=== PATIENT | female | born 1965 | race Caucasian/White ===

== ENCOUNTER 2016-04-17 13:54 | Inpatient (IN) | payer BC, OTHER ==
[2016-04-17 14:08] VITALS: BMI 34.9
--- NOTE | 2016-04-17 14:18 | PDOC ---
History of Present Illness - General Chief Complaint: Wound Infection Stated Complaint: Wound Infection Time Seen by Provider: 04/17/16 14:18 History Source: Patient Exam Limitations: No Limitations - History of Present Illness Initial Comments: 04/17/16 18:14 50 year old female presented to the ED with the chief complaints of right leg pain x 10 days. A/c to the patient, it all started 3 months ago with a small cut , developed right foot ulcer needing debridement. Patient also gets hyperbaric oxygen therapy 4times a week. However, the ulcer wasn't getting better. Started having right leg pain 10days ago, went to Dr. Moore's clinic and was given antibiotics. Patient mentions the pain, redness and swelling worsened, pain located on the right foot, stabbing in quality, 20/10 in intensity, radiating towards the left knee, noticed the redness has been progressing upto the knees, pain has limited her daily routine. Developed fever x 2 days (Tmax 100F) with chills, rigors and sweating. Pain was unbearable and had to come to the ED. Denies chest pain, sob, cough, palpitation, abdominal pain, nausea or vomiting. Past Medical Hx:Hypertension, Hyperlipidemia, Diabetes, COPD, CAD (s/p PCI), Gastritis Allergies: NKDA Past Surgical Hx: as mentioned above Social Hx: Lives with her Denies taking alcohol, no smoking, no illicit drug use Home Medication: Home Medications Medication Instructions Recorded Nebivolol [Bystolic -] 5 mg PO DAILY 06/19/14 Olmesartan Medoxomil [Benicar -] 20 mg PO DAILY 06/19/14 Furosemide [Lasix -] 40 mg PO DAILY #0 tablet 06/20/14 Aspirin [ASA -] 81 mg PO DAILY 10/26/14 Atorvastatin Ca [Lipitor] 80 mg PO HS 10/26/14 Ranitidine [Zantac -] 150 mg PO DAILY tablet 10/30/14 Acetaminophen [Tylenol .Regular 650 mg PO Q6H PRN #0 tablet 02/11/16 Strength -] Cephalexin [Keflex] 500 mg PO QID #28 capsule MDD 4 03/03/16 Insulin Degludec [Tresiba 60 unit SQ HS 04/17/16 Flextouch U-100] Metformin HCl [Glucophage -] 850 mg PO BID@0700,1630 04/17/16 Past History - Past Medical History Allergies/Adverse Reactions: Allergies Allergy/AdvReac Type Severity Reaction Status Date / Time No Known Allergies Allergy Verified 04/17/16 14:08 Home Medications: Ambulatory Orders Nebivolol [Bystolic -] 5 mg PO DAILY 06/19/14 Olmesartan Medoxomil [Benicar -] 20 mg PO DAILY 06/19/14 Furosemide [Lasix -] 40 mg PO DAILY #0 tablet 06/20/14 Aspirin [ASA -] 81 mg PO DAILY 10/26/14 Atorvastatin Ca [Lipitor] 80 mg PO HS 10/26/14 Ranitidine [Zantac -] 150 mg PO DAILY tablet 10/30/14 Acetaminophen [Tylenol .Regular Strength -] 650 mg PO Q6H PRN #0 tablet Cephalexin [Keflex] 500 mg PO QID #28 capsule MDD 4 03/03/16 Insulin Degludec [Tresiba Flextouch U-100] 60 unit SQ HS 04/17/16 Metformin HCl [Glucophage -] 850 mg PO BID@0700,1630 04/17/16 Anemia: No Asthma: No Cancer: No Cardiac Disorders: Yes (stent 08/10/14) CVA: No COPD: No CHF: Yes Dementia: No Diabetes: Yes GI Disorders: Yes (GASTRITIS) Disorders: No HTN: Yes Hypercholesterolemia: Yes Liver Disease: No Suicide Attempt (Hx): No Seizures: No Thyroid Disease: No - Surgical History Abdominal Surgery: Yes (lt ovary removed) Appendectomy: No Cardiac Surgery: Yes (stent july 2014) Cholecystectomy: No Lung Surgery: No Neurologic Surgery: No Orthopedic Surgery: No - Immunization History Immunization Up to Date: Yes - Psycho/Social/Smoking Cessation Hx Anxiety: Yes Suicidal Ideation: No Smoking History: Never smoked Have you smoked in the past 12 months: No Hx Alcohol Use: Yes ("socially") Drug/Substance Use Hx: No Substance Use Type: None Hx Substance Use Treatment: No Review of Systems - Review of Systems Able to Perform ROS?: Yes Comments:: 04/17/16 18:40 CONSTITUTIONAL:~ Present: fever, chills Absent:, diaphoresis, generalized weakness, malaise, loss of appetite HEENT: Absent: rhinorrhea, nasal congestion, throat pain, throat swelling, difficulty swallowing, mouth swelling, ear pain, eye pain, visual Changes CARDIOVASCULAR: Absent: chest pain, syncope, palpitations, irregular heart rate, lightheadedness , peripheral edema RESPIRATORY: Absent: cough, shortness of breath, dyspnea with exertion, orthopnea, wheezing, stridor, hemoptysis GASTROINTESTINAL: Absent: abdominal pain, abdominal distension, nausea, vomiting, diarrhea, constipation, melena, hematochezia GENITOURINARY: Absent: dysuria, frequency, urgency, hesitancy, hematuria, flank pain, genital pain MUSCULOSKELETAL: Present: Right leg pain, swelling of the foot, redness extending from right foot to the knee. Absent: myalgia, arthralgia, joint swelling SKIN: Absent: rash, itching, pallor HEMATOLOGIC/IMMUNOLOGIC: Absent: easy bleeding, easy bruising, lymphadenopathy, frequent infections ENDOCRINE: Absent: unexplained weight gain, unexplained weight loss, heat intolerance, cold intolerance NEUROLOGIC: Absent: headache, focal weakness or paresthesias, dizziness, unsteady gait, seizure, mental status changes, bladder or bowel incontinence PSYCHIATRIC: Absent: anxiety, depression, suicidal or homicidal ideation, hallucinations. Is the patient limited Czech proficient: No *Physical Exam - Vital Signs Last Vital Signs Temp Pulse Resp BP Pulse Ox 99.7 F H 84 20 130/72 100 04/17/16 14:05 04/17/16 14:05 04/17/16 14:05 04/17/16 14:05 04/17/16 14:05 - Physical Exam Comments: 04/17/16 18:46 PE: GENERAL: Awake, alert, and fully oriented, in no acute distress HEAD: No signs of trauma EYES: PERRLA, EOMI, sclera anicteric, conjunctiva clear ENT: redness around nose, Auricles normal inspection, hearing grossly normal, nares patent, oropharynx clear without exudates. Moist mucosa NECK: Normal ROM, supple, no lymphadenopathy, JVD, or masses LUNGS: Breath sounds equal, clear to auscultation bilaterally. No wheezes, and no crackles.. HEART: Regular rate and rhythm, normal S1 and S2, no murmurs, rubs or gallops ABDOMEN: Soft, nontender, normoactive bowel sounds. No guarding, no rebound. No masses EXTREMITIES: Left: Normal range of motion, no edema. No clubbing or cyanosis. No cords, erythema, or tenderness Right foot: round ulcer measuring 1.8 x 1 cm blackish in color, irregular ulcer measuring 6 cm x 4.5cm, redness extending from right foot to the knees in a streak line pattern, severe tenderness on palpation, raised temperature of the skin, calf tenderness NEUROLOGICAL: Cranial nerves II through XII grossly intact. Normal speech, normal gait SKIN: Warm, Dry, normal turgor, no rashes or lesions noted. ED Treatment Course - LABORATORY CBC & Chemistry Diagram: 04/17/16 14:40 04/17/16 14:40 Medical Decision Making - Medical Decision Making 04/17/16 14:20 Patient seen and examined at bed side. She is in a lot of pain in the right leg. Physical exam: Positive finding shows: Left: Normal range of motion, no edema. No clubbing or cyanosis. No cords, erythema, or tenderness Right foot: round ulcer measuring 1.8 x 1 cm blackish in color, irregular ulcer measuring 6 cm x 4.5cm, redness extending from right foot to the knees in a streak line pattern, severe tenderness on palpation, raised temperature of the skin, calf tenderness. Will order Cbc, Cmp, ESR, CRP, Lactic acid, UA, Xray of right foot, CXR IV NS 1L bolus then IV NS @ 100mls/hr IV Ketorolac for pain IV Zosyn and Vancomycin one dose given 15:30 Patient reassessed. Still complaining of pain. Will give percocet. 16:15 Patient reassessed. Pain over the right leg reduced. Spoke with Dr. Polk. Will admit the patient under Dr. Underwood. Ordered consult for Dr. Moore. Ordered Doppler US of right leg as per Dr. Polk's recommendation. 17:00 On the basis of history and physical examination, symptoms are most consistent with sepsis secondary to cellulitis. However, would like to rule out DVT. Plan: Admit the patient in Med-surg Dr. Mathew accepted the patient. Spoke with the patient and she agreed to stay for IV Antibiotics. Illness, Investigation and Plan of care explained to the patient. She verbalized understanding. Case seen and discussed with Dr. Mathews. 04/17/16 19:07 *DC/Admit/Observation/Transfer Diagnosis at time of Disposition: Cellulitis, Leg edema, right - Discharge Dispostion Admit: Yes - Referrals Referrals: Esau Underwood MD [Primary Care Provider] -
[2016-04-17] MEDS ORDERED: SODIUM CHLORIDE 0.9% 1000 ML INFUS.BAG IV PRN (14:43)
[2016-04-17] MEDS ORDERED: ACETAMINOPHEN 325 MG TABLET (FP) PO ONE (14:46)
[2016-04-17] MEDS ORDERED: KETOROLAC TROMETHAMINE 30 MG/1 ML VIAL IVPUSH ONE (14:46)
[2016-04-17] MEDS ORDERED: VANCOMYCIN 1,000 MG in DEXTROSE 5%-WATER - 250 ML IVPB ONE (14:47)
[2016-04-17] MEDS ORDERED: PIPERACILLIN/TAZOB 3.375 GM/50 ML PRE-DOCKED IVPB ONE (14:47)
[2016-04-17] MEDS ORDERED: KETOROLAC TROMETHAMINE 30 MG/1 ML VIAL ONE (15:00)
[2016-04-17] MEDS ORDERED: VANCOMYCIN 1 GRAM (PRE-DOCKED) 250 ML IVPB ONE (15:00)
[2016-04-17] MEDS ORDERED: PIPERACILLIN/TAZOB 3.375 GM 50 ML IVPB ONE (15:00)
[2016-04-17] MEDS ORDERED: ACETAMINOPHEN 325 MG TABLET (FP) ONE (15:00)
[2016-04-17 15:06] LABS: URINE APPEARANCE CLEAR; URINE BILIRUBIN NEGATIVE (NEGATIVE); URINE BLOOD 1+ (NEGATIVE); URINE COLOR LTYELLOW; URINE GLUCOSE (UA) NEGATIVE (NEGATIVE); URINE KETONE NEGATIVE (NEGATIVE); URINE LEUK ESTERASE 2+ (NEGATIVE); URINE NITRITE NEGATIVE (NEGATIVE); URINE PROTEIN NEGATIVE (NEGATIVE); URINE UROBILINOGEN NEGATIVE E.U./dl (0.2-1.0)
[2016-04-17 15:10] LABS: URINE BACTERIA RARE /hpf (NONE SEEN); URINE HYALINE CAST 4 /lpf; URINE MUCUS RARE; URINE RBC 3 /hpf (0-3); URINE WBC 6 /hpf (3-5)
[2016-04-17] MEDS ORDERED: SODIUM CHLORIDE 1,000 ML IV STA (15:27)
[2016-04-17 15:36] LABS: BILIRUBIN,TOTAL 0.4 mg/dL (0.2-1.0); CALCIUM 8.5 mg/dL (8.5-10.1); CREATININE 1.2 mg/dL (0.55-1.02); TOT PROT 7.5 g/dl (6.4-8.2)
--- NOTE | 2016-04-17 15:36 | PDOC ---
Attending Attestation - Resident Resident Name: Graciela Orta - ED Attending Attestation I have performed the following: I have examined & evaluated the patient, The case was reviewed & discussed with the resident, I agree w/resident's findings & plan, Exceptions are as noted - HPI HPI: 04/17/16 15:32 Agree with the resident's HPI as documented in the electronic medical record. - Physicial Exam PE: 04/17/16 15:32 Agree with the resident's physical examination as documented in the electronic medical record. - Medical Decision Making 04/17/16 15:32 50-year-old female with history of hypertension, diabetes, coronary artery disease, hyperlipidemia and chronic cellulitis of the right lower extremity secondary to wound on the plantar surface of her foot who presents to the emergency department with progressive pain and worsening erythema to the right lower extremity in spite of Keflex treatment for the past week. Differential diagnosis includes but is not limited to: Cellulitis, MRSA, osteomyelitis, uncontrolled diabetes, electrolyte abnormality, toxic/metabolic derangement. Plan: 1. Plain films of the foot to rule out osteal 2. Labs 3. Blood cultures 4. IV antibiotics for MRSA coverage 5. Admit for IV antibiotics as the patient has failed outpatient treatment 6. Pain management 7. Observe and reevaluate
[2016-04-17 16:55] LABS: BASOPHIL 0.6 % (0-2.0); EOSINOPHIL 0.7 % (0-4.5); MCH 27.1 pg (25.7-33.7); MCHC 32.7 g/dl (32.0-36.0); MEAN CELL VOLUME 82.8 fl (80-96); MEAN PLT VOLUME 10.4 fl (7.5-11.1); NEUTROPHILS 81.8 % (42.8-82.8); PLATELET COUNT 349 K/MM3 (134-434); RDW 14.7 % (11.6-15.6); WHITE BLOOD COUNT 14.1 K/mm3 (4.0-10.0)
[2016-04-17] MEDS ORDERED: OXYCODONE/APAP 5/325MG COMBO TABLET PO ONE (17:36)
[2016-04-17] MEDS ORDERED: OXYCODONE/APAP 5/325MG COMBO TABLET ONE (17:43)
[2016-04-17] MEDS ORDERED: KETOROLAC TROMETHAMINE 30 MG/1 ML VIAL IM PRN (19:57)
[2016-04-17] MEDS ORDERED: ONDANSETRON *ODT* 4 MG TABLET SL PRN (19:57)
[2016-04-17] MEDS ORDERED: DOCUSATE SODIUM 100 MG CAPSULE (FP) PO PRN (19:57)
[2016-04-17] MEDS ORDERED: ZOLPIDEM TARTRATE 5 MG TABLET ONE (22:20)
[2016-04-17] MEDS ORDERED: HEPARIN NA (PORCINE) 5,000 UNITS/ML 1ML VIAL ONE (22:21)
[2016-04-17] MEDS ORDERED: ATORVASTATIN CA 80 MG TABLET (FP) ONE (22:21)
[2016-04-17] MEDS ORDERED: INSULIN DETEMIR 100 UNITS/ML MDV SQ ONE (22:23)
[2016-04-17] MEDS ORDERED: oxyCODONE HCL 5 MG TABLET ONE (22:34)
[2016-04-17] MEDS: oxyCODONE HCL 5 MG TABLET PO PRN (22:43)
[2016-04-17] MEDS: HEPARIN NA (PORCINE) 5,000 UNITS/ML 1ML VIAL SQ SCH (22:44)
[2016-04-17] MEDS: INSULIN DETEMIR 100 UNITS/ML MDV SQ SCH (22:44)
[2016-04-17] MEDS: ZOLPIDEM TARTRATE 5 MG TABLET PO PRN (22:44)
[2016-04-17] MEDS: ATORVASTATIN CA 80 MG TABLET (FP) PO SCH (22:44)
[2016-04-17] MEDS: INSULIN SLIDING SCALE (NOVOLOG) 1 VIAL SQ SCH (22:45)
[2016-04-18 06:57] LABS: MCH 28.3 pg (25.7-33.7); MCHC 33.9 g/dl (32.0-36.0); MEAN CELL VOLUME 83.3 fl (80-96); MEAN PLT VOLUME 9.5 fl (7.5-11.1); PLATELET COUNT 296 K/MM3 (134-434); RDW 14.2 % (11.6-15.6); WHITE BLOOD COUNT 10.5 K/mm3 (4.0-10.0)
[2016-04-18] MEDS: INSULIN SLIDING SCALE (NOVOLOG) 1 VIAL SQ SCH ×4 (07:17→21:47)
[2016-04-18 07:24] LABS: ALBUMIN 2.4 g/dl (3.4-5.0); CALCIUM 7.7 mg/dL (8.5-10.1)
[2016-04-18 07:27] LABS: BILIRUBIN,TOTAL 0.2 mg/dL (0.2-1.0); CREATININE 1.5 mg/dL (0.55-1.02); TOT PROT 6.2 g/dl (6.4-8.2)
[2016-04-18] MEDS ORDERED: RANITIDINE HCL 150 MG TABLET (FP) ONE (09:19)
[2016-04-18] MEDS ORDERED: ASPIRIN 81 MG CHEWABLE TABLETS ONE (09:19)
[2016-04-18] MEDS ORDERED: FUROSEMIDE 40 MG TABLET (FP) ONE (09:19)
[2016-04-18] MEDS ORDERED: VALSARTAN 80 MG TABLET (UD) ONE (09:20)
[2016-04-18] MEDS ORDERED: HEPARIN NA (PORCINE) 5,000 UNITS/ML 1ML VIAL ONE (09:20)
[2016-04-18] MEDS: ASPIRIN 81 MG CHEWABLE TABLETS PO SCH (09:32)
[2016-04-18] MEDS: NEBIVOLOL 5 MG TABLET (FP) PO SCH (09:32)
[2016-04-18] MEDS: RANITIDINE HCL 150 MG TABLET (FP) PO SCH (09:33)
[2016-04-18] MEDS: HEPARIN NA (PORCINE) 5,000 UNITS/ML 1ML VIAL SQ SCH ×2 (09:33→21:46)
[2016-04-18] MEDS: VALSARTAN 160 MG TABLET (UD) PO SCH (09:33)
[2016-04-18] MEDS: FUROSEMIDE 40 MG TABLET (FP) PO SCH (09:33)
[2016-04-18] MEDS ORDERED: ACETAMINOPHEN 325 MG TABLET (FP) ONE (09:34)
[2016-04-18] MEDS ORDERED: oxyCODONE HCL 5 MG TABLET ONE (09:34)
[2016-04-18] MEDS: oxyCODONE HCL 5 MG TABLET PO PRN ×3 (09:35→21:47)
[2016-04-18] MEDS: ACETAMINOPHEN 325 MG TABLET (FP) PO PRN ×2 (09:35→21:46)
--- NOTE | 2016-04-18 13:03 | HP ---
Admitting History and Physical - Primary Care Physician PCP: Esau Underwood - Admission Chief Complaint: came in for iv abx for worsening foot ulcer History of Present Illness: sent for iv abx50 year old female presented to the ER with the chief complaints of right leg and foot pain x 10 days.she goes for hyperbaric therapy and see dr pina as outpatient who recently debrided it then later it got infected and started on kelfex but it was not getting better . she says 3 months ago had a small cut which develped into an ulcer needing debridement in ER found to have leukocytosis with elevate ESR - Past Medical History Cardiovascular: Yes: CAD (s/p pci), HTN Pulmonary: Yes: COPD ...LMP: 11/20/15 Endocrine: Yes: Diabetes Mellitus - Smoking History Smoking history: Never smoked Have you smoked in the past 12 months: No - Alcohol/Substance Use Hx Alcohol Use: Yes ("socially") Home Medications - Allergies Allergies/Adverse Reactions: Allergies Allergy/AdvReac Type Severity Reaction Status Date / Time No Known Allergies Allergy Verified 04/17/16 14:08 - Home Medications Home Medications: Ambulatory Orders Nebivolol [Bystolic -] 5 mg PO DAILY 06/19/14 Olmesartan Medoxomil [Benicar -] 20 mg PO DAILY 06/19/14 Furosemide [Lasix -] 40 mg PO DAILY #0 tablet 06/20/14 Aspirin [ASA -] 81 mg PO DAILY 10/26/14 Atorvastatin Ca [Lipitor] 80 mg PO HS 10/26/14 Ranitidine [Zantac -] 150 mg PO DAILY tablet 10/30/14 Acetaminophen [Tylenol .Regular Strength -] 650 mg PO Q6H PRN #0 tablet Cephalexin [Keflex] 500 mg PO QID #28 capsule MDD 4 03/03/16 Insulin Degludec [Tresiba Flextouch U-100] 60 unit SQ HS 04/17/16 Metformin HCl [Glucophage -] 850 mg PO BID@0700,1630 04/17/16 Family Disease History - Family Disease History Family Disease History: Heart Disease: Father ( 49 Heart attack), CA: Mother ( 71 Esophageal cancer) Physical Examination Vital Signs: Vital Signs Temperature 98.5 F 04/17/16 17:44 Pulse Rate 87 02/21/17 10:05 Respiratory Rate 18 04/18/16 10:05 Blood Pressure 119/56 04/18/16 10:05 O2 Sat by Pulse Oximetry (%) 96 04/18/16 10:05 Labs: CBC, BMP 04/18/16 06:25 04/18/16 06:25 Problem List - Problems (1) Cellulitis Assessment/Plan: with foot ulcer iv abx Code(s): L03.90 - CELLULITIS, UNSPECIFIED (2) Leg edema, right Assessment/Plan: lasix no dvt Code(s): R60.0 - LOCALIZED EDEMA (3) Diabetes Assessment/Plan: bgm ac/hs insulin hold metformin fish oil or low hdl Code(s): E11.9 - TYPE 2 DIABETES MELLITUS WITHOUT COMPLICATIONS Qualifiers: Diabetes mellitus type: type 2 Diabetes mellitus complication status: with neurologic complications Diabetes mellitus complication detail: with other neurological complication (4) Foot ulcer, right Assessment/Plan: dr pina iv abx collagenase Code(s): L97.519 - NON-PRS CHRONIC ULCER OTH PRT RIGHT FOOT W UNSP SEVERITY (5) Renal insufficiency Assessment/Plan: renal sonult renal sono Code(s): N28.9 - DISORDER OF KIDNEY AND URETER, UNSPECIFIED (6) CAD (coronary artery disease) Assessment/Plan: s/p pci asa statin bystolic Code(s): I25.10 - ATHSCL HEART DISEASE OF [place] CORONARY ARTERY W/O ANG PCTRS
--- NOTE | 2016-04-18 14:00 | PN ---
Progress Note (short form) - Note Progress Note: ID Consult dictated Cellulitis R LE Non-healing R foot ulcer , possible osteomyelitis IDDM Await c/s Surgical evaluation MRI R foot R/O abscess/ osteomyelitis Empiric vancomycin/zosyn
--- NOTE | 2016-04-18 14:53 | CONS ---
DATE OF CONSULTATION: DATE OF DICTATION: 04/18/2016 A 50-year-old insulin-dependent diabetic who is evaluated for cellulitis of the right lower extremity. The patient was hospitalized in January of 2016 with cellulitis of the right foot. She had sustained a laceration to her plantar aspect of her right foot after using a pumice stone to trim calluses. She was hospitalized for several days, received IV antibiotic therapy, and was discharged home on Keflex. She had developed a nonhealing ulceration on the plantar aspect of the right foot, for which [facility] She was undergoing hyperbaric oxygen treatments. Over the past week or so, she developed recurrent swelling, erythema, and tenderness of the right foot extending from the right 1st metatarsal head to the instep. There was also a small area of erythema present on the pretibial area. She was prescribed Keflex. Despite oral Keflex, she has had worsening of the swelling and erythema of the right foot and lower extremity, as well as fever for the past 2 days. She has had more pain on ambulation. She was seen in the emergency room, where a Doppler exam was performed of the right leg and was negative for DVT. X-ray showed no evidence of bone destruction. Past medical history positive for insulin-dependent diabetes mellitus, hypertension, hyperlipidemia, coronary artery disease, COPD. PAST SURGICAL HISTORY: Status post coronary artery stent, left oophorectomy. No known allergies. MEDICATIONS: Bystolic, Benicar, Lasix, aspirin, Lipitor, Zantac, Keflex, Glucophage. 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 She is a nonsmoker, nondrinker. SYSTEMS REVIEW: Neurologic: No loss of consciousness, seizure activity, focal weakness. Cardiac: Negative chest pain or palpitations. Respiratory: Negative cough or sputum production. Gastrointestinal: Negative vomiting or diarrhea. Genitourinary: Negative for urinary tract infection. LABORATORY DATA: White count 10.5, hematocrit 27.4, platelet count 296, BUN 25, creatinine 1.5, ESR 115, C-reactive protein 19.6. Urinalysis: 6 white cells. Blood cultures are pending. PHYSICAL EXAMINATION: General: She is awake and alert, she is not acutely toxic appearing. Vital Signs: Temperature 99.7. Blood pressure 119/56. Pulse 87, regular. Respirations 20 per minute. Eyes: Sclerae anicteric. Heart Sounds: S1, S2. Lungs: Clear bilaterally. No rhonchi, rales, or wheezes. Abdomen: Soft. No tenderness elicited. No mass, rebound, rigidity. Extremities: Examination of the right lower extremity, there is swelling of the right lower extremity from below the knee to the foot. There is hyperkeratosis involving the plantar aspect of the right 1st metatarsal with central ulceration. No purulent drainage is noted. There is erythema extending from the 1st metatarsal head to the dorsum of the foot and instep. There is also an area of erythema present in the pretibial aspect of the right lower extremity. No crepitus or fluctuance. No lymphangitic streaking. IMPRESSION: 1. Cellulitis of the right leg and right foot. 2. Nonhealing right foot ulcer, possible underlying abscess versus osteomyelitis. 3. Insulin-dependent diabetes mellitus. Await cultures, surgical evaluation for possible debridement, MRI of the right foot to rule out underlying abscess and/or osteomyelitis, empiric antibiotic coverage with vancomycin and Zosyn, local wound care. Thank you for the kind referral. IDANIA SHAH M.D. [id number]
[2016-04-18] MEDS: PIPERACILLIN/TAZOB 3.375 GM 50 ML IVPB SCH ×2 (15:17→17:00)
[2016-04-18] MEDS: VANCOMYCIN 1 GRAM (PRE-DOCKED) 250 ML IVPB SCH (15:51)
--- NOTE | 2016-04-18 16:11 | CONSULT ---
Consult Consult Specialty:: Nephrology Reason for Consultation:: KASIA - History of Present Illness Chief Complaint: right leg pain History of Present Illness: Pt is a 50 year old female who presented to the ER with right leg pain. She says they pain began about 10 days ago. She has had cellulitis in that leg in the past. She is currently getting treatment with hyperbarics. She took antibiotics as outpt however they did not help. She does complain of fever and decreased appetite. She has history of HTN, Chol, DM, and CAD. She was found to have elevated creatinine and I was called to evaluate her. She had dehydration the last time she had an episode of cellulitis. She denies dysuria or hematuria. - History Source History Provided By: Patient, Medical Record - Past Medical History Cardio/Vascular: Yes: CAD (s/p pci), HTN Pulmonary: Yes: COPD ...LMP: 11/20/15 Endocrine: Yes: Diabetes Mellitus Additional Medical History: Hyperlipidemia, Gastritis, Fatty liver - Alcohol/Substance Use Hx Alcohol Use: Yes ("socially") - Smoking History Smoking history: Never smoked Have you smoked in the past 12 months: No Home Medications - Allergies Allergies/Adverse Reactions: Allergies Allergy/AdvReac Type Severity Reaction Status Date / Time No Known Allergies Allergy Verified 04/17/16 14:08 - Home Medications Home Medications: Ambulatory Orders Nebivolol [Bystolic -] 5 mg PO DAILY 06/19/14 Olmesartan Medoxomil [Benicar -] 20 mg PO DAILY 06/19/14 Furosemide [Lasix -] 40 mg PO DAILY #0 tablet 06/20/14 Aspirin [ASA -] 81 mg PO DAILY 10/26/14 Atorvastatin Ca [Lipitor] 80 mg PO HS 10/26/14 Ranitidine [Zantac -] 150 mg PO DAILY tablet 10/30/14 Acetaminophen [Tylenol .Regular Strength -] 650 mg PO Q6H PRN #0 tablet Cephalexin [Keflex] 500 mg PO QID #28 capsule MDD 4 03/03/16 Insulin Degludec [Tresiba Flextouch U-100] 60 unit SQ HS 04/17/16 Metformin HCl [Glucophage -] 850 mg PO BID@0700,1630 04/17/16 Family Disease History - Family Disease History Family Disease History: Heart Disease: Father ( 49 Heart attack), CA: Mother ( 71 Esophageal cancer) Review of Systems - Review of Systems Constitutional: reports: Chills, Fever Eyes: reports: No Symptoms HENT: reports: No Symptoms Neck: reports: No Symptoms Cardiovascular: reports: No Symptoms Respiratory: reports: No Symptoms Gastrointestinal: reports: No Symptoms Genitourinary: reports: No Symptoms Musculoskeletal: reports: Extremity Pain Neurological: reports: No Symptoms Endocrine: reports: No Symptoms Hematology/Lymphatic: reports: No Symptoms Psychiatric: reports: No Symptoms Physical Exam Vital Signs: Vital Signs Temperature 98.5 F 04/17/16 17:44 Pulse Rate 87 04/18/16 10:05 Respiratory Rate 18 04/18/16 10:05 Blood Pressure 119/56 04/18/16 10:05 O2 Sat by Pulse Oximetry (%) 96 04/18/16 10:05 Constitutional: Yes: Calm Eyes: Yes: Conjunctiva Clear HENT: Yes: Atraumatic Neck: Yes: Supple Cardiovascular: Yes: S1, S2 Respiratory: Yes: CTA Bilaterally Gastrointestinal: Yes: Soft Renal/: Yes: WNL Extremities: Yes: Other (right leg erythema and tenderness) Integumentary: Yes: Erythema Neurological: Yes: Oriented Psychiatric: Yes: Oriented Labs: CBC, BMP 04/18/16 06:25 04/18/16 06:25 Laboratory Tests 04/17/16 14:40 Urine Color Ltyellow Urine Appearance Clear Urine pH 5.0 Urine Protein Negative Urine Glucose (UA) Negative Urine Ketones Negative Urine Blood 1+ H Ur Leukocyte Esterase 2+ H Urine RBC 3 Urine WBC 6 Laboratory Tests 10/27/14 10/28/14 10/29/14 07:20 08:30 08:58 Creatinine 1.0 0.9 0.8 02/09/16 02/10/16 02/11/16 06:10 06:30 05:15 Creatinine 1.2 H 1.2 H 1.1 H 04/18/16 06:25 Creatinine 1.5 H D Imaging - Results Chest X-ray: Report Reviewed Problem List - Problems (1) Cellulitis Code(s): L03.90 - CELLULITIS, UNSPECIFIED (2) Leg edema, right Code(s): R60.0 - LOCALIZED EDEMA (3) Renal insufficiency Code(s): N28.9 - DISORDER OF KIDNEY AND URETER, UNSPECIFIED (4) CAD (coronary artery disease) Code(s): I25.10 - ATHSCL HEART DISEASE OF [place] CORONARY ARTERY W/O ANG PCTRS (5) CHF (congestive heart failure) Code(s): I50.9 - HEART FAILURE, UNSPECIFIED (6) Chest pain Code(s): R07.9 - CHEST PAIN, UNSPECIFIED (7) Diabetes Code(s): E11.9 - TYPE 2 DIABETES MELLITUS WITHOUT COMPLICATIONS Qualifiers: Diabetes mellitus type: type 2 Diabetes mellitus complication status: with neurologic complications Diabetes mellitus complication detail: with other neurological complication Assessment/Plan Current Medications Generic Name Dose Route Start Last Admin Trade Name Freq PRN Reason Stop Dose Admin Acetaminophen 650 mg 04/17/16 19:57 04/18/16 09:35 Tylenol - PO 650 mg Q6H PRN Administration FEVER OR PAIN Aspirin 81 mg 04/18/16 10:00 04/18/16 09:32 Asa - PO 81 mg DAILY DONNA Administration Atorvastatin Calcium 80 mg 04/17/16 22:00 04/17/16 22:44 Lipitor - PO 80 mg HS DONNA Administration Collagenase 1 applic 04/18/16 16:30 Santyl - TP DAILY DONNA Docusate Sodium 100 mg 04/17/16 19:57 Colace - PO Q8H PRN CONSTIPATION Furosemide 40 mg 04/18/16 10:00 04/18/16 09:33 Lasix - PO 40 mg DAILY DONNA Administration Heparin Sodium (Porcine) 5,000 unit 04/17/16 22:00 04/18/16 09:33 Heparin - SQ 5,000 unit BID DONNA Administration Vancomycin HCl 250 mls @ 200 mls/hr 04/18/16 15:00 04/18/16 15:51 Vancomycin (Pre-Docked) IVPB 200 mls/hr BID@0300,1500 DONNA Administration Piperacillin Sod/Tazobactam Sod 50 mls @ 100 mls/hr 04/18/16 15:00 04/18/16 15: 17 Zosyn 3.375gm Ivpb (Pre-Docked) IVPB 100 mls/hr Q8H-IV DONNA Administration Protocol Insulin Aspart 1 vial 04/17/16 22:00 04/18/16 11:29 Novolog Vial Sliding Scale - SQ Not Given ACHS [facility] Protocol Insulin Detemir 40 units 04/17/16 22:00 04/17/16 22:44 Levemir Vial SQ 40 units HS DONNA Administration Nebivolol 5 mg 04/18/16 10:00 04/18/16 09:32 Bystolic - PO 5 mg DAILY DONNA Administration Ondansetron HCl 4 mg 04/17/16 19:57 Zofran Odt - SL Q8H PRN NAUSEA AND/OR VOMITING Oxycodone HCl 5 mg 04/17/16 19:57 04/18/16 15:50 Roxicodone - PO 5 mg Q6H PRN Administration PAIN Ranitidine HCl 150 mg 04/18/16 10:00 04/18/16 09:33 Zantac - PO 150 mg DAILY DONNA Administration Valsartan 160 mg 04/18/16 10:00 04/18/16 09:33 Diovan - PO 160 mg DAILY DONNA Administration Zolpidem Tartrate 10 mg 04/17/16 20:26 04/17/16 22:44 Ambien - PO 10 mg HS PRN Administration INSOMNIA Impression 1. KASIA 2. microscopic hematuria 3. DM 4. cellulitis 5. chronic leg ulcer 6. HTN 7. insomnia 8. COPD 9. CAD Plan - will order renal ultrasound - repeat labs in am - check urine lytes and creatinine - cont valsartan for now - check echo - cont with abx - will need to check vanco levels Dr Bear
--- NOTE | 2016-04-18 16:33 | CONSULT ---
Consult - Past Medical History Cardio/Vascular: Yes: CAD (s/p pci), HTN Pulmonary: Yes: COPD ...LMP: 11/20/15 Endocrine: Yes: Diabetes Mellitus Additional Medical History: Hyperlipidemia, Gastritis, Fatty liver - Alcohol/Substance Use Hx Alcohol Use: Yes ("socially") - Smoking History Smoking history: Never smoked Have you smoked in the past 12 months: No Home Medications - Allergies Allergies/Adverse Reactions: Allergies Allergy/AdvReac Type Severity Reaction Status Date / Time No Known Allergies Allergy Verified 04/17/16 14:08 - Home Medications Home Medications: Ambulatory Orders Nebivolol [Bystolic -] 5 mg PO DAILY 06/19/14 Olmesartan Medoxomil [Benicar -] 20 mg PO DAILY 06/19/14 Furosemide [Lasix -] 40 mg PO DAILY #0 tablet 06/20/14 Aspirin [ASA -] 81 mg PO DAILY 10/26/14 Atorvastatin Ca [Lipitor] 80 mg PO HS 10/26/14 Ranitidine [Zantac -] 150 mg PO DAILY tablet 10/30/14 Acetaminophen [Tylenol .Regular Strength -] 650 mg PO Q6H PRN #0 tablet Cephalexin [Keflex] 500 mg PO QID #28 capsule MDD 4 03/03/16 Insulin Degludec [Tresiba Flextouch U-100] 60 unit SQ HS 04/17/16 Metformin HCl [Glucophage -] 850 mg PO BID@0700,1630 04/17/16 Family Disease History - Family Disease History Family Disease History: Heart Disease: Father ( 49 Heart attack), CA: Mother ( 71 Esophageal cancer) Physical Exam Vital Signs: Vital Signs Temperature 98.5 F 04/17/16 17:44 Pulse Rate 87 04/18/16 10:05 Respiratory Rate 18 04/18/16 10:05 Blood Pressure 119/56 04/18/16 10:05 O2 Sat by Pulse Oximetry (%) 96 04/18/16 10:05 Labs: CBC, BMP 04/18/16 06:25 04/18/16 06:25 Assessment/Plan Vascular Surgery 50 year old female presented to the ED with the chief complaints of right leg pain x 10 days. A/c to the patient, it all started 3 months ago with a small cut , developed right foot ulcer needing debridement. Patient also gets hyperbaric oxygen therapy 4times a week. However, the ulcer wasn't getting better. Started having right leg pain 10days ago, went to Dr. Moore's clinic and was given antibiotics. Patient mentions the pain, redness and swelling worsened, pain located on the right foot, stabbing in quality, 20/10 in intensity, radiating towards the left knee, noticed the redness has been progressing upto the knees, pain has limited her daily routine. Developed fever x 2 days (Tmax 100F) with chills, rigors and sweating. Pain was unbearable and had to come to the ED. Denies chest pain, sob, cough, palpitation, abdominal pain, nausea or vomiting. Past Medical Hx:Hypertension, Hyperlipidemia, Diabetes, COPD, CAD (s/p PCI), Gastritis Allergies: NKDA Past Surgical Hx: as mentioned above Social Hx: Lives with her Denies taking alcohol, no smoking, no illicit drug use Home Medication: Home Medications Medication Instructions Recorded Nebivolol [Bystolic -] 5 mg PO DAILY 06/19/14 Olmesartan Medoxomil [Benicar -] 20 mg PO DAILY 06/19/14 Furosemide [Lasix -] 40 mg PO DAILY #0 tablet 06/20/14 Aspirin [ASA -] 81 mg PO DAILY 10/26/14 Atorvastatin Ca [Lipitor] 80 mg PO HS 10/26/14 Ranitidine [Zantac -] 150 mg PO DAILY tablet 10/30/14 Acetaminophen [Tylenol .Regular 650 mg PO Q6H PRN #0 tablet 02/11/16 Strength -] Cephalexin [Keflex] 500 mg PO QID #28 capsule MDD 4 03/03/16 Insulin Degludec [Tresiba 60 unit SQ HS 04/17/16 Flextouch U-100] Metformin HCl [Glucophage -] 850 mg PO BID@0700,1630 04/17/16 Well known to wound care clinic. PE head - NC/AT Lung - CTA Heart - RRR abd - soft,nt,nd ext - right foot with erythema up to knee. Wound on plantar foot -- probing to bone. Palpable pulses -- DP, PT A/P Right Foot plantar wound with cellulitis up to knee. 1. MRI ordered to rule out osteo. 2. Will probably need PICC prior to DC 3. IV antibiotics for now. Swapnil Jean-Baptiste DO
[2016-04-18] MEDS: COLLAGENASE CLOSTRIDIUM HIST. 30 GRAMS TUBE TP SCH (17:55)
--- NOTE | 2016-04-18 21:31 | EKG ---
Test Reason : Blood Pressure : / mmHG Vent. Rate : 078 BPM Atrial Rate : 078 BPM P-R Int : 128 ms QRS Dur : 094 ms QT Int : 416 ms P-R-T Axes : 022 -29 037 degrees QTc Int : 474 ms NORMAL SINUS RHYTHM POSSIBLE LEFT ATRIAL ENLARGEMENT LEFT VENTRICULAR HYPERTROPHY ABNORMAL ECG WHEN COMPARED WITH ECG OF 26-OCT-2014 17:27, VENT. RATE HAS DECREASED BY 51 BPM Confirmed by MAXINE GRANT, JENNIFER ([id number]) on 04/18/2016 9:31:38 PM Referred By: Confirmed By:JENNIFER GOODMAN MD
[2016-04-18 21:33] LABS: URINE CREATININE 90.2 mg/dL
[2016-04-18] MEDS: ZOLPIDEM TARTRATE 5 MG TABLET PO PRN (21:45)
[2016-04-18] MEDS: ATORVASTATIN CA 80 MG TABLET (FP) PO SCH (21:46)
[2016-04-18] MEDS: INSULIN DETEMIR 100 UNITS/ML MDV SQ SCH (21:47)
[2016-04-19] MEDS: PIPERACILLIN/TAZOB 3.375 GM 50 ML IVPB SCH ×3 (01:40→17:23)
[2016-04-19] MEDS: VANCOMYCIN 1 GRAM (PRE-DOCKED) 250 ML IVPB SCH ×2 (02:22→14:43)
[2016-04-19] MEDS: INSULIN SLIDING SCALE (NOVOLOG) 1 VIAL SQ SCH ×4 (06:03→21:21)
--- NOTE | 2016-04-19 07:32 | PN ---
Progress Note, Physician History of Present Illness: no cp or sob - Current Medication List Current Medications: Active Medications Acetaminophen (Tylenol -) 650 mg PO Q6H PRN PRN Reason: FEVER OR PAIN Last Admin: 04/18/16 21:46 Dose: 650 mg Aspirin (Asa -) 81 mg PO DAILY [facility] Last Admin: 04/18/16 09:32 Dose: 81 mg Atorvastatin Calcium (Lipitor -) 80 mg PO HS [facility] Last Admin: 04/18/16 21:46 Dose: 80 mg Collagenase (Santyl -) 1 applic TP DAILY [facility] Last Admin: 04/18/16 17:55 Dose: 1 applic Docusate Sodium (Colace -) 100 mg PO Q8H PRN PRN Reason: CONSTIPATION Furosemide (Lasix -) 40 mg PO DAILY [facility] Last Admin: 04/18/16 09:33 Dose: 40 mg Heparin Sodium (Porcine) (Heparin -) 5,000 unit SQ BID [facility] Last Admin: 04/18/16 21:46 Dose: 5,000 unit Vancomycin HCl (Vancomycin (Pre-Docked)) 250 mls @ 200 mls/hr IVPB BID@0300, 1500 [facility] Last Admin: 04/19/16 02:22 Dose: 200 mls/hr Piperacillin Sod/Tazobactam Sod (Zosyn 3.375gm Ivpb (Pre-Docked)) 50 mls @ 100 mls/hr IVPB Q8H-IV [facility] PRN Reason: Protocol Last Admin: 04/19/16 01:40 Dose: 100 mls/hr Insulin Aspart (Novolog Vial Sliding Scale -) 1 vial SQ ACHS [facility] PRN Reason: Protocol Last Admin: 04/19/16 06:03 Dose: Not Given Insulin Detemir (Levemir Vial) 40 units SQ HS [facility] Last Admin: 04/18/16 21:47 Dose: 40 units Nebivolol (Bystolic -) 5 mg PO DAILY [facility] Last Admin: 04/18/16 09:32 Dose: 5 mg Ondansetron HCl (Zofran Odt -) 4 mg SL Q8H PRN PRN Reason: NAUSEA AND/OR VOMITING Oxycodone HCl (Roxicodone -) 5 mg PO Q6H PRN PRN Reason: PAIN Last Admin: 04/18/16 21:47 Dose: 5 mg Ranitidine HCl (Zantac -) 150 mg PO DAILY [facility] Last Admin: 04/18/16 09:33 Dose: 150 mg Valsartan (Diovan -) 160 mg PO DAILY [facility] Last Admin: 04/18/16 09:33 Dose: 160 mg Zolpidem Tartrate (Ambien -) 10 mg PO HS PRN PRN Reason: INSOMNIA Last Admin: 04/18/16 21:45 Dose: 10 mg - Objective Vital Signs: Vital Signs Temperature 97.8 F 04/19/16 06:00 Pulse Rate 70 04/19/16 06:00 Respiratory Rate 18 04/19/16 06:00 Blood Pressure 125/72 04/19/16 06:00 O2 Sat by Pulse Oximetry (%) 100 04/18/16 11:15 Cardiovascular: Yes: Regular Rate and Rhythm Respiratory: Yes: Regular, CTA Bilaterally Gastrointestinal: Yes: Normal Bowel Sounds, Soft Edema: Yes Wound/Incision: Yes: Dressing Removed, Reddened, Unapproximated, Other (ulcer-- erythema) Assessment/Plan - Problems (1) Cellulitis Assessment/Plan: with foot ulcer iv abx Code(s): L03.90 - CELLULITIS, UNSPECIFIED (2) Leg edema, right Assessment/Plan: lasix no dvt Code(s): R60.0 - LOCALIZED EDEMA (3) Diabetes Assessment/Plan: bgm ac/hs insulin hold metformin fish oil or low hdl Code(s): E11.9 - TYPE 2 DIABETES MELLITUS WITHOUT COMPLICATIONS Qualifiers: Diabetes mellitus type: type 2 Diabetes mellitus complication status: with neurologic complications Diabetes mellitus complication detail: with other neurological complication (4) Foot ulcer, right--r/o osteo Assessment/Plan: dr pina iv abx collagenase mri Code(s): L97.519 - NON-PRS CHRONIC ULCER OTH PRT RIGHT FOOT W UNSP SEVERITY (5) Renal insufficiency Assessment/Plan: renal sonult renal sono Code(s): N28.9 - DISORDER OF KIDNEY AND URETER, UNSPECIFIED (6) CAD (coronary artery disease) Assessment/Plan: s/p pci asa statin bystolic Code(s): I25.10 - ATHSCL HEART DISEASE OF [place] CORONARY ARTERY W/O ANG PCTRS
[2016-04-19] MEDS ORDERED: PT OWN MED DRAWER 7, Y5N ONE (07:54)
[2016-04-19 07:55] LABS: BASOPHIL 0.7 % (0-2.0); EOSINOPHIL 2.3 % (0-4.5); MCH 27.2 pg (25.7-33.7); MCHC 32.4 g/dl (32.0-36.0); MEAN PLT VOLUME 9.4 fl (7.5-11.1); NEUTROPHILS 68.7 % (42.8-82.8); PLATELET COUNT 312 K/MM3 (134-434); RDW 14.4 % (11.6-15.6); WHITE BLOOD COUNT 10.6 K/mm3 (4.0-10.0)
[2016-04-19 08:08] LABS: CHOLESTEROL 97 mg/dL (50-200); LDL CHOLESTEROL (ONLY SJRH) 61 mg/dL (5-100)
[2016-04-19 08:10] LABS: ALBUMIN 2.5 g/dl (3.4-5.0); CALCIUM 8.2 mg/dL (8.5-10.1)
[2016-04-19 08:26] LABS: BILIRUBIN,TOTAL 0.2 mg/dL (0.2-1.0); CREATININE 1.3 mg/dL (0.55-1.02); THYROID STIMULATING HORMONE 0.98 uIU/ml (0.358-3.74); TOT PROT 6.4 g/dl (6.4-8.2)
[2016-04-19] MEDS: VALSARTAN 160 MG TABLET (UD) PO SCH (10:11)
[2016-04-19] MEDS: ASPIRIN 81 MG CHEWABLE TABLETS PO SCH (10:11)
[2016-04-19] MEDS: FUROSEMIDE 40 MG TABLET (FP) PO SCH (10:11)
[2016-04-19] MEDS: NEBIVOLOL 5 MG TABLET (FP) PO SCH (10:11)
[2016-04-19] MEDS: RANITIDINE HCL 150 MG TABLET (FP) PO SCH (10:11)
[2016-04-19] MEDS: HEPARIN NA (PORCINE) 5,000 UNITS/ML 1ML VIAL SQ SCH ×2 (10:11→21:13)
[2016-04-19] MEDS: oxyCODONE HCL 5 MG TABLET PO PRN ×3 (10:12→22:16)
[2016-04-19] MEDS: COLLAGENASE CLOSTRIDIUM HIST. 30 GRAMS TUBE TP SCH (10:12)
[2016-04-19 10:27] LABS: ERYTHROCYTE SEDIMENTATION RATE > 130 mm/hr (0-20)
--- NOTE | 2016-04-19 12:32 | PN ---
Progress Note, Physician History of Present Illness: No c/o pain No fever/ chills Tolerating antibiotics - Current Medication List Current Medications: Active Medications Acetaminophen (Tylenol -) 650 mg PO Q6H PRN PRN Reason: FEVER OR PAIN Last Admin: 04/18/16 21:46 Dose: 650 mg Aspirin (Asa -) 81 mg PO DAILY [facility] Last Admin: 04/19/16 10:11 Dose: 81 mg Atorvastatin Calcium (Lipitor -) 80 mg PO HS [facility] Last Admin: 04/18/16 21:46 Dose: 80 mg Collagenase (Santyl -) 1 applic TP DAILY [facility] Last Admin: 04/19/16 10:12 Dose: 1 applic Docusate Sodium (Colace -) 100 mg PO Q8H PRN PRN Reason: CONSTIPATION Furosemide (Lasix -) 40 mg PO DAILY [facility] Last Admin: 04/19/16 10:11 Dose: 40 mg Heparin Sodium (Porcine) (Heparin -) 5,000 unit SQ BID [facility] Last Admin: 04/19/16 10:11 Dose: 5,000 unit Vancomycin HCl (Vancomycin (Pre-Docked)) 250 mls @ 200 mls/hr IVPB BID@0300, 1500 [facility] Last Admin: 04/19/16 02:22 Dose: 200 mls/hr Piperacillin Sod/Tazobactam Sod (Zosyn 3.375gm Ivpb (Pre-Docked)) 50 mls @ 100 mls/hr IVPB Q8H-IV [facility] PRN Reason: Protocol Last Admin: 04/19/16 10:11 Dose: 100 mls/hr Insulin Aspart (Novolog Vial Sliding Scale -) 1 vial SQ ACHS [facility] PRN Reason: Protocol Last Admin: 04/19/16 11:41 Dose: Not Given Insulin Detemir (Levemir Vial) 40 units SQ HS [facility] Last Admin: 04/18/16 21:47 Dose: 40 units Nebivolol (Bystolic -) 5 mg PO DAILY [facility] Last Admin: 04/19/16 10:11 Dose: 5 mg Ondansetron HCl (Zofran Odt -) 4 mg SL Q8H PRN PRN Reason: NAUSEA AND/OR VOMITING Oxycodone HCl (Roxicodone -) 5 mg PO Q6H PRN PRN Reason: PAIN Last Admin: 04/19/16 10:12 Dose: 5 mg Ranitidine HCl (Zantac -) 150 mg PO DAILY [facility] Last Admin: 04/19/16 10:11 Dose: 150 mg Valsartan (Diovan -) 160 mg PO DAILY [facility] Last Admin: 04/19/16 10:11 Dose: 160 mg Zolpidem Tartrate (Ambien -) 10 mg PO HS PRN PRN Reason: INSOMNIA Last Admin: 04/18/16 21:45 Dose: 10 mg - Objective Vital Signs: Vital Signs Temperature 98.0 F 04/19/16 10:06 Pulse Rate 98 H 04/19/16 10:06 Respiratory Rate 18 04/19/16 10:06 Blood Pressure 160/80 04/19/16 10:06 O2 Sat by Pulse Oximetry (%) 100 04/18/16 11:15 Constitutional: Yes: No Distress Eyes: Yes: Conjunctiva Clear Cardiovascular: Yes: Regular Rate and Rhythm, S1, S2 Respiratory: Yes: CTA Bilaterally Gastrointestinal: Yes: Normal Bowel Sounds, Soft. No: Tenderness Extremities: Yes: Other (+ erythema,distal R LE and foot) Labs: CBC, BMP 04/19/16 06:00 04/19/16 06:00 Assessment/Plan Infected foot ulcer/ cellulitis/ osteomyelitis IDDM Await c/s Continue zosyn/ vancomycin
[2016-04-19] MEDS: ACETAMINOPHEN 325 MG TABLET (FP) PO PRN ×2 (14:43→21:12)
--- NOTE | 2016-04-19 18:07 | PN ---
Progress Note, Physician History of Present Illness: Pt seen and examined at bedside. She is awake and alert. She denies shortness of breath. - Current Medication List Current Medications: Active Medications Acetaminophen (Tylenol -) 650 mg PO Q6H PRN PRN Reason: FEVER OR PAIN Last Admin: 04/19/16 14:43 Dose: 650 mg Aspirin (Asa -) 81 mg PO DAILY [facility] Last Admin: 04/19/16 10:11 Dose: 81 mg Atorvastatin Calcium (Lipitor -) 80 mg PO HS [facility] Last Admin: 04/18/16 21:46 Dose: 80 mg Collagenase (Santyl -) 1 applic TP DAILY [facility] Last Admin: 04/19/16 10:12 Dose: 1 applic Docusate Sodium (Colace -) 100 mg PO Q8H PRN PRN Reason: CONSTIPATION Furosemide (Lasix -) 40 mg PO DAILY [facility] Last Admin: 04/19/16 10:11 Dose: 40 mg Heparin Sodium (Porcine) (Heparin -) 5,000 unit SQ BID [facility] Last Admin: 04/19/16 10:11 Dose: 5,000 unit Vancomycin HCl (Vancomycin (Pre-Docked)) 250 mls @ 200 mls/hr IVPB BID@0300, 1500 [facility] Last Admin: 04/19/16 14:43 Dose: 200 mls/hr Piperacillin Sod/Tazobactam Sod (Zosyn 3.375gm Ivpb (Pre-Docked)) 50 mls @ 100 mls/hr IVPB Q8H-IV [facility] PRN Reason: Protocol Last Admin: 04/19/16 17:23 Dose: 100 mls/hr Insulin Aspart (Novolog Vial Sliding Scale -) 1 vial SQ ACHS [facility] PRN Reason: Protocol Last Admin: 04/19/16 16:50 Dose: Not Given Insulin Detemir (Levemir Vial) 40 units SQ HS [facility] Last Admin: 04/18/16 21:47 Dose: 40 units Nebivolol (Bystolic -) 5 mg PO DAILY [facility] Last Admin: 04/19/16 10:11 Dose: 5 mg Ondansetron HCl (Zofran Odt -) 4 mg SL Q8H PRN PRN Reason: NAUSEA AND/OR VOMITING Oxycodone HCl (Roxicodone -) 5 mg PO Q6H PRN PRN Reason: PAIN Last Admin: 04/19/16 16:12 Dose: 5 mg Ranitidine HCl (Zantac -) 150 mg PO DAILY [facility] Last Admin: 04/19/16 10:11 Dose: 150 mg Valsartan (Diovan -) 160 mg PO DAILY [facility] Last Admin: 04/19/16 10:11 Dose: 160 mg Zolpidem Tartrate (Ambien -) 10 mg PO HS PRN PRN Reason: INSOMNIA Last Admin: 04/18/16 21:45 Dose: 10 mg - Objective Vital Signs: Vital Signs Temperature 99.3 F 04/19/16 18:00 Pulse Rate 85 04/19/16 18:00 Respiratory Rate 18 04/19/16 18:00 Blood Pressure 116/65 04/19/16 18:00 O2 Sat by Pulse Oximetry (%) 100 04/19/16 10:13 Constitutional: Yes: Calm Eyes: Yes: Conjunctiva Clear HENT: Yes: Atraumatic Cardiovascular: Yes: S1, S2 Respiratory: Yes: CTA Bilaterally Gastrointestinal: Yes: Normal Bowel Sounds, Soft, Abdomen, Obese Genitourinary: Yes: WNL Musculoskeletal: Yes: Other (right foot pain) Edema: Yes Edema: RLE: 1+ Integumentary: Yes: Erythema Neurological: Yes: Oriented Psychiatric: Yes: Oriented Labs: CBC, BMP 04/19/16 06:00 04/19/16 06:00 Problem List - Problems (1) Cellulitis Code(s): L03.90 - CELLULITIS, UNSPECIFIED (2) Leg edema, right Code(s): R60.0 - LOCALIZED EDEMA (3) Renal insufficiency Code(s): N28.9 - DISORDER OF KIDNEY AND URETER, UNSPECIFIED (4) CAD (coronary artery disease) Code(s): I25.10 - ATHSCL HEART DISEASE OF [place] CORONARY ARTERY W/O ANG PCTRS (5) CHF (congestive heart failure) Code(s): I50.9 - HEART FAILURE, UNSPECIFIED (6) Chest pain Code(s): R07.9 - CHEST PAIN, UNSPECIFIED (7) Diabetes Code(s): E11.9 - TYPE 2 DIABETES MELLITUS WITHOUT COMPLICATIONS Qualifiers: Diabetes mellitus type: type 2 Diabetes mellitus complication status: with neurologic complications Diabetes mellitus complication detail: with other neurological complication Assessment/Plan Current Medications Generic Name Dose Route Start Last Admin Trade Name Freq PRN Reason Stop Dose Admin Acetaminophen 650 mg 04/17/16 19:57 04/19/16 14:43 Tylenol - PO 650 mg Q6H PRN Administration FEVER OR PAIN Aspirin 81 mg 04/18/16 10:00 04/19/16 10:11 Asa - PO 81 mg DAILY [facility] Administration Atorvastatin Calcium 80 mg 04/17/16 22:00 04/18/16 21:46 Lipitor - PO 80 mg HS [facility] Administration Collagenase 1 applic 04/18/16 16:30 04/19/16 10:12 Santyl - TP 1 applic DAILY [facility] Administration Docusate Sodium 100 mg 04/17/16 19:57 Colace - PO Q8H PRN CONSTIPATION Furosemide 40 mg 04/18/16 10:00 04/19/16 10:11 Lasix - PO 40 mg DAILY [facility] Administration Heparin Sodium (Porcine) 5,000 unit 04/17/16 22:00 04/19/16 10:11 Heparin - SQ 5,000 unit BID [facility] Administration Vancomycin HCl 250 mls @ 200 mls/hr 04/18/16 15:00 04/19/16 14:43 Vancomycin (Pre-Docked) IVPB 200 mls/hr BID@0300,1500 [facility] Administration Piperacillin Sod/Tazobactam Sod 50 mls @ 100 mls/hr 04/18/16 15:00 04/19/16 17: 23 Zosyn 3.375gm Ivpb (Pre-Docked) IVPB 100 mls/hr Q8H-IV [facility] Administration Protocol Insulin Aspart 1 vial 04/17/16 22:00 04/19/16 16:50 Novolog Vial Sliding Scale - SQ Not Given [facility] Protocol Insulin Detemir 40 units 04/17/16 22:00 04/18/16 21:47 Levemir Vial SQ 40 units HS [facility] Administration Nebivolol 5 mg 04/18/16 10:00 04/19/16 10:11 Bystolic - PO 5 mg DAILY [facility] Administration Ondansetron HCl 4 mg 04/17/16 19:57 Zofran Odt - SL Q8H PRN NAUSEA AND/OR VOMITING Oxycodone HCl 5 mg 04/17/16 19:57 04/19/16 16:12 Roxicodone - PO 5 mg Q6H PRN Administration PAIN Ranitidine HCl 150 mg 04/18/16 10:00 04/19/16 10:11 Zantac - PO 150 mg DAILY [facility] Administration Valsartan 160 mg 04/18/16 10:00 04/19/16 10:11 Diovan - PO 160 mg DAILY [facility] Administration Zolpidem Tartrate 10 mg 04/17/16 20:26 04/18/16 21:45 Ambien - PO 10 mg HS PRN Administration INSOMNIA Impression 1. KASIA 2. microscopic hematuria 3. DM 4. cellulitis 5. chronic leg ulcer 6. HTN 7. insomnia 8. COPD 9. CAD Plan - renal function is stabilizing - pt does not want any more renal workup as inpt - cont current meds. - check urine lytes and creatinine - cont valsartan for now - check echo - cont with abx - will need to check vanco levels Dr Bear
[2016-04-19] MEDS ORDERED: INSULIN (NOVOLOG) ASPART 100 UNITS/ML 10ML VIAL ONE (20:54)
[2016-04-19] MEDS: ATORVASTATIN CA 80 MG TABLET (FP) PO SCH (21:12)
[2016-04-19] MEDS: INSULIN DETEMIR 100 UNITS/ML MDV SQ SCH (21:12)
[2016-04-19] MEDS: ZOLPIDEM TARTRATE 5 MG TABLET PO PRN (22:16)
--- NOTE | 2016-04-19 23:16 | CONSULT ---
Consult Consult Specialty:: endocrine Referred by:: dr.saba garcia Reason for Consultation:: iddm - History of Present Illness Chief Complaint: high sugars wound infection History of Present Illness: 50 year old female who presented to the ER with right leg pain. She says they pain began about 10 days ago. She has had cellulitis in that leg in the past. She is currently getting treatment with hyperbarics. She took antibiotics as outpt however they did not help. She does complain of fever and decreased appetite. She has history of HTN, Chol, DM, and CAD. She has had elevated blood sugars and increased urinary frequency,denies hypoglycemia at home regimen of insulin - History Source History Provided By: Patient - Past Medical History Cardio/Vascular: Yes: CAD (s/p pci), HTN Pulmonary: Yes: COPD ...LMP: 11/20/15 Endocrine: Yes: Diabetes Mellitus Additional Medical History: Hyperlipidemia, Gastritis, Fatty liver - Alcohol/Substance Use Hx Alcohol Use: Yes ("socially") - Smoking History Smoking history: Never smoked Have you smoked in the past 12 months: No Home Medications - Allergies Allergies/Adverse Reactions: Allergies Allergy/AdvReac Type Severity Reaction Status Date / Time No Known Allergies Allergy Verified 04/17/16 14:08 - Home Medications Home Medications: Ambulatory Orders Nebivolol [Bystolic -] 5 mg PO DAILY 06/19/14 Olmesartan Medoxomil [Benicar -] 20 mg PO DAILY 06/19/14 Furosemide [Lasix -] 40 mg PO DAILY #0 tablet 06/20/14 Aspirin [ASA -] 81 mg PO DAILY 10/26/14 Atorvastatin Ca [Lipitor] 80 mg PO HS 10/26/14 Ranitidine [Zantac -] 150 mg PO DAILY tablet 10/30/14 Acetaminophen [Tylenol .Regular Strength -] 650 mg PO Q6H PRN #0 tablet Cephalexin [Keflex] 500 mg PO QID #28 capsule MDD 4 03/03/16 Insulin Degludec [Tresiba Flextouch U-100] 60 unit SQ HS 04/17/16 Metformin HCl [Glucophage -] 850 mg PO BID@0700,1630 04/17/16 Family Disease History - Family Disease History Family Disease History: Heart Disease: Father ( 49 Heart attack), CA: Mother ( 71 Esophageal cancer) Review of Systems - Review of Systems Constitutional: reports: Loss of Appetite Eyes: reports: Blurred Vision HENT: reports: No Symptoms Neck: reports: No Symptoms Cardiovascular: reports: No Symptoms Respiratory: reports: No Symptoms Gastrointestinal: reports: Constipation Genitourinary: reports: No Symptoms Breasts: reports: No Symptoms Reported Musculoskeletal: reports: Decreased ROM, Muscle Pain, Muscle Cramps Integumentary: reports: No Symptoms Neurological: reports: Unsteady Gait, Weakness Endocrine: reports: Unexplained Weight Gain Hematology/Lymphatic: reports: No Symptoms Psychiatric: reports: No Symptoms Physical Exam Vital Signs: Vital Signs Temperature 99.3 F 04/19/16 18:00 Pulse Rate 85 04/19/16 18:00 Respiratory Rate 18 04/19/16 18:00 Blood Pressure 116/65 04/19/16 18:00 O2 Sat by Pulse Oximetry (%) 100 04/19/16 10:13 Constitutional: Yes: Calm Eyes: Yes: EOM Intact HENT: Yes: Normocephalic Neck: Yes: Trachea Midline Cardiovascular: Yes: Regular Rate and Rhythm Respiratory: Yes: CTA Bilaterally Gastrointestinal: Yes: Normal Bowel Sounds ...Rectal Exam: Yes: Deferred Renal/: Yes: WNL Breast(s): Yes: WNL Musculoskeletal: Yes: Muscle Weakness Extremities: Yes: Delayed Capillary Refill Edema: Yes Edema: RLE: 2+ Peripheral Pulses WNL: Yes Wound/Incision: Yes: Well Approximated, Dressing Dry and Intact Neurological: Yes: Alert, Oriented Labs: CBC, BMP 04/19/16 06:00 04/19/16 06:00 Problem List - Problems (1) Azotemia Code(s): R79.89 - OTHER SPECIFIED ABNORMAL FINDINGS OF BLOOD CHEMISTRY (2) CAD (coronary artery disease) Code(s): I25.10 - ATHSCL HEART DISEASE OF [place] CORONARY ARTERY W/O ANG PCTRS (3) Foot ulcer, right Code(s): L97.519 - NON-PRS CHRONIC ULCER OTH PRT RIGHT FOOT W UNSP SEVERITY (4) Controlled diabetes mellitus with peripheral circulatory disorder Code(s): E11.51 - TYPE 2 DIABETES W DIABETIC PERIPHERAL ANGIOPATH W/O GANGRENE Assessment/Plan Current Active Problems Cellulitis (Acute) Controlled diabetes mellitus with peripheral circulatory disorder (Acute) Leg edema, right (Acute) Renal insufficiency (Acute) iddm uncontrolled insulin resistant hyperglycemia Abnormal Lab Results 04/19/16 04/19/16 04/19/16 06:00 06:00 06:00 WBC 10.6 H Hgb 9.8 L Hct 30.4 L Monocytes % 10.8 H ESR > 130 H BUN 24 H Creatinine 1.3 H Random Glucose 60 L D Hemoglobin A1c % Calcium 8.2 L AST 5 L D Alkaline Phosphatase 141 H Albumin 2.5 L HDL Cholesterol 26 L 04/19/16 06:00 WBC Hgb Hct Monocytes % ESR BUN Creatinine Random Glucose Hemoglobin A1c % 7.9 H D Calcium AST Alkaline Phosphatase Albumin HDL Cholesterol Current Medications Generic Name Dose Route Start Last Admin Trade Name Freq PRN Reason Stop Dose Admin Acetaminophen 650 mg 04/17/16 19:57 04/19/16 21:12 Tylenol - PO 650 mg Q6H PRN Administration FEVER OR PAIN Aspirin 81 mg 04/18/16 10:00 04/19/16 10:11 Asa - PO 81 mg DAILY [facility] Administration Atorvastatin Calcium 80 mg 04/17/16 22:00 04/19/16 21:12 Lipitor - PO 80 mg HS [facility] Administration Collagenase 1 applic 04/18/16 16:30 04/19/16 10:12 Santyl - TP 1 applic DAILY [facility] Administration Docusate Sodium 100 mg 04/17/16 19:57 Colace - PO Q8H PRN CONSTIPATION Furosemide 40 mg 04/18/16 10:00 04/19/16 10:11 Lasix - PO 40 mg DAILY [facility] Administration Heparin Sodium (Porcine) 5,000 unit 04/17/16 22:00 04/19/16 21:13 Heparin - SQ 5,000 unit BID [facility] Administration Vancomycin HCl 250 mls @ 200 mls/hr 04/18/16 15:00 04/19/16 14:43 Vancomycin (Pre-Docked) IVPB 200 mls/hr BID@0300,1500 [facility] Administration Piperacillin Sod/Tazobactam Sod 50 mls @ 100 mls/hr 04/18/16 15:00 04/19/16 17: 23 Zosyn 3.375gm Ivpb (Pre-Docked) IVPB 100 mls/hr Q8H-IV [facility] Administration Protocol Insulin Aspart 1 vial 04/17/16 22:00 04/19/16 21:21 Novolog Vial Sliding Scale - SQ Not Given ACHS [facility] Protocol Insulin Detemir 40 units 04/17/16 22:00 04/19/16 21:12 Levemir Vial SQ 40 units HS [facility] Administration Nebivolol 5 mg 04/18/16 10:00 04/19/16 10:11 Bystolic - PO 5 mg DAILY [facility] Administration Ondansetron HCl 4 mg 04/17/16 19:57 Zofran Odt - SL Q8H PRN NAUSEA AND/OR VOMITING Oxycodone HCl 5 mg 04/17/16 19:57 04/19/16 22:16 Roxicodone - PO 5 mg Q6H PRN Administration PAIN Ranitidine HCl 150 mg 04/18/16 10:00 04/19/16 10:11 Zantac - PO 150 mg DAILY [facility] Administration Valsartan 160 mg 04/18/16 10:00 04/19/16 10:11 Diovan - PO 160 mg DAILY [facility] Administration Zolpidem Tartrate 10 mg 04/17/16 20:26 04/19/16 22:16 Ambien - PO 10 mg HS PRN Administration INSOMNIA plan add levemir 15 units am continue levemir 35 units hs bgm ac hs novolog c overage
[2016-04-19] MEDS ORDERED: INSULIN DETEMIR 100 UNITS/ML MDV SQ SCH (23:18)
[2016-04-20] MEDS: PIPERACILLIN/TAZOB 3.375 GM 50 ML IVPB SCH ×3 (02:15→17:17)
[2016-04-20] MEDS: VANCOMYCIN 1 GRAM (PRE-DOCKED) 250 ML IVPB SCH ×2 (02:50→15:16)
[2016-04-20] MEDS: ACETAMINOPHEN 325 MG TABLET (FP) PO PRN ×3 (05:14→18:42)
[2016-04-20] MEDS: INSULIN SLIDING SCALE (NOVOLOG) 1 VIAL SQ SCH ×4 (06:47→22:19)
[2016-04-20] MEDS: INSULIN DETEMIR 100 UNITS/ML MDV SQ SCH (06:47)
[2016-04-20] MEDS ORDERED: INSULIN DETEMIR 100 UNITS/ML MDV SQ SCH (07:33)
--- NOTE | 2016-04-20 07:34 | PN ---
Progress Note, Physician History of Present Illness: no cp or sob - Current Medication List Current Medications: Active Medications Acetaminophen (Tylenol -) 650 mg PO Q6H PRN PRN Reason: FEVER OR PAIN Last Admin: 04/20/16 05:14 Dose: 650 mg Aspirin (Asa -) 81 mg PO DAILY [facility] Last Admin: 04/19/16 10:11 Dose: 81 mg Atorvastatin Calcium (Lipitor -) 80 mg PO HS [facility] Last Admin: 04/19/16 21:12 Dose: 80 mg Collagenase (Santyl -) 1 applic TP DAILY [facility] Last Admin: 04/19/16 10:12 Dose: 1 applic Docusate Sodium (Colace -) 100 mg PO Q8H PRN PRN Reason: CONSTIPATION Furosemide (Lasix -) 40 mg PO DAILY [facility] Last Admin: 04/19/16 10:11 Dose: 40 mg Heparin Sodium (Porcine) (Heparin -) 5,000 unit SQ BID [facility] Last Admin: 04/19/16 21:13 Dose: 5,000 unit Vancomycin HCl (Vancomycin (Pre-Docked)) 250 mls @ 200 mls/hr IVPB BID@0300, 1500 [facility] Last Admin: 04/20/16 02:50 Dose: 200 mls/hr Piperacillin Sod/Tazobactam Sod (Zosyn 3.375gm Ivpb (Pre-Docked)) 50 mls @ 100 mls/hr IVPB Q8H-IV [facility] PRN Reason: Protocol Last Admin: 04/20/16 02:15 Dose: 100 mls/hr Insulin Aspart (Novolog Vial Sliding Scale -) 1 vial SQ ACHS [facility] PRN Reason: Protocol Last Admin: 04/20/16 06:47 Dose: Not Given Insulin Detemir (Levemir Vial) 15 units SQ AM [facility] Last Admin: 04/20/16 06:47 Dose: Not Given Insulin Detemir (Levemir Vial) 30 units SQ HS [facility] Nebivolol (Bystolic -) 5 mg PO DAILY [facility] Last Admin: 04/19/16 10:11 Dose: 5 mg Ondansetron HCl (Zofran Odt -) 4 mg SL Q8H PRN PRN Reason: NAUSEA AND/OR VOMITING Oxycodone HCl (Roxicodone -) 5 mg PO Q6H PRN PRN Reason: PAIN Last Admin: 04/19/16 22:16 Dose: 5 mg Ranitidine HCl (Zantac -) 150 mg PO DAILY [facility] Last Admin: 04/19/16 10:11 Dose: 150 mg Valsartan (Diovan -) 160 mg PO DAILY [facility] Last Admin: 04/19/16 10:11 Dose: 160 mg Zolpidem Tartrate (Ambien -) 10 mg PO HS PRN PRN Reason: INSOMNIA Last Admin: 04/19/16 22:16 Dose: 10 mg - Objective Vital Signs: Vital Signs Temperature 100.7 F H 04/20/16 05:31 Pulse Rate 86 04/20/16 05:31 Respiratory Rate 18 04/20/16 05:31 Blood Pressure 122/72 04/20/16 05:31 O2 Sat by Pulse Oximetry (%) 98 04/19/16 22:20 Cardiovascular: Yes: Regular Rate and Rhythm Respiratory: Yes: Regular, CTA Bilaterally Gastrointestinal: Yes: Normal Bowel Sounds, Soft Labs: CBC, BMP 04/19/16 06:00 Assessment/Plan - Problems (1) Cellulitis Assessment/Plan: with foot ulcer iv abx Code(s): L03.90 - CELLULITIS, UNSPECIFIED (2) Leg edema, right Assessment/Plan: lasix no dvt Code(s): R60.0 - LOCALIZED EDEMA (3) Diabetes Assessment/Plan: bgm ac/hs insulin hold metformin fish oil or low hdl Code(s): E11.9 - TYPE 2 DIABETES MELLITUS WITHOUT COMPLICATIONS Qualifiers: Diabetes mellitus type: type 2 Diabetes mellitus complication status: with neurologic complications Diabetes mellitus complication detail: with other neurological complication (4) Foot ulcer, right--r/o osteo Assessment/Plan: dr pina iv abx collagenase mri Code(s): L97.519 - NON-PRS CHRONIC ULCER OTH PRT RIGHT FOOT W UNSP SEVERITY (5) Renal insufficiency Assessment/Plan: renal sonult renal sono Code(s): N28.9 - DISORDER OF KIDNEY AND URETER, UNSPECIFIED (6) CAD (coronary artery disease) Assessment/Plan: s/p pci asa statin bystolic Code(s): I25.10 - ATHSCL HEART DISEASE OF [place] CORONARY ARTERY W/O ANG PCTRS (7) Osteomyelitis Assessment/Plan: IV ABX PICC LINE
[2016-04-20 07:48] LABS: CALCIUM 7.7 mg/dL (8.5-10.1); CREATININE 1.2 mg/dL (0.55-1.02)
[2016-04-20] MEDS: oxyCODONE HCL 5 MG TABLET PO PRN ×3 (08:07→20:54)
[2016-04-20] MEDS ORDERED: PT OWN MED DRAWER 7, Y5N ONE (09:10)
[2016-04-20] MEDS ORDERED: PICC LINE 8 ML FLUSH PROTOCOL IVPUSH PRN (09:29)
--- NOTE | 2016-04-20 09:59 | PN ---
Progress Note, Physician History of Present Illness: Reports less R LE pain + low grade fever Tolerating antibiotics Cultures pending - Current Medication List Current Medications: Active Medications Acetaminophen (Tylenol -) 650 mg PO Q6H PRN PRN Reason: FEVER OR PAIN Last Admin: 04/20/16 05:14 Dose: 650 mg Aspirin (Asa -) 81 mg PO DAILY [facility] Last Admin: 04/19/16 10:11 Dose: 81 mg Atorvastatin Calcium (Lipitor -) 80 mg PO HS [facility] Last Admin: 04/19/16 21:12 Dose: 80 mg Collagenase (Santyl -) 1 applic TP DAILY [facility] Last Admin: 04/19/16 10:12 Dose: 1 applic Docusate Sodium (Colace -) 100 mg PO Q8H PRN PRN Reason: CONSTIPATION Furosemide (Lasix -) 40 mg PO DAILY [facility] Last Admin: 04/19/16 10:11 Dose: 40 mg Heparin Sodium (Porcine) (Heparin -) 5,000 unit SQ BID [facility] Last Admin: 04/19/16 21:13 Dose: 5,000 unit IV Flush (Picc Line Flush) 8 ml IVPUSH PRN PRN PRN Reason: Protocol Vancomycin HCl (Vancomycin (Pre-Docked)) 250 mls @ 200 mls/hr IVPB BID@0300, 1500 [facility] Last Admin: 04/20/16 02:50 Dose: 200 mls/hr Piperacillin Sod/Tazobactam Sod (Zosyn 3.375gm Ivpb (Pre-Docked)) 50 mls @ 100 mls/hr IVPB Q8H-IV [facility] PRN Reason: Protocol Last Admin: 04/20/16 02:15 Dose: 100 mls/hr Insulin Aspart (Novolog Vial Sliding Scale -) 1 vial SQ ACHS [facility] PRN Reason: Protocol Last Admin: 04/20/16 06:47 Dose: Not Given Insulin Detemir (Levemir Vial) 15 units SQ AM [facility] Last Admin: 04/20/16 06:47 Dose: Not Given Insulin Detemir (Levemir Vial) 30 units SQ HS [facility] Nebivolol (Bystolic -) 5 mg PO DAILY [facility] Last Admin: 04/19/16 10:11 Dose: 5 mg Ondansetron HCl (Zofran Odt -) 4 mg SL Q8H PRN PRN Reason: NAUSEA AND/OR VOMITING Oxycodone HCl (Roxicodone -) 5 mg PO Q6H PRN PRN Reason: PAIN Last Admin: 04/20/16 08:07 Dose: 5 mg Ranitidine HCl (Zantac -) 150 mg PO DAILY [facility] Last Admin: 04/19/16 10:11 Dose: 150 mg Valsartan (Diovan -) 160 mg PO DAILY [facility] Last Admin: 04/19/16 10:11 Dose: 160 mg Zolpidem Tartrate (Ambien -) 10 mg PO HS PRN PRN Reason: INSOMNIA Last Admin: 04/19/16 22:16 Dose: 10 mg - Objective Vital Signs: Vital Signs Temperature 97.7 F 04/20/16 09:55 Pulse Rate 90 04/20/16 09:55 Respiratory Rate 18 04/20/16 09:55 Blood Pressure 130/69 04/20/16 09:55 O2 Sat by Pulse Oximetry (%) 98 04/19/16 22:20 Constitutional: Yes: No Distress Eyes: Yes: Conjunctiva Clear Cardiovascular: Yes: Regular Rate and Rhythm, S1, S2 Respiratory: Yes: CTA Bilaterally Gastrointestinal: Yes: Normal Bowel Sounds, Soft. No: Tenderness Extremities: Yes: Other (L pretibial area erythematous, warm + R foot erythema/ warmth Less tender + Ulcer 1st MT No drainage) Labs: CBC, BMP 04/19/16 06:00 04/20/16 06:00 Assessment/Plan Infected foot ulcer/ cellulitis/ osteomyelitis IDDM Await wound, blood c/s Continue zosyn/ vancomycin Local wound care Will need PICC for fpc antibiotic therapy
[2016-04-20] MEDS: RANITIDINE HCL 150 MG TABLET (FP) PO SCH (10:04)
[2016-04-20] MEDS: FUROSEMIDE 40 MG TABLET (FP) PO SCH (10:04)
[2016-04-20] MEDS: ASPIRIN 81 MG CHEWABLE TABLETS PO SCH (10:04)
[2016-04-20] MEDS: VALSARTAN 160 MG TABLET (UD) PO SCH (10:05)
[2016-04-20] MEDS: NEBIVOLOL 5 MG TABLET (FP) PO SCH (10:05)
[2016-04-20] MEDS: HEPARIN NA (PORCINE) 5,000 UNITS/ML 1ML VIAL SQ SCH ×2 (10:09→22:14)
[2016-04-20] MEDS: COLLAGENASE CLOSTRIDIUM HIST. 30 GRAMS TUBE TP SCH (10:48)
--- NOTE | 2016-04-20 14:52 | PN ---
Progress Note, Physician History of Present Illness: Pt seen and examined at bedside. She is awake and alert. She denies shortness of breath. She complains of discomfort from her leg. - Current Medication List Current Medications: Active Medications Acetaminophen (Tylenol -) 650 mg PO Q6H PRN PRN Reason: FEVER OR PAIN Last Admin: 04/20/16 13:12 Dose: 650 mg Aspirin (Asa -) 81 mg PO DAILY [facility] Last Admin: 04/20/16 10:04 Dose: 81 mg Atorvastatin Calcium (Lipitor -) 80 mg PO HS [facility] Last Admin: 04/19/16 21:12 Dose: 80 mg Collagenase (Santyl -) 1 applic TP DAILY [facility] Last Admin: 04/20/16 10:48 Dose: Not Given Docusate Sodium (Colace -) 100 mg PO Q8H PRN PRN Reason: CONSTIPATION Furosemide (Lasix -) 40 mg PO DAILY [facility] Last Admin: 04/20/16 10:04 Dose: 40 mg Heparin Sodium (Porcine) (Heparin -) 5,000 unit SQ BID [facility] Last Admin: 04/20/16 10:09 Dose: 5,000 unit IV Flush (Picc Line Flush) 8 ml IVPUSH PRN PRN PRN Reason: Protocol Vancomycin HCl (Vancomycin (Pre-Docked)) 250 mls @ 200 mls/hr IVPB BID@0300, 1500 [facility] Last Admin: 04/20/16 02:50 Dose: 200 mls/hr Piperacillin Sod/Tazobactam Sod (Zosyn 3.375gm Ivpb (Pre-Docked)) 50 mls @ 100 mls/hr IVPB Q8H-IV [facility] PRN Reason: Protocol Last Admin: 04/20/16 10:05 Dose: 100 mls/hr Insulin Aspart (Novolog Vial Sliding Scale -) 1 vial SQ ACHS [facility] PRN Reason: Protocol Last Admin: 04/20/16 11:48 Dose: Not Given Insulin Detemir (Levemir Vial) 15 units SQ AM [facility] Last Admin: 04/20/16 06:47 Dose: Not Given Insulin Detemir (Levemir Vial) 30 units SQ HS [facility] Nebivolol (Bystolic -) 5 mg PO DAILY [facility] Last Admin: 04/20/16 10:05 Dose: 5 mg Ondansetron HCl (Zofran Odt -) 4 mg SL Q8H PRN PRN Reason: NAUSEA AND/OR VOMITING Oxycodone HCl (Roxicodone -) 5 mg PO Q6H PRN PRN Reason: PAIN Last Admin: 04/20/16 14:23 Dose: 5 mg Ranitidine HCl (Zantac -) 150 mg PO DAILY [facility] Last Admin: 04/20/16 10:04 Dose: 150 mg Valsartan (Diovan -) 160 mg PO DAILY [facility] Last Admin: 04/20/16 10:05 Dose: 160 mg Zolpidem Tartrate (Ambien -) 10 mg PO HS PRN PRN Reason: INSOMNIA Last Admin: 04/19/16 22:16 Dose: 10 mg - Objective Vital Signs: Vital Signs Temperature 98.2 F 04/20/16 14:10 Pulse Rate 93 H 04/20/16 14:10 Respiratory Rate 18 04/20/16 14:10 Blood Pressure 101/67 04/20/16 14:10 O2 Sat by Pulse Oximetry (%) 98 04/20/16 09:00 Constitutional: Yes: Calm Eyes: Yes: Conjunctiva Clear HENT: Yes: Atraumatic Cardiovascular: Yes: S1, S2 Respiratory: Yes: CTA Bilaterally, On Nasal O2 Gastrointestinal: Yes: Soft, Abdomen, Obese Genitourinary: Yes: WNL Edema: Yes Wound/Incision: Yes: Dressing Dry and Intact Neurological: Yes: Oriented Psychiatric: Yes: Oriented Labs: CBC, BMP 04/19/16 06:00 04/20/16 06:00 Problem List - Problems (1) Cellulitis Code(s): L03.90 - CELLULITIS, UNSPECIFIED (2) Leg edema, right Code(s): R60.0 - LOCALIZED EDEMA (3) Renal insufficiency Code(s): N28.9 - DISORDER OF KIDNEY AND URETER, UNSPECIFIED (4) CAD (coronary artery disease) Code(s): I25.10 - ATHSCL HEART DISEASE OF [place] CORONARY ARTERY W/O ANG PCTRS (5) CHF (congestive heart failure) Code(s): I50.9 - HEART FAILURE, UNSPECIFIED (6) Chest pain Code(s): R07.9 - CHEST PAIN, UNSPECIFIED (7) Diabetes Code(s): E11.9 - TYPE 2 DIABETES MELLITUS WITHOUT COMPLICATIONS Qualifiers: Diabetes mellitus type: type 2 Diabetes mellitus complication status: with neurologic complications Diabetes mellitus complication detail: with other neurological complication Assessment/Plan Current Medications Generic Name Dose Route Start Last Admin Trade Name Freq PRN Reason Stop Dose Admin Acetaminophen 650 mg 04/17/16 19:57 04/20/16 13:12 Tylenol - PO 650 mg Q6H PRN Administration FEVER OR PAIN Aspirin 81 mg 04/18/16 10:00 04/20/16 10:04 Asa - PO 81 mg DAILY [facility] Administration Atorvastatin Calcium 80 mg 04/17/16 22:00 04/19/16 21:12 Lipitor - PO 80 mg HS [facility] Administration Collagenase 1 applic 04/18/16 16:30 04/20/16 10:48 Santyl - TP Not Given DAILY [facility] Docusate Sodium 100 mg 04/17/16 19:57 Colace - PO Q8H PRN CONSTIPATION Furosemide 40 mg 04/18/16 10:00 04/20/16 10:04 Lasix - PO 40 mg DAILY [facility] Administration Heparin Sodium (Porcine) 5,000 unit 04/17/16 22:00 04/20/16 10:09 Heparin - SQ 5,000 unit BID [facility] Administration IV Flush 8 ml 04/20/16 09:29 Picc Line Flush IVPUSH PRN PRN Protocol Vancomycin HCl 250 mls @ 200 mls/hr 04/18/16 15:00 04/20/16 02:50 Vancomycin (Pre-Docked) IVPB 200 mls/hr BID@0300,1500 [facility] Administration Piperacillin Sod/Tazobactam Sod 50 mls @ 100 mls/hr 04/18/16 15:00 04/20/16 10: 05 Zosyn 3.375gm Ivpb (Pre-Docked) IVPB 100 mls/hr Q8H-IV [facility] Administration Protocol Insulin Aspart 1 vial 04/17/16 22:00 04/20/16 11:48 Novolog Vial Sliding Scale - SQ Not Given ACHS [facility] Protocol Insulin Detemir 15 units 04/20/16 07:00 04/20/16 06:47 Levemir Vial SQ Not Given AM [facility] Insulin Detemir 30 units 04/20/16 07:33 Levemir Vial SQ HS [facility] Nebivolol 5 mg 04/18/16 10:00 04/20/16 10:05 Bystolic - PO 5 mg DAILY [facility] Administration Ondansetron HCl 4 mg 04/17/16 19:57 Zofran Odt - SL Q8H PRN NAUSEA AND/OR VOMITING Oxycodone HCl 5 mg 04/17/16 19:57 04/20/16 14:23 Roxicodone - PO 5 mg Q6H PRN Administration PAIN Ranitidine HCl 150 mg 04/18/16 10:00 04/20/16 10:04 Zantac - PO 150 mg DAILY [facility] Administration Valsartan 160 mg 04/18/16 10:00 04/20/16 10:05 Diovan - PO 160 mg DAILY [facility] Administration Zolpidem Tartrate 10 mg 04/17/16 20:26 04/19/16 22:16 Ambien - PO 10 mg HS PRN Administration INSOMNIA Laboratory Tests 04/20/16 13:30 Vancomycin Trough Pending Impression 1. KASIA 2. microscopic hematuria 3. DM 4. cellulitis 5. chronic leg ulcer 6. HTN 7. insomnia 8. COPD 9. CAD Plan - cont with lasix - cancelled renal ultrasound as she refused - repeat labs in am - cont abx - follow up cultures - cont wound care - outpt renal workup - cont valsartan for now - check echo - will need to check vanco levels Dr Bear
[2016-04-20] MEDS ORDERED: ZOLPIDEM TARTRATE 5 MG TABLET PO PRN (20:42)
[2016-04-20] MEDS ORDERED: INSULIN (NOVOLOG) ASPART 100 UNITS/ML 10ML VIAL ONE (21:09)
[2016-04-20] MEDS: ATORVASTATIN CA 80 MG TABLET (FP) PO SCH (22:14)
[2016-04-21] MEDS: PIPERACILLIN/TAZOB 3.375 GM 50 ML IVPB SCH ×2 (01:18→09:46)
[2016-04-21] MEDS: VANCOMYCIN 1 GRAM (PRE-DOCKED) 250 ML IVPB SCH (01:59)
[2016-04-21] MEDS: oxyCODONE HCL 5 MG TABLET PO PRN ×2 (03:38→09:43)
[2016-04-21] MEDS: INSULIN SLIDING SCALE (NOVOLOG) 1 VIAL SQ SCH ×2 (06:35→11:14)
[2016-04-21] MEDS: INSULIN DETEMIR 100 UNITS/ML MDV SQ SCH (06:36)
--- NOTE | 2016-04-21 08:45 | PN ---
Progress Note, Physician History of Present Illness: no cp or sob - Current Medication List Current Medications: Active Medications Acetaminophen (Tylenol -) 650 mg PO Q6H PRN PRN Reason: FEVER OR PAIN Last Admin: 04/20/16 18:42 Dose: 650 mg Aspirin (Asa -) 81 mg PO DAILY [facility] Last Admin: 04/20/16 10:04 Dose: 81 mg Atorvastatin Calcium (Lipitor -) 80 mg PO HS [facility] Last Admin: 04/20/16 22:14 Dose: 80 mg Collagenase (Santyl -) 1 applic TP DAILY [facility] Last Admin: 04/20/16 10:48 Dose: Not Given Docusate Sodium (Colace -) 100 mg PO Q8H PRN PRN Reason: CONSTIPATION Furosemide (Lasix -) 40 mg PO DAILY [facility] Last Admin: 04/20/16 10:04 Dose: 40 mg Heparin Sodium (Porcine) (Heparin -) 5,000 unit SQ BID [facility] Last Admin: 04/20/16 22:14 Dose: 5,000 unit IV Flush (Picc Line Flush) 8 ml IVPUSH PRN PRN PRN Reason: Protocol Vancomycin HCl (Vancomycin (Pre-Docked)) 250 mls @ 200 mls/hr IVPB BID@0300, 1500 [facility] Last Admin: 04/21/16 01:59 Dose: 200 mls/hr Piperacillin Sod/Tazobactam Sod (Zosyn 3.375gm Ivpb (Pre-Docked)) 50 mls @ 100 mls/hr IVPB Q8H-IV [facility] PRN Reason: Protocol Last Admin: 04/21/16 01:18 Dose: 100 mls/hr Insulin Aspart (Novolog Vial Sliding Scale -) 1 vial SQ ACHS [facility] PRN Reason: Protocol Last Admin: 04/21/16 06:35 Dose: Not Given Insulin Detemir (Levemir Vial) 15 units SQ AM [facility] Last Admin: 04/21/16 06:36 Dose: 15 units Insulin Detemir (Levemir Vial) 30 units SQ HS [facility] Last Admin: 04/20/16 22:18 Dose: 30 units Nebivolol (Bystolic -) 5 mg PO DAILY [facility] Last Admin: 04/20/16 10:05 Dose: 5 mg Ondansetron HCl (Zofran Odt -) 4 mg SL Q8H PRN PRN Reason: NAUSEA AND/OR VOMITING Oxycodone HCl (Roxicodone -) 5 mg PO Q6H PRN PRN Reason: PAIN Last Admin: 04/21/16 03:38 Dose: 5 mg Ranitidine HCl (Zantac -) 150 mg PO DAILY [facility] Last Admin: 04/20/16 10:04 Dose: 150 mg Valsartan (Diovan -) 160 mg PO DAILY [facility] Last Admin: 04/20/16 10:05 Dose: 160 mg Zolpidem Tartrate (Ambien -) 10 mg PO HS PRN PRN Reason: INSOMNIA Last Admin: 04/20/16 22:22 Dose: 10 mg - Objective Vital Signs: Vital Signs Temperature 98.4 F 04/21/16 06:06 Pulse Rate 94 H 04/21/16 06:06 Respiratory Rate 20 04/21/16 06:06 Blood Pressure 134/69 04/21/16 06:06 O2 Sat by Pulse Oximetry (%) 99 04/20/16 21:00 Cardiovascular: Yes: Regular Rate and Rhythm Respiratory: Yes: Regular, CTA Bilaterally Gastrointestinal: Yes: Normal Bowel Sounds, Soft Labs: CBC, BMP 04/19/16 06:00 04/20/16 06:00 Assessment/Plan - Problems (1) Cellulitis Assessment/Plan: with foot ulcer iv abx Code(s): L03.90 - CELLULITIS, UNSPECIFIED (2) Leg edema, right Assessment/Plan: lasix no dvt Code(s): R60.0 - LOCALIZED EDEMA (3) Diabetes Assessment/Plan: bgm ac/hs insulin hold metformin fish oil or low hdl Code(s): E11.9 - TYPE 2 DIABETES MELLITUS WITHOUT COMPLICATIONS Qualifiers: Diabetes mellitus type: type 2 Diabetes mellitus complication status: with neurologic complications Diabetes mellitus complication detail: with other neurological complication (4) Foot ulcer, right--r/o osteo Assessment/Plan: dr pina iv abx collagenase mri Code(s): L97.519 - NON-PRS CHRONIC ULCER OTH PRT RIGHT FOOT W UNSP SEVERITY (5) Renal insufficiency Assessment/Plan: renal sonult renal sono Code(s): N28.9 - DISORDER OF KIDNEY AND URETER, UNSPECIFIED (6) CAD (coronary artery disease) Assessment/Plan: s/p pci asa statin bystolic Code(s): I25.10 - ATHSCL HEART DISEASE OF [place] CORONARY ARTERY W/O ANG PCTRS (7) Osteomyelitis Assessment/Plan: IV ABX PICC LINE
[2016-04-21] MEDS: FUROSEMIDE 40 MG TABLET (FP) PO SCH (09:46)
[2016-04-21] MEDS: RANITIDINE HCL 150 MG TABLET (FP) PO SCH (09:46)
[2016-04-21] MEDS: NEBIVOLOL 5 MG TABLET (FP) PO SCH (09:46)
[2016-04-21] MEDS: COLLAGENASE CLOSTRIDIUM HIST. 30 GRAMS TUBE TP SCH (09:46)
[2016-04-21] MEDS: ASPIRIN 81 MG CHEWABLE TABLETS PO SCH (09:46)
[2016-04-21] MEDS: VALSARTAN 160 MG TABLET (UD) PO SCH (09:47)
[2016-04-21] MEDS: HEPARIN NA (PORCINE) 5,000 UNITS/ML 1ML VIAL SQ SCH (09:47)
[2016-04-21] MEDS ORDERED: PORTA CATH FLUSH 10 ML IVPUSH PRN (10:32)
--- NOTE | 2016-04-21 11:13 | PN ---
Progress Note, Physician History of Present Illness: Reports significant improvement in foot pain No fever/ chills WBC 10.6 Blood c/s (-) Wound c/s mixed - Current Medication List Current Medications: Active Medications Acetaminophen (Tylenol -) 650 mg PO Q6H PRN PRN Reason: FEVER OR PAIN Last Admin: 04/20/16 18:42 Dose: 650 mg Aspirin (Asa -) 81 mg PO DAILY [facility] Last Admin: 04/21/16 09:46 Dose: 81 mg Atorvastatin Calcium (Lipitor -) 80 mg PO HS [facility] Last Admin: 04/20/16 22:14 Dose: 80 mg Collagenase (Santyl -) 1 applic TP DAILY [facility] Last Admin: 04/21/16 09:46 Dose: 1 applic Docusate Sodium (Colace -) 100 mg PO Q8H PRN PRN Reason: CONSTIPATION Furosemide (Lasix -) 40 mg PO DAILY [facility] Last Admin: 04/21/16 09:46 Dose: 40 mg Heparin Sodium (Porcine) (Heparin -) 5,000 unit SQ BID [facility] Last Admin: 04/21/16 09:47 Dose: 5,000 unit IV Flush (Picc Line Flush) 8 ml IVPUSH PRN PRN PRN Reason: Protocol IV Flush (Sidra-Cath Flush) 10 ml IVPUSH PRN PRN PRN Reason: Protocol Vancomycin HCl (Vancomycin (Pre-Docked)) 250 mls @ 200 mls/hr IVPB BID@0300, 1500 [facility] Last Admin: 04/21/16 01:59 Dose: 200 mls/hr Piperacillin Sod/Tazobactam Sod (Zosyn 3.375gm Ivpb (Pre-Docked)) 50 mls @ 100 mls/hr IVPB Q8H-IV [facility] PRN Reason: Protocol Last Admin: 04/21/16 09:46 Dose: 100 mls/hr Insulin Aspart (Novolog Vial Sliding Scale -) 1 vial SQ ACHS [facility] PRN Reason: Protocol Last Admin: 04/21/16 06:35 Dose: Not Given Insulin Detemir (Levemir Vial) 15 units SQ AM [facility] Last Admin: 04/21/16 06:36 Dose: 15 units Insulin Detemir (Levemir Vial) 30 units SQ HS [facility] Last Admin: 04/20/16 22:18 Dose: 30 units Nebivolol (Bystolic -) 5 mg PO DAILY [facility] Last Admin: 04/21/16 09:46 Dose: 5 mg Ondansetron HCl (Zofran Odt -) 4 mg SL Q8H PRN PRN Reason: NAUSEA AND/OR VOMITING Oxycodone HCl (Roxicodone -) 5 mg PO Q6H PRN PRN Reason: PAIN Last Admin: 04/21/16 09:43 Dose: 5 mg Ranitidine HCl (Zantac -) 150 mg PO DAILY [facility] Last Admin: 04/21/16 09:46 Dose: 150 mg Valsartan (Diovan -) 160 mg PO DAILY [facility] Last Admin: 04/21/16 09:47 Dose: 160 mg Zolpidem Tartrate (Ambien -) 10 mg PO HS PRN PRN Reason: INSOMNIA Last Admin: 04/20/16 22:22 Dose: 10 mg - Objective Vital Signs: Vital Signs Temperature 98.4 F 04/21/16 09:00 Pulse Rate 80 04/21/16 09:00 Respiratory Rate 20 04/21/16 09:00 Blood Pressure 117/64 04/21/16 09:00 O2 Sat by Pulse Oximetry (%) 99 04/20/16 21:00 Constitutional: Yes: No Distress Eyes: Yes: Conjunctiva Clear Neck: Yes: Supple Cardiovascular: Yes: Regular Rate and Rhythm, S1, S2 Respiratory: Yes: CTA Bilaterally Gastrointestinal: Yes: Normal Bowel Sounds, Soft. No: Tenderness Extremities: Yes: Other (decreased erythema/ warmth L pretibial area,foot No wound drainage from plantar ulcer) Labs: CBC, BMP 04/19/16 06:00 04/20/16 06:00 Assessment/Plan Infected foot ulcer/ cellulitis/ osteomyelitis IDDM Substitute ceftriaxone 2gm IVPB x 6w + Flagyl 500mg po q8h x 6w PICC for outpatient antibiotics Local wound care
[2016-04-21] MEDS ORDERED: CEFTRIAXONE 100 ML IVPB SCH (11:50)
--- NOTE | 2016-04-21 11:59 | DS ---
Physical Examination Vital Signs: Vital Signs Temperature 98.4 F 04/21/16 09:00 Pulse Rate 80 04/21/16 09:00 Respiratory Rate 20 04/21/16 09:00 Blood Pressure 117/64 04/21/16 09:00 O2 Sat by Pulse Oximetry (%) 99 04/20/16 21:00 Cardiovascular: Yes: Regular Rate and Rhythm Respiratory: Yes: Regular, CTA Bilaterally Gastrointestinal: Yes: Normal Bowel Sounds, Soft Labs: CBC, BMP 04/19/16 06:00 04/20/16 06:00 Discharge Summary Reason For Visit: CELLULITIS LEG EDEMA, RIGHT Current Active Problems Cellulitis (Acute) Controlled diabetes mellitus with peripheral circulatory disorder (Acute) Leg edema, right (Acute) Renal insufficiency (Acute) Hospital Course: 50 year old female presented to the ER with the chief complaints of right leg and foot pain x 10 days.she goes for hyperbaric therapy and see dr pina as outpatient who recently debrided it then later it got infected and started on kelfex but it was not getting better . she says 3 months ago had a small cut which develped into an ulcer needing debridement in ER found to have leukocytosis with elevate ESR - Past Medical History Cardiovascular: Yes: CAD (s/p pci), HTN Pulmonary: Yes: COPD ...LMP: 11/20/15 Endocrine: Yes: Diabetes Mellitus - Problems (1) Cellulitis Assessment/Plan: with foot ulcer iv abx Code(s): L03.90 - CELLULITIS, UNSPECIFIED (2) Leg edema, right Assessment/Plan: lasix no dvt Code(s): R60.0 - LOCALIZED EDEMA (3) Diabetes Assessment/Plan: bgm ac/hs insulin hold metformin fish oil or low hdl Code(s): E11.9 - TYPE 2 DIABETES MELLITUS WITHOUT COMPLICATIONS Qualifiers: Diabetes mellitus type: type 2 Diabetes mellitus complication status: with neurologic complications Diabetes mellitus complication detail: with other neurological complication (4) Foot ulcer, right--C/W osteo Assessment/Plan: dr pina iv abx collagenase mri--OSTEO Code(s): L97.519 - NON-PRS CHRONIC ULCER OTH PRT RIGHT FOOT W UNSP SEVERITY (5) Renal insufficiency Assessment/Plan: renal sonult renal sono Code(s): N28.9 - DISORDER OF KIDNEY AND URETER, UNSPECIFIED (6) CAD (coronary artery disease) Assessment/Plan: s/p pci asa statin bystolic Code(s): I25.10 - ATHSCL HEART DISEASE OF [place] CORONARY ARTERY W/O ANG PCTRS (7) Osteomyelitis Assessment/Plan: IV ABX PICC LINE Condition: Improved - Instructions Diet, Activity, Other Instructions: WOUND CARE CENTER ONE WEEK Referrals: Esau Underwood MD [Primary Care Provider] - 2 Weeks Disposition: HOME - Home Medications Comprehensive Discharge Medication List: Ambulatory Orders Nebivolol [Bystolic -] 5 mg PO DAILY 06/19/14 Olmesartan Medoxomil [Benicar -] 20 mg PO DAILY 06/19/14 Furosemide [Lasix -] 40 mg PO DAILY #0 tablet 06/20/14 Aspirin [ASA -] 81 mg PO DAILY 10/26/14 Atorvastatin Ca [Lipitor] 80 mg PO HS 10/26/14 Ranitidine [Zantac -] 150 mg PO DAILY tablet 10/30/14 Acetaminophen [Tylenol .Regular Strength -] 650 mg PO Q6H PRN #0 tablet Metformin HCl [Glucophage -] 850 mg PO BID@0700,1630 04/17/16 Ceftriaxone [Rocephin 2Gm Ivpb (Pre-Docked)] 100 ml IVPB DAILY #0 bag 04/21/16 Collagenase Clostridium Hist. [Santyl -] 1 applic TP DAILY #1 tube 04/21/16 Insulin Degludec [Tresiba Flextouch U-100] 50 unit SQ HS #0 04/21/16 Metronidazole [Flagyl -] 500 mg PO TID #135 tablet 04/21/16 Ranitidine [Zantac -] 150 mg PO DAILY tablet 04/21/16
[2016-04-21] MEDS ORDERED: metroNIDAZOLE 250 MG TABLET PO SCH (14:00)
--- NOTE | 2016-04-21 14:00 | PN ---
Progress Note, Physician History of Present Illness: Pt seen and examined. She denies shortness of breath. She denies dysuria. - Current Medication List Current Medications: Active Medications Acetaminophen (Tylenol -) 650 mg PO Q6H PRN PRN Reason: FEVER OR PAIN Last Admin: 04/20/16 18:42 Dose: 650 mg Aspirin (Asa -) 81 mg PO DAILY [facility] Last Admin: 04/21/16 09:46 Dose: 81 mg Atorvastatin Calcium (Lipitor -) 80 mg PO HS [facility] Last Admin: 04/20/16 22:14 Dose: 80 mg Collagenase (Santyl -) 1 applic TP DAILY [facility] Last Admin: 04/21/16 09:46 Dose: 1 applic Docusate Sodium (Colace -) 100 mg PO Q8H PRN PRN Reason: CONSTIPATION Furosemide (Lasix -) 40 mg PO DAILY [facility] Last Admin: 04/21/16 09:46 Dose: 40 mg Heparin Sodium (Porcine) (Heparin -) 5,000 unit SQ BID [facility] Last Admin: 04/21/16 09:47 Dose: 5,000 unit IV Flush (Picc Line Flush) 8 ml IVPUSH PRN PRN PRN Reason: Protocol IV Flush (Sidra-Cath Flush) 10 ml IVPUSH PRN PRN PRN Reason: Protocol Ceftriaxone Sodium (Rocephin 2gm Ivpb (Pre-Docked)) 100 mls @ 200 mls/hr IVPB DAILY [facility] Last Admin: 04/21/16 13:31 Dose: 200 mls/hr Insulin Aspart (Novolog Vial Sliding Scale -) 1 vial SQ ACHS [facility] PRN Reason: Protocol Last Admin: 04/21/16 11:14 Dose: Not Given Insulin Detemir (Levemir Vial) 15 units SQ AM [facility] Last Admin: 04/21/16 06:36 Dose: 15 units Insulin Detemir (Levemir Vial) 30 units SQ HS [facility] Last Admin: 04/20/16 22:18 Dose: 30 units Metronidazole (Flagyl -) 500 mg PO TID [facility] Last Admin: 04/21/16 13:31 Dose: 500 mg Nebivolol (Bystolic -) 5 mg PO DAILY [facility] Last Admin: 04/21/16 09:46 Dose: 5 mg Ondansetron HCl (Zofran Odt -) 4 mg SL Q8H PRN PRN Reason: NAUSEA AND/OR VOMITING Oxycodone HCl (Roxicodone -) 5 mg PO Q6H PRN PRN Reason: PAIN Last Admin: 04/21/16 09:43 Dose: 5 mg Ranitidine HCl (Zantac -) 150 mg PO DAILY [facility] Last Admin: 04/21/16 09:46 Dose: 150 mg Valsartan (Diovan -) 160 mg PO DAILY [facility] Last Admin: 04/21/16 09:47 Dose: 160 mg Zolpidem Tartrate (Ambien -) 10 mg PO HS PRN PRN Reason: INSOMNIA Last Admin: 04/20/16 22:22 Dose: 10 mg - Objective Vital Signs: Vital Signs Temperature 98.4 F 04/21/16 09:00 Pulse Rate 80 04/21/16 09:00 Respiratory Rate 20 04/21/16 09:00 Blood Pressure 117/64 04/21/16 09:00 O2 Sat by Pulse Oximetry (%) 99 04/21/16 09:43 Constitutional: Yes: Calm Eyes: Yes: Conjunctiva Clear HENT: Yes: Atraumatic Cardiovascular: Yes: S1, S2 Respiratory: Yes: CTA Bilaterally Gastrointestinal: Yes: Soft Genitourinary: Yes: WNL Extremities: Yes: Other (dressing in place) Neurological: Yes: Oriented Psychiatric: Yes: Oriented Labs: CBC, BMP 04/19/16 06:00 04/20/16 06:00 Problem List - Problems (1) Cellulitis Code(s): L03.90 - CELLULITIS, UNSPECIFIED (2) Leg edema, right Code(s): R60.0 - LOCALIZED EDEMA (3) Renal insufficiency Code(s): N28.9 - DISORDER OF KIDNEY AND URETER, UNSPECIFIED (4) CAD (coronary artery disease) Code(s): I25.10 - ATHSCL HEART DISEASE OF [place] CORONARY ARTERY W/O ANG PCTRS (5) CHF (congestive heart failure) Code(s): I50.9 - HEART FAILURE, UNSPECIFIED (6) Chest pain Code(s): R07.9 - CHEST PAIN, UNSPECIFIED (7) Diabetes Code(s): E11.9 - TYPE 2 DIABETES MELLITUS WITHOUT COMPLICATIONS Qualifiers: Diabetes mellitus type: type 2 Diabetes mellitus complication status: with neurologic complications Diabetes mellitus complication detail: with other neurological complication Assessment/Plan Current Medications Generic Name Dose Route Start Last Admin Trade Name Freq PRN Reason Stop Dose Admin Acetaminophen 650 mg 04/17/16 19:57 04/20/16 18:42 Tylenol - PO 650 mg Q6H PRN Administration FEVER OR PAIN Aspirin 81 mg 04/18/16 10:00 04/21/16 09:46 Asa - PO 81 mg DAILY [facility] Administration Atorvastatin Calcium 80 mg 04/17/16 22:00 04/20/16 22:14 Lipitor - PO 80 mg HS [facility] Administration Collagenase 1 applic 04/18/16 16:30 04/21/16 09:46 Santyl - TP 1 applic DAILY [facility] Administration Docusate Sodium 100 mg 04/17/16 19:57 Colace - PO Q8H PRN CONSTIPATION Furosemide 40 mg 04/18/16 10:00 04/21/16 09:46 Lasix - PO 40 mg DAILY [facility] Administration Heparin Sodium (Porcine) 5,000 unit 04/17/16 22:00 04/21/16 09:47 Heparin - SQ 5,000 unit BID [facility] Administration IV Flush 8 ml 04/20/16 09:29 Picc Line Flush IVPUSH PRN PRN Protocol IV Flush 10 ml 04/21/16 10:32 Sidra-Cath Flush IVPUSH PRN PRN Protocol Ceftriaxone Sodium 100 mls @ 200 mls/hr 04/21/16 11:50 04/21/16 13:31 Rocephin 2gm Ivpb (Pre-Docked) IVPB 200 mls/hr DAILY [facility] Administration Insulin Aspart 1 vial 04/17/16 22:00 04/21/16 11:14 Novolog Vial Sliding Scale - SQ Not Given ACHS [facility] Protocol Insulin Detemir 15 units 04/20/16 07:00 04/21/16 06:36 Levemir Vial SQ 15 units AM [facility] Administration Insulin Detemir 30 units 04/20/16 07:33 04/20/16 22:18 Levemir Vial SQ 30 units HS [facility] Administration Metronidazole 500 mg 04/21/16 14:00 04/21/16 13:31 Flagyl - PO 500 mg TID [facility] Administration Nebivolol 5 mg 04/18/16 10:00 04/21/16 09:46 Bystolic - PO 5 mg DAILY [facility] Administration Ondansetron HCl 4 mg 04/17/16 19:57 Zofran Odt - SL Q8H PRN NAUSEA AND/OR VOMITING Oxycodone HCl 5 mg 04/20/16 20:43 04/21/16 09:43 Roxicodone - PO 5 mg Q6H PRN Administration PAIN Ranitidine HCl 150 mg 04/18/16 10:00 04/21/16 09:46 Zantac - PO 150 mg DAILY [facility] Administration Valsartan 160 mg 04/18/16 10:00 04/21/16 09:47 Diovan - PO 160 mg DAILY [facility] Administration Zolpidem Tartrate 10 mg 04/20/16 20:42 04/20/16 22:22 Ambien - PO 10 mg HS PRN Administration INSOMNIA Impression 1. KASIA 2. microscopic hematuria 3. DM 4. cellulitis 5. chronic leg ulcer 6. HTN 7. insomnia 8. COPD 9. CAD Plan - no new labs - cont current meds - pt will be on fdc abx - monitor renal function as outpt - cont wound care - outpt renal workup - cont valsartan for now Dr Bear
[2016-04-21 14:05] VITALS: BP 130/81; PULSE 87; TEMP 98.3
[2016-04-21 14:13] LABS: BASOPHIL 0.9 % (0-2.0); EOSINOPHIL 1.9 % (0-4.5); MCH 26.6 pg (25.7-33.7); MCHC 31.8 g/dl (32.0-36.0); MEAN CELL VOLUME 83.7 fl (80-96); NEUTROPHILS 75.3 % (42.8-82.8); PLATELET COUNT 366 K/MM3 (134-434); WHITE BLOOD COUNT 13.6 K/mm3 (4.0-10.0)
[2016-04-21 14:37] LABS: ALBUMIN 2.5 g/dl (3.4-5.0); BILIRUBIN,TOTAL 0.2 mg/dL (0.2-1.0); CALCIUM 8.2 mg/dL (8.5-10.1); CREATININE 1.2 mg/dL (0.55-1.02); TOT PROT 7.2 g/dl (6.4-8.2)
[2016-04-21 15:43] LABS: ERYTHROCYTE SEDIMENTATION RATE 126 mm/hr (0-20)
== END 2016-04-21 14:50 | disposition home or self-care (01) | DRG 593 ==
LOC: JER 13:54 → JERBED 19:06 → J7W 04-18 10:34
PROVIDERS: ADMIT Family Medicine; ATTEND Family Medicine
PROC: 05HM33Z Insertion of Infusion Device into Right Internal Jugular Vein, Percutaneous Approach (ICD-10-PCS; principal; 2016-04-21)
PROC: B513YZA Fluoroscopy of Right Jugular Veins using Other Contrast, Guidance (ICD-10-PCS; 2016-04-21)
DX: L97.519 Non-pressure chronic ulcer of other part of right foot with unspecified severity (principal); L03.115 Cellulitis of right lower limb; N17.9 Acute kidney failure, unspecified; M86.171 Other acute osteomyelitis, right ankle and foot; N28.9 Disorder of kidney and ureter, unspecified; R60.0 Localized edema; I50.9 Heart failure, unspecified; R07.9 Chest pain, unspecified; R31.29 Other microscopic hematuria; J44.9 Chronic obstructive pulmonary disease, unspecified; I25.10 Atherosclerotic heart disease of native coronary artery without angina pectoris; G47.00 Insomnia, unspecified; Z98.61 Coronary angioplasty status; Z79.4 Long term (current) use of insulin; D72.829 Elevated white blood cell count, unspecified; E13.65 Other specified diabetes mellitus with hyperglycemia; E13.51 Other specified diabetes mellitus with diabetic peripheral angiopathy without gangrene; E78.5 Hyperlipidemia, unspecified
CPT/HCPCS: 36415; 36558; 71020-TC; 73630-TC-RT; 73722-TC; 77001-TC; 80048; 80053; 80061; 81003; 81015; 82436; 82570; 83036; 83605; 83721; 84133; 84300; 84443; 84540; 85025; 85027; 85651; 86140; 87040; 87070; 87086; 87186; 87205; 93005; 93010; 93971-TC; 99285-25; A9576; C1751; G0480; J1644

== ENCOUNTER 2016-05-24 16:43 | Inpatient (IN) | payer BC, OTHER ==
[2016-05-24] MEDS ORDERED: ACETAMINOPHEN 325 MG TABLET (FP) PO PRN (17:25)
[2016-05-24] MEDS ORDERED: PIPERACILLIN/TAZOB 3.375 GM/50 ML PRE-DOCKED IVPB ONE (18:00)
[2016-05-24 18:23] VITALS: BMI 34.4
[2016-05-24] MEDS: oxyCODONE HCL 5 MG TABLET PO PRN (18:37)
[2016-05-24] MEDS: FUROSEMIDE 40 MG/4 ML INJECTABLE VIAL IVPB SCH (18:38)
[2016-05-24] MEDS ORDERED: VANCOMYCIN 1,250 MG in DEXTROSE 5%-WATER - 250 ML IVPB ONE (19:00)
[2016-05-24 20:11] LABS: BASOPHIL 0.7 % (0-2.0); EOSINOPHIL 4.5 % (0-4.5); MCH 26.7 pg (25.7-33.7); MCHC 32.7 g/dl (32.0-36.0); MEAN CELL VOLUME 81.7 fl (80-96); MEAN PLT VOLUME 9.4 fl (7.5-11.1); NEUTROPHILS 66.3 % (42.8-82.8); PLATELET COUNT 403 K/MM3 (134-434); RDW 16.3 % (11.6-15.6); WHITE BLOOD COUNT 10.2 K/mm3 (4.0-10.0)
[2016-05-24 20:25] LABS: INR 1.15 (0.82-1.09); PROTHROMBIN TIME (PATIENT) 12.7 SEC (9.98-11.88)
[2016-05-24 20:49] LABS: BILIRUBIN,TOTAL 0.2 mg/dL (0.2-1.0); CALCIUM 8.6 mg/dL (8.5-10.1); CREATININE 1.3 mg/dL (0.55-1.02); TOT PROT 7.6 g/dl (6.4-8.2)
--- NOTE | 2016-05-24 21:11 | PN ---
Progress Note (short form) - Note Progress Note: Patient seen in Wound Clinic today see note Rx Santyl to Right foot wound Sub met 1, Order written
[2016-05-24] MEDS: ATORVASTATIN CA 40 MG TABLET (FP) PO SCH (21:17)
[2016-05-24] MEDS: INSULIN DETEMIR 100 UNITS/ML MDV SQ SCH (21:18)
[2016-05-24] MEDS: HEPARIN NA (PORCINE) 5,000 UNITS/ML 1ML VIAL SQ SCH (21:18)
[2016-05-24] MEDS: INSULIN SLIDING SCALE (NOVOLOG) 1 VIAL SQ SCH (21:21)
[2016-05-24] MEDS: ZOLPIDEM TARTRATE 5 MG TABLET PO PRN (23:10)
[2016-05-25] MEDS: ALBUTEROL SO4 0.083% IH SOL 2.5 MG/3 ML VIAL.NEB. NEB SCH ×5 (00:05→23:20)
[2016-05-25] MEDS: oxyCODONE HCL 5 MG TABLET PO PRN ×3 (03:47→17:51)
[2016-05-25] MEDS: INSULIN DETEMIR 100 UNITS/ML MDV SQ SCH ×2 (06:33→23:22)
[2016-05-25] MEDS: INSULIN SLIDING SCALE (NOVOLOG) 1 VIAL SQ SCH ×4 (06:33→23:22)
[2016-05-25 07:58] LABS: BASOPHIL 1.1 % (0-2.0); EOSINOPHIL 6.3 % (0-4.5); MCH 26.9 pg (25.7-33.7); MCHC 32.9 g/dl (32.0-36.0); MEAN CELL VOLUME 81.6 fl (80-96); MEAN PLT VOLUME 9.1 fl (7.5-11.1); NEUTROPHILS 61.2 % (42.8-82.8); PLATELET COUNT 331 K/MM3 (134-434); RDW 15.6 % (11.6-15.6); WHITE BLOOD COUNT 8.4 K/mm3 (4.0-10.0)
[2016-05-25 08:43] LABS: ALBUMIN 2.5 g/dl (3.4-5.0); BILIRUBIN,TOTAL 0.2 mg/dL (0.2-1.0); CALCIUM 8.5 mg/dL (8.5-10.1); CREATININE 1.1 mg/dL (0.55-1.02); TOT PROT 6.3 g/dl (6.4-8.2)
[2016-05-25] MEDS ORDERED: PT OWN MED DRAWER 7, Y5N ONE (09:51)
[2016-05-25] MEDS: COLLAGENASE CLOSTRIDIUM HIST. 30 GRAMS TUBE TP SCH (09:53)
[2016-05-25] MEDS: FUROSEMIDE 40 MG/4 ML INJECTABLE VIAL IVPB SCH (09:53)
[2016-05-25] MEDS: ASPIRIN 81 MG CHEWABLE TABLETS PO SCH (09:53)
[2016-05-25] MEDS: VALSARTAN 160 MG TABLET (UD) PO SCH (09:53)
[2016-05-25] MEDS: HEPARIN NA (PORCINE) 5,000 UNITS/ML 1ML VIAL SQ SCH ×2 (09:53→23:11)
[2016-05-25] MEDS: NEBIVOLOL 5 MG TABLET (FP) PO SCH (09:53)
[2016-05-25] MEDS: RANITIDINE HCL 150 MG TABLET (FP) PO SCH (09:53)
--- NOTE | 2016-05-25 10:47 | HP ---
Admitting History and Physical - Primary Care Physician PCP: Esau Underwood - Admission Chief Complaint: sent in by podiatry and PMD for foot cellulitis History of Present Illness: 50 yr old female says that about 3 days ago she noticed her right foot and ankle swelling with redness, no fever at home went to see her PMD and podatrist who told her to come in for iv abx she is direct admission, had doppler of her right leg no dvt, got zosyn and vanco noted to have WBC 10.2 History Source: Patient - Past Medical History Cardiovascular: Yes: CAD (s/p pci), HTN Pulmonary: Yes: COPD ...LMP: 11/20/15 Endocrine: Yes: Diabetes Mellitus - Smoking History Smoking history: Never smoked Have you smoked in the past 12 months: No - Alcohol/Substance Use Hx Alcohol Use: Yes ("socially") Home Medications - Allergies Allergies/Adverse Reactions: Allergies Allergy/AdvReac Type Severity Reaction Status Date / Time No Known Allergies Allergy Verified 04/17/16 14:08 - Home Medications Home Medications: Ambulatory Orders Nebivolol [Bystolic -] 5 mg PO DAILY 06/19/14 Olmesartan Medoxomil [Benicar -] 20 mg PO DAILY 06/19/14 Furosemide [Lasix -] 40 mg PO DAILY #0 tablet 06/20/14 Aspirin [ASA -] 81 mg PO DAILY 10/26/14 Atorvastatin Ca [Lipitor] 80 mg PO HS 10/26/14 Acetaminophen [Tylenol .Regular Strength -] 650 mg PO Q6H PRN #0 tablet Metformin HCl [Glucophage -] 850 mg PO BID@0700,1630 04/17/16 Ceftriaxone [Rocephin 2Gm Ivpb (Pre-Docked)] 100 ml IVPB DAILY #0 bag 04/21/16 Insulin Degludec [Tresiba Flextouch U-100] 50 unit SQ HS #0 04/21/16 Metronidazole [Flagyl -] 500 mg PO TID #135 tablet 04/21/16 Ranitidine [Zantac -] 150 mg PO DAILY tablet 04/21/16 Family Disease History - Family Disease History Family Disease History: Heart Disease: Father ( 49 Heart attack), CA: Mother ( 71 Esophageal cancer) Review of Systems - Review of Systems Respiratory: reports: No Symptoms Gastrointestinal: reports: No Symptoms Genitourinary: reports: No Symptoms Musculoskeletal: reports: Other (right ankle swelling) Physical Examination Vital Signs: Vital Signs Temperature 98.4 F 05/25/16 06:00 Pulse Rate 83 05/25/16 06:00 Respiratory Rate 20 05/25/16 06:00 Blood Pressure 114/52 05/25/16 06:00 O2 Sat by Pulse Oximetry (%) 98 05/24/16 21:00 Constitutional: Yes: Calm Neck: Yes: Trachea Midline Cardiovascular: Yes: Regular Rate and Rhythm, S1, S2 Respiratory: Yes: CTA Bilaterally Gastrointestinal: Yes: Soft, Abdomen, Obese Extremities: Yes: Other (right leg and foot swelling erythema with warmth and plantar sruface of first toe open wound) Edema: Yes Labs: CBC, BMP 05/25/16 06:00 05/25/16 06:00 Imaging - Results Ultrasound: Report Reviewed Problem List - Problems (1) Cellulitis Assessment/Plan: no dvt ct scan pending iv abx per ID dvt ppx Code(s): L03.90 - CELLULITIS, UNSPECIFIED Qualifiers: Site of cellulitis: extremity Site of cellulitis of extremity: lower extremity Laterality: right Qualified Code(s): L03.115 - Cellulitis of right lower limb (2) CAD (coronary artery disease) Assessment/Plan: asa,bb,statin Code(s): I25.10 - ATHSCL HEART DISEASE OF [place] CORONARY ARTERY W/O ANG PCTRS (3) CHF (congestive heart failure) Assessment/Plan: iv lasix monitor pineda dasilva Code(s): I50.9 - HEART FAILURE, UNSPECIFIED (4) Diabetes Assessment/Plan: metformin and insulin Code(s): E11.9 - TYPE 2 DIABETES MELLITUS WITHOUT COMPLICATIONS Qualifiers: Diabetes mellitus type: type 2 Diabetes mellitus complication status: with neurologic complications Diabetes mellitus complication detail: with other neurological complication (5) Foot ulcer, right Assessment/Plan: collaganase podatiry on board Code(s): L97.519 - NON-PRS CHRONIC ULCER OTH PRT RIGHT FOOT W UNSP SEVERITY
--- NOTE | 2016-05-25 11:36 | PN ---
Progress Note (short form) - Note Progress Note: ID Consult dictated Cellulitis R foot Chronic osteomyelitis R foot Diabetes mellitus Obtain follow up ESR CRP Empiric zosyn/ vancomycin Podiatry follow up
--- NOTE | 2016-05-25 12:18 | EKG ---
Test Reason : Blood Pressure : / mmHG Vent. Rate : 088 BPM Atrial Rate : 088 BPM P-R Int : 136 ms QRS Dur : 098 ms QT Int : 384 ms P-R-T Axes : 046 -12 069 degrees QTc Int : 464 ms NORMAL SINUS RHYTHM NORMAL ECG WHEN COMPARED WITH ECG OF 17-APR-2016 15:56, NO SIGNIFICANT CHANGE WAS FOUND Confirmed by DEVON CHACON MD ([id number]) on 05/25/2016 12:17:29 PM Referred By: TIERNEY STARK Confirmed By:DEVON CHACON MD
[2016-05-25] MEDS: PIPERACILLIN/TAZOB 3.375 GM 50 ML IVPB SCH ×3 (12:26→20:35)
--- NOTE | 2016-05-25 13:17 | CONS ---
DATE OF CONSULTATION: 05/25/2016 INFECTIOUS DISEASE CONSULTATION REASON FOR CONSULTATION: The patient is a 50-year-old diabetic female evaluation for cellulitis of the right foot. HISTORY OF PRESENT ILLNESS: The patient had been hospitalized in January 2016 with cellulitis of the right foot after sustaining a laceration. She had been trimming a callus with a pumice stone. She developed a nonhealing wound which became infected and resulted in cellulitis of the right foot. She was hospitalized in March 2016 with worsening ulceration of the right great toe area and was diagnosed with osteomyelitis. Wound cultured with polymicrobial. She was treated with a course of IV antibiotic therapy. She is presently completing 5 weeks of IV ceftriaxone with oral ciprofloxacin. She also received an approximate 3-week course of metronidazole orally. She had presented [facility] yesterday with worsening pain and swelling of the right foot. She reports worsening pain, swelling and erythema involving the right instep and right ankle area. She was seen in the [facility] and was referred to the emergency room for evaluation. She denies any fever or chills. The patient has been tolerating the IV antibiotic therapy without adverse reaction. Her central catheter has been functioning well. PAST MEDICAL HISTORY: Positive for diabetes mellitus, cellulitis and osteomyelitis of the right foot, hypertension, hyperlipidemia, coronary artery disease, COPD. PAST SURGICAL HISTORY: Status post debridement of the right foot, status post coronary artery stent. ALLERGIES: No known allergies. MEDICATIONS: Include ceftriaxone, ciprofloxacin, Tylenol, Diovan, Ambien, Ventolin, Bystolic, Glucophage, Zantac, Lipitor, Levemir, Lasix, aspirin, oxycodone. 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 REVIEW OF SYSTEMS: Neurologic: No loss of consciousness, seizure activity, focal weakness. Cardiac: Negative for chest pain or palpitations. Respiratory: Negative for cough or sputum production. Gastrointestinal: Negative vomiting or diarrhea. Genitourinary: Negative for urinary tract infection. LABORATORY DATA: White count is 8.4, hematocrit 31.7, platelet count 331. BUN 26, creatinine 1.1. Blood cultures are pending. PHYSICAL EXAMINATION: General: She is awake and alert. She is not acutely toxic appearing. Vital signs: Temperature 98.4, blood pressure 114/52, pulse 83 regular, respirations 20 per minute. HEENT: Sclerae anicteric. Heart: S1, S2. Lungs: Clear. Abdomen: Soft, no tenderness elicited, no mass, rebound or rigidity. Extremities: Negative for edema. Examination of the right foot, there is a callus with a superficial ulceration present over the plantar aspect of the right 1st metatarsal. There is slight swelling of the foot. There is erythema extending from the area of the 1st metatarsal head to the instep and right medial malleolus. The erythema and swelling appear improved since my last visit 2 weeks ago. IMPRESSION: 1. Cellulitis of the right foot. 2. Chronic osteomyelitis of the right foot. 3. Diabetes mellitus. 4. Diabetic neuropathy. RECOMMENDATIONS: Pending blood culture empiric antibiotic coverage with Zosyn and vancomycin. Podiatry followup. Obtain sedimentation rate and C-reactive protein. CAT scan of the right lower extremity has been requested. Continue local wound care. Will follow. Thank you for the kind referral. IDANIA SHAH M.D. [id number]
[2016-05-25] MEDS: VANCOMYCIN 1 GRAM (PRE-DOCKED) 250 ML IVPB SCH (13:26)
[2016-05-25] MEDS: ATORVASTATIN CA 40 MG TABLET (FP) PO SCH (23:10)
[2016-05-25] MEDS: ZOLPIDEM TARTRATE 5 MG TABLET PO PRN (23:16)
[2016-05-26] MEDS: VANCOMYCIN 1 GRAM (PRE-DOCKED) 250 ML IVPB SCH ×2 (02:01→13:18)
[2016-05-26] MEDS: PIPERACILLIN/TAZOB 3.375 GM 50 ML IVPB SCH ×3 (03:39→17:41)
[2016-05-26] MEDS: ALBUTEROL SO4 0.083% IH SOL 2.5 MG/3 ML VIAL.NEB. NEB SCH ×4 (06:15→23:09)
[2016-05-26] MEDS ORDERED: PT OWN MED DRAWER 7, Y5N ONE ×3 (06:21→13:11)
[2016-05-26] MEDS: INSULIN DETEMIR 100 UNITS/ML MDV SQ SCH ×2 (07:06→22:23)
[2016-05-26] MEDS: INSULIN SLIDING SCALE (NOVOLOG) 1 VIAL SQ SCH ×4 (07:07→22:34)
--- NOTE | 2016-05-26 07:42 | PN ---
Progress Note, Physician Chief Complaint: Red hot foot History of Present Illness: Aleksandrcandice rakesh in wound care on 05/24/13 naila incresed cellulitis and pain to Right foot, sent to ER for admission - Current Medication List Current Medications: Active Medications Acetaminophen (Tylenol -) 650 mg PO Q4H PRN PRN Reason: FEVER OR PAIN Last Admin: 05/24/16 18:38 Dose: 650 mg Albuterol Sulfate (Ventolin 0.083% Nebulizer Soln -) 1 amp NEB Q6HPO [facility] Last Admin: 05/26/16 06:15 Dose: Not Given Aspirin (Asa -) 81 mg PO DAILY [facility] Last Admin: 05/25/16 09:53 Dose: 81 mg Atorvastatin Calcium (Lipitor -) 80 mg PO HS [facility] Last Admin: 05/25/16 23:10 Dose: 80 mg Collagenase (Santyl -) 1 applic TP DAILY [facility] Last Admin: 05/25/16 09:53 Dose: 1 applic Furosemide (Lasix Injection -) 40 mg IVPB DAILY [facility] Last Admin: 05/25/16 09:53 Dose: 40 mg Heparin Sodium (Porcine) (Heparin -) 5,000 unit SQ BID [facility] Last Admin: 05/25/16 23:11 Dose: 5,000 unit Vancomycin HCl (Vancomycin (Pre-Docked)) 250 mls @ 166.667 mls/hr IVPB BID@0000 ,1200 [facility] Last Admin: 05/26/16 02:01 Dose: 166.667 mls/hr Piperacillin Sod/Tazobactam Sod (Zosyn 3.375gm Ivpb (Pre-Docked)) 50 mls @ 100 mls/hr IVPB Q8H-IV [facility] PRN Reason: Protocol Last Admin: 05/26/16 03:39 Dose: 100 mls/hr Insulin Aspart (Novolog Vial Sliding Scale -) 1 vial SQ ACHS [facility] PRN Reason: Protocol Last Admin: 05/26/16 07:07 Dose: Not Given Insulin Detemir (Levemir Vial) 25 units SQ BID@0700,2200 [facility] Last Admin: 05/26/16 07:06 Dose: 25 units Metformin HCl (Glucophage -) 850 mg PO BID@0700,1630 [facility] Last Admin: 05/26/16 07:06 Dose: 850 mg Nebivolol (Bystolic -) 5 mg PO DAILY [facility] Last Admin: 05/25/16 09:53 Dose: 5 mg Oxycodone HCl (Roxicodone -) 5 mg PO Q6H PRN PRN Reason: PAIN Last Admin: 05/25/16 17:51 Dose: 5 mg Ranitidine HCl (Zantac -) 150 mg PO DAILY [facility] Last Admin: 05/25/16 09:53 Dose: 150 mg Valsartan (Diovan -) 160 mg PO DAILY [facility] Last Admin: 05/25/16 09:53 Dose: 160 mg Zolpidem Tartrate (Ambien -) 5 mg PO HS PRN Last Admin: 05/25/16 23:16 Dose: 5 mg - Objective Vital Signs: Vital Signs Temperature 99.0 F 05/25/16 18:00 Pulse Rate 90 05/25/16 18:00 Respiratory Rate 20 05/25/16 21:00 Blood Pressure 127/64 05/25/16 18:00 O2 Sat by Pulse Oximetry (%) 96 05/25/16 21:00 Constitutional: Yes: Well Nourished, No Distress, Calm Eyes: Yes: WNL HENT: Yes: WNL Neck: Yes: WNL Respiratory: Yes: WNL Musculoskeletal: Yes: WNL Edema: LLE: Trace, RLE: Trace Peripheral Pulses WNL: Yes Peripheral Pulses: Left Doralis Pedis: 2+, Right Dorsalis Pedis: 2+, Left Femoral: 2+, Right Femoral: 2+ Integumentary: Yes: WNL Wound/Incision: Yes: Dressing Dry and Intact (Upon removal full thickness ulcer sub met 1 Right, clean no signs of infection. Medial arch area warm red non fluctuant no signs of abscess) Neurological: Yes: WNL, Alert, Oriented, Cran Nerves II-XII Intact ...Motor Strength: WNL Psychiatric: Yes: Alert, Oriented Labs: CBC, BMP 05/25/16 06:00 05/25/16 06:00 INR, PTT INR 1.15 (0.82-1.09) H 05/24/16 17:55 Problem List - Problems (1) Cellulitis Code(s): L03.90 - CELLULITIS, UNSPECIFIED Qualifiers: Site of cellulitis: extremity Site of cellulitis of extremity: lower extremity Laterality: right Qualified Code(s): L03.115 - Cellulitis of right lower limb (2) Chronic diabetic ulcer of right foot determined by examination Code(s): E11.621 - TYPE 2 DIABETES MELLITUS WITH FOOT ULCER L97.519 - NON-PRS CHRONIC ULCER OTH PRT RIGHT FOOT W UNSP SEVERITY Assessment/Plan 1) Resolving Cellulits 2) Continue IV Abx as per infxs Dz 3) Awaiting CT scan results, if negative for abscess patient surgically stable for D/C. If CT scan positive for abscess I will perform I&D 4) Local wound care as Rx'd 5) Follow up in Wound Center upon D/C 6) Will follow
--- NOTE | 2016-05-26 08:36 | PN ---
Progress Note, Physician History of Present Illness: FEELS BETTER - Current Medication List Current Medications: Active Medications Acetaminophen (Tylenol -) 650 mg PO Q4H PRN PRN Reason: FEVER OR PAIN Last Admin: 05/24/16 18:38 Dose: 650 mg Albuterol Sulfate (Ventolin 0.083% Nebulizer Soln -) 1 amp NEB Q6HPO [facility] Last Admin: 05/26/16 06:15 Dose: Not Given Aspirin (Asa -) 81 mg PO DAILY [facility] Last Admin: 05/25/16 09:53 Dose: 81 mg Atorvastatin Calcium (Lipitor -) 80 mg PO HS [facility] Last Admin: 05/25/16 23:10 Dose: 80 mg Collagenase (Santyl -) 1 applic TP DAILY [facility] Last Admin: 05/25/16 09:53 Dose: 1 applic Furosemide (Lasix Injection -) 40 mg IVPB DAILY [facility] Last Admin: 05/25/16 09:53 Dose: 40 mg Heparin Sodium (Porcine) (Heparin -) 5,000 unit SQ BID [facility] Last Admin: 05/25/16 23:11 Dose: 5,000 unit Vancomycin HCl (Vancomycin (Pre-Docked)) 250 mls @ 166.667 mls/hr IVPB BID@0000 ,1200 [facility] Last Admin: 05/26/16 02:01 Dose: 166.667 mls/hr Piperacillin Sod/Tazobactam Sod (Zosyn 3.375gm Ivpb (Pre-Docked)) 50 mls @ 100 mls/hr IVPB Q8H-IV [facility] PRN Reason: Protocol Last Admin: 05/26/16 03:39 Dose: 100 mls/hr Insulin Aspart (Novolog Vial Sliding Scale -) 1 vial SQ ACHS [facility] PRN Reason: Protocol Last Admin: 05/26/16 07:07 Dose: Not Given Insulin Detemir (Levemir Vial) 25 units SQ BID@0700,2200 [facility] Last Admin: 05/26/16 07:06 Dose: 25 units Metformin HCl (Glucophage -) 850 mg PO BID@0700,1630 [facility] Last Admin: 05/26/16 07:06 Dose: 850 mg Nebivolol (Bystolic -) 5 mg PO DAILY [facility] Last Admin: 05/25/16 09:53 Dose: 5 mg Oxycodone HCl (Roxicodone -) 5 mg PO Q6H PRN PRN Reason: PAIN Last Admin: 05/25/16 17:51 Dose: 5 mg Ranitidine HCl (Zantac -) 150 mg PO DAILY [facility] Last Admin: 05/25/16 09:53 Dose: 150 mg Valsartan (Diovan -) 160 mg PO DAILY [facility] Last Admin: 05/25/16 09:53 Dose: 160 mg Zolpidem Tartrate (Ambien -) 5 mg PO HS PRN Last Admin: 05/25/16 23:16 Dose: 5 mg - Objective Vital Signs: Vital Signs Temperature 99.0 F 05/25/16 18:00 Pulse Rate 90 05/25/16 18:00 Respiratory Rate 20 05/25/16 21:00 Blood Pressure 127/64 05/25/16 18:00 O2 Sat by Pulse Oximetry (%) 96 05/25/16 21:00 Cardiovascular: Yes: Regular Rate and Rhythm Respiratory: Yes: Regular, CTA Bilaterally Gastrointestinal: Yes: Normal Bowel Sounds, Soft Extremities: Yes: Other (LESS REDNESS LES SWELLING) Labs: CBC, BMP 05/25/16 06:00 INR, PTT INR 1.15 (0.82-1.09) H 05/24/16 17:55 Assessment/Plan - Problems (1) Cellulitis Assessment/Plan: no dvt ct scan pending iv abx per ID dvt ppx Code(s): L03.90 - CELLULITIS, UNSPECIFIED Qualifiers: Site of cellulitis: extremity Site of cellulitis of extremity: lower extremity Laterality: right Qualified Code(s): L03.115 - Cellulitis of right lower limb (2) CAD (coronary artery disease) Assessment/Plan: asa,bb,statin Code(s): I25.10 - ATHSCL HEART DISEASE OF [place] CORONARY ARTERY W/O ANG PCTRS (3) CHF (congestive heart failure) Assessment/Plan: iv lasix monitor lytes diovan Code(s): I50.9 - HEART FAILURE, UNSPECIFIED (4) Diabetes Assessment/Plan: metformin and insulin Code(s): E11.9 - TYPE 2 DIABETES MELLITUS WITHOUT COMPLICATIONS Qualifiers: Diabetes mellitus type: type 2 Diabetes mellitus complication status: with neurologic complications Diabetes mellitus complication detail: with other neurological complication (5) Foot ulcer, right Assessment/Plan: collaganase podatiry on board Code(s): L97.519 - NON-PRS CHRONIC ULCER OTH PRT RIGHT FOOT W UNSP SEVERITY
[2016-05-26 08:39] LABS: CALCIUM 8.5 mg/dL (8.5-10.1); CREATININE 1.1 mg/dL (0.55-1.02)
[2016-05-26] MEDS: NEBIVOLOL 5 MG TABLET (FP) PO SCH (10:03)
[2016-05-26] MEDS: HEPARIN NA (PORCINE) 5,000 UNITS/ML 1ML VIAL SQ SCH ×2 (10:03→22:23)
[2016-05-26] MEDS: ASPIRIN 81 MG CHEWABLE TABLETS PO SCH (10:03)
[2016-05-26] MEDS: RANITIDINE HCL 150 MG TABLET (FP) PO SCH (10:03)
[2016-05-26] MEDS: VALSARTAN 160 MG TABLET (UD) PO SCH (10:03)
[2016-05-26] MEDS: FUROSEMIDE 40 MG/4 ML INJECTABLE VIAL IVPB SCH (10:04)
[2016-05-26] MEDS: COLLAGENASE CLOSTRIDIUM HIST. 30 GRAMS TUBE TP SCH (10:04)
[2016-05-26] MEDS: oxyCODONE HCL 5 MG TABLET PO PRN ×2 (10:20→17:50)
--- NOTE | 2016-05-26 15:43 | PN ---
Progress Note, Physician History of Present Illness: CT shows R foot abscess Reports less foot pain Afebrile ESR 126---> 89 CRP 19---> 6.6 - Current Medication List Current Medications: Active Medications Acetaminophen (Tylenol -) 650 mg PO Q4H PRN PRN Reason: FEVER OR PAIN Last Admin: 05/24/16 18:38 Dose: 650 mg Albuterol Sulfate (Ventolin 0.083% Nebulizer Soln -) 1 amp NEB Q6HPO [facility] Last Admin: 05/26/16 11:28 Dose: Not Given Aspirin (Asa -) 81 mg PO DAILY [facility] Last Admin: 05/26/16 10:03 Dose: 81 mg Atorvastatin Calcium (Lipitor -) 80 mg PO HS [facility] Last Admin: 05/25/16 23:10 Dose: 80 mg Collagenase (Santyl -) 1 applic TP DAILY [facility] Last Admin: 05/26/16 10:04 Dose: 1 applic Furosemide (Lasix Injection -) 40 mg IVPB DAILY [facility] Last Admin: 05/26/16 10:04 Dose: 40 mg Heparin Sodium (Porcine) (Heparin -) 5,000 unit SQ BID [facility] Last Admin: 05/26/16 10:03 Dose: 5,000 unit Vancomycin HCl (Vancomycin (Pre-Docked)) 250 mls @ 166.667 mls/hr IVPB BID@0000 ,1200 [facility] Last Admin: 05/26/16 13:18 Dose: 166.667 mls/hr Piperacillin Sod/Tazobactam Sod (Zosyn 3.375gm Ivpb (Pre-Docked)) 50 mls @ 100 mls/hr IVPB Q8H-IV [facility] PRN Reason: Protocol Last Admin: 05/26/16 10:04 Dose: 100 mls/hr Insulin Aspart (Novolog Vial Sliding Scale -) 1 vial SQ ACHS [facility] PRN Reason: Protocol Last Admin: 05/26/16 11:57 Dose: Not Given Insulin Detemir (Levemir Vial) 25 units SQ BID@0700,2200 [facility] Last Admin: 05/26/16 07:06 Dose: 25 units Metformin HCl (Glucophage -) 850 mg PO BID@0700,1630 [facility] Last Admin: 05/26/16 07:06 Dose: 850 mg Nebivolol (Bystolic -) 5 mg PO DAILY [facility] Last Admin: 05/26/16 10:03 Dose: 5 mg Oxycodone HCl (Roxicodone -) 5 mg PO Q6H PRN PRN Reason: PAIN Last Admin: 05/26/16 10:20 Dose: 5 mg Ranitidine HCl (Zantac -) 150 mg PO DAILY [facility] Last Admin: 05/26/16 10:03 Dose: 150 mg Valsartan (Diovan -) 160 mg PO DAILY [facility] Last Admin: 05/26/16 10:03 Dose: 160 mg Zolpidem Tartrate (Ambien -) 5 mg PO HS PRN Last Admin: 05/25/16 23:16 Dose: 5 mg - Objective Vital Signs: Vital Signs Temperature 98.2 F 05/26/16 14:31 Pulse Rate 78 05/26/16 14:31 Respiratory Rate 18 05/26/16 14:31 Blood Pressure 123/54 05/26/16 14:31 O2 Sat by Pulse Oximetry (%) 96 05/26/16 11:24 Constitutional: Yes: No Distress Eyes: Yes: Conjunctiva Clear Cardiovascular: Yes: Regular Rate and Rhythm, S1, S2 Respiratory: Yes: CTA Bilaterally Gastrointestinal: Yes: Normal Bowel Sounds, Soft Extremities: Yes: Other (R foot swollen; erythema decreased ulcer no drainage) Labs: CBC, BMP 05/25/16 06:00 05/26/16 05:40 INR, PTT INR 1.15 (0.82-1.09) H 05/24/16 17:55 Assessment/Plan Osteomyelitis R foot R foot abscess Diabetes mellitus Podiatry follow up Continue vancomycin/ zosyn
--- NOTE | 2016-05-26 18:46 | PN ---
Progress Note (short form) - Note Progress Note: Patient seen at bedside to discuss results of CT scan from today which showed a deep abscess in her foot. Also present in the room was her and her Mother in law. I have recommended to the patient she have an Incision and Drainage in the Operating Room since the abscess is deep. Patient refused surgical management stating that she would like to continue the IV abx she is on now, she feels that her foot feels and looks better and as a result she wants to just continue with antibiotics. I have explained risks of refusing surgery including but not limited to loss of toe, foot, leg and possibly life. She and her demonstrated verbal understanding of all that was said to them and still refuse surgical management. Continue local wound care as directed Problem List - Problems (1) Cellulitis Code(s): L03.90 - CELLULITIS, UNSPECIFIED Qualifiers: Site of cellulitis: extremity Site of cellulitis of extremity: lower extremity Laterality: right Qualified Code(s): L03.115 - Cellulitis of right lower limb (2) Chronic diabetic ulcer of right foot determined by examination Code(s): E11.621 - TYPE 2 DIABETES MELLITUS WITH FOOT ULCER L97.519 - NON-PRS CHRONIC ULCER OTH PRT RIGHT FOOT W UNSP SEVERITY
[2016-05-26] MEDS: ZOLPIDEM TARTRATE 5 MG TABLET PO PRN (22:22)
[2016-05-26] MEDS: ATORVASTATIN CA 40 MG TABLET (FP) PO SCH (22:22)
[2016-05-27] MEDS: VANCOMYCIN 1 GRAM (PRE-DOCKED) 250 ML IVPB SCH ×3 (01:35→23:02)
[2016-05-27] MEDS: PIPERACILLIN/TAZOB 3.375 GM 50 ML IVPB SCH ×3 (04:14→17:51)
[2016-05-27] MEDS: INSULIN SLIDING SCALE (NOVOLOG) 1 VIAL SQ SCH ×4 (06:34→21:33)
[2016-05-27] MEDS: INSULIN DETEMIR 100 UNITS/ML MDV SQ SCH ×2 (06:34→21:34)
[2016-05-27] MEDS: ALBUTEROL SO4 0.083% IH SOL 2.5 MG/3 ML VIAL.NEB. NEB SCH ×5 (06:49→23:34)
[2016-05-27] MEDS: oxyCODONE HCL 5 MG TABLET PO PRN ×2 (09:04→19:11)
[2016-05-27] MEDS: FUROSEMIDE 40 MG/4 ML INJECTABLE VIAL IVPB SCH (09:52)
[2016-05-27] MEDS: ASPIRIN 81 MG CHEWABLE TABLETS PO SCH (09:52)
[2016-05-27] MEDS: RANITIDINE HCL 150 MG TABLET (FP) PO SCH (09:52)
[2016-05-27] MEDS: VALSARTAN 160 MG TABLET (UD) PO SCH (09:52)
[2016-05-27] MEDS: HEPARIN NA (PORCINE) 5,000 UNITS/ML 1ML VIAL SQ SCH ×2 (09:53→21:34)
[2016-05-27] MEDS: NEBIVOLOL 5 MG TABLET (FP) PO SCH (09:56)
[2016-05-27] MEDS ORDERED: PT OWN MED DRAWER 7, Y5N ONE (09:56)
[2016-05-27] MEDS: COLLAGENASE CLOSTRIDIUM HIST. 30 GRAMS TUBE TP SCH (11:43)
--- NOTE | 2016-05-27 13:21 | PN ---
Progress Note, Physician - Current Medication List Current Medications: Active Medications Acetaminophen (Tylenol -) 650 mg PO Q4H PRN PRN Reason: FEVER OR PAIN Last Admin: 05/24/16 18:38 Dose: 650 mg Albuterol Sulfate (Ventolin 0.083% Nebulizer Soln -) 1 amp NEB Q6HPO [facility] Last Admin: 05/27/16 11:36 Dose: Not Given Aspirin (Asa -) 81 mg PO DAILY [facility] Last Admin: 05/27/16 09:52 Dose: 81 mg Atorvastatin Calcium (Lipitor -) 80 mg PO HS [facility] Last Admin: 05/26/16 22:22 Dose: 80 mg Collagenase (Santyl -) 1 applic TP DAILY [facility] Last Admin: 05/27/16 11:43 Dose: 1 applic Furosemide (Lasix Injection -) 40 mg IVPB DAILY [facility] Last Admin: 05/27/16 09:52 Dose: 40 mg Heparin Sodium (Porcine) (Heparin -) 5,000 unit SQ BID [facility] Last Admin: 05/27/16 09:53 Dose: 5,000 unit Vancomycin HCl (Vancomycin (Pre-Docked)) 250 mls @ 166.667 mls/hr IVPB BID@0000 ,1200 [facility] Last Admin: 05/27/16 01:35 Dose: 166.667 mls/hr Piperacillin Sod/Tazobactam Sod (Zosyn 3.375gm Ivpb (Pre-Docked)) 50 mls @ 100 mls/hr IVPB Q8H-IV [facility] PRN Reason: Protocol Last Admin: 05/27/16 09:52 Dose: 100 mls/hr Insulin Aspart (Novolog Vial Sliding Scale -) 1 vial SQ ACHS [facility] PRN Reason: Protocol Last Admin: 05/27/16 11:43 Dose: Not Given Insulin Detemir (Levemir Vial) 25 units SQ BID@0700,2200 [facility] Last Admin: 05/27/16 06:34 Dose: 25 units Metformin HCl (Glucophage -) 850 mg PO BID@0700,1630 [facility] Last Admin: 05/27/16 06:30 Dose: Not Given Nebivolol (Bystolic -) 5 mg PO DAILY [facility] Last Admin: 05/27/16 09:56 Dose: 5 mg Oxycodone HCl (Roxicodone -) 5 mg PO Q6H PRN PRN Reason: PAIN Last Admin: 05/27/16 09:04 Dose: 5 mg Ranitidine HCl (Zantac -) 150 mg PO DAILY [facility] Last Admin: 05/27/16 09:52 Dose: 150 mg Valsartan (Diovan -) 160 mg PO DAILY [facility] Last Admin: 05/27/16 09:52 Dose: 160 mg Zolpidem Tartrate (Ambien -) 5 mg PO HS PRN Last Admin: 05/26/16 22:22 Dose: 5 mg - Objective Vital Signs: Vital Signs Temperature 98 F 05/27/16 09:39 Pulse Rate 84 05/27/16 09:39 Respiratory Rate 20 05/27/16 09:39 Blood Pressure 142/78 05/27/16 09:39 O2 Sat by Pulse Oximetry (%) 94 L 05/27/16 11:00 Labs: CBC, BMP 05/25/16 06:00 05/26/16 05:40 INR, PTT INR 1.15 (0.82-1.09) H 05/24/16 17:55
[2016-05-27] MEDS ORDERED: FLUCONAZOLE 50 MG TABLET PO ONE (15:57)
--- NOTE | 2016-05-27 15:59 | PN ---
Progress Note, Physician History of Present Illness: RESULTS D/W PT AND -WILL PROCEED WITH SURGERY - Current Medication List Current Medications: Active Medications Acetaminophen (Tylenol -) 650 mg PO Q4H PRN PRN Reason: FEVER OR PAIN Last Admin: 05/24/16 18:38 Dose: 650 mg Albuterol Sulfate (Ventolin 0.083% Nebulizer Soln -) 1 amp NEB Q6HPO [facility] Last Admin: 05/27/16 11:36 Dose: Not Given Aspirin (Asa -) 81 mg PO DAILY [facility] Last Admin: 05/27/16 09:52 Dose: 81 mg Atorvastatin Calcium (Lipitor -) 80 mg PO HS [facility] Last Admin: 05/26/16 22:22 Dose: 80 mg Collagenase (Santyl -) 1 applic TP DAILY [facility] Last Admin: 05/27/16 11:43 Dose: 1 applic Fluconazole (Diflucan -) 150 mg PO ONCE ONE Stop: 05/27/16 15:58 Furosemide (Lasix Injection -) 40 mg IVPB DAILY [facility] Last Admin: 05/27/16 09:52 Dose: 40 mg Heparin Sodium (Porcine) (Heparin -) 5,000 unit SQ BID [facility] Last Admin: 05/27/16 09:53 Dose: 5,000 unit Vancomycin HCl (Vancomycin (Pre-Docked)) 250 mls @ 166.667 mls/hr IVPB BID@0000 ,1200 [facility] Last Admin: 05/27/16 13:21 Dose: 166.667 mls/hr Piperacillin Sod/Tazobactam Sod (Zosyn 3.375gm Ivpb (Pre-Docked)) 50 mls @ 100 mls/hr IVPB Q8H-IV [facility] PRN Reason: Protocol Last Admin: 05/27/16 09:52 Dose: 100 mls/hr Insulin Aspart (Novolog Vial Sliding Scale -) 1 vial SQ ACHS [facility] PRN Reason: Protocol Last Admin: 05/27/16 11:43 Dose: Not Given Insulin Detemir (Levemir Vial) 25 units SQ BID@0700,2200 [facility] Last Admin: 05/27/16 06:34 Dose: 25 units Metformin HCl (Glucophage -) 850 mg PO BID@0700,1630 [facility] Last Admin: 05/27/16 06:30 Dose: Not Given Nebivolol (Bystolic -) 5 mg PO DAILY [facility] Last Admin: 05/27/16 09:56 Dose: 5 mg Oxycodone HCl (Roxicodone -) 5 mg PO Q6H PRN PRN Reason: PAIN Last Admin: 05/27/16 09:04 Dose: 5 mg Ranitidine HCl (Zantac -) 150 mg PO DAILY [facility] Last Admin: 05/27/16 09:52 Dose: 150 mg Valsartan (Diovan -) 160 mg PO DAILY [facility] Last Admin: 05/27/16 09:52 Dose: 160 mg Zolpidem Tartrate (Ambien -) 5 mg PO HS PRN Last Admin: 05/26/16 22:22 Dose: 5 mg - Objective Vital Signs: Vital Signs Temperature 98.9 F 05/27/16 14:51 Pulse Rate 83 05/27/16 14:51 Respiratory Rate 20 05/27/16 14:51 Blood Pressure 117/64 05/27/16 14:51 O2 Sat by Pulse Oximetry (%) 94 L 05/27/16 11:00 Cardiovascular: Yes: Regular Rate and Rhythm Respiratory: Yes: Regular, CTA Bilaterally Gastrointestinal: Yes: Normal Bowel Sounds, Soft Extremities: Yes: Other (TENDERNESS PLANTAR ASPECT) Edema: Yes Labs: CBC, BMP 05/25/16 06:00 05/26/16 05:40 INR, PTT INR 1.15 (0.82-1.09) H 05/24/16 17:55 Assessment/Plan - Problems (1) Cellulitis Assessment/Plan: no dvt ct scan C/W ABSCESS--WILL PLACE CALL TO PODIATRY iv abx per ID dvt ppx Code(s): L03.90 - CELLULITIS, UNSPECIFIED Qualifiers: Site of cellulitis: extremity Site of cellulitis of extremity: lower extremity Laterality: right Qualified Code(s): L03.115 - Cellulitis of right lower limb (2) CAD (coronary artery disease) Assessment/Plan: asa,bb,statin Code(s): I25.10 - ATHSCL HEART DISEASE OF [place] CORONARY ARTERY W/O ANG PCTRS (3) CHF (congestive heart failure) Assessment/Plan: ??DIASTOLIC--WILL REVIEW ECHO lasix monitor lytes diovan CARDIO Code(s): I50.9 - HEART FAILURE, UNSPECIFIED (4) Diabetes Assessment/Plan: metformin and insulin Code(s): E11.9 - TYPE 2 DIABETES MELLITUS WITHOUT COMPLICATIONS Qualifiers: Diabetes mellitus type: type 2 Diabetes mellitus complication status: with neurologic complications Diabetes mellitus complication detail: with other neurological complication (5) Foot ulcer, right Assessment/Plan: [facility] podiatry on board FOR SURGERY FOR EXPLORATION Code(s): L97.519 - NON-PRS CHRONIC ULCER OTH PRT RIGHT FOOT W UNSP SEVERITY
[2016-05-27] MEDS: ESCITALOPRAM OXALATE 10 MG TABLET (FP) PO SCH (16:51)
[2016-05-27] MEDS: ATORVASTATIN CA 40 MG TABLET (FP) PO SCH (21:35)
[2016-05-27] MEDS: ZOLPIDEM TARTRATE 5 MG TABLET PO PRN (23:02)
[2016-05-28] MEDS: PIPERACILLIN/TAZOB 3.375 GM 50 ML IVPB SCH ×3 (01:09→17:08)
[2016-05-28] MEDS: oxyCODONE HCL 5 MG TABLET PO PRN ×2 (06:31→17:16)
[2016-05-28] MEDS: INSULIN SLIDING SCALE (NOVOLOG) 1 VIAL SQ SCH ×4 (06:35→22:52)
[2016-05-28] MEDS: INSULIN DETEMIR 100 UNITS/ML MDV SQ SCH ×2 (06:35→22:51)
[2016-05-28 08:24] LABS: EOSINOPHIL 5.6 % (0-4.5); MCH 26.8 pg (25.7-33.7); MCHC 32.8 g/dl (32.0-36.0); MEAN CELL VOLUME 81.5 fl (80-96); MEAN PLT VOLUME 9.1 fl (7.5-11.1); NEUTROPHILS 65.6 % (42.8-82.8); PLATELET COUNT 412 K/MM3 (134-434); RDW 15.7 % (11.6-15.6); WHITE BLOOD COUNT 7.6 K/mm3 (4.0-10.0)
[2016-05-28 08:55] LABS: INR 1.03 (0.82-1.09); PROTHROMBIN TIME (PATIENT) 11.3 SEC (9.98-11.88)
[2016-05-28 08:58] LABS: ACTIVATED PTT 34.5 SECONDS (26.9-34.4)
[2016-05-28 08:59] LABS: ALBUMIN 3.1 g/dl (3.4-5.0); CALCIUM 9.2 mg/dL (8.5-10.1); CREATININE 1.2 mg/dL (0.55-1.02)
[2016-05-28 09:00] LABS: BILIRUBIN,TOTAL 0.4 mg/dL (0.2-1.0); TOT PROT 7.7 g/dl (6.4-8.2)
--- NOTE | 2016-05-28 09:21 | PN ---
Progress Note, Physician History of Present Illness: RESULTS D/W PT AND -WILL PROCEED WITH SURGERY - Current Medication List Current Medications: Active Medications Acetaminophen (Tylenol -) 650 mg PO Q4H PRN PRN Reason: FEVER OR PAIN Last Admin: 05/24/16 18:38 Dose: 650 mg Albuterol Sulfate (Ventolin 0.083% Nebulizer Soln -) 1 amp NEB Q6HPO [facility] Last Admin: 05/27/16 23:34 Dose: Not Given Aspirin (Asa -) 81 mg PO DAILY [facility] Last Admin: 05/27/16 09:52 Dose: 81 mg Atorvastatin Calcium (Lipitor -) 80 mg PO HS [facility] Last Admin: 05/27/16 21:35 Dose: 80 mg Collagenase (Santyl -) 1 applic TP DAILY [facility] Last Admin: 05/27/16 11:43 Dose: 1 applic Escitalopram Oxalate (Lexapro -) 10 mg PO DAILY [facility] Last Admin: 05/27/16 16:51 Dose: 10 mg Furosemide (Lasix -) 40 mg PO DAILY [facility] Heparin Sodium (Porcine) (Heparin -) 5,000 unit SQ BID [facility] Last Admin: 05/27/16 21:34 Dose: 5,000 unit Vancomycin HCl (Vancomycin (Pre-Docked)) 250 mls @ 166.667 mls/hr IVPB BID@0000 ,1200 [facility] Last Admin: 05/27/16 23:02 Dose: 166.667 mls/hr Piperacillin Sod/Tazobactam Sod (Zosyn 3.375gm Ivpb (Pre-Docked)) 50 mls @ 100 mls/hr IVPB Q8H-IV [facility] PRN Reason: Protocol Last Admin: 05/28/16 01:09 Dose: 100 mls/hr Insulin Aspart (Novolog Vial Sliding Scale -) 1 vial SQ ACHS [facility] PRN Reason: Protocol Last Admin: 05/28/16 06:35 Dose: Not Given Insulin Detemir (Levemir Vial) 25 units SQ BID@0700,2200 [facility] Last Admin: 05/28/16 06:35 Dose: 25 units Metformin HCl (Glucophage -) 850 mg PO BID@0700,1630 [facility] Last Admin: 05/28/16 06:32 Dose: 850 mg Nebivolol (Bystolic -) 5 mg PO DAILY [facility] Last Admin: 05/27/16 09:56 Dose: 5 mg Oxycodone HCl (Roxicodone -) 5 mg PO Q6H PRN PRN Reason: PAIN Last Admin: 05/28/16 06:31 Dose: 5 mg Ranitidine HCl (Zantac -) 150 mg PO DAILY [facility] Last Admin: 05/27/16 09:52 Dose: 150 mg Valsartan (Diovan -) 160 mg PO DAILY [facility] Last Admin: 05/27/16 09:52 Dose: 160 mg Zolpidem Tartrate (Ambien -) 5 mg PO HS PRN PRN Reason: INSOMNIA Last Admin: 05/27/16 23:02 Dose: 5 mg - Objective Vital Signs: Vital Signs Temperature 97.5 F L 05/28/16 06:00 Pulse Rate 84 05/28/16 06:00 Respiratory Rate 20 05/28/16 06:00 Blood Pressure 105/62 05/28/16 06:00 O2 Sat by Pulse Oximetry (%) 95 05/27/16 22:00 Cardiovascular: Yes: Regular Rate and Rhythm Respiratory: Yes: Regular, CTA Bilaterally Gastrointestinal: Yes: Normal Bowel Sounds, Soft Labs: CBC, BMP 05/28/16 07:00 05/28/16 07:00 INR, PTT INR 1.03 (0.82-1.09) 05/28/16 07:00 Assessment/Plan - Problems (1) Cellulitis Assessment/Plan: no dvt ct scan C/W ABSCESS--D/W PODIATRY--OR IN AM iv abx per ID dvt ppx Code(s): L03.90 - CELLULITIS, UNSPECIFIED Qualifiers: Site of cellulitis: extremity Site of cellulitis of extremity: lower extremity Laterality: right Qualified Code(s): L03.115 - Cellulitis of right lower limb (2) CAD (coronary artery disease) Assessment/Plan: asa,bb,statin Code(s): I25.10 - ATHSCL HEART DISEASE OF [place] CORONARY ARTERY W/O ANG PCTRS (3) CHF (congestive heart failure) Assessment/Plan: ??DIASTOLIC--WILL REVIEW ECHO lasix monitor pineda dasilva CARDIO Code(s): I50.9 - HEART FAILURE, UNSPECIFIED (4) Diabetes Assessment/Plan: metformin and insulin Code(s): E11.9 - TYPE 2 DIABETES MELLITUS WITHOUT COMPLICATIONS Qualifiers: Diabetes mellitus type: type 2 Diabetes mellitus complication status: with neurologic complications Diabetes mellitus complication detail: with other neurological complication (5) Foot ulcer, right Assessment/Plan: [facility] podiatry on board FOR SURGERY FOR EXPLORATION Code(s): L97.519 - NON-PRS CHRONIC ULCER OTH PRT RIGHT FOOT W UNSP SEVERITY
--- NOTE | 2016-05-28 09:36 | CON.CARD ---
Consult Consult Specialty:: Cardiology Referred by:: Dr. Underwood Reason for Consultation:: Pre-operative cardiac evaluation, CAD - History of Present Illness Chief Complaint: Right foot abscess History of Present Illness: 50 yo female with CAD, PCI of pLAD & balloon angioplasty of D1, HTN, hyperlipidemia, and DM type 2, who was admitted on 05/24/16 with right foot swelling and pain which began 3 days prior to admission. Patient found to have right foot abscess and currently pending surgical drainage in OR. Patient denies chest pain or dyspnea. Able to go up stairs without exertional complaints. Only complains of right foot pain. - History Source History Provided By: Patient Limitations to Obtaining History: No Limitations - Past Medical History Cardio/Vascular: Yes: CAD (PCI of proximal LAD & balloon angioplasty of D1 2014), HTN Pulmonary: Yes: COPD ...LMP: 11/20/15 Endocrine: Yes: Diabetes Mellitus Additional Medical History: Hyperlipidemia, Gastritis, Fatty liver - Alcohol/Substance Use Hx Alcohol Use: Yes ("socially") - Smoking History Smoking history: Never smoked Have you smoked in the past 12 months: No Home Medications - Allergies Allergies/Adverse Reactions: Allergies Allergy/AdvReac Type Severity Reaction Status Date / Time No Known Allergies Allergy Verified 04/17/16 14:08 - Home Medications Home Medications: Ambulatory Orders Nebivolol [Bystolic -] 5 mg PO DAILY 06/19/14 Olmesartan Medoxomil [Benicar -] 20 mg PO DAILY 06/19/14 Furosemide [Lasix -] 40 mg PO DAILY #0 tablet 06/20/14 Aspirin [ASA -] 81 mg PO DAILY 10/26/14 Atorvastatin Ca [Lipitor] 80 mg PO HS 10/26/14 Acetaminophen [Tylenol .Regular Strength -] 650 mg PO Q6H PRN #0 tablet Metformin HCl [Glucophage -] 850 mg PO BID@0700,1630 04/17/16 Ceftriaxone [Rocephin 2Gm Ivpb (Pre-Docked)] 100 ml IVPB DAILY #0 bag 04/21/16 Insulin Degludec [Tresiba Flextouch U-100] 50 unit SQ HS #0 04/21/16 Metronidazole [Flagyl -] 500 mg PO TID #135 tablet 04/21/16 Ranitidine [Zantac -] 150 mg PO DAILY tablet 04/21/16 Family Disease History - Family Disease History Family Disease History: Heart Disease: Father ( 49 Heart attack), CA: Mother ( 71 Esophageal cancer) Review of Systems - Review of Systems Constitutional: reports: No Symptoms Eyes: reports: No Symptoms HENT: reports: No Symptoms Neck: reports: No Symptoms Cardiovascular: reports: No Symptoms Respiratory: reports: No Symptoms Gastrointestinal: reports: No Symptoms Genitourinary: reports: No Symptoms Musculoskeletal: reports: Other (right foot pain) Neurological: reports: No Symptoms Endocrine: reports: No Symptoms Hematology/Lymphatic: reports: No Symptoms Psychiatric: reports: No Symptoms Vital Signs: Vital Signs Temperature 97.5 F L 05/28/16 06:00 Pulse Rate 84 05/28/16 06:00 Respiratory Rate 20 05/28/16 06:00 Blood Pressure 105/62 05/28/16 06:00 O2 Sat by Pulse Oximetry (%) 95 05/27/16 22:00 Constitutional: Yes: Well Nourished, No Distress Eyes: Yes: Conjunctiva Clear, EOM Intact HENT: Yes: Atraumatic, Normocephalic Respiratory: Yes: CTA Bilaterally Gastrointestinal: Yes: Normal Bowel Sounds, Soft. No: Tenderness JVD: No Carotid Bruit: No PMI: Non-Displaced Heart Sounds: Yes: S1, S2 Murmur: No: Systolic Murmur Extremities: Yes: Other (Right foot dressing intact) Neurological: Yes: Alert, Oriented, Cran Nerves II-XII Intact Psychiatric: Yes: WNL - Other Data Labs, Other Data: CBC, BMP 05/28/16 07:00 05/28/16 07:00 INR, PTT INR 1.03 (0.82-1.09) 05/28/16 07:00 05/25/16 ECG: Sinus rhythm, rate 88 bpm Prior Cardiac Procedures: Cardiac Catheterization (08/10/14 Cardiac cath: 30-50% pRCA, 80-90% pLAD -> PCI w/ [place], 90-95% D1 -> PTCA, 30-50% LCfx, 70-80% OM1, severe diffuse disease of OM2, 70-80% LPL1, 80-90% LPL2, 60-70% left PDA) Imaging - Results Chest X-ray: Report Reviewed (05/25/16 CXR: No acute process), Image Reviewed Assessment/Plan 50 yo female with CAD, PCI of pLAD & balloon angioplasty of D1, HTN, hyperlipidemia, and DM type 2. Admitted on 05/24/16 with right foot asbcess. Currently pending surgical drainage in OR. Cardiology consult requested for pre-operative cardiac evaluation. RECS: Patient does not have any cardiac contraindications to pending surgery and may proceed without further cardiac work-up or intervention. Continue current medical management of patient's CAD and HTN. Will see prn. Please call with questions.
[2016-05-28] MEDS ORDERED: PT OWN MED DRAWER 7, Y5N ONE ×2 (09:46→16:57)
[2016-05-28] MEDS: FUROSEMIDE 40 MG TABLET (FP) PO SCH (09:49)
[2016-05-28] MEDS: VALSARTAN 160 MG TABLET (UD) PO SCH (09:49)
[2016-05-28] MEDS: HEPARIN NA (PORCINE) 5,000 UNITS/ML 1ML VIAL SQ SCH ×2 (09:49→22:51)
[2016-05-28] MEDS: ESCITALOPRAM OXALATE 10 MG TABLET (FP) PO SCH (09:49)
[2016-05-28] MEDS: NEBIVOLOL 5 MG TABLET (FP) PO SCH (09:49)
[2016-05-28] MEDS: ASPIRIN 81 MG CHEWABLE TABLETS PO SCH (09:49)
[2016-05-28] MEDS: RANITIDINE HCL 150 MG TABLET (FP) PO SCH (09:49)
--- NOTE | 2016-05-28 11:27 | PN ---
Progress Note (short form) - Note Progress Note: Podiatry Santy Whitehead seen bedside in NAD. After speaking with INfxs Dz and PCP shirin has decided to go ahead with Surgery, I&D of Right foot Once again Risks about the planned procedur explained to the patient n gurantess given or implied as tot he outcome and te need for possible future surgery explained. Ada giraldo were answered to her satisfaction Drssing maintianed today Patient to the oR tomorrow, awaiting time. Patient needs to be NPO Problem List - Problems (1) Cellulitis Code(s): L03.90 - CELLULITIS, UNSPECIFIED Qualifiers: Site of cellulitis: extremity Site of cellulitis of extremity: lower extremity Laterality: right Qualified Code(s): L03.115 - Cellulitis of right lower limb (2) Chronic diabetic ulcer of right foot determined by examination Code(s): E11.621 - TYPE 2 DIABETES MELLITUS WITH FOOT ULCER L97.519 - NON-PRS CHRONIC ULCER OTH PRT RIGHT FOOT W UNSP SEVERITY
[2016-05-28] MEDS: COLLAGENASE CLOSTRIDIUM HIST. 30 GRAMS TUBE TP SCH (11:41)
[2016-05-28] MEDS: ALBUTEROL SO4 0.083% IH SOL 2.5 MG/3 ML VIAL.NEB. NEB SCH ×3 (12:00→23:10)
[2016-05-28] MEDS: VANCOMYCIN 1 GRAM (PRE-DOCKED) 250 ML IVPB SCH ×2 (12:11→23:34)
[2016-05-28 17:10] LABS: ERYTHROCYTE SEDIMENTATION RATE > 130 mm/hr (0-20)
--- NOTE | 2016-05-28 22:43 | CONSULT ---
Consult Consult Specialty:: endocrine Referred by:: dr.saba garcia Reason for Consultation:: iddm - History of Present Illness Chief Complaint: high blood sugars History of Present Illness: 50 yr old female pmh iddm, htn, says that about 3 days ago she noticed her right foot and ankle swelling with redness, no fever at home went to see her PMD and podatrist who advised admission for right foot infection,requiring wound debridement and iv antibiotics,blood sugars have required insilin dose adjustments,no hypoglycemia in past using tresebia dosing - History Source History Provided By: Patient - Past Medical History Cardio/Vascular: Yes: CAD (PCI of proximal LAD & balloon angioplasty of D1 2014), HTN Pulmonary: Yes: COPD ...LMP: 11/20/15 Endocrine: Yes: Diabetes Mellitus Additional Medical History: Hyperlipidemia, Gastritis, Fatty liver - Alcohol/Substance Use Hx Alcohol Use: Yes ("socially") - Smoking History Smoking history: Never smoked Have you smoked in the past 12 months: No Home Medications - Allergies Allergies/Adverse Reactions: Allergies Allergy/AdvReac Type Severity Reaction Status Date / Time No Known Allergies Allergy Verified 04/17/16 14:08 - Home Medications Home Medications: Ambulatory Orders Nebivolol [Bystolic -] 5 mg PO DAILY 06/19/14 Olmesartan Medoxomil [Benicar -] 20 mg PO DAILY 06/19/14 Furosemide [Lasix -] 40 mg PO DAILY #0 tablet 06/20/14 Aspirin [ASA -] 81 mg PO DAILY 10/26/14 Atorvastatin Ca [Lipitor] 80 mg PO HS 10/26/14 Acetaminophen [Tylenol .Regular Strength -] 650 mg PO Q6H PRN #0 tablet Metformin HCl [Glucophage -] 850 mg PO BID@0700,1630 04/17/16 Ceftriaxone [Rocephin 2Gm Ivpb (Pre-Docked)] 100 ml IVPB DAILY #0 bag 04/21/16 Insulin Degludec [Tresiba Flextouch U-100] 50 unit SQ HS #0 04/21/16 Metronidazole [Flagyl -] 500 mg PO TID #135 tablet 04/21/16 Ranitidine [Zantac -] 150 mg PO DAILY tablet 04/21/16 Family Disease History - Family Disease History Family Disease History: Heart Disease: Father ( 49 Heart attack), CA: Mother ( 71 Esophageal cancer) Review of Systems - Review of Systems Constitutional: reports: Weakness Eyes: reports: Blurred Vision HENT: reports: No Symptoms Neck: reports: No Symptoms Cardiovascular: reports: No Symptoms Respiratory: reports: No Symptoms Gastrointestinal: reports: Bloating, Indigestion Genitourinary: reports: No Symptoms Breasts: reports: No Symptoms Reported Musculoskeletal: reports: Muscle Pain, Muscle Cramps, Muscle Weakness Integumentary: reports: No Symptoms Neurological: reports: Numbness, Weakness Endocrine: reports: No Symptoms Hematology/Lymphatic: reports: No Symptoms Physical Exam Vital Signs: Vital Signs Temperature 98.0 F 05/28/16 18:10 Pulse Rate 80 05/28/16 18:10 Respiratory Rate 20 05/28/16 18:10 Blood Pressure 128/77 05/28/16 18:10 O2 Sat by Pulse Oximetry (%) 96 05/28/16 09:00 Constitutional: Yes: Anxious Eyes: Yes: EOM Intact HENT: Yes: Normocephalic Neck: Yes: Trachea Midline Cardiovascular: Yes: Regular Rate and Rhythm Respiratory: Yes: CTA Bilaterally Gastrointestinal: Yes: Normal Bowel Sounds ...Rectal Exam: Yes: Deferred Renal/: Yes: WNL Breast(s): Yes: WNL Musculoskeletal: Yes: Joint Swelling, Muscle Weakness Extremities: Yes: Other Edema: No Peripheral Pulses WNL: Yes Wound/Incision: Yes: Well Approximated, Draining Neurological: Yes: Alert, Oriented Labs: CBC, BMP 05/28/16 07:00 05/28/16 07:00 Problem List - Problems (1) Type 2 diabetes mellitus with other diabetic neurological complication Code(s): E11.49 - TYPE 2 DIABETES [facility] DIABETIC NEUROLOGICAL COMPLICATION Assessment/Plan Current Active Problems Chronic diabetic ulcer of right foot determined by examination (Acute) iddm uncontrolled hypertension Abnormal Lab Results 05/28/16 05/28/16 05/28/16 07:00 07:00 07:00 RDW 15.7 H Eosinophils % 5.6 H ESR > 130 H PTT (Actin FS) Chloride 97 L BUN 26 H Creatinine 1.2 H Random Glucose 157 H D Alkaline Phosphatase 148 H C-Reactive Protein 3.0 H D Albumin 3.1 L D Vancomycin Trough 05/28/16 05/28/16 07:00 10:57 RDW Eosinophils % ESR PTT (Actin FS) 34.5 H Chloride BUN Creatinine Random Glucose Alkaline Phosphatase C-Reactive Protein Albumin Vancomycin Trough 11.988 H plan: Current Medications Generic Name Dose Route Start Last Admin Trade Name Savana PRN Reason Stop Dose Admin Acetaminophen 650 mg 05/24/16 17:25 05/24/16 18:38 Tylenol - PO 650 mg Q4H PRN Administration FEVER OR PAIN Albuterol Sulfate 1 amp 05/24/16 18:00 05/28/16 19:45 Ventolin 0.083% Nebulizer Soln - NEB Not Given Q6HPO DONNA Aspirin 81 mg 05/25/16 10:00 05/28/16 09:49 Asa - PO 81 mg DAILY DONNA Administration Atorvastatin Calcium 80 mg 05/24/16 22:00 05/27/16 21:35 Lipitor - PO 80 mg HS DONNA Administration Collagenase 1 applic 05/25/16 10:00 05/28/16 11:41 Santyl - TP 1 applic DAILY [facility] Administration Escitalopram Oxalate 10 mg 05/27/16 16:00 05/28/16 09:49 Lexapro - PO 10 mg DAILY DONNA Administration Furosemide 40 mg 05/28/16 10:00 05/28/16 09:49 Lasix - PO 40 mg DAILY [facility] Administration Heparin Sodium (Porcine) 5,000 unit 05/24/16 22:00 05/28/16 09:49 Heparin - SQ 5,000 unit BID DONNA Administration Vancomycin HCl 250 mls @ 166.667 mls/hr 05/25/16 12:30 05/28/16 12:11 Vancomycin (Pre-Docked) IVPB 166.667 mls/hr BID@0000,1200 DON[facility] Administration Piperacillin Sod/Tazobactam Sod 50 mls @ 100 mls/hr 05/25/16 12:30 05/28/16 17: 08 Zosyn 3.375gm Ivpb (Pre-Docked) IVPB 100 mls/hr Q8H-IV DON[facility] Administration Protocol Insulin Aspart 1 vial 05/24/16 22:00 05/28/16 17:05 Novolog Vial Sliding Scale - SQ Not Given ACHS [facility] Protocol Insulin Detemir 25 units 05/24/16 22:00 05/28/16 06:35 Levemir Vial SQ 25 units BID@0700,2200 DON[facility] Administration Metformin HCl 850 mg 05/25/16 07:00 05/28/16 17:08 Glucophage - PO 850 mg BID@0700,1630 DON[facility] Administration Nebivolol 5 mg 05/25/16 10:00 05/28/16 09:49 Bystolic - PO 5 mg DAILY [facility] Administration Oxycodone HCl 5 mg 05/27/16 18:52 05/28/16 17:16 Roxicodone - PO 5 mg Q6H PRN Administration PAIN Ranitidine HCl 150 mg 05/25/16 10:00 05/28/16 09:49 Zantac - PO 150 mg DAILY [facility] Administration Valsartan 160 mg 05/25/16 10:00 05/28/16 09:49 Diovan - PO 160 mg DAILY [facility] Administration Zolpidem Tartrate 5 mg 05/27/16 18:54 05/27/16 23:02 Ambien - PO 5 mg HS PRN Administration INSOMNIA continue levemir 25 units bid metformin 850mg bid
[2016-05-28] MEDS: ZOLPIDEM TARTRATE 5 MG TABLET PO PRN (22:51)
[2016-05-28] MEDS: ATORVASTATIN CA 40 MG TABLET (FP) PO SCH (22:51)
[2016-05-29] MEDS: PIPERACILLIN/TAZOB 3.375 GM 50 ML IVPB SCH ×4 (01:41→20:06)
[2016-05-29] MEDS: ALBUTEROL SO4 0.083% IH SOL 2.5 MG/3 ML VIAL.NEB. NEB SCH ×3 (06:07→18:33)
[2016-05-29] MEDS: INSULIN DETEMIR 100 UNITS/ML MDV SQ SCH ×2 (06:07→23:36)
[2016-05-29] MEDS: INSULIN SLIDING SCALE (NOVOLOG) 1 VIAL SQ SCH ×3 (06:07→23:35)
--- NOTE | 2016-05-29 09:06 | PN ---
Progress Note, Physician History of Present Illness: RESULTS D/W PT AND -WILL PROCEED WITH SURGERY - Current Medication List Current Medications: Active Medications Acetaminophen (Tylenol -) 650 mg PO Q4H PRN PRN Reason: FEVER OR PAIN Last Admin: 05/24/16 18:38 Dose: 650 mg Albuterol Sulfate (Ventolin 0.083% Nebulizer Soln -) 1 amp NEB Q6HPO [facility] Last Admin: 05/29/16 06:07 Dose: Not Given Aspirin (Asa -) 81 mg PO DAILY [facility] Last Admin: 05/28/16 09:49 Dose: 81 mg Atorvastatin Calcium (Lipitor -) 80 mg PO HS [facility] Last Admin: 05/28/16 22:51 Dose: 80 mg Collagenase (Santyl -) 1 applic TP DAILY [facility] Last Admin: 05/28/16 11:41 Dose: 1 applic Escitalopram Oxalate (Lexapro -) 10 mg PO DAILY [facility] Last Admin: 05/28/16 09:49 Dose: 10 mg Furosemide (Lasix -) 40 mg PO DAILY [facility] Last Admin: 05/28/16 09:49 Dose: 40 mg Heparin Sodium (Porcine) (Heparin -) 5,000 unit SQ BID [facility] Last Admin: 05/28/16 22:51 Dose: 5,000 unit Vancomycin HCl (Vancomycin (Pre-Docked)) 250 mls @ 166.667 mls/hr IVPB BID@0000 ,1200 [facility] Last Admin: 05/28/16 23:34 Dose: 166.667 mls/hr Piperacillin Sod/Tazobactam Sod (Zosyn 3.375gm Ivpb (Pre-Docked)) 50 mls @ 100 mls/hr IVPB Q8H-IV [facility] PRN Reason: Protocol Last Admin: 05/29/16 01:41 Dose: 100 mls/hr Insulin Aspart (Novolog Vial Sliding Scale -) 1 vial SQ ACHS [facility] PRN Reason: Protocol Last Admin: 05/29/16 06:07 Dose: Not Given Insulin Detemir (Levemir Vial) 25 units SQ BID@0700,2200 [facility] Last Admin: 05/29/16 06:07 Dose: Not Given Metformin HCl (Glucophage -) 850 mg PO BID@0700,1630 [facility] Last Admin: 05/29/16 06:06 Dose: Not Given Nebivolol (Bystolic -) 5 mg PO DAILY [facility] Last Admin: 05/28/16 09:49 Dose: 5 mg Oxycodone HCl (Roxicodone -) 5 mg PO Q6H PRN PRN Reason: PAIN Last Admin: 05/28/16 17:16 Dose: 5 mg Ranitidine HCl (Zantac -) 150 mg PO DAILY [facility] Last Admin: 05/28/16 09:49 Dose: 150 mg Valsartan (Diovan -) 160 mg PO DAILY [facility] Last Admin: 05/28/16 09:49 Dose: 160 mg Zolpidem Tartrate (Ambien -) 5 mg PO HS PRN PRN Reason: INSOMNIA Last Admin: 05/28/16 22:51 Dose: 5 mg - Objective Vital Signs: Vital Signs Temperature 98.3 F 05/29/16 06:00 Pulse Rate 80 05/29/16 06:00 Respiratory Rate 18 05/29/16 06:00 Blood Pressure 132/73 05/29/16 06:00 O2 Sat by Pulse Oximetry (%) 96 05/28/16 22:00 Cardiovascular: Yes: Regular Rate and Rhythm Respiratory: Yes: Regular, CTA Bilaterally Gastrointestinal: Yes: Normal Bowel Sounds, Soft Extremities: Yes: Other (TENDERNESS PLANTAR ASPECT) Labs: CBC, BMP 05/28/16 07:00 05/28/16 07:00 INR, PTT INR 1.03 (0.82-1.09) 05/28/16 07:00 Assessment/Plan - Problems (1) Cellulitis---ABSCESS Assessment/Plan: no dvt ct scan C/W ABSCESS--D/W PODIATRY--OR TODAY iv abx per ID dvt ppx Code(s): L03.90 - CELLULITIS, UNSPECIFIED Qualifiers: Site of cellulitis: extremity Site of cellulitis of extremity: lower extremity Laterality: right Qualified Code(s): L03.115 - Cellulitis of right lower limb (2) CAD (coronary artery disease) Assessment/Plan: asa,bb,statin Code(s): I25.10 - ATHSCL HEART DISEASE OF [place] CORONARY ARTERY W/O ANG PCTRS (3) CHF (congestive heart failure) Assessment/Plan: ??DIASTOLIC--WILL REVIEW ECHO lasix monitor lytes diovan CARDIO Code(s): I50.9 - HEART FAILURE, UNSPECIFIED (4) Diabetes Assessment/Plan: metformin and insulin Code(s): E11.9 - TYPE 2 DIABETES MELLITUS WITHOUT COMPLICATIONS Qualifiers: Diabetes mellitus type: type 2 Diabetes mellitus complication status: with neurologic complications Diabetes mellitus complication detail: with other neurological complication (5) Foot ulcer, right Assessment/Plan: [facility] podiatry on board FOR SURGERY FOR EXPLORATION Code(s): L97.519 - NON-PRS CHRONIC ULCER OTH PRT RIGHT FOOT W UNSP SEVERITY
[2016-05-29] MEDS ORDERED: PT OWN MED DRAWER 7, Y5N ONE ×3 (09:47→19:55)
[2016-05-29] MEDS: HEPARIN NA (PORCINE) 5,000 UNITS/ML 1ML VIAL SQ SCH ×2 (09:52→23:17)
[2016-05-29] MEDS: NEBIVOLOL 5 MG TABLET (FP) PO SCH (09:52)
[2016-05-29] MEDS: VALSARTAN 160 MG TABLET (UD) PO SCH (09:52)
[2016-05-29] MEDS: FUROSEMIDE 40 MG TABLET (FP) PO SCH (09:52)
[2016-05-29] MEDS: ESCITALOPRAM OXALATE 10 MG TABLET (FP) PO SCH (09:53)
[2016-05-29] MEDS: ASPIRIN 81 MG CHEWABLE TABLETS PO SCH (09:53)
[2016-05-29] MEDS: RANITIDINE HCL 150 MG TABLET (FP) PO SCH (09:53)
[2016-05-29] MEDS: COLLAGENASE CLOSTRIDIUM HIST. 30 GRAMS TUBE TP SCH (12:00)
[2016-05-29] MEDS: VANCOMYCIN 1 GRAM (PRE-DOCKED) 250 ML IVPB SCH ×2 (13:10→23:16)
[2016-05-29 15:05] LABS: URINE APPEARANCE CLEAR; URINE BILIRUBIN NEGATIVE (NEGATIVE); URINE BLOOD NEGATIVE (NEGATIVE); URINE COLOR STRAW; URINE GLUCOSE (UA) NEGATIVE (NEGATIVE); URINE KETONE NEGATIVE (NEGATIVE); URINE LEUK ESTERASE NEGATIVE (NEGATIVE); URINE NITRITE NEGATIVE (NEGATIVE); URINE PROTEIN NEGATIVE (NEGATIVE); URINE UROBILINOGEN NEGATIVE E.U./dl (0.2-1.0)
[2016-05-29] MEDS ORDERED: LIDOCAINE HCL 1%, 10 MG/ML (20ML VIAL) ONE (15:24)
[2016-05-29] MEDS ORDERED: BUPIVACAINE HCL/PF 0.5% (5MG/ML) 10 ML VIAL ONE (15:24)
[2016-05-29] MEDS ORDERED: LIDOCAINE HCL 2% (20ML MULTI-DOSE VIAL) NR ONE (15:39)
--- NOTE | 2016-05-29 15:49 | PN ---
Progress Note (short form) - Note Progress Note: Pre-Op Note S/ Patient for I&D right foot, patient offers no complaints 0/ Vss IN NAD Right foot warm tender with localized redness A/ Abscess Right foot P/ Risks D/W patient for the planned procedure no guarantees given or implied as tot he outcome and the need for possible future surgery explained. All Patients questions answered to her satisfaction consent was obtained. No Change in patients H&P status Patient to the OR Problem List - Problems (1) Cellulitis Code(s): L03.90 - CELLULITIS, UNSPECIFIED Qualifiers: Site of cellulitis: extremity Site of cellulitis of extremity: lower extremity Laterality: right Qualified Code(s): L03.115 - Cellulitis of right lower limb (2) Chronic diabetic ulcer of right foot determined by examination Code(s): E11.621 - TYPE 2 DIABETES MELLITUS WITH FOOT ULCER L97.519 - NON-PRS CHRONIC ULCER OTH PRT RIGHT FOOT W UNSP SEVERITY
[2016-05-29] MEDS ORDERED: PROPOFOL 20 ML ONE (15:55)
[2016-05-29] MEDS ORDERED: DEXAMETHASONE SOD PHOSPHATE 4 MG/1 ML VIAL ONE (15:55)
[2016-05-29] MEDS ORDERED: LIDOCAINE HCL/PF 2% SDV 5ML VIAL ONE (15:55)
[2016-05-29] MEDS ORDERED: BUPIVACAINE HCL/PF 0.5% (5MG/ML) 10 ML VIAL IJ ONE (17:23)
[2016-05-29] MEDS ORDERED: KETOROLAC TROMETHAMINE 30 MG/1 ML VIAL ONE (17:27)
--- NOTE | 2016-05-29 17:48 | OP ---
Operative Note - Note: Operative Date: 05/29/16 Pre-Operative Diagnosis: Deep Abscess Right foot Operation: I&D deep abscess with deep tissue culture and exscional kae of wound Findings: The Flexor Hallucis longus tendon was noted to be thin, stringy and discolored consistent with infection. There was a pocket noted in the Medial longitudinal arch as well as in the first interspace which was consistent with the CT scan Surgeon: Marcial Oropeza Specimens Removed: Soft tissue Estimated Blood Loss (mls): 15 Instrument used (Debridements only): 10 blade Drains & Tubes with Location: none Fluid Volume Replaced (mls): 400 Operative Report Dictated: Yes
[2016-05-29] MEDS ORDERED: ACETAMINOPHEN 325 MG TABLET (FP) PO PRN (18:03)
[2016-05-29] MEDS: oxyCODONE HCL 5 MG TABLET PO PRN (19:14)
[2016-05-29] MEDS: ATORVASTATIN CA 80 MG TABLET (FP) PO SCH (23:17)
[2016-05-29] MEDS: ZOLPIDEM TARTRATE 5 MG TABLET PO PRN (23:23)
[2016-05-30] MEDS: oxyCODONE HCL 5 MG TABLET PO PRN ×4 (01:00→23:45)
[2016-05-30] MEDS ORDERED: PIPERACILLIN/TAZOB 3.375 GM 50 ML IVPB SCH (02:00)
[2016-05-30] MEDS: PIPERACILLIN/TAZOB 3.375 GM 50 ML IVPB SCH ×4 (02:58→17:08)
[2016-05-30] MEDS: INSULIN SLIDING SCALE (NOVOLOG) 1 VIAL SQ SCH ×5 (03:14→21:34)
[2016-05-30] MEDS ORDERED: PT OWN MED DRAWER 7, Y5N ONE ×3 (05:36→23:38)
[2016-05-30] MEDS: INSULIN DETEMIR 100 UNITS/ML MDV SQ SCH ×2 (06:28→21:33)
[2016-05-30 07:41] LABS: BASOPHIL 0.5 % (0-2.0); EOSINOPHIL 0.3 % (0-4.5); MCH 26.4 pg (25.7-33.7); MCHC 32.6 g/dl (32.0-36.0); MEAN CELL VOLUME 80.9 fl (80-96); MEAN PLT VOLUME 9.2 fl (7.5-11.1); PLATELET COUNT 416 K/MM3 (134-434); RDW 15.1 % (11.6-15.6); WHITE BLOOD COUNT 9.1 K/mm3 (4.0-10.0)
[2016-05-30 08:08] LABS: ALBUMIN 2.9 g/dl (3.4-5.0); BILIRUBIN,TOTAL 0.3 mg/dL (0.2-1.0); CALCIUM 8.9 mg/dL (8.5-10.1); CREATININE 1.2 mg/dL (0.55-1.02); TOT PROT 7.3 g/dl (6.4-8.2)
--- NOTE | 2016-05-30 08:22 | PN ---
Progress Note, Physician History of Present Illness: S/P DEBRIDEMENT AND DRAINAGE OF ABSCESS - Current Medication List Current Medications: Active Medications Acetaminophen (Tylenol -) 650 mg PO Q4H PRN PRN Reason: FEVER OR PAIN Aspirin (Asa -) 81 mg PO DAILY [facility] Atorvastatin Calcium (Lipitor -) 80 mg PO HS [facility] Last Admin: 05/29/16 23:17 Dose: 80 mg Collagenase (Santyl -) 1 applic TP DAILY [facility] Escitalopram Oxalate (Lexapro -) 10 mg PO DAILY [facility] Furosemide (Lasix -) 40 mg PO DAILY [facility] Heparin Sodium (Porcine) (Heparin -) 5,000 unit SQ BID [facility] Last Admin: 05/29/16 23:17 Dose: 5,000 unit Vancomycin HCl (Vancomycin (Pre-Docked)) 250 mls @ 166.667 mls/hr IVPB BID@0000 ,1200 [facility] Last Admin: 05/29/16 23:16 Dose: 166.667 mls/hr Piperacillin Sod/Tazobactam Sod (Zosyn 3.375gm Ivpb (Pre-Docked)) 50 mls @ 100 mls/hr IVPB Q8H-IV [facility] PRN Reason: Protocol Last Admin: 05/30/16 02:58 Dose: 100 mls/hr Insulin Aspart (Novolog Vial Sliding Scale -) 1 vial SQ ACHS [facility] PRN Reason: Protocol Last Admin: 05/30/16 06:34 Dose: 2 unit Insulin Detemir (Levemir Vial) 25 units SQ BID@0700,2200 [facility] Last Admin: 05/30/16 06:28 Dose: 25 units Metformin HCl (Glucophage -) 850 mg PO BID@0700,1630 [facility] Last Admin: 05/30/16 06:25 Dose: 850 mg Nebivolol (Bystolic -) 5 mg PO DAILY [facility] Oxycodone HCl (Roxicodone -) 5 mg PO Q6H PRN PRN Reason: PAIN Last Admin: 05/30/16 01:00 Dose: 5 mg Ranitidine HCl (Zantac -) 150 mg PO DAILY [facility] Valsartan (Diovan -) 160 mg PO DAILY [facility] Zolpidem Tartrate (Ambien -) 5 mg PO HS PRN PRN Reason: INSOMNIA Last Admin: 05/29/16 23:23 Dose: 5 mg - Objective Vital Signs: Vital Signs Temperature 96.6 F L 05/30/16 07:52 Pulse Rate 82 05/30/16 07:52 Respiratory Rate 20 05/30/16 07:52 Blood Pressure 131/59 05/30/16 07:52 O2 Sat by Pulse Oximetry (%) 98 05/29/16 18:38 Cardiovascular: Yes: Regular Rate and Rhythm Respiratory: Yes: Regular, CTA Bilaterally Gastrointestinal: Yes: Normal Bowel Sounds, Soft Wound/Incision: Yes: Dressing Dry and Intact Labs: CBC, BMP 05/30/16 06:35 05/30/16 06:35 INR, PTT INR 1.03 (0.82-1.09) 05/28/16 07:00 Assessment/Plan - Problems (1) Cellulitis---ABSCESS Assessment/Plan: no dvt ct scan C/W ABSCESS--D/W PODIATRY--OR TODAY Operative Date: 05/29/16 Pre-Operative Diagnosis: Deep Abscess Right foot Operation: I&D deep abscess with deep tissue culture and exscional kae of wound Findings: The Flexor Hallucis longus tendon was noted to be thin, stringy and discolored consistent with infection. There was a pocket noted in the Medial longitudinal arch as well as in the first interspace which was consistent with the CT scan Surgeon: Marcial Oropeza Rx per ID IV ABX PER ID--ID F/U REGARDING ABX AND DURATION dvt ppx Code(s): L03.90 - CELLULITIS, UNSPECIFIED Qualifiers: Site of cellulitis: extremity Site of cellulitis of extremity: lower extremity Laterality: right Qualified Code(s): L03.115 - Cellulitis of right lower limb (2) CAD (coronary artery disease) Assessment/Plan: asa,bb,statin Code(s): I25.10 - ATHSCL HEART DISEASE OF [place] CORONARY ARTERY W/O ANG PCTRS (3) CHF (congestive heart failure) Assessment/Plan: ??DIASTOLIC--WILL REVIEW ECHO lasix monitor pineda brown CARDIO Code(s): I50.9 - HEART FAILURE, UNSPECIFIED (4) Diabetes Assessment/Plan: metformin and insulin Code(s): E11.9 - TYPE 2 DIABETES MELLITUS WITHOUT COMPLICATIONS Qualifiers: Diabetes mellitus type: type 2 Diabetes mellitus complication status: with neurologic complications Diabetes mellitus complication detail: with other neurological complication (5) Foot ulcer, right Assessment/Plan: [facility] podiatry on board FOR SURGERY FOR EXPLORATION Code(s): L97.519 - NON-PRS CHRONIC ULCER OTH PRT RIGHT FOOT W UNSP SEVERITY
[2016-05-30] MEDS: ASPIRIN 81 MG CHEWABLE TABLETS PO SCH (09:40)
[2016-05-30] MEDS: ESCITALOPRAM OXALATE 10 MG TABLET (FP) PO SCH (09:41)
[2016-05-30] MEDS: NEBIVOLOL 5 MG TABLET (FP) PO SCH (09:41)
[2016-05-30] MEDS: FUROSEMIDE 40 MG TABLET (FP) PO SCH (09:41)
[2016-05-30] MEDS: VALSARTAN 160 MG TABLET (UD) PO SCH (09:41)
[2016-05-30] MEDS: RANITIDINE HCL 150 MG TABLET (FP) PO SCH (09:41)
[2016-05-30] MEDS: HEPARIN NA (PORCINE) 5,000 UNITS/ML 1ML VIAL SQ SCH ×2 (09:42→21:32)
[2016-05-30] MEDS: COLLAGENASE CLOSTRIDIUM HIST. 30 GRAMS TUBE TP SCH (09:43)
[2016-05-30] MEDS: VANCOMYCIN 1 GRAM (PRE-DOCKED) 250 ML IVPB SCH ×2 (11:46→23:45)
--- NOTE | 2016-05-30 15:35 | PN ---
Progress Note, Physician History of Present Illness: POD #1 I&D R foot Operative findings noted No c/o foot pain No fever/ chills Operative cultures pending - Current Medication List Current Medications: Active Medications Acetaminophen (Tylenol -) 650 mg PO Q4H PRN PRN Reason: FEVER OR PAIN Aspirin (Asa -) 81 mg PO DAILY [facility] Last Admin: 05/30/16 09:40 Dose: 81 mg Atorvastatin Calcium (Lipitor -) 80 mg PO HS [facility] Last Admin: 05/29/16 23:17 Dose: 80 mg Collagenase (Santyl -) 1 applic TP DAILY [facility] Last Admin: 05/30/16 09:43 Dose: Not Given Escitalopram Oxalate (Lexapro -) 10 mg PO DAILY [facility] Last Admin: 05/30/16 09:41 Dose: 10 mg Furosemide (Lasix -) 40 mg PO DAILY [facility] Last Admin: 05/30/16 09:41 Dose: 40 mg Heparin Sodium (Porcine) (Heparin -) 5,000 unit SQ BID [facility] Last Admin: 05/30/16 09:42 Dose: 5,000 unit Vancomycin HCl (Vancomycin (Pre-Docked)) 250 mls @ 166.667 mls/hr IVPB BID@0000 ,1200 [facility] Last Admin: 05/30/16 11:46 Dose: 166.667 mls/hr Piperacillin Sod/Tazobactam Sod (Zosyn 3.375gm Ivpb (Pre-Docked)) 50 mls @ 100 mls/hr IVPB Q8H-IV [facility] PRN Reason: Protocol Last Admin: 05/30/16 09:43 Dose: 100 mls/hr Insulin Aspart (Novolog Vial Sliding Scale -) 1 vial SQ ACHS [facility] PRN Reason: Protocol Last Admin: 05/30/16 11:42 Dose: Not Given Insulin Detemir (Levemir Vial) 25 units SQ BID@0700,2200 [facility] Last Admin: 05/30/16 06:28 Dose: 25 units Metformin HCl (Glucophage -) 850 mg PO BID@0700,1630 [facility] Last Admin: 05/30/16 06:25 Dose: 850 mg Nebivolol (Bystolic -) 5 mg PO DAILY [facility] Last Admin: 05/30/16 09:41 Dose: 5 mg Oxycodone HCl (Roxicodone -) 5 mg PO Q6H PRN PRN Reason: PAIN Last Admin: 05/30/16 09:41 Dose: 5 mg Ranitidine HCl (Zantac -) 150 mg PO DAILY [facility] Last Admin: 05/30/16 09:41 Dose: 150 mg Valsartan (Diovan -) 160 mg PO DAILY [facility] Last Admin: 05/30/16 09:41 Dose: 160 mg Zolpidem Tartrate (Ambien -) 5 mg PO HS PRN PRN Reason: INSOMNIA Last Admin: 05/29/16 23:23 Dose: 5 mg - Objective Vital Signs: Vital Signs Temperature 98.1 F 05/30/16 14:56 Pulse Rate 74 05/30/16 14:56 Respiratory Rate 18 05/30/16 14:56 Blood Pressure 142/78 05/30/16 14:56 O2 Sat by Pulse Oximetry (%) 98 05/29/16 18:38 Constitutional: Yes: No Distress Cardiovascular: Yes: Regular Rate and Rhythm, S1, S2 Respiratory: Yes: CTA Bilaterally Gastrointestinal: Yes: Normal Bowel Sounds, Soft, Abdomen, Obese. No: Tenderness Extremities: Yes: Other (Post op dressing in place) Labs: CBC, BMP 05/30/16 06:35 05/30/16 06:35 INR, PTT INR 1.03 (0.82-1.09) 05/28/16 07:00 Assessment/Plan Osteomyelitis R foot R foot abscess s/p I&D POD #1 Diabetes mellitus follow up operative cultures Continue vancomycin/ zosyn
--- NOTE | 2016-05-30 18:29 | OP ---
DATE OF OPERATION: 05/29/2016 PREOPERATIVE DIAGNOSES: 1. Deep abscess, right foot. 2. Infected ulcer submetatarsal one, all of the right foot. POSTOPERATIVE DIAGNOSES: 1. Deep abscess, right foot. 2. Infected ulcer submetatarsal one, all of the right foot. PROCEDURE: 1. Deep debridement of ulcer. 2. Incision and drainage of abscess. SURGEON: Imani Mccurdy DPM ANESTHESIA: Laryngeal mask airway. FINDINGS: The patient's flexor hallucis longus tendon was noted to be soupy, thin, and discolored consistent with an infection. She had multiple deep abscess spaces in her medial longitudinal arch as well as her first interspace. She also had a full-thickness ulceration that was 90% eschar and nonviable tissue with slough, all submetatarsal one, right foot. WOUND CLASSIFICATION: Contaminated. ESTIMATED BLOOD LOSS: Minimal. SPECIMENS: Soft tissue. DRAINS: None. FOREIGN BODIES PLACED: The patient had packing, which was left in place. INDICATIONS FOR PROCEDURE: The patient is a pleasant 50-year-old female who was admitted to [facility] for an infected right foot. Her hospital course was uneventful. She had a CT scan, which showed a deep abscess in her right foot. The patient was then given the option for surgical management consisting of incision and drainage deep as well as debridement of her ulcer, right foot. After all risks, benefits, and alternatives were discussed with the patient and her , the patient gave her full consent. The surgical site was then marked with my initials after it was confirmed with the patient. DESCRIPTION OF PROCEDURE: The patient was then brought to the operating room and placed on the operating room table in the supine position in good anatomical alignment. The laryngeal mask airway was passed successfully by the anesthesiologist. The right foot was then prepped and draped in the usual sterile manner. Attention was then directed to the medial longitudinal arch area where a 5 cm incision was made. The incision was deepened down to the layer of the bone. Intraoperative inspection showed the flexor hallucis longus tendon to be soupy, thin, nonfunctional, consistent with signs of infection. That was removed down to good healthy tendon. All deep pockets of the abscess were then opened and deep tissue culture was taken and sent to Microbiology for culture and sensitivity. Attention was then directed to the submetatarsal one area of the right foot. Utilizing a 10 blade, a debridement occurred down to the level of bone. The specimen was removed from the table and sent to Pathology for gross and microscopic examination. The flexor hallucis longus tendon that was debrided was also sent to Pathology for gross and microscopic examination. All surgical sites were then flushed with 3,000 mL of a one-third mixture of Betadine, one-third mixture of peroxide and one-third mixture of normal saline. The surgical site was then left open. It was packed with Iodoform gauze and dressed with Betadine-soaked gauze. The patient tolerated all aspects of the procedure and anesthesia well. Hemostasis was under control. Sponge, needle, and instrument count were noted to be correct. The patient was transferred to the post-anesthesia care unit with vital signs stable and in no apparent distress with a capillary filling time noted to be instantaneous to all digits of the right foot. The patient will be discharged to the floor, as per recovery room protocol. IMANI MCCURDY DPM [id number]
[2016-05-30] MEDS ORDERED: INSULIN (NOVOLOG) ASPART 100 UNITS/ML 10ML VIAL ONE (21:24)
[2016-05-30] MEDS: ZOLPIDEM TARTRATE 5 MG TABLET PO PRN (21:32)
[2016-05-30] MEDS: ATORVASTATIN CA 80 MG TABLET (FP) PO SCH (21:32)
[2016-05-31] MEDS: PIPERACILLIN/TAZOB 3.375 GM 50 ML IVPB SCH ×2 (02:51→10:24)
[2016-05-31] MEDS ORDERED: PT OWN MED DRAWER 7, Y5N ONE (06:10)
[2016-05-31] MEDS: INSULIN DETEMIR 100 UNITS/ML MDV SQ SCH (06:16)
[2016-05-31] MEDS: INSULIN SLIDING SCALE (NOVOLOG) 1 VIAL SQ SCH ×2 (06:37→12:31)
--- NOTE | 2016-05-31 10:13 | DS ---
Physical Examination Vital Signs: Vital Signs Temperature 97.7 F 05/31/16 04:00 Pulse Rate 88 05/31/16 04:00 Respiratory Rate 20 05/31/16 04:00 Blood Pressure 117/60 05/31/16 04:00 O2 Sat by Pulse Oximetry (%) 97 05/30/16 21:00 Cardiovascular: Yes: Regular Rate and Rhythm Respiratory: Yes: Regular, CTA Bilaterally Gastrointestinal: Yes: Normal Bowel Sounds, Soft Wound/Incision: Yes: Dressing Dry and Intact Labs: CBC, BMP 05/30/16 06:35 05/30/16 06:35 Discharge Summary Reason For Visit: CELLULITIS AND ABSCESS BILATERAL LEGS Current Active Problems Chronic diabetic ulcer of right foot determined by examination (Acute) Type 2 diabetes mellitus with other diabetic neurological complication (Acute) Hospital Course: 50 yr old female says that about 3 days ago she noticed her right foot and ankle swelling with redness, no fever at home went to see her PMD and podatrist who told her to come in for iv abx she is direct admission, had doppler of her right leg no dvt, got zosyn and vanco noted to have WBC 10.2 History Source: Patient - Past Medical History Cardiovascular: Yes: CAD (s/p pci), HTN Pulmonary: Yes: COPD ...LMP: 11/20/15 Endocrine: Yes: Diabetes Mellitus - Problems (1) Cellulitis---ABSCESS Assessment/Plan: no dvt ct scan C/W ABSCESS--D/W PODIATRY--OR TODAY Operative Date: 05/29/16 Pre-Operative Diagnosis: Deep Abscess Right foot Operation: I&D deep abscess with deep tissue culture and exscional kae of wound Findings: The Flexor Hallucis longus tendon was noted to be thin, stringy and discolored consistent with infection. There was a pocket noted in the Medial longitudinal arch as well as in the first interspace which was consistent with the CT scan Surgeon: Marcial Oropeza Rx per ID IV ABX PER ID--ID F/U REGARDING ABX AND DURATION--d/w dr jaramillo dvt ppx Code(s): L03.90 - CELLULITIS, UNSPECIFIED Qualifiers: Site of cellulitis: extremity Site of cellulitis of extremity: lower extremity Laterality: right Qualified Code(s): L03.115 - Cellulitis of right lower limb (2) CAD (coronary artery disease) Assessment/Plan: asa,bb,statin Code(s): I25.10 - ATHSCL HEART DISEASE OF [place] CORONARY ARTERY W/O ANG PCTRS (3) CHF (congestive heart failure) Assessment/Plan: ??DIASTOLIC--WILL REVIEW ECHO lasix monitor pineda dasilva CARDIO Code(s): I50.9 - HEART FAILURE, UNSPECIFIED (4) Diabetes Assessment/Plan: metformin and insulin Code(s): E11.9 - TYPE 2 DIABETES MELLITUS WITHOUT COMPLICATIONS Qualifiers: Diabetes mellitus type: type 2 Diabetes mellitus complication status: with neurologic complications Diabetes mellitus complication detail: with other neurological complication (5) Foot ulcer, right [facility] FOR SURGERY FOR EXPLORATION Code(s): L97.519 - NON-PRS CHRONIC ULCER OTH PRT RIGHT FOOT W UNSP SEVERITY Condition: Improved - Instructions Diet, Activity, Other Instructions: antibiotics per id Referrals: Esau Underwood MD [Staff Physician] - 1 Week Disposition: HOME - Home Medications Comprehensive Discharge Medication List: Ambulatory Orders Nebivolol [Bystolic -] 5 mg PO DAILY 06/19/14 Olmesartan Medoxomil [Benicar -] 20 mg PO DAILY 06/19/14 Furosemide [Lasix -] 40 mg PO DAILY #0 tablet 06/20/14 Aspirin [ASA -] 81 mg PO DAILY 10/26/14 Atorvastatin Ca [Lipitor] 80 mg PO HS 10/26/14 Acetaminophen [Tylenol .Regular Strength -] 650 mg PO Q6H PRN #0 tablet Metformin HCl [Glucophage -] 850 mg PO BID@0700,1630 04/17/16 Insulin Degludec [Tresiba Flextouch U-100] 50 unit SQ HS #0 04/21/16 Ranitidine [Zantac -] 150 mg PO DAILY tablet 04/21/16 Escitalopram Oxalate [Lexapro -] 10 mg PO DAILY #30 tablet 05/31/16 Furosemide [Lasix -] 40 mg PO DAILY #30 tablet 05/31/16 Zolpidem Tartrate [Ambien] 5 mg PO HS PRN #30 tablet MDD 1 05/31/16
[2016-05-31] MEDS: oxyCODONE HCL 5 MG TABLET PO PRN (10:20)
[2016-05-31] MEDS: ASPIRIN 81 MG CHEWABLE TABLETS PO SCH (10:21)
[2016-05-31] MEDS: VALSARTAN 160 MG TABLET (UD) PO SCH (10:22)
[2016-05-31] MEDS: NEBIVOLOL 5 MG TABLET (FP) PO SCH (10:22)
[2016-05-31] MEDS: HEPARIN NA (PORCINE) 5,000 UNITS/ML 1ML VIAL SQ SCH (10:22)
[2016-05-31] MEDS: ESCITALOPRAM OXALATE 10 MG TABLET (FP) PO SCH (10:23)
[2016-05-31] MEDS: COLLAGENASE CLOSTRIDIUM HIST. 30 GRAMS TUBE TP SCH (10:23)
[2016-05-31] MEDS: FUROSEMIDE 40 MG TABLET (FP) PO SCH (10:23)
[2016-05-31] MEDS: RANITIDINE HCL 150 MG TABLET (FP) PO SCH (10:24)
--- NOTE | 2016-05-31 11:37 | PN ---
Progress Note, Physician History of Present Illness: No c/o foot pain No fever/ chills Tolerating antibiotics Operative c/s pending - Current Medication List Current Medications: Active Medications Acetaminophen (Tylenol -) 650 mg PO Q4H PRN PRN Reason: FEVER OR PAIN Aspirin (Asa -) 81 mg PO DAILY [facility] Last Admin: 05/31/16 10:21 Dose: 81 mg Atorvastatin Calcium (Lipitor -) 80 mg PO HS [facility] Last Admin: 05/30/16 21:32 Dose: 80 mg Collagenase (Santyl -) 1 applic TP DAILY [facility] Last Admin: 05/31/16 10:23 Dose: Not Given Escitalopram Oxalate (Lexapro -) 10 mg PO DAILY [facility] Last Admin: 05/31/16 10:23 Dose: 10 mg Furosemide (Lasix -) 40 mg PO DAILY [facility] Last Admin: 05/31/16 10:23 Dose: 40 mg Heparin Sodium (Porcine) (Heparin -) 5,000 unit SQ BID [facility] Last Admin: 05/31/16 10:22 Dose: 5,000 unit Vancomycin HCl (Vancomycin (Pre-Docked)) 250 mls @ 166.667 mls/hr IVPB BID@0000 ,1200 [facility] Last Admin: 05/30/16 23:45 Dose: 166.667 mls/hr Piperacillin Sod/Tazobactam Sod (Zosyn 3.375gm Ivpb (Pre-Docked)) 50 mls @ 100 mls/hr IVPB Q8H-IV [facility] PRN Reason: Protocol Last Admin: 05/31/16 10:24 Dose: 100 mls/hr Insulin Aspart (Novolog Vial Sliding Scale -) 1 vial SQ ACHS [facility] PRN Reason: Protocol Last Admin: 05/31/16 06:37 Dose: Not Given Insulin Detemir (Levemir Vial) 25 units SQ BID@0700,2200 [facility] Last Admin: 05/31/16 06:16 Dose: 25 units Metformin HCl (Glucophage -) 850 mg PO BID@0700,1630 [facility] Last Admin: 05/31/16 06:16 Dose: 850 mg Nebivolol (Bystolic -) 5 mg PO DAILY [facility] Last Admin: 05/31/16 10:22 Dose: 5 mg Oxycodone HCl (Roxicodone -) 5 mg PO Q6H PRN PRN Reason: PAIN Last Admin: 05/31/16 10:20 Dose: 5 mg Ranitidine HCl (Zantac -) 150 mg PO DAILY [facility] Last Admin: 05/31/16 10:24 Dose: 150 mg Valsartan (Diovan -) 160 mg PO DAILY [facility] Last Admin: 05/31/16 10:22 Dose: 160 mg Zolpidem Tartrate (Ambien -) 5 mg PO HS PRN PRN Reason: INSOMNIA Last Admin: 05/30/16 21:32 Dose: 5 mg - Objective Vital Signs: Vital Signs Temperature 98.1 F 05/31/16 10:00 Pulse Rate 76 05/31/16 10:00 Respiratory Rate 20 05/31/16 10:00 Blood Pressure 134/67 05/31/16 10:00 O2 Sat by Pulse Oximetry (%) 97 05/30/16 21:00 Constitutional: Yes: No Distress Eyes: Yes: Conjunctiva Clear Cardiovascular: Yes: Regular Rate and Rhythm, S1, S2 Respiratory: Yes: CTA Bilaterally Gastrointestinal: Yes: Normal Bowel Sounds, Soft. No: Tenderness Labs: CBC, BMP 05/30/16 06:35 05/30/16 06:35 INR, PTT INR 1.03 (0.82-1.09) 05/28/16 07:00 Assessment/Plan Osteomyelitis R foot R foot abscess s/p I&D POD #1 C/S pending Diabetes mellitus follow up operative cultures Potential discharge today on Vancomycin
[2016-05-31] MEDS: VANCOMYCIN 1 GRAM (PRE-DOCKED) 250 ML IVPB SCH (12:24)
--- NOTE | 2016-05-31 13:19 | PN ---
Progress Note (short form) - Note Progress Note: PODIATRY Patient seen bedside offering no complaints, S/P I&D deep right foot VSS in NAD Right foot: Dressing clean dry intact, upon removal wound and wound edges clean no drainage no mal odor and no clinicla signs of infection. Post op Day # 2 doing well Dressing and packing removed today Re dress with moist DSD Pateinent surgically stable for D/C VAC ordered, CAM walker ( Rx Given to patient) Patient to follow up in Wound center upon D/C Abx as per Infxs Dz ( Intra-op Culutures pending) Problem List - Problems (1) Cellulitis Code(s): L03.90 - CELLULITIS, UNSPECIFIED Qualifiers: Site of cellulitis: extremity Site of cellulitis of extremity: lower extremity Laterality: right Qualified Code(s): L03.115 - Cellulitis of right lower limb (2) Chronic diabetic ulcer of right foot determined by examination Code(s): E11.621 - TYPE 2 DIABETES MELLITUS WITH FOOT ULCER L97.519 - NON-PRS CHRONIC ULCER OTH PRT RIGHT FOOT W UNSP SEVERITY
[2016-05-31 15:04] VITALS: BP 111/51; PULSE 70; TEMP 98.8
--- NOTE | 2016-05-31 15:10 | PATH ---
Surgical Pathology Report Patient Name: BILL ALFONSO Med. Rec. #: [id number] /Age/Gender: 1965 (Age: 50) / F Account: [id number] Location: [address] [place] [address]/[facility] Taken: 05/29/2016 Received: 05/30/2016 Reported: 05/31/2016 Physicians: Marcial Oropeza DPM Specimen(s) Received A: DEEP TISSUE RIGHT B: ULCER RIGHT Clinical History Abscess right foot Final Diagnosis A. SOFT TISSUE, DEEP TISSUE, RIGHT FOOT, EXCISION: PARTIALLY NECROTIC AND PARTIALLY VIABLE DENSE FIBROCONNECTIVE TISSUE. B. SKIN AND SOFT TISSUE, ULCER, RIGHT FOOT, EXCISION: ULCERATED AND NECROTIC SKIN AND UNDERLYING SOFT TISSUE WITH ACUTE AND CHRONIC INFLAMMATION WITH GRANULATION TISSUE FORMATION. Electronically Signed Marshal Bravo M.D. Gross Description A. Received in formalin labeled "deep tissue right" a 3.0 x 1.7 x 0.3 cm aggregate lafleur, irregular portions of soft tissue. Can Coverer sections are submitted in one cassette. B. Received in formalin labeled "wound ulcer right" is a 1.8 x 1.8 cm lafleur, oriented, centrally ulcerated portion of skin excised to depth of 1.5 cm. Can Coverer sections are submitted in one cassette. /05/30/201605/30/2016
== END 2016-05-31 15:51 | disposition home or self-care (01) | DRG 623 ==
LOC: J5S 17:08
PROVIDERS: ADMIT Family Medicine; ATTEND Family Medicine
PROC: 0Y9M0ZX Drainage of Right Foot, Open Approach, Diagnostic (ICD-10-PCS; 2016-05-29)
PROC: 0JBQ0ZZ Excision of Right Foot Subcutaneous Tissue and Fascia, Open Approach (ICD-10-PCS; principal; 2016-05-29 16:30)
DX: E11.622 Type 2 diabetes mellitus with other skin ulcer (principal); L03.115 Cellulitis of right lower limb; M86.671 Other chronic osteomyelitis, right ankle and foot; L02.611 Cutaneous abscess of right foot; L97.519 Non-pressure chronic ulcer of other part of right foot with unspecified severity; I25.10 Atherosclerotic heart disease of native coronary artery without angina pectoris; E11.49 Type 2 diabetes mellitus with other diabetic neurological complication; E11.69 Type 2 diabetes mellitus with other specified complication; E78.5 Hyperlipidemia, unspecified; I11.0 Hypertensive heart disease with heart failure; I50.9 Heart failure, unspecified; K76.0 Fatty (change of) liver, not elsewhere classified; K29.60 Other gastritis without bleeding; Z95.5 Presence of coronary angioplasty implant and graft
CPT/HCPCS: 11042; 36415; 71010-TC; 71020-TC; 73701-TC-RT; 80048; 80053; 81003; 83880; 84703; 85025; 85610; 85651; 85730; 86140; 87040; 87070; 87075; 87186; 87205; 88304-TC; 93005; 93010; 93971-TC; 94640; 94760; G0480; J1644

== ENCOUNTER → 2016-07-18 | Day surgery (SDC) | payer BC | END | disposition home or self-care (01) | LOC: JRADIR 11:01 | PROVIDERS: ATTEND Internal Medicine | PROC: 02PY03Z Removal of Infusion Device from Great Vessel, Open Approach (ICD-10-PCS; principal; 2016-07-18) | DX: Z45.2 Encounter for adjustment and management of vascular access device (principal) | CPT/HCPCS: 36589 ==

== ENCOUNTER → 2016-08-15 | Day surgery (SDC) | payer BC | END | disposition home or self-care (01) | LOC: JRADIR 12:41 | PROVIDERS: ATTEND Internal Medicine | PROC: 05HM33Z Insertion of Infusion Device into Right Internal Jugular Vein, Percutaneous Approach (ICD-10-PCS; principal; 2016-08-15) | PROC: B543ZZA Ultrasonography of Right Jugular Veins, Guidance (ICD-10-PCS; 2016-08-15) | DX: M86.9 Osteomyelitis, unspecified (principal) | CPT/HCPCS: 36558; 76937; C1751; 77001-TC ==

== ENCOUNTER → 2016-11-23 | Day surgery (SDC) | payer BC, OTHER | END | disposition home or self-care (01) | LOC: JRADIR 12:42 | PROVIDERS: ATTEND Internal Medicine | PROC: 02HV33Z Insertion of Infusion Device into Superior Vena Cava, Percutaneous Approach (ICD-10-PCS; principal; 2016-11-23) | PROC: B518ZZA Fluoroscopy of Superior Vena Cava, Guidance (ICD-10-PCS; 2016-11-23) | DX: M86.9 Osteomyelitis, unspecified (principal) | CPT/HCPCS: 36558; 77001; C1751 ==

== ENCOUNTER → 2017-01-17 | Day surgery (SDC) | payer BC | END | disposition home or self-care (01) | LOC: JRADIR 09:26 | PROVIDERS: ATTEND Internal Medicine | PROC: 0JPT0XZ Removal of Tunneled Vascular Access Device from Trunk Subcutaneous Tissue and Fascia, Open Approach (ICD-10-PCS; principal; 2017-01-17) | DX: Z45.2 Encounter for adjustment and management of vascular access device (principal) | CPT/HCPCS: 36589 ==

== ENCOUNTER 2017-01-25 23:34 | Emergency (ER) | payer BC, OTHER ==
[2017-01-25 23:50] VITALS: BP 160/80; PULSE 90; TEMP 98.7; BMI 33.2
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
== END 2017-01-26 00:59 | disposition home or self-care (01) ==
LOC: JER 23:34
DX: S00.512A Abrasion of oral cavity, initial encounter (principal); V43.52XA Car driver injured in collision with other type car in traffic accident, initial encounter; Y93.89 Activity, other specified; Y92.410 Unspecified street and highway as the place of occurrence of the external cause; I10 Essential (primary) hypertension; E78.5 Hyperlipidemia, unspecified; E11.9 Type 2 diabetes mellitus without complications
CPT/HCPCS: 99281-25

== ENCOUNTER 2018-11-12 08:57 | Emergency (ER) | payer BC ==
[2018-11-12] MEDS ORDERED: GlUCAGON HUMAN RECOMBINANT 1 MG/VIAL ONE (09:08)
--- NOTE | 2018-11-12 09:19 | PDOC ---
History of Present Illness - General Stated Complaint: HIGH BLOOD PRESSURE,DM Time Seen by Provider: 11/12/18 09:19 Past History - Past Medical History Allergies/Adverse Reactions: Allergies Allergy/AdvReac Type Severity Reaction Status Date / Time No Known Allergies Allergy Verified 01/25/17 23:46 Home Medications: Ambulatory Orders Nebivolol [Bystolic -] 5 mg PO DAILY 06/19/14 Olmesartan Medoxomil [Benicar -] 20 mg PO DAILY 06/19/14 Furosemide [Lasix -] 40 mg PO DAILY #0 tablet 06/20/14 Aspirin [ASA -] 81 mg PO DAILY 10/26/14 Atorvastatin Ca [Lipitor] 80 mg PO HS 10/26/14 Acetaminophen [Tylenol .Regular Strength -] 650 mg PO Q6H PRN #0 tablet metFORMIN HCL [Glucophage -] 850 mg PO BID@0700,1630 04/17/16 Insulin Degludec [Tresiba Flextouch U-100] 50 unit SQ HS #0 04/21/16 Ranitidine [Zantac -] 150 mg PO DAILY tablet 04/21/16 Escitalopram Oxalate [Lexapro -] 10 mg PO DAILY #30 tablet 05/31/16 Zolpidem Tartrate [Ambien] 5 mg PO HS PRN #30 tablet MDD 1 05/31/16 Cefepime in Iso-Osm Dextrose [Cefepime 2 gm Injection] 2 gm IV BID 11/15/16 Ciprofloxacin 500 mg PO BID 11/22/16 Oxycodone HCl/Acetaminophen [Percocet 5-325 mg Tablet] 1 tab PO Q6H #20 tablet MDD 4 12/06/16 Anemia: No Asthma: No Cancer: No Cardiac Disorders: Yes (stent 08/10/14) CVA: No COPD: No CHF: Yes DVT: No Dementia: No Diabetes: Yes GI Disorders: Yes (GASTRITIS) Disorders: No HTN: Yes Hypercholesterolemia: Yes Liver Disease: No Seizures: No Thyroid Disease: No - Surgical History Abdominal Surgery: Yes (lt ovary removed) Appendectomy: No Cardiac Surgery: Yes (stent july 2014) Cholecystectomy: No Lung Surgery: No Neurologic Surgery: No Orthopedic Surgery: No - Immunization History Immunization Up to Date: Yes - Suicide/Smoking/Psychosocial Hx Smoking History: Never smoked Have you smoked in the past 12 months: No Hx Alcohol Use: No Drug/Substance Use Hx: No Substance Use Type: None Hx Substance Use Treatment: No *DC/Admit/Observation/Transfer - Referrals Referrals: Esau Underwood MD [Primary Care Provider] - - Patient Instructions - Post Discharge Activity
[2018-11-12 09:51] VITALS: BMI 39.9
[2018-11-12 10:36] LABS: BASO % 0.9 % (0-2.0); EOS % 0.9 % (0-4.5); HEMATOCRIT 44.5 % (32.4-45.2); LYMPH % 11.8 % (8-40); MCH 26.6 pg (25.7-33.7); MCHC 31.5 g/dl (32.0-36.0); MEAN CELL VOLUME 84.4 fl (80-96); MEAN PLT VOLUME 8.4 fl (7.5-11.1); MONO % 7.5 % (3.8-10.2); NEUT % 78.9 % (42.8-82.8); PLATELET COUNT 230 K/MM3 (134-434); RBC 5.26 M/mm3 (3.60-5.2); WHITE BLOOD COUNT 6.7 K/mm3 (4.0-10.0)
[2018-11-12 10:52] LABS: ALBUMIN 3.6 g/dl (3.4-5.0); BILIRUBIN,TOTAL 0.9 mg/dL (0.2-1); BLOOD UREA NITROGEN 27.6 mg/dL (7-18); CALCIUM 8.8 mg/dL (8.5-10.1); CREATININE 1.5 mg/dL (0.55-1.3); POTASSIUM 3.4 mmol/L (3.5-5.1); TOT PROT 7.4 g/dl (6.4-8.2)
--- NOTE | 2018-11-12 12:10 | PDOC ---
Documentation entered by Al Dewitt SCRIBE, acting as scribe for Ledy Borden MD. Ledy Borden MD: This documentation has been prepared by the Esdras cho Renju, SCRIBE, under my direction and personally reviewed by me in its entirety. I confirm that the documentation accurately reflects all work, treatment, procedures, and medical decision making performed by me. History of Present Illness - General Chief Complaint: Blood Sugar Problem Stated Complaint: HIGH BLOOD PRESSURE,DM Time Seen by Provider: 11/12/18 09:19 History Source: Patient Exam Limitations: No Limitations - History of Present Illness Initial Comments: 11/12/18 11:01 The patient is a 52 year old female BIBLANDRY with a past medical history of diabetes, CHF, gastritis, HTN, neuropathy, and HLD who presents to the emergency department for evaluation of blood sugar problem. Patient is accompanied with at bedside. Per at bedside, patient had an episode of altered mental status and diaphoresis last night which prompted him to activate EMS. Patient reports taking Lantus at 9pm last night. She states she ate a chicken salad and fruit for dinner last night. Patient notes waking up diaphoretic prior to episode of AMS. Patient states she has been unable to assess her blood sugar due to difficulty obtaining glucometer strips because of insurance issues. She notes difficulty sleeping this week due to pain in lower extremities from her neuropathy. Patient reports right lower extremity swelling which she states has been worse prior to today. EMS administered glucose PO on scene. The patient denies chest pain, shortness of breath, headache and dizziness. Denies fever, chills, vomiting, diarrhea and constipation. Denies dysuria and hematuria. Allergies: NKA Past surgical history: Left ovary removed, stent 07/2014 Social history: No reported PCP: Dr. Underwood Past History - Past Medical History Allergies/Adverse Reactions: Allergies Allergy/AdvReac Type Severity Reaction Status Date / Time No Known Allergies Allergy Verified 01/25/17 23:46 Home Medications: Ambulatory Orders Nebivolol [Bystolic -] 5 mg PO DAILY 06/19/14 Olmesartan Medoxomil [Benicar -] 20 mg PO DAILY 06/19/14 Furosemide [Lasix -] 40 mg PO DAILY #0 tablet 06/20/14 Aspirin [ASA -] 81 mg PO DAILY 10/26/14 Atorvastatin Ca [Lipitor] 80 mg PO HS 10/26/14 Acetaminophen [Tylenol .Regular Strength -] 650 mg PO Q6H PRN #0 tablet metFORMIN HCL [Glucophage -] 850 mg PO BID@0700,1630 04/17/16 Insulin Degludec [Tresiba Flextouch U-100] 50 unit SQ HS #0 04/21/16 Ranitidine [Zantac -] 150 mg PO DAILY tablet 04/21/16 Escitalopram Oxalate [Lexapro -] 10 mg PO DAILY #30 tablet 05/31/16 Zolpidem Tartrate [Ambien] 5 mg PO HS PRN #30 tablet MDD 1 05/31/16 Cefepime in Iso-Osm Dextrose [Cefepime 2 gm Injection] 2 gm IV BID 11/15/16 Ciprofloxacin 500 mg PO BID 11/22/16 Oxycodone HCl/Acetaminophen [Percocet 5-325 mg Tablet] 1 tab PO Q6H #20 tablet MDD 4 12/06/16 Anemia: No Asthma: No Cancer: No Cardiac Disorders: Yes (stent 08/10/14) CVA: No COPD: No CHF: Yes DVT: No Dementia: No Diabetes: Yes GI Disorders: Yes (GASTRITIS) Disorders: No HTN: Yes Hypercholesterolemia: Yes Liver Disease: No Seizures: No Thyroid Disease: No - Surgical History Abdominal Surgery: Yes (lt ovary removed) Appendectomy: No Cardiac Surgery: Yes (stent july 2014) Cholecystectomy: No Lung Surgery: No Neurologic Surgery: No Orthopedic Surgery: No - Immunization History Immunization Up to Date: Yes - Suicide/Smoking/Psychosocial Hx Smoking History: Never smoked Have you smoked in the past 12 months: No Information on smoking cessation initiated: No Hx Alcohol Use: No Drug/Substance Use Hx: No Substance Use Type: None Hx Substance Use Treatment: No Review of Systems - Review of Systems Able to Perform ROS?: Yes Comments:: 11/12/18 11:01 GENERAL/CONSTITUTIONAL: No fever or chills. No weakness. HEAD, EYES, EARS, NOSE AND THROAT: No change in vision. No ear pain or discharge. No sore throat. CARDIOVASCULAR: No chest pain or shortness of breath. RESPIRATORY: No cough, wheezing, or hemoptysis. GASTROINTESTINAL: (+)nausea. No vomiting, diarrhea or constipation. GENITOURINARY: (+)Urinary frequency. No dysuria or hematuria. MUSCULOSKELETAL: No joint or muscle swelling or pain. No neck or back pain. SKIN: No rash NEUROLOGIC: No headache, vertigo, loss of consciousness, or change in strength/ sensation. ENDOCRINE: No increased thirst. No abnormal weight change. HEMATOLOGIC/LYMPHATIC: No anemia, easy bleeding, or history of blood clots. ALLERGIC/IMMUNOLOGIC: No hives or skin allergy. *Physical Exam - Vital Signs Last Vital Signs Temp Pulse Resp BP Pulse Ox 97.9 F 61 19 158/102 H 100 11/12/18 09:20 11/12/18 09:20 11/12/18 09:20 11/12/18 09:20 11/12/18 09:20 - Physical Exam Comments: 11/12/18 11:02 GENERAL: Awake, alert, and fully oriented, in no acute distress HEAD: No signs of trauma EYES: PERRLA, EOMI, sclera anicteric, conjunctiva clear NECK: Normal ROM, supple, no lymphadenopathy, JVD, or masses LUNGS: Breath sounds equal, clear to auscultation bilaterally. No wheezes, and no crackles HEART: Regular rate and rhythm, normal S1 and S2, no murmurs, rubs or gallops ABDOMEN: (+)Distended. Nontender. No guarding, no rebound. No masses EXTREMITIES: (+)2 plus pitting edema bilaterally. No obvious deformities, (+) signs of charcot which pt says is chronic. Well healed wound with no signs of infection on base of R foot. Normal range of motion, no edema. NEUROLOGICAL: Cranial nerves II through XII grossly intact. Normal speech, normal gait SKIN: Warm, Dry, normal turgor, no rashes or lesions noted. ED Treatment Course - LABORATORY CBC & Chemistry Diagram: 11/12/18 10:20 11/12/18 10:20 - ADDITIONAL ORDERS Additional order review: Laboratory Results 11/12/18 09:37 POC Glucometer 361 11/12/18 09:37 POC Glucometer 361 Medical Decision Making - Medical Decision Making 11/12/18 12:54 Pt presents to the ED after an episode of hypogylcemia that resolved with glucacon and oral glucose by EMS. Now has no complaints. initial fs 365, then decreased to 78. Patient took lantus at 9 pm--will recheck fs and discharge home if remains in normal range. *DC/Admit/Observation/Transfer Diagnosis at time of Disposition: Hypoglycemia - Discharge Dispostion Disposition: HOME Condition at time of disposition: Good Decision to Admit order: No - Referrals Referrals: Esau Underwood MD [Primary Care Provider] - - Patient Instructions Printed Discharge Instructions: DI for Hypoglycemia Additional Instructions: you came to the ED because your sugar was low. This may have been because you had not eaten enough before you took your lantus. You should call your doctor to discuss whether changes should be made in your insulin regimen. Return to the ED for fever nausea or vomiting, passing out or confusion, fingerstick greater than 400 or less than 60, other new or worsening symptoms. - Post Discharge Activity
[2018-11-12 12:20] LABS: PH,URINE 5.5 (5.0-8.0); URINE APPEARANCE CLEAR; URINE BILIRUBIN NEGATIVE (NEGATIVE); URINE COLOR YELLOW; URINE GLUCOSE (UA) 1+ (NEGATIVE); URINE KETONE NEGATIVE (NEGATIVE); URINE LEUK ESTERASE NEGATIVE (NEGATIVE); URINE NITRITE NEGATIVE (NEGATIVE); URINE PROTEIN 1+ (NEGATIVE); URINE UROBILINOGEN 0.2 mg/dL (0.2-1.0)
[2018-11-12 13:00] VITALS: BP 141/103; PULSE 87; TEMP 98
[2018-11-12 17:53] LABS: EPI CELLS RARE /HPF (0-5/HPF); HYALINE CASTS 0 /lpf (0-8); URINE BACTERIA FEW /hpf (NEGATIVE); URINE RBC 0-2 /hpf (0-4); URINE WBC 0-2 /hpf (0-5)
== END 2018-11-12 13:15 | disposition home or self-care (01) ==
LOC: JER 08:57
DX: E11.649 Type 2 diabetes mellitus with hypoglycemia without coma (principal); Z79.4 Long term (current) use of insulin; Z79.84 Long term (current) use of oral hypoglycemic drugs; I25.10 Atherosclerotic heart disease of native coronary artery without angina pectoris; I11.0 Hypertensive heart disease with heart failure; I50.9 Heart failure, unspecified; Z95.5 Presence of coronary angioplasty implant and graft; R60.0 Localized edema; E78.5 Hyperlipidemia, unspecified; G62.9 Polyneuropathy, unspecified
CPT/HCPCS: 36415; 80053; 81003; 82962; 85025; 99283-25

== ENCOUNTER 2018-11-17 05:57 | Emergency (ER) | payer BC ==
[2018-11-17 06:23] VITALS: BMI 36.9
[2018-11-17] MEDS ORDERED: DIPHTH,PERTUSS(ACELL),TET 0.5 ML DISP.SYRIN IM ONE (07:33)
--- NOTE | 2018-11-17 07:35 | PDOC ---
Attending Attestation - Resident Resident Name: Jadiel Mathis - ED Attending Attestation I have performed the following: I have examined & evaluated the patient, The case was reviewed & discussed with the resident, I agree w/resident's findings & plan, Exceptions are as noted - HPI HPI: 11/17/18 07:32 52 F with h/o DM presenting to ED with R shoulder pain after fall yesterday. Pt states she was walking outside at night and tripped over a pothole, falling onto her R side. Denies headstrike/LOC. Pt states that she was able to get up afterwards but reports pain in her R shoulder with any movement of her R arm. Denies GIBBONS. Denies neck/back pain. Denies hip/knee/ankle pain. - Physicial Exam PE: 11/17/18 07:34 GENERAL: Awake, alert, and fully oriented, in no acute distress. HEAD: No signs of trauma EYES: PERRLA, EOMI, sclera anicteric, conjunctiva clear ENT: Auricles normal inspection, hearing grossly normal, nares patent, oropharynx clear without exudates. Moist mucosa NECK: Nontender, no stepoffs, Normal ROM, supple, no lymphadenopathy, JVD, or masses LUNGS: Breath sounds equal, clear to auscultation bilaterally. No wheezes, and no crackles HEART: Regular rate and rhythm, normal S1 and S2, no murmurs, rubs or gallops ABDOMEN: Soft, nontender, normoactive bowel sounds. No guarding, no rebound. No masses EXTREMITIES: + R shoulder with TTP over anterior deltoid, no deformity, ROM limited 2/2 pain, R knee with abrasion, no deformity, full ROM, no bony tenderness NEUROLOGICAL: Cranial nerves II through XII intact. 5/5 strength and sensation in all extremities, Normal speech, normal gait, normal cerebellar function SKIN: Warm, Dry, normal turgor, no rashes or lesions noted. - Medical Decision Making 11/17/18 07:35 52 F with R shoulder pain s/p mechanical fall. - CT head/c-spine - XRs - Tdap - Pain control 11/17/18 10:25 XR shows proximal humerus fx, widening of joint space. Discussed with [place] Dick, who does not believe this is a dislocation. Pt placed in sling Pt is well appearing, with normal vitals. Clinically stable for DC at this time. I discussed the physical exam findings, ancillary test results and final diagnoses with the patient. I answered all of the patient's questions. The patient was satisfied with the care received and felt comfortable with the discharge plan and treatment plan. The patient agrees to follow up with the primary care physician within 24-72 hours.
--- NOTE | 2018-11-17 07:41 | PDOC ---
History of Present Illness - General Chief Complaint: Injury Stated Complaint: FALL Time Seen by Provider: 11/17/18 07:07 History Source: Patient Exam Limitations: No Limitations - History of Present Illness Initial Comments: 11/17/18 07:30 52 yo female pmh diabetes, CHF, gastritis, HTN, neuropathy, and HLD, on ASA no AC presents to the ED after an unwitnessed fall with right shoulder pain. Pt states last night at 9 pm while walking up her driveway she tripped over a pot hole leading to hitting her right knee, right elbow and shoulder, not sure if she hit her head/neck. Denies CP, SOB, palpitations prior to or after the fall, able to get up on her own and ambulate with full weight baring after the fall however, the she had excessive right shoulder pain leading to inability to raise her arm due to the pain, took motrin without relief and attempted to sleep off the pain. Pt states she woke up with the same pain and inability to lift her right arm due to pain. 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 Pt denies GIBBONS, LOC, lesions on the head, changes in vision/speech/strenth/ sensation on 1 side of her body, denies neck pain, N/V/F/C, CP, SOB, back pain, abdominal pain. Past History - Past Medical History Allergies/Adverse Reactions: Allergies Allergy/AdvReac Type Severity Reaction Status Date / Time No Known Allergies Allergy Verified 11/17/18 06:23 Home Medications: Ambulatory Orders Nebivolol [Bystolic -] 5 mg PO DAILY 06/19/14 Furosemide [Lasix -] 40 mg PO DAILY #0 tablet 06/20/14 Aspirin [ASA -] 81 mg PO DAILY 10/26/14 Insulin Degludec [Tresiba Flextouch U-100] 50 unit SQ HS #0 04/21/16 Ranitidine [Zantac -] 150 mg PO DAILY tablet 04/21/16 Escitalopram Oxalate [Lexapro -] 10 mg PO DAILY #30 tablet 05/31/16 Anemia: No Asthma: No Cancer: No Cardiac Disorders: Yes (stent 08/10/14) CVA: No COPD: No CHF: Yes DVT: No Dementia: No Diabetes: Yes GI Disorders: Yes (GASTRITIS) Disorders: No HTN: Yes Hypercholesterolemia: Yes Liver Disease: No Seizures: No Thyroid Disease: No - Surgical History Abdominal Surgery: Yes (lt ovary removed) Appendectomy: No Cardiac Surgery: Yes (stent july 2014) Cholecystectomy: No Lung Surgery: No Neurologic Surgery: No Orthopedic Surgery: No - Immunization History Immunization Up to Date: Yes - Suicide/Smoking/Psychosocial Hx Smoking History: Unknown if ever smoked Have you smoked in the past 12 months: No Hx Alcohol Use: No Drug/Substance Use Hx: No Substance Use Type: None Hx Substance Use Treatment: No Review of Systems - Review of Systems Constitutional: No: Chills, Fever HEENTM: No: Blurred Vision, Double Vision Respiratory: No: Shortness of Breath Cardiac (ROS): No: Chest Pain ABD/GI: No: Constipated, Diarrhea, Nausea, Vomiting : No: Burning, Dysuria, Frequency, Flank Pain Musculoskeletal: Yes: Other (R shoulder pain). No: Back Pain Integumentary: No: Lesions Neurological: No: Headache, Numbness, Paresthesia, Weakness (inability to lift R arm due to pain), Unsteady Gait, Ataxia, Dizziness *Physical Exam - Vital Signs Last Vital Signs Temp Pulse Resp BP Pulse Ox 98 F 83 20 140/93 98 11/17/18 06:15 11/17/18 06:15 11/17/18 06:15 11/17/18 06:15 11/17/18 06:15 - Physical Exam General Appearance: Yes: Nourished, Appropriately Dressed, Apparent Distress ( pain) HEENT: positive: EOMI, FAVIAN, Normal Voice, Hearing Grossly Normal Neck: positive: Supple. negative: Carotid bruit Respiratory/Chest: positive: Lungs Clear, Normal Breath Sounds. negative: Respiratory Distress, Accessory Muscle Use, Crackles, Rales, Rhonchi, Stridor, Wheezing Cardiovascular: positive: Regular Rhythm, Regular Rate, S1, S2, Edema (chronic) . negative: JVD, Murmur Vascular Pulses: Dorsalis-Pedis (R): 3+, Doralis-Pedis (L): 3+ Gastrointestinal/Abdominal: positive: Flat, Soft. negative: Protuberent, Distended, Guarding, Rebound, Tenderness Musculoskeletal: negative: CVA Tenderness Extremity: positive: Normal Capillary Refill, Other (neurovascularly intact). negative: Normal Inspection (R arm internally rotated and has pain with any ROM with point tenderness to anterior shoulder), Normal Range of Motion (limited due to pain), Erythema Integumentary: positive: Normal Color, Dry, Warm Neurologic: positive: food service ambassador II-XII NML intact, Fully Oriented, Alert, Normal Mood/ Affect, Normal Response, Motor Strength 5/5. negative: Facial Droop, Numbness, Sensory Deficit, Confused, Disoriented ED Treatment Course - RADIOLOGY Radiology Studies Ordered: Category Date Time Status CERVICAL SPINE CT W/O CONTR [CT] Stat CT Scan 11/17/18 07:[address] WITHOUT CONTRAST [CT] Stat CT Scan 11/17/18 07:20 Ordered SHOULDER-RIGHT [RAD] Stat Radiology 11/17/18 07:20 Ordered Medical Decision Making - Medical Decision Making 11/17/18 07:50 52 yo female pmh diabetes, CHF, gastritis, HTN, neuropathy, and HLD, on ASA no AC presents to the ED after an unwitnessed fall with right shoulder pain. Pt states last night at 9 pm while walking up her driveway she tripped over a pot hole leading to hitting her right knee, right elbow and shoulder, not sure if she hit her head/neck. Denies CP, SOB, palpitations prior to or after the fall, able to get up on her own and ambulate with full weight baring after the fall however, the she had excessive right shoulder pain leading to inability to raise her arm due to the pain, took motrin without relief and attempted to sleep off the pain. Pt states she woke up with the same pain and inability to lift her right arm due to pain. 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 Pt denies GIBBONS, LOC, lesions on the head, changes in vision/speech/strenth/ sensation on 1 side of her body, denies neck pain, N/V/F/C, CP, SOB, back pain, abdominal pain. vitals WNL Pt admits to mechanical fall, able to describe all events prior to and after the fall Pt main complaint is R shoulder pain with limited ROM due to pain. Trauma scan neg for other injuries with potential distractble cause Will CT head and neck to r/o bleed/fracture/dislocation R shoulder XR ordered, r/o fracture/dislocation pt given 1 percocet for sig pain 11/17/18 09:45 R shoulder x ray shows acute humeral fracture with joint space widening with inferior displacement. Ortho consult to Dr. Bernal/Cali sent to assess whether or not there is just an acute fracture or if there is also a dislocation 11/17/18 09:52 pending head and c spine read Discussed case with EVGENY Dick, states no dislocation on X ray and pt can be placed in sling with f/u in office tomorrow anytime between 9-11 am Will DC pt on percocets for pain and strict fracture precautions *DC/Admit/Observation/Transfer Diagnosis at time of Disposition: Closed fracture of anatomical neck of humerus - Discharge Dispostion Disposition: HOME Condition at time of disposition: Stable - Referrals Referrals: Dario Bernal MD [Staff Physician] - Sal Wan MD [Staff Physician] - - Patient Instructions Printed Discharge Instructions: How to Use a Sling, DI for Humeral Fracture Additional Instructions: Please see the orthopedic surgeon Dr. Bernal/Cali tomorrow between 9-11 am, they are expecting you. Use the sling as directed and take the medications sent to your pharmacy as prescribed. Also, call the GI Dr. Wan and discuss the abnormal CT finding of dilated esophagus. Return to the ER for new or concerning symptoms including but not limited to: severe pain, weakness, loss of sensation into the right hand, Thank you - Post Discharge Activity
[2018-11-17 08:05] VITALS: BP 141/89
[2018-11-17 11:42] VITALS: PULSE 83; TEMP 97.9
== END 2018-11-17 11:54 | disposition home or self-care (01) ==
LOC: JER 05:57
PROC: 3E0234Z Introduction of Serum, Toxoid and Vaccine into Muscle, Percutaneous Approach (ICD-10-PCS; principal; 2018-11-17)
DX: S42.291A Other displaced fracture of upper end of right humerus, initial encounter for closed fracture (principal); W17.89XA Other fall from one level to another, initial encounter; Y93.89 Activity, other specified; Y92.014 Private driveway to single-family (private) house as the place of occurrence of the external cause; Y99.8 Other external cause status; I25.10 Atherosclerotic heart disease of native coronary artery without angina pectoris; I11.0 Hypertensive heart disease with heart failure; Z95.5 Presence of coronary angioplasty implant and graft; I50.9 Heart failure, unspecified; E11.9 Type 2 diabetes mellitus without complications; Z79.84 Long term (current) use of oral hypoglycemic drugs; E78.00 Pure hypercholesterolemia, unspecified; Z87.19 Personal history of other diseases of the digestive system
CPT/HCPCS: 70450-TC; 71046-TC-FY; 72125-TC; 73030-TC-RT-FY; 82962; 90715; 99284-25

== ENCOUNTER 2019-01-16 14:13 | Inpatient (IN) | payer BC ==
--- NOTE | 2019-01-16 14:23 | PDOC ---
Rapid Medical Evaluation Time Seen by Provider: 01/16/19 14:23 Medical Evaluation: Allergies Allergy/AdvReac Type Severity Reaction Status Date / Time No Known Allergies Allergy Verified 01/08/19 09:23 01/16/19 14:23 I have performed a brief in-person evaluation of this patient. The patient presents with a chief complaint of: , chf Pertinent physical exam findings:stable and in NAD, non-focal I have ordered the following:labs, ekg The patient will proceed to the ED for further evaluation.
--- NOTE | 2019-01-16 15:11 | PDOC ---
History of Present Illness - General Chief Complaint: Shortness of Breath Stated Complaint: SENT BY PCP/SICK Time Seen by Provider: 01/16/19 14:23 - History of Present Illness Initial Comments: 01/16/19 15:11 The patient is a 53 year old female with a history of HTN, HLD, CAD, CHF who presents for evaluation of lower extremity swelling. The patient reports a several week history of worsening lower extremity edema and associated pain. She reports that she was supposed to have a cardiac cath at [facility] 1 day ago , however was found to be hypoglycemic to 21 with SOB and severe lower extremity edema and her cath was cancelled. The patient's primary care provider referred her to the ED for admission and for further evaluation. She otherwise denies fevers, chills, current SOB, chest pain, abdominal pain, nausea , vomiting, or changes with urination or bowel movements. Past History - Past Medical History Allergies/Adverse Reactions: Allergies Allergy/AdvReac Type Severity Reaction Status Date / Time No Known Allergies Allergy Verified 01/16/19 14:26 Home Medications: Ambulatory Orders Nebivolol [Bystolic -] 5 mg PO DAILY 06/19/14 Furosemide [Lasix -] 40 mg PO DAILY #0 tablet 06/20/14 Aspirin [ASA -] 81 mg PO DAILY 10/26/14 Insulin Degludec [Tresiba Flextouch U-100] 50 unit SQ HS #0 04/21/16 Ranitidine [Zantac -] 150 mg PO DAILY tablet 04/21/16 Escitalopram Oxalate [Lexapro -] 10 mg PO DAILY #30 tablet 05/31/16 Oxycodone HCl/Acetaminophen [Percocet 5-325 mg Tablet] 1 tab PO Q6H PRN #8 tablet MDD 4 tabs 11/17/18 Anemia: No Asthma: No Cancer: No Cardiac Disorders: Yes (stent 08/10/14) CVA: No COPD: No CHF: Yes DVT: No Dementia: No Diabetes: Yes GI Disorders: Yes (GASTRITIS) Disorders: No HTN: Yes Hypercholesterolemia: Yes Liver Disease: No Seizures: No Thyroid Disease: No - Surgical History Abdominal Surgery: Yes (lt ovary removed) Appendectomy: No Cardiac Surgery: Yes (stent july 2014) Cholecystectomy: No Lung Surgery: No Neurologic Surgery: No Orthopedic Surgery: No - Immunization History Immunization Up to Date: Yes - Psycho Social/Smoking Cessation Hx Smoking History: Never smoked Have you smoked in the past 12 months: No Hx Alcohol Use: No Drug/Substance Use Hx: No Substance Use Type: None Hx Substance Use Treatment: No Review of Systems - Review of Systems Comments:: 01/16/19 15:20 Constitutional: No fevers, chills, fatigue, malaise HEENT: No Rhinorrhea, nasal congestion, visual changes Cardiovascular: No chest pain, syncope, palpitations, lightheadedness Respiratory: No Cough, SOB, Hemoptysis, Gastrointestinal: No Abdominal pain, Nausea, Vomiting, Constipation, Diarrhea, Melena Genitourinary: No Dysuria, Frequency, Urgency, Hesitancy, Hematuria, Flank pain Musculoskeletal: No Myalgia, arthralgia Skin: Lower Extremity Edema. No rashes, itching, bruising, pallor Neurologic: No Headache, Dizziness, Numbness, Weakness, or Tingling Psychiatric: No Hallucinations. No SI or HI *Physical Exam - Vital Signs Last Vital Signs Temp Pulse Resp BP Pulse Ox 98.6 F 88 18 135/95 98 01/16/19 14:21 01/16/19 14:21 01/16/19 14:21 01/16/19 14:21 01/16/19 14:21 - Physical Exam Comments: 01/16/19 15:21 General Appearance: Nourished. No Apparent Distress HEENT: No Pharyngeal Erythema, Tonsillar Exudate, Tonsillar Erythema Neck: No Cervical Lymphadenopathy Respiratory/Chest: Lungs Clear, Poor air movement. No Crackles, Rales, Rhonchi, Wheezing Cardiovascular: Regular Rhythm, Regular Rate. No Murmur, Gallops, Rubs Gastrointestinal/Abdominal: Normal Bowel Sounds, Soft. No Guarding, Rebound, Tenderness Musculoskeletal: No CVA Tenderness Extremity: 2+ tense pitting edema to the lower extremities bilaterally extending up to the mid abdomen. Normal Capillary Refill Integumentary: Normal Color, Dry, Warm Neurologic: Fully Oriented, Alert, Normal Mood/Affect, Normal Response, Heart Score/ECG Review #1 ECG reviewed & interpreted by me at: 15:24 01/16/19 15:24 Hr 88 SD 136 QRS 94 QTc 496 Normal Sinus Rhythm Left axis deviation No Acute ST Changes ED Treatment Course - LABORATORY CBC & Chemistry Diagram: 01/16/19 14:55 01/16/19 14:55 Medical Decision Making - Medical Decision Making 01/16/19 15:25 The patient is a 53 year old female with a history of HTN, HLD, CAD, CHF who presents for evaluation of lower extremity swelling. Given the a patient's history and physical exam, we will obtain cbc, cmp, troponin, bnp, coags, ekg, chest plain film to evaluate further. We will treat with iv lasix here in the ED and continue to monitor and reassess. The patient's symptoms are likely due to fluid overload from CHF. She will likely require admission for further management. Discharge - Discharge Information Problems reviewed: Yes Clinical Impression/Diagnosis: CHF (congestive heart failure) Qualifiers: Heart failure type: unspecified Heart failure chronicity: unspecified Qualified Code(s): I50.9 - Heart failure, unspecified CAD (coronary artery disease) Qualifiers: Coronary Disease-Associated Artery/Lesion type: unspecified vessel or lesion type [place] vs. transplanted heart: unspecified whether [place] or transplanted heart Associated angina: angina presence unspecified Qualified Code(s): I25.10 - Atherosclerotic heart disease of [place] coronary artery without angina pectoris Condition: Stable - Admission Yes - Follow up/Referral Referrals: Esau Underwood MD [Primary Care Provider] - - Patient Discharge Instructions - Post Discharge Activity
[2019-01-16 15:20] LABS: BASO % 1.4 % (0-2.0); EOS % 5.4 % (0-4.5); HEMATOCRIT 42.5 % (32.4-45.2); HEMOGLOBIN 12.8 GM/dL (10.7-15.3); LYMPH % 11.5 % (8-40); MCH 23.2 pg (25.7-33.7); MCHC 30.1 g/dl (32.0-36.0); MEAN CELL VOLUME 77.1 fl (80-96); MONO % 9.7 % (3.8-10.2); PLATELET COUNT 363 K/MM3 (134-434); RBC 5.51 M/mm3 (3.60-5.2); RDW 19.3 % (11.6-15.6); WHITE BLOOD COUNT 7.2 K/mm3 (4.0-10.0)
[2019-01-16] MEDS ORDERED: FUROSEMIDE 40 MG/4 ML INJECTABLE VIAL IVPUSH ONE (15:47)
[2019-01-16 15:49] LABS: ALBUMIN 2.9 g/dl (3.4-5.0); ALK PHOS 226 U/L (45-117); ANION GAP 6 MMOL/L (8-16); BILIRUBIN,TOTAL 1.7 mg/dL (0.2-1); BLOOD UREA NITROGEN 34.7 mg/dL (7-18); CALCIUM 8.6 mg/dL (8.5-10.1); CHLORIDE 102 mmol/L (98-107); CO2 30 mmol/L (21-32); CREATININE 1.6 mg/dL (0.55-1.3); GLUCOSE,RANDOM 189 mg/dL (74-106); N-TERMINAL BNP 4096.3 pg/ml (5-125); SGOT/AST 31 U/L (15-37); SGPT/ALT 23 U/L (13-61); SODIUM 138 mmol/L (136-145); TOT PROT 6.9 g/dl (6.4-8.2)
--- NOTE | 2019-01-16 16:14 | PDOC ---
Documentation entered by Christiane Meehan SCRIBE, acting as scribe for Hemant Alegre MD. Hemant Alegre MD: This documentation has been prepared by the Shefali cho Nirvannie, SCRIBE, under my direction and personally reviewed by me in its entirety. I confirm that the documentation accurately reflects all work, treatment, procedures, and medical decision making performed by me. Attending Attestation - Resident Resident Name: Roland Rees - ED Attending Attestation I have performed the following: I have examined & evaluated the patient, The case was reviewed & discussed with the resident, I agree w/resident's findings & plan, Exceptions are as noted - HPI HPI: 01/16/19 15:30 CC: LE swelling and pain. HPI: The patient is a 53 year old female, with a significant past medical history of HTN, HLD, CAD, CHF, who presents to the emergency department with progressively worsening LE swelling with associated pain. As per patient, she was scheduled for a cardiac catheterization yesterday at [facility] but it was cancelled secondary to hypoglycemia to 21 with associated shortness of breath and LE edema. Patient notes that she was advised to report to the ED for further evaluation by her PCP. She denies recent chest pain or shortness of breath. Allergies: NKDA Primary Care Physician: Dr. Underwood - Physicial Exam PE: 01/16/19 16:35 Vitals: Triage Vital signs reviewed General Appearance: No acute distress, well nourished well developed, Head: Atraumatic, Neck: Supple; no Nucal rigidity Chest Wall: Nontender Cardiac: Regular rate and rhythym, Lungs: Clear to auscultation bilateral, good air movement bilaterally, Abdomen: Soft, non distended, normal bowel sounds, non tender to palpation Extremities: Full range of motion to all extremities 3+ pitting edema bilaterally with chronic venous stasis changes Skin: Warm and dry, no rashes or lesions, no rash, no petechiae Psych: Normal mood, normal affect - Medical Decision Making 01/16/19 16:36 Moderate to severe anasarca with pain Patient sent in for diuresis by PCP will observe overnight for CHF diuresis
--- NOTE | 2019-01-16 16:26 | HP ---
Admitting History and Physical - Admission Chief Complaint: sent ni for leg swelling History of Present Illness: The patient is a 53 year old female with a history of HTN, HLD, CAD, CHF who presents for evaluation of lower extremity swelling. The patient reports a several week history of worsening lower extremity edema and associated pain. She reports that she was supposed to have a cardiac cath at [facility] 1 day ago , however was found to be hypoglycemic to 21 with SOB and severe lower extremity edema and her cath was cancelled. The patient's primary care provider referred her to the ED for admission and for further evaluation. She otherwise denies fevers, chills, current SOB, chest pain, abdominal pain, nausea , vomiting, or changes with urination or bowel movements. - Past Medical History Cardiovascular: Yes: CAD (PCI of proximal LAD & balloon angioplasty of D1 07/2014 ), HTN Pulmonary: Yes: COPD ...LMP: 11/20/15 Endocrine: Yes: Diabetes Mellitus - Smoking History Smoking history: Never smoked Have you smoked in the past 12 months: No - Alcohol/Substance Use Hx Alcohol Use: No Home Medications - Allergies Allergies/Adverse Reactions: Allergies Allergy/AdvReac Type Severity Reaction Status Date / Time No Known Allergies Allergy Verified 01/16/19 14:26 - Home Medications Home Medications: Ambulatory Orders Nebivolol [Bystolic -] 5 mg PO DAILY 06/19/14 Furosemide [Lasix -] 40 mg PO DAILY #0 tablet 06/20/14 Aspirin [ASA -] 81 mg PO DAILY 10/26/14 Insulin Degludec [Tresiba Flextouch U-100] 50 unit SQ HS #0 04/21/16 Ranitidine [Zantac -] 150 mg PO DAILY tablet 04/21/16 Escitalopram Oxalate [Lexapro -] 10 mg PO DAILY #30 tablet 05/31/16 Oxycodone HCl/Acetaminophen [Percocet 5-325 mg Tablet] 1 tab PO Q6H PRN #8 tablet MDD 4 tabs 11/17/18 Review of Systems - Review of Systems Respiratory: reports: SOB Gastrointestinal: reports: Abdominal Pain Musculoskeletal: reports: Other (leg swelling) Physical Examination Vital Signs: Vital Signs Temperature 98.6 F 01/16/19 14:21 Pulse Rate 88 01/16/19 14:21 Respiratory Rate 18 01/16/19 14:21 Blood Pressure 135/95 01/16/19 14:21 O2 Sat by Pulse Oximetry (%) 98 01/16/19 14:21 Constitutional: Yes: Calm Cardiovascular: Yes: Regular Rate and Rhythm, S1, S2 Respiratory: Yes: Diminished (at bases) Gastrointestinal: Yes: Normal Bowel Sounds, Soft, Distention Extremities: Yes: Other (tight legs) Edema: Yes Labs: CBC, BMP 01/16/19 14:55 01/16/19 14:55 Problem List - Problems (1) CAD (coronary artery disease) Code(s): I25.10 - ATHSCL HEART DISEASE OF [place] CORONARY ARTERY W/O ANG PCTRS Qualifiers: Coronary Disease-Associated Artery/Lesion type: unspecified vessel or lesion type [place] vs. transplanted heart: unspecified whether [place] or transplanted heart Associated angina: angina presence unspecified Qualified Code(s): I25.10 - Atherosclerotic heart disease of [place] coronary artery without angina pectoris (2) CHF (congestive heart failure) Assessment/Plan: iv lasxi daily echo daily weights renal and cardiology consult Code(s): I50.9 - HEART FAILURE, UNSPECIFIED Qualifiers: Heart failure type: unspecified Heart failure chronicity: unspecified Qualified Code(s): I50.9 - Heart failure, unspecified (3) Diabetes Assessment/Plan: bgm hgbaic sliding scale insulin Code(s): E11.9 - TYPE 2 DIABETES MELLITUS WITHOUT COMPLICATIONS Qualifiers: Diabetes mellitus type: type 2 (4) Renal insufficiency Assessment/Plan: renal eval Code(s): N28.9 - DISORDER OF KIDNEY AND URETER, UNSPECIFIED
[2019-01-16] MEDS: INSULIN SLIDING SCALE (NOVOLOG) 1 VIAL SQ SCH ×2 (19:13→22:54)
[2019-01-16 20:40] LABS: INR 1.39 (0.83-1.09); PROTHROMBIN TIME (PATIENT) 16.4 SEC (9.7-13.0)
[2019-01-16 20:42] LABS: ACTIVATED PTT 33.7 SECONDS (25.2-36.5)
[2019-01-16 20:53] LABS: IRON SERUM 32 ug/dL (50-175); TOTAL IRON BINDING CAPACITY 428 ug/dL (250-450)
[2019-01-16] MEDS: HEPARIN NA (PORCINE) 5,000 UNITS/ML 1ML VIAL SQ SCH (22:54)
[2019-01-16] MEDS: NYSTATIN POWDER 100,000 UNITS/GM - 15 GM TOPICAL POWDER TP SCH (23:03)
[2019-01-16] MEDS ORDERED: ACETAMINOPHEN 325 MG TABLET (FP) PO PRN (23:52)
[2019-01-17] MEDS: ZOLPIDEM TARTRATE 5 MG TABLET PO PRN ×2 (00:19→21:29)
[2019-01-17] MEDS ORDERED: FUROSEMIDE 40 MG/4 ML INJECTABLE VIAL IVPUSH SCH (06:00)
[2019-01-17] MEDS: INSULIN SLIDING SCALE (NOVOLOG) 1 VIAL SQ SCH ×4 (06:18→21:41)
[2019-01-17] MEDS ORDERED: INSULIN (NOVOLOG) ASPART 100 UNITS/ML 10ML VIAL ONE ×2 (07:01→21:38)
[2019-01-17 08:43] LABS: HEMATOCRIT 39.1 % (32.4-45.2); HEMOGLOBIN 11.9 GM/dL (10.7-15.3); MCH 23.1 pg (25.7-33.7); MCHC 30.5 g/dl (32.0-36.0); MEAN CELL VOLUME 75.5 fl (80-96); MEAN PLT VOLUME 8.1 fl (7.5-11.1); PLATELET COUNT 311 K/MM3 (134-434); RBC 5.18 M/mm3 (3.60-5.2); RDW 18.9 % (11.6-15.6); WHITE BLOOD COUNT 6.2 K/mm3 (4.0-10.0)
[2019-01-17 08:59] LABS: ALBUMIN 2.7 g/dl (3.4-5.0); ALK PHOS 241 U/L (45-117); ANION GAP 6 MMOL/L (8-16); BILIRUBIN,TOTAL 1.3 mg/dL (0.2-1); CALCIUM 8.4 mg/dL (8.5-10.1); CHLORIDE 105 mmol/L (98-107); CO2 27 mmol/L (21-32); CREATININE 1.4 mg/dL (0.55-1.3); GLUCOSE,RANDOM 225 mg/dL (74-106); MAGNESIUM 2.3 mg/dL (1.8-2.4); N-TERMINAL BNP 4700.4 pg/ml (5-125); PHOSPHOROUS 2.9 mg/dL (2.5-4.9); POTASSIUM 3.7 mmol/L (3.5-5.1); SGOT/AST 28 U/L (15-37); SGPT/ALT 23 U/L (13-61); SODIUM 138 mmol/L (136-145); TOT PROT 6.4 g/dl (6.4-8.2)
[2019-01-17 09:01] LABS: IRON SERUM 25 ug/dL (50-175); TOTAL IRON BINDING CAPACITY 408 ug/dL (250-450)
[2019-01-17 09:23] LABS: INR 1.25 (0.83-1.09); PROTHROMBIN TIME (PATIENT) 14.8 SEC (9.7-13.0)
--- NOTE | 2019-01-17 11:06 | PN ---
Progress Note (short form) - Note Progress Note: ID consult dictated imp/reccd 53 yo female admitted from home with hypoglycemia she is s/p fall with fracture of right humerus 11/17 positive stress test with plans for cath has had significant weight gain with edema of her entire body denies fevers or chills denies SOB notes she is itchy and scratches her skin reports erythema of the left leg is new in the last one week anasarca CAD poorly controlled DM cellulitis rash- ?allergic to a med that was stopped plan blood cultures cefazolin Problem List - Problems (1) Anasarca Code(s): R60.1 - GENERALIZED EDEMA (2) CAD (coronary artery disease) Code(s): I25.10 - ATHSCL HEART DISEASE OF [place] CORONARY ARTERY W/O ANG PCTRS Qualifiers: Coronary Disease-Associated Artery/Lesion type: unspecified vessel or lesion type [place] vs. transplanted heart: unspecified whether [place] or transplanted heart Associated angina: angina presence unspecified Qualified Code(s): I25.10 - Atherosclerotic heart disease of [place] coronary artery without angina pectoris (3) Cellulitis Code(s): L03.90 - CELLULITIS, UNSPECIFIED Qualifiers: Site of cellulitis of extremity: lower extremity (4) Rash Code(s): R21 - RASH AND OTHER NONSPECIFIC SKIN ERUPTION
[2019-01-17] MEDS: ESCITALOPRAM OXALATE 10 MG TABLET (FP) PO SCH (11:29)
[2019-01-17] MEDS: ASPIRIN 81 MG CHEWABLE TABLETS PO SCH (11:29)
[2019-01-17] MEDS: NYSTATIN POWDER 100,000 UNITS/GM - 15 GM TOPICAL POWDER TP SCH ×2 (11:30→21:43)
[2019-01-17] MEDS: HEPARIN NA (PORCINE) 5,000 UNITS/ML 1ML VIAL SQ SCH ×2 (11:30→21:28)
--- NOTE | 2019-01-17 12:05 | PN ---
Progress Note, Physician Chief Complaint: CHF Exacerbation Fracture R Humerus Rash History of Present Illness: Previous notes and events reviewed awake and alert NAD denies chest pain or SOB complain of pain to RUE - Current Medication List Current Medications: Active Medications Acetaminophen (Tylenol -) 650 mg PO Q6H PRN PRN Reason: PAIN LEVEL 1-5 Last Admin: 01/17/19 00:19 Dose: 650 mg Aspirin (Asa -) 81 mg PO DAILY [facility] Last Admin: 01/17/19 11:29 Dose: 81 mg Escitalopram Oxalate (Lexapro -) 5 mg PO DAILY@0800 [facility] Last Admin: 01/17/19 11:29 Dose: 5 mg Furosemide (Lasix Injection -) 40 mg IVPUSH BID@0600,1800 [facility] Last Admin: 01/17/19 06:18 Dose: 40 mg Heparin Sodium (Porcine) (Heparin -) 5,000 unit SQ BID [facility] Last Admin: 01/17/19 11:30 Dose: 5,000 unit Insulin Aspart (Novolog Vial Sliding Scale -) 1 vial SQ [facility]; Protocol Last Admin: 01/17/19 06:18 Dose: 2 units Nebivolol (Bystolic -) 5 mg PO DAILY [facility] Nystatin (Nystop Powder -) 1 applic TP BID [facility] Last Admin: 01/17/19 11:30 Dose: 1 applic Zolpidem Tartrate (Ambien -) 5 mg PO HS PRN PRN Reason: INSOMNIA Last Admin: 01/17/19 00:19 Dose: 5 mg - Objective Vital Signs: Vital Signs Temperature 97.5 F L 01/17/19 04:00 Pulse Rate 89 01/17/19 04:00 Respiratory Rate 18 01/17/19 04:00 Blood Pressure 124/72 01/17/19 04:00 O2 Sat by Pulse Oximetry (%) 99 01/16/19 22:00 Constitutional: Yes: No Distress, Calm, Obese Eyes: Yes: Conjunctiva Clear HENT: Yes: Atraumatic Cardiovascular: Yes: Regular Rate and Rhythm Respiratory: Yes: Regular, Diminished Gastrointestinal: Yes: Normal Bowel Sounds, Soft Musculoskeletal: Yes: Muscle Weakness Extremities: Yes: WNL Edema: Yes Edema: LLE: 2+, RLE: 2+ Integumentary: Yes: Rash (generalized) Neurological: Yes: Alert, Oriented Psychiatric: Yes: Alert, Oriented Labs: CBC, BMP 01/17/19 07:45 01/17/19 07:45 INR, PTT INR 1.25 (0.83-1.09) H 01/17/19 07:45 Problem List - Problems (1) CKD (chronic kidney disease) Assessment/Plan: -Renal on board -BUN/Cr 36/1.4 -monitor renal function daily -Renal US reviewed shows no hydronephrosis, small right renal exophytic solid lesion, small to moderate amount of LUQ ascites, trace RUQ ascites Code(s): N18.9 - CHRONIC KIDNEY DISEASE, UNSPECIFIED (2) CAD (coronary artery disease) Assessment/Plan: -Aspirin Code(s): I25.10 - ATHSCL HEART DISEASE OF [place] CORONARY ARTERY W/O ANG PCTRS Qualifiers: Coronary Disease-Associated Artery/Lesion type: unspecified vessel or lesion type [place] vs. transplanted heart: unspecified whether [place] or transplanted heart Associated angina: angina presence unspecified Qualified Code(s): I25.10 - Atherosclerotic heart disease of [place] coronary artery without angina pectoris (3) CHF (congestive heart failure) Assessment/Plan: -Cardiology on board -Echocardiogram -BNP 4700.4 -strict I&Os -fluid restriction -Metozalone -daily weights -low Na diet Code(s): I50.9 - HEART FAILURE, UNSPECIFIED Qualifiers: Heart failure type: unspecified Heart failure chronicity: unspecified Qualified Code(s): I50.9 - Heart failure, unspecified (4) Diabetes Assessment/Plan: -[facility] ACHS -ISS -HgA1c -Endocrinology consult Code(s): E11.9 - TYPE 2 DIABETES MELLITUS WITHOUT COMPLICATIONS Qualifiers: Diabetes mellitus type: type 2 (5) HTN (hypertension) Assessment/Plan: -Bystolic -low Na diet Code(s): I10 - ESSENTIAL (PRIMARY) HYPERTENSION (6) Cellulitis Assessment/Plan: -ID on board -no leukocytosis -afebrile -Vascular US shows no obvious sonographic evidence of DVT involving either leg Code(s): L03.90 - CELLULITIS, UNSPECIFIED Qualifiers: (7) Closed fracture of anatomical neck of humerus Assessment/Plan: -R shoulder xray -pain control -orthopedic consult Code(s): S42.293A - OTH DISP FX OF UPPER END OF UNSP HUMERUS, INIT FOR CLOS FX (8) Anemia Assessment/Plan: -Hg 11.9 -Iron panel reviewed with low Iron, low Iron Saturation -Venofer 200mg IVPB x 1 dose Code(s): D64.9 - ANEMIA, UNSPECIFIED Assessment/Plan see problem list dvt ppx
[2019-01-17] MEDS ORDERED: METOLAZONE 2.5 MG TABLET (FP) PO SCH (12:45)
--- NOTE | 2019-01-17 12:51 | CONSULT ---
Consult - text type - Consultation Consultation Note: Renal consult for CKD and fluid overload This is a 53 year old woman with CKD, hypertension, hyperlipidemia, CAD who presented from home with progressive lower extremity swelling and pruritus. Pt was seen me as an outpatient about 2 months ago for CKD, Cr was 1.5 at that time. She has had a fall with resulted in a right humeus fracture and then suddenly developed diffuse swelling throughout her body. She was put on Torsemide but developed itching and rash. She was converted back to Lasix at high dose but itching and edema did not resolve completely. Past Medical history: as above Allergies: NKDA Family History: [place] Social Hx: No T/A/D ROS: as per HPI Home Medications Medication Instructions Recorded Nebivolol [Bystolic -] 5 mg PO DAILY 06/19/14 Aspirin [ASA -] 81 mg PO DAILY 10/26/14 Insulin Degludec [Tresiba 50 unit SQ HS #0 04/21/16 Flextouch U-100] Escitalopram Oxalate [Lexapro -] 10 mg PO DAILY #30 tablet 05/31/16 Furosemide [Lasix -] 60 mg PO DAILY 01/16/19 Oxycodone HCl 5 mg PO QID PRN 01/16/19 Vital Signs Temperature 97.5 F L 01/17/19 04:00 Pulse Rate 89 01/17/19 04:00 Respiratory Rate 18 01/17/19 04:00 Blood Pressure 124/72 01/17/19 04:00 O2 Sat by Pulse Oximetry (%) 99 01/16/19 22:00 NAD awake and alert neck supple, no JVD RRR, no M/R CTA soft, obese, + fluid in abd wall ++ edema in LE, no cyanosis or clubbing no focal neurologic deficits CBC, BMP 01/17/19 07:45 01/17/19 07:45 Current Medications Acetaminophen (Tylenol -) 650 mg PO Q6H PRN PRN Reason: PAIN LEVEL 1-5 Last Admin: 01/17/19 00:19 Dose: 650 mg Aspirin (Asa -) 81 mg PO DAILY [facility] Last Admin: 01/17/19 11:29 Dose: 81 mg Escitalopram Oxalate (Lexapro -) 5 mg PO DAILY@0800 [facility] Last Admin: 01/17/19 11:29 Dose: 5 mg Heparin Sodium (Porcine) (Heparin -) 5,000 unit SQ BID [facility] Last Admin: 01/17/19 11:30 Dose: 5,000 unit Insulin Aspart (Novolog Vial Sliding Scale -) 1 vial SQ ACHS [facility]; Protocol Last Admin: 01/17/19 12:13 Dose: 2 units Metolazone (Zaroxolyn -) 2.5 mg PO DAILY [facility] Nebivolol (Bystolic -) 5 mg PO DAILY [facility] Last Admin: 01/17/19 12:57 Dose: Not Given Nystatin (Nystop Powder -) 1 applic TP BID [facility] Last Admin: 01/17/19 11:30 Dose: 1 applic Oxycodone HCl (Roxicodone -) 5 mg PO QID PRN PRN Reason: PAIN Zolpidem Tartrate (Ambien -) 5 mg PO HS PRN PRN Reason: INSOMNIA Last Admin: 01/17/19 00:19 Dose: 5 mg 53 year old woman with CKD, hypertension, hyperlipidemia, CAD who presented from home with progressive lower extremity swelling and pruritus. Pt was seen me as an outpatient about 2 months ago for CKD, Cr was 1.5 at that time. 1. Fluid overload/lower extremity edema 2. CKD stage 3 3. Hypertension 4. Skin rash/suspected drug rash Suspect that rash be be due to loop diuretics, will discontinue Lasix and start Metolazone 2.5mg Daily with plan to titrate to obtain weight loss Serum Eosinophils are elevated indicative of allergic reaction Dermatology consulted to better evaluate rash Check Urine for proteinura and WBC's Trend renal function daily while on diuretics Trend daily weights 2g Na restriction supplement K if < 3.5 Thank you will follow Ervin Baig DO
[2019-01-17] MEDS ORDERED: oxyCODONE HCL 5 MG TABLET PO PRN (12:56)
[2019-01-17] MEDS: NEBIVOLOL 5 MG TABLET (FP) PO SCH (12:57)
--- NOTE | 2019-01-17 13:19 | EKG ---
Test Reason : Blood Pressure : / mmHG Vent. Rate : 088 BPM Atrial Rate : 088 BPM P-R Int : 136 ms QRS Dur : 094 ms QT Int : 410 ms P-R-T Axes : 046 -46 075 degrees QTc Int : 496 ms NORMAL SINUS RHYTHM POSSIBLE LEFT ATRIAL ENLARGEMENT LEFT AXIS DEVIATION LOW VOLTAGE QRS SEPTAL INFARCT , AGE UNDETERMINED POSSIBLE LATERAL INFARCT , AGE UNDETERMINED ABNORMAL ECG Confirmed by IDANIA RUSSELL MD ([id number]) on 01/17/2019 1:19:17 PM Referred By: Confirmed By:IDANIA RUSSELL MD
--- NOTE | 2019-01-17 13:55 | CON.CARD ---
Consult Consult Specialty:: Cardiology Referred by:: Dr. Underwood Reason for Consultation:: chf, edema - History of Present Illness Chief Complaint: edema History of Present Illness: 53 year old woman with a pmh HTN, DMII, HLD, CAD s/p PCI [place] and diag [facility] 2014, reported CHF follows with Dr. Weaver in Dr. Underwood's office was seen preop for R arm surgery and NST at [facility] 01/08/19 showed severe global LV systolic dysfunction with LVEF 21% and reported large severe anteroapical and lateral partially reversible defects c/w ischemia. She was then sent for outpatient cardiac cath at [facility] on 01/14/19 however prior to cath she was found to be hypoglycemic and thus the cath was not done. She was advised to be admitted for further treatment of her recurrent hypoglycemia but she signed out AMA. She then went to her PMD's office who referred her for admission at [facility]. Pt was seen and examined today in [facility]. States she has had edema involving her legs all the way up to her abdomen and subq tissue around to her back. She denies any SOB, chest pain, palpitations, pnd, orthopnea or LE edema. She continues to have recurrent hypoglycemic and hyperglycemic episodes. Noted to have SUDEEP, Low albumin level, low iron, Normal cardiac enzymes. - History Source History Provided By: Patient, Significant Other Limitations to Obtaining History: No Limitations - Past Medical History Cardio/Vascular: Yes: CAD (PCI of proximal LAD & balloon angioplasty of D1 2014), CHF, HTN Pulmonary: Yes: COPD ...LMP: 11/20/15 Endocrine: Yes: Diabetes Mellitus Additional Medical History: Hyperlipidemia, Gastritis, Fatty liver - Alcohol/Substance Use Hx Alcohol Use: Yes (occasional) - Smoking History Smoking history: Never smoked Have you smoked in the past 12 months: No - Social History ADL: Independent History of Recent Travel: No Home Medications - Allergies Allergies/Adverse Reactions: Allergies Allergy/AdvReac Type Severity Reaction Status Date / Time No Known Allergies Allergy Verified 01/16/19 14:26 - Home Medications Home Medications: Ambulatory Orders Nebivolol [Bystolic -] 5 mg PO DAILY 06/19/14 Aspirin [ASA -] 81 mg PO DAILY 10/26/14 Insulin Degludec [Tresiba Flextouch U-100] 50 unit SQ HS #0 04/21/16 Escitalopram Oxalate [Lexapro -] 10 mg PO DAILY #30 tablet 05/31/16 Furosemide [Lasix -] 60 mg PO DAILY 01/16/19 Oxycodone HCl 5 mg PO QID PRN 01/16/19 Review of Systems - Review of Systems Constitutional: denies: No Symptoms, Chills, Diaphoresis, Fever, Lethargy, Loss of Appetite, Malaise, Night Sweats, Unintentional Wgt. Loss, Weakness, Other Eyes: denies: No Symptoms, Blind Spots, Blurred Vision, Double Vision, Eye Pain , Floaters, Photophobia, Recent Change in Vision, Other HENT: denies: No Symptoms, Difficult Swallowing, Ear Discharge, Ear Pain, Epistaxis, Gingival Bleeding, Hearing Loss, Mouth Swelling, Nasal Congestion, Ocular Prosthesis, Throat Pain, Toothache, Ringing in Ears, Other Neck: denies: No Symptoms, Decreased ROM, Lumps, Pain on Movement, Stiffness, Swollen Glands, Tenderness, Other Cardiovascular: reports: Edema. denies: No Symptoms, Chest Pain, Palpitations, Shortness of Breath, Other Respiratory: denies: No Symptoms, Cough, Exercise Intolerance, Hemoptysis, Orthopnea, PND, Snoring, SOB, SOB on Exertion, Wheezing, Other Gastrointestinal: reports: Bloating. denies: No Symptoms, Abdominal Pain, Constipation, Diarrhea, Dysphagia, Indigestion, Melena, Nausea, Rectal Bleeding , Vomiting, Vomiting Blood, Other Genitourinary: denies: No Symptoms, Burning, Discharge, Dysuria, Flank Pain, Frequency, Hematuria, Incontinence, Lesions, Menses, Pain, Testicular Mass, Testicular Pain, Testicular Swelling, Urgency, Vaginal Bleeding, Other Breasts: denies: No Symptoms Reported, See HPI, Breast Implants, Discharge from Nipple, Lumps, Pain, Skin Changes, Other Musculoskeletal: reports: Joint Pain. denies: No Symptoms, Back Pain, Crepitus , Decreased ROM, Extremity Pain, Joint Swelling, Muscle Pain, Muscle Cramps, Muscle Weakness, Other Integumentary: denies: No Symptoms, Blister, Bruising, Change in Color, Eczema, Erythema, Incision, Lesions, Lump, Pallor, Pruritis, Rash, Wound, Other Neurological: denies: No Symptoms, Change in LOC, Change in Speech, Confusion, Dizziness, Headache, Incoordination, Numbness, Parasthesia, Pre-Existing Deficit , Seizure, Syncope, Tremors, Unsteady Gait, Weakness, Other Endocrine: denies: No Symptoms, Excessive Sweating, Flushing, Increased Hunger, Increased Thirst, Intolerance to Cold, Intolerance to Heat, Unexplained Weight Gain, Unexplained Weight Loss, Other Hematology/Lymphatic: denies: No Symptoms, Easily Bruised, Excessive Bleeding, Swollen Glands, Other Psychiatric: denies: No Symptoms, Altered Sleep Pattern, Anxiety, Depression, Hallucinations, Panic, Paranoia, Suicidal, Other - Risk Factors Known Risk Factors: Yes: Hypercholesterolemia, Hypertension Vital Signs: Vital Signs Temperature 97.5 F L 01/17/19 04:00 Pulse Rate 89 01/17/19 04:00 Respiratory Rate 18 01/17/19 04:00 Blood Pressure 124/72 01/17/19 04:00 O2 Sat by Pulse Oximetry (%) 99 01/16/19 22:00 Constitutional: Yes: No Distress, Calm Eyes: Yes: Conjunctiva Clear, EOM Intact HENT: Yes: Atraumatic, Normocephalic Neck: Yes: Supple, Trachea Midline Respiratory: Yes: Regular, CTA Bilaterally. No: Rales, Rhonchi, SOB, Wheezes Gastrointestinal: Yes: Normal Bowel Sounds, Soft. No: Distention, Tenderness Cardiovascular: Yes: Regular Rate and Rhythm. No: Bradycardia, Tachycardia, Pulse Irregular, Gallop, Rub, Varicosities JVD: No Carotid Bruit: No PMI: Non-Displaced Heart Sounds: Yes: S1, S2. No: Split S2, S3, S4, Clicks, Gallop, Rub, Bruit Murmur: No: Systolic Murmur, Diastolic Murmur Musculoskeletal: Yes: WNL Extremities: Yes: WNL Edema: Yes Edema: LLE: 2+, RLE: 2+ Peripheral Pulses WNL: Yes Peripheral Pulses: 2+ Left Doralis Pedis, 2+ Right Dorsalis Pedis Neurological: Yes: Alert, Oriented Psychiatric: Yes: Alert, Oriented - Other Data Labs, Other Data: CBC, BMP 01/17/19 07:45 01/17/19 07:45 INR, PTT INR 1.25 (0.83-1.09) H 01/17/19 07:45 Troponin, BNP 01/16/19 01/16/19 01/17/19 14:55 20:00 07:45 Troponin I < 0.02 < 0.02 < 0.02 B-Natriuretic Peptide 4096.3 H 4700.4 H Troponin, BNP 01/16/19 01/16/19 01/17/19 14:55 20:00 07:45 Troponin I < 0.02 < 0.02 < 0.02 B-Natriuretic Peptide 4096.3 H 4700.4 H nsr 83bpm, lae, septal/lateral infarct age undetermined. Echo: Pending Prior Cardiac Procedures: Cardiac Catheterization, PTCA with Stent Imaging - Results Chest X-ray: Report Reviewed, Image Reviewed EKG: Report Reviewed, Image Reviewed Other: Report Reviewed, Image Reviewed Assessment/Plan 53 year old woman with a pmh HTN, DMII, HLD, CAD s/p PCI [place] and diag [facility] [place] 2014, reported CHF follows with Dr. Weaver in Dr. Underwood's office was seen preop for R arm surgery and NST at [facility] 01/08/19 showed severe global LV systolic dysfunction with LVEF 21% and reported large severe anteroapical and lateral partially reversible defects c/w ischemia. She was then sent for outpatient cardiac cath at [facility] on 01/14/19 however prior to cath she was found to be hypoglycemic and thus the cath was not done. She was advised to be admitted for further treatment of her recurrent hypoglycemia but she signed out AMA. She then went to her PMD's office who referred her for admission at [facility]. Pt was seen and examined today in [facility]. States she has had edema involving her legs all the way up to her abdomen and subq tissue around to her back. She denies any SOB, chest pain, palpitations, pnd, orthopnea or LE edema. She continues to have recurrent hypoglycemic and hyperglycemic episodes. Noted to have SUDEEP, Low albumin level, low iron, Normal cardiac enzymes. Anasarca-appears to have begun since her recent humerus fracture -does not appear to be explained only by decompensated CHF -concern for a systemic process with associated Hypoglycemic episodes, low albumin, low iron, abnormal coags -no sob or chest pain -diffuse body swelling -lungs are clear on exam and Cxray -recent NST as above showed severely reduced LVEF of 21% -no recent echo available for review -check echo to better evaluate LV/RV function, valvular function, pericardial effusion -check TFTs -did not tolerate loop diuretics due to possible adverse reaction thus started on metolazone -monitor I/Os, daily weights, bun/creat, electrolytes and replete as needed CAD-h/o PCI [place] and diag [facility] [place] 07/2014 -recent NST 01/08/19 as above -plan was for cardiac cath at [facility] on 01/14/19 but was postponed due to hypoglycemia, pt then left AMA -defer cath until clinically improves for current condition -cont ASA and bblocker -hold statin if concern for liver disorder Cardiomyopathy -LVEF 21% on recent NST -check echo to confirm as above -diuretics as above
[2019-01-17] MEDS ORDERED: IRON SUCROSE INJECTION 200 MG in SODIUM CHLORIDE 90 ML IVPB ONE (15:12)
--- NOTE | 2019-01-17 15:35 | ECHO ---
Name: BILL ALFONSO Exam:Adult Echocardiogram Study Date: 01/17/2019 02:33 PM Age: 53 yrs Reason For Study: edema,ef 21% on recent NST evaluate Height: 69 in Weight: 264 lb BSA: 2.3 m2 MMode/2D Measurements & Calculations IVSd: 1.0 cm Ao root diam: 2.6 cm LVIDd: 4.7 cm LA dimension: 3.9 cm LVIDs: 3.9 cm LVPWd: 1.4 cm LVPWs: 1.5 cm EDV(Teich): 103.9 ml ESV(Teich): 67.0 ml LVOT diam: 2.0 cm LAV (MOD-bp): 62.6 ml RV S Tyshawn: 8.9 cm/sec Doppler Measurements & Calculations MV E max tyshawn: 113.0 cm/sec Ao V2 max: 92.0 cm/sec MV A max tyshawn: 54.8 cm/sec Ao max P.4 mmHg MV E/A: 2.1 BLAYNE(V,D): 2.2 cm2 MV dec time: 0.09 sec LV V1 max P.6 mmHg MR max tyshawn: 420.8 cm/sec LV V1 max: 63.5 cm/sec MR max P.8 mmHg TR max tyshawn: 305.1 cm/sec PA V2 max: 78.7 cm/sec TR max P.7 mmHg PA max P.5 mmHg Med Peak E' Tyshawn: 4.2 cm/sec Med E/e': 26.6 Lat Peak E' Tyshawn: 8.7 cm/sec Lat E/e': 13.0 Procedure The study was technically difficult with many images being suboptimal in quality. Left Ventricle Left ventricular systolic function is severely reduced. Ejection Fraction = 20-25%. The transmitral s pectral Doppler flow pattern is suggestive of restrictive physiology. Regional wall motion abnormalities jerome ot be excluded due to limited visualization. There is severe global hypokinesis of the left ventricle. Right Ventricle The right ventricle is normal in size and function. Atria The left atrium is mildly dilated. Right atrial size is normal. Mitral Valve The mitral valve is normal in structure and function. There is no mitral valve stenosis. There is mil d mitral regurgitation. Tricuspid Valve The tricuspid valve is not well visualized, but is grossly normal. There is moderate tricuspid regurg itation. Right ventricular systolic pressure is elevated at 40-50mmHg. Aortic Valve The aortic valve is not well visualized. The aortic valve opens well. No hemodynamically significant valvular aortic stenosis. No aortic regurgitation is present. Pulmonic Valve The pulmonic valve is not well visualized. There is no pulmonic valvular stenosis. Mild pulmonic valv ular regurgitation. Great Vessels The aortic root is normal size. Pericardium/Pleura There is no pericardial effusion. Interpretation Summary The study was technically difficult with many images being suboptimal in quality. Regional wall motion abnormalities cannot be excluded due to limited visualization. There is severe global hypokinesis of the left ventricle. Ejection Fraction = 20-25%. The left atrium is mildly dilated. There is mild mitral regurgitation. There is moderate tricuspid regurgitation. Right ventricular systolic pressure is elevated at 40-50mmHg. The aortic valve is not well visualized. The aortic valve opens well. There is no pericardial effusion. MD Salgado *Taylor 01/17/2019 03:35 PM
[2019-01-17] MEDS ORDERED: PT OWN MED DRAWER 7, Y5N ONE ×2 (16:06→21:12)
[2019-01-17] MEDS: METOLAZONE 2.5 MG TABLET (FP) PO SCH (18:14)
--- NOTE | 2019-01-17 20:47 | CONS ---
DATE OF CONSULTATION: DATE OF DICTATION: 01/17/2019 INFECTIOUS DISEASE CONSULTATION HISTORY OF PRESENT ILLNESS: A 53-year-old woman admitted who went for an outpatient cardiac catheterization on the at [facility]. She was found to be hypoglycemic and referred to her PMD. She went to her PMD's office yesterday who referred her for admission. She reports that she has alternating hypo and hyperglycemia. She has edema of her entire body, this has been going on for the last several months, and she has gained she says about 40 pounds. She fell and fractured her right humerus in October. She has had followup for her outpatient workup for surgery. During the process of that cardiac workup, she was found to have severe LV dysfunction with an ejection fraction of 21% and on stress test had a positive stress test consistent with ischemia, and she was referred for catheterization. She denies any fevers and chills. I am asked to see her for erythema of her left leg. She reports that this erythema is new. She notes as well that she has had for several months worsening pruritus of her skin, and she has been scratching. PAST MEDICAL HISTORY: Notable for diabetes poorly controlled COPD. There is a history of hyperlipidemia, gastritis, and fatty liver. She has been treated in the remote past for osteomyelitis of her foot in 2016. She has a history of CKD. SOCIAL HISTORY: She is ; she lives with her at home. She denies any cigarette, alcohol, or substance use. REVIEW OF SYSTEMS: As per HPI. She denies any vomiting. She currently has no chest pain or shortness of breath. PHYSICAL EXAMINATION: General: She is afebrile. Vital Signs: Temperature 97.5, pulse of 89, blood pressure 124/72, respiratory rate 18. She is saturating 99% on room air. She is lying flat. HEENT: Normocephalic. Eyes are anicteric. Her oropharynx is dry. She has no oral lesions. Neck: Supple. Lungs: Diminished breath sounds at the bases. Heart: Regular rate and rhythm. Abdomen: Firm and nontender. Extremities: Notable for she has 2+ edema of her arms and legs going up through her abdomen, and her entire skin is distended and woody. She has venous stasis, but she reports the erythema of her leg is new. Her feet have no open ulcers. On the sole of her right foot, she has a callus, which she says is followed at another wound care center. She reports she has a Charcot joint that foot. LABORATORY: Notable for white count of 6.2, hemoglobin 11.9, platelets of 311. She has 5% eosinophils. Her INR is 1.2. Creatinine is 1.4. IMPRESSION: In summary, this is a 53-year-old woman with multiple medical problems including poorly controlled diabetes, coronary artery disease, chronic kidney disease, who appears to have new erythema she reports of her legs. I would suggest obtaining blood cultures and would treat her with cefazolin at this time. She says that she had an allergic reaction recently, and her medications were altered as an outpatient. The nature of this is not known. Further recommendations to follow. GERI COLLIER M.D. [id number] MTDD
[2019-01-17] MEDS ORDERED: ceFAZolin SODIUM 1 GM VIAL ONE (21:12)
[2019-01-17] MEDS ORDERED: DEXTROSE 5%-WATER - 50 ML IVPB ONE (21:12)
[2019-01-17] MEDS: CEFAZOLIN 1 GM in DEXTROSE 5%-WATER - 50 ML IVPB SCH (21:28)
[2019-01-17] MEDS: HYDROCORTISONE 2.5% TOPICAL CREAM 30 GM TUBE TP SCH (21:42)
[2019-01-18] MEDS ORDERED: INSULIN SLIDING SCALE (NOVOLOG) 1 VIAL SQ SCH (01:30)
--- NOTE | 2019-01-18 01:39 | CONSULT ---
Consult Consult Specialty:: Endocrine Referred by:: Esau Underwood MD Reason for Consultation:: DMT2 - History of Present Illness Chief Complaint: hypoglycemia History of Present Illness: 53 year old female with a history of DMT2, HTN, HLD, CAD, CHF admitted for worsening lower extremity swelling, and associated pain. She reports blood sugars have been labile recent cardiac cath cancelled due to hypoglycemia bs 21. she has frequent hyperglycemia despite taking insulin,she admitts difficulty with diet control she denies nausea vomiting, or diarhea. - Past Medical History Cardio/Vascular: Yes: CAD (PCI of proximal LAD & balloon angioplasty of D1 2014), CHF, HTN Pulmonary: Yes: COPD ...LMP: 11/20/15 Endocrine: Yes: Diabetes Mellitus Additional Medical History: Hyperlipidemia, Gastritis, Fatty liver - Alcohol/Substance Use Hx Alcohol Use: Yes (occasional) - Smoking History Smoking history: Never smoked Have you smoked in the past 12 months: No - Social History ADL: Independent History of Recent Travel: No Home Medications - Allergies Allergies/Adverse Reactions: Allergies Allergy/AdvReac Type Severity Reaction Status Date / Time No Known Allergies Allergy Verified 01/16/19 14:26 - Home Medications Home Medications: Ambulatory Orders Nebivolol [Bystolic -] 5 mg PO DAILY 06/19/14 Aspirin [ASA -] 81 mg PO DAILY 10/26/14 Insulin Degludec [Tresiba Flextouch U-100] 50 unit SQ HS #0 04/21/16 Escitalopram Oxalate [Lexapro -] 10 mg PO DAILY #30 tablet 05/31/16 Furosemide [Lasix -] 60 mg PO DAILY 01/16/19 Oxycodone HCl 5 mg PO QID PRN 01/16/19 Review of Systems - Review of Systems Constitutional: reports: Malaise Eyes: reports: No Symptoms HENT: reports: No Symptoms Neck: reports: No Symptoms Gastrointestinal: reports: Bloating Genitourinary: reports: No Symptoms Breasts: reports: No Symptoms Reported Musculoskeletal: reports: Muscle Cramps, Muscle Weakness Integumentary: reports: No Symptoms Neurological: reports: Numbness Physical Exam Vital Signs: Vital Signs Temperature 97.8 F 01/17/19 18:00 Pulse Rate 91 H 01/17/19 18:00 Respiratory Rate 20 01/17/19 18:00 Blood Pressure 138/91 01/17/19 18:00 O2 Sat by Pulse Oximetry (%) 99 01/17/19 14:58 Constitutional: Yes: Anxious Eyes: Yes: EOM Intact HENT: Yes: Normocephalic Neck: Yes: Trachea Midline Respiratory: Yes: CTA Bilaterally Gastrointestinal: Yes: Normal Bowel Sounds ...Rectal Exam: Yes: Deferred Renal/: Yes: WNL Musculoskeletal: Yes: Muscle Weakness Edema: Yes Edema: LLE: 2+, RLE: 2+ Neurological: Yes: Alert, Oriented Labs: CBC, BMP 01/17/19 07:45 01/17/19 07:45 Problem List - Problems (1) Type 2 diabetes mellitus with diabetic autonomic (poly)neuropathy Problems reviewed: Yes Code(s): E11.43 - TYPE 2 DIABETES W DIABETIC AUTONOMIC (POLY)NEUROPATHY (2) Anemia Problems reviewed: Yes Code(s): D64.9 - ANEMIA, UNSPECIFIED (3) CAD (coronary artery disease) Code(s): I25.10 - ATHSCL HEART DISEASE OF [place] CORONARY ARTERY W/O ANG PCTRS Qualifiers: Coronary Disease-Associated Artery/Lesion type: unspecified vessel or lesion type [place] vs. transplanted heart: unspecified whether [place] or transplanted heart Associated angina: angina presence unspecified Qualified Code(s): I25.10 - Atherosclerotic heart disease of [place] coronary artery without angina pectoris (4) CKD (chronic kidney disease) Code(s): N18.9 - CHRONIC KIDNEY DISEASE, UNSPECIFIED (5) HTN (hypertension) Code(s): I10 - ESSENTIAL (PRIMARY) HYPERTENSION (6) Abrasion Code(s): T14.8 - OTHER INJURY OF UNSPECIFIED BODY REGION * DO NOT USE * (7) Abrasion of tongue Code(s): S00.512A - ABRASION OF ORAL CAVITY, INITIAL ENCOUNTER Assessment/Plan Current Active Problems Dm T2,neuropathy Anemia (Acute) CAD (coronary artery disease) (Acute) CHF (congestive heart failure) (Acute) CKD (chronic kidney disease) (Acute) HTN (hypertension) (Acute) Abnormal Lab Results 01/17/19 01/17/19 01/17/19 07:45 07:45 07:45 MCV 75.5 L MCH 23.1 L MCHC 30.5 L RDW 18.9 H PT with INR 14.80 H INR 1.25 H Anion Gap 6 L BUN 36.0 H Creatinine 1.4 H Random Glucose 225 H Calcium 8.4 L Iron Iron Saturation Unsaturated IBC Total Bilirubin 1.3 H Alkaline Phosphatase 241 H B-Natriuretic Peptide 4700.4 H Albumin 2.7 L 01/17/19 07:45 MCV MCH MCHC RDW PT with INR INR Anion Gap BUN Creatinine Random Glucose Calcium Iron 25 L Iron Saturation 6 L Unsaturated IBC 383 H Total Bilirubin Alkaline Phosphatase B-Natriuretic Peptide Albumin Laboratory Results - last 24 hr 01/17/19 01/17/19 01/17/19 06:15 07:45 07:45 WBC 6.2 RBC 5.18 Hgb 11.9 Hct 39.1 MCV 75.5 L MCH 23.1 L MCHC 30.5 L RDW 18.9 H Plt Count 311 MPV 8.1 PT with INR 14.80 H INR 1.25 H Sodium Potassium Chloride Carbon Dioxide Anion Gap BUN Creatinine Est GFR (CKD-EPI)AfAm Est GFR (CKD-EPI)NonAf POC Glucometer 250 Random Glucose Calcium Phosphorus Magnesium Iron TIBC Iron Saturation Unsaturated IBC Total Bilirubin AST ALT Alkaline Phosphatase Troponin I B-Natriuretic Peptide Total Protein Albumin 01/17/19 01/17/19 01/17/19 07:45 07:45 11:32 WBC RBC Hgb Hct MCV MCH MCHC RDW Plt Count MPV PT with INR INR Sodium 138 Potassium 3.7 Chloride 105 Carbon Dioxide 27 Anion Gap 6 L BUN 36.0 H Creatinine 1.4 H Est GFR (CKD-EPI)AfAm 49.94 Est GFR (CKD-EPI)NonAf 43.09 POC Glucometer 201 Random Glucose 225 H Calcium 8.4 L Phosphorus 2.9 Magnesium 2.3 Iron 25 L TIBC 408 Iron Saturation 6 L Unsaturated IBC 383 H Total Bilirubin 1.3 H AST 28 ALT 23 Alkaline Phosphatase 241 H Troponin I < 0.02 B-Natriuretic Peptide 4700.4 H Total Protein 6.4 Albumin 2.7 L 01/17/19 01/17/19 16:55 21:35 WBC RBC Hgb Hct MCV MCH MCHC RDW Plt Count MPV PT with INR INR Sodium Potassium Chloride Carbon Dioxide Anion Gap BUN Creatinine Est GFR (CKD-EPI)AfAm Est GFR (CKD-EPI)NonAf POC Glucometer 256 323 Random Glucose Calcium Phosphorus Magnesium Iron TIBC Iron Saturation Unsaturated IBC Total Bilirubin AST ALT Alkaline Phosphatase Troponin I B-Natriuretic Peptide Total Protein Albumin plan: levemir 25 unit sq am novolog scale coverage ck [id number] nutrition consult cgms outpatient
[2019-01-18] MEDS: INSULIN SLIDING SCALE (NOVOLOG) 1 VIAL SQ SCH ×4 (06:48→21:29)
[2019-01-18] MEDS ORDERED: INSULIN (LEVEMIR) 100 UNITS/ML UNITS SQ SCH (07:00)
[2019-01-18] MEDS ORDERED: INSULIN (NOVOLOG) ASPART 100 UNITS/ML 10ML VIAL ONE ×2 (07:24→18:15)
[2019-01-18] MEDS ORDERED: PT OWN MED DRAWER 7, Y5N ONE (07:53)
[2019-01-18] MEDS ORDERED: ceFAZolin SODIUM 1 GM VIAL ONE ×2 (09:29→20:55)
[2019-01-18] MEDS ORDERED: DEXTROSE 5%-WATER - 50 ML IVPB ONE ×2 (09:30→20:55)
[2019-01-18 09:58] LABS: HEMATOCRIT 39.2 % (32.4-45.2); HEMOGLOBIN 12.1 GM/dL (10.7-15.3); MCH 23.2 pg (25.7-33.7); MEAN PLT VOLUME 8.1 fl (7.5-11.1); PLATELET COUNT 275 K/MM3 (134-434); RBC 5.22 M/mm3 (3.60-5.2); RDW 18.9 % (11.6-15.6); WHITE BLOOD COUNT 5.7 K/mm3 (4.0-10.0)
[2019-01-18] MEDS: ESCITALOPRAM OXALATE 10 MG TABLET (FP) PO SCH (10:08)
[2019-01-18] MEDS: NEBIVOLOL 5 MG TABLET (FP) PO SCH (10:09)
[2019-01-18] MEDS: HEPARIN NA (PORCINE) 5,000 UNITS/ML 1ML VIAL SQ SCH ×2 (10:09→21:29)
[2019-01-18] MEDS: ASPIRIN 81 MG CHEWABLE TABLETS PO SCH (10:09)
[2019-01-18] MEDS: CEFAZOLIN 1 GM in DEXTROSE 5%-WATER - 50 ML IVPB SCH ×2 (10:12→21:29)
[2019-01-18] MEDS: METOLAZONE 2.5 MG TABLET (FP) PO SCH (10:14)
[2019-01-18 10:51] LABS: ALBUMIN 2.9 g/dl (3.4-5.0); BILIRUBIN,TOTAL 1.6 mg/dL (0.2-1); BLOOD UREA NITROGEN 30.5 mg/dL (7-18); CALCIUM 8.5 mg/dL (8.5-10.1); CREATININE 1.2 mg/dL (0.55-1.3); MAGNESIUM 2.2 mg/dL (1.8-2.4); PHOSPHOROUS 2.6 mg/dL (2.5-4.9); POTASSIUM 3.9 mmol/L (3.5-5.1); TOT PROT 6.7 g/dl (6.4-8.2)
--- NOTE | 2019-01-18 11:17 | CON.GI ---
Consult Consult Specialty:: Gastroenterology ( covering Dr Muñiz-patient identifies him as her GI) Referred by:: Bernadette Burr NP Reason for Consultation:: Abnormal LFTS - History of Present Illness Chief Complaint: Worsening edema History of Present Illness: 53F is admitted for management of worsening edema due to CHF. Her EF is 20-25%. She denies any h/o liver disease and drinks alcohol rarely. NO IVDA or transfusions. NO FH liver disease. He mother had esophageal cancer. She had an EGD with Dr. Muñiz on 01/30/13 which revealed gastritis. She has never had a colonoscopy. She fell and fractured her right humerus several weeks ago and awaits medical clearance for surgery. - History Source History Provided By: Patient Limitations to Obtaining History: No Limitations - Past Medical History Cardio/Vascular: Yes: CAD (PCI of proximal LAD & balloon angioplasty of D1 2014), CHF (EF 220-25%), HTN, Mitral Insufficiency, Pulmonary Hypertension Pulmonary: Yes: COPD Gastrointestinal: Yes: Gastritis Hepatobiliary: Yes: Other (fatty liver) ...LMP: 11/20/15 Musculoskeletal: Yes: Other (Right Charcot foot with osteomyelitis) Endocrine: Yes: Diabetes Mellitus Additional Medical History: Hyperlipidemia, Gastritis, Fatty liver - Past Surgical History Past Surgical History: Yes: Upper Endoscopy Additional Surgical History: left oophorectomy. 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 Place of : [employer] [facility] History of Recent Travel: No Home Medications - Allergies Allergies/Adverse Reactions: Allergies Allergy/AdvReac Type Severity Reaction Status Date / Time No Known Allergies Allergy Verified 01/16/19 14:26 - Home Medications Home Medications: Ambulatory Orders Nebivolol [Bystolic -] 5 mg PO DAILY 06/19/14 Aspirin [ASA -] 81 mg PO DAILY 10/26/14 Insulin Degludec [Tresiba Flextouch U-100] 50 unit SQ HS #0 04/21/16 Escitalopram Oxalate [Lexapro -] 10 mg PO DAILY #30 tablet 05/31/16 Furosemide [Lasix -] 60 mg PO DAILY 01/16/19 Oxycodone HCl 5 mg PO QID PRN 01/16/19 Family Medical History Family Hx Cancer: Mother (esophageal cancer) Family Hx Cardiac Disorders: Father ( MD in his 50s) Family Hx Respiratory Disorders: Brother ( of pneumonia, was an alcoholic) Review of Systems - Review of Systems Constitutional: reports: Lethargy, Malaise, Weakness Eyes: reports: No Symptoms HENT: reports: No Symptoms Neck: reports: No Symptoms Cardiovascular: reports: Shortness of Breath Respiratory: reports: Exercise Intolerance, Orthopnea, SOB on Exertion Gastrointestinal: reports: No Symptoms Musculoskeletal: reports: Back Pain, Extremity Pain, Muscle Cramps Integumentary: reports: Erythema (lower extremitreise) Physical Exam-GI Vital Signs: Vital Signs Temperature 97.3 F L 01/18/19 06:00 Pulse Rate 86 01/18/19 06:00 Respiratory Rate 20 01/18/19 06:00 Blood Pressure 125/89 01/18/19 06:00 O2 Sat by Pulse Oximetry (%) 99 01/17/19 21:00 Laboratory Tests 10/26/14 10/28/14 02/11/16 17:00 08:30 05:15 Plt Count INR Total Bilirubin AST ALT Alkaline Phosphatase 162 H D 128 99 04/21/16 05/24/16 11/12/18 13:45 17:55 10:20 Plt Count INR Total Bilirubin AST ALT Alkaline Phosphatase 190 H D 129 H D 184 H 01/16/19 01/17/19 01/17/19 14:55 07:45 07:45 Plt Count INR 1.25 H Total Bilirubin AST ALT Alkaline Phosphatase 226 H 241 H 01/18/19 01/18/19 08:25 08:25 Plt Count 275 INR Total Bilirubin 1.6 H AST 24 ALT 23 Alkaline Phosphatase 211 H Constitutional: Yes: Calm Eyes: Yes: Conjunctiva Clear HENT: Yes: Atraumatic Neck: Yes: Supple Cardiovascular: Yes: Regular Rate and Rhythm, Murmur (2/6 COLBY at apex) Respiratory: Yes: Diminished (at bases bilaterally), Rales Gastrointestinal Inspection: Yes: Distention, Scars (healed short Pfannensteil incision), Other (folliculitis with scarring lower abdominal wall edema) ...Auscultate: Yes: Hypoactive Bowel Sounds ...Palpate: Yes: Soft, Other (nontender) ...Percussion: Yes: Tympanitic ...Rectal Exam: Yes: Deferred (patient declined) Extremities: Yes: Other (right Charcot foot, bilateral lower extremity edema) Edema: Yes Edema: LLE: 4+, RLE: 4+ Integumentary: Yes: Erythema, Venous Stasis Changes Psychiatric: Yes: Alert, Oriented Labs: CBC, BMP 01/18/19 08:25 01/18/19 08:25 INR, PTT INR 1.25 (0.83-1.09) H 01/17/19 07:45 Imaging - Results Ultrasound: Report Reviewed ( Final Report US KIDNEY / RENAL US Show Printer-Friendly Version Patient Name: Tish Alfonso : 1965 ID: [id number] Study Date: 16-Jan-2019 20:37 Erikfrank Schultz Name: TISH ALFONSO DEPARTMENT OF RADIOLOGY Phys: Lou Boyle MD : 1965 Age : 53 Sex: F [facility] Acct: [id number] Loc: [address] Exam Date: 01/16/19 Status: [place] [address] Unit Number : [id number] EXAM#: TYPE/EXAM: RESULT: [id number] US/ABDOMEN US [id number] US/KIDNEY / RENAL US Abdomen ultrasound Renal ultrasound Clinical information given : evaluate for hydronephrosis, ascites No hydronephrosis is identified. The kidneys appear unremarkable in size each measuring approximately 9.3 cm in length. Allowing for somewhat limited visualization cortical thickness and echogenicity appear to be unremarkable. A 2.7 x 1.9 cm exophytic right renal solid lesion described on prior CT and ultrasound studies cannot be adequately visualized on the current exam due to body habitus/swelling. As requested a targeted abdomen ultrasound study was performed for evaluation of ascites. A small to moderate amount of ascites is seen within left upper quadrant. Trace perihepatic ascites is seen. Allowing for somewhat limited visualization no obvious ascites is noted within the lower quadrants. Impression: No hydronephrosis is identified involving either kidney. A small right renal exophytic solid lesion described on previous imaging studies cannot be adequately visualized on the current exam due to body habitus/ swelling. Correlation with follow-up CT is suggested. A small to moderate amount of left upper quadrant ascites is seen. Trace right upper quadrant ascites is noted. There is no obvious ascites within the lower quadrants. CT evaluation may also be helpful in this regard. Reported By: Leeroy Quinn MD 01/16/192299 Technologist: Tish Unger Transcribed Date/Time: 01/16/192299 Event Promoter: Leeroy Quinn Printed Date/Time: By: Signed by: Leeroy Quinn Signed on: 2018 23:01) Problem List - Problems (1) Abnormal liver function tests Code(s): R94.5 - ABNORMAL RESULTS OF LIVER FUNCTION STUDIES (2) CHF (congestive heart failure) Code(s): I50.9 - HEART FAILURE, UNSPECIFIED Qualifiers: Heart failure type: unspecified Heart failure chronicity: unspecified Qualified Code(s): I50.9 - Heart failure, unspecified (3) Family history of esophageal carcinoma Code(s): Z80.0 - FAMILY HISTORY OF MALIGNANT NEOPLASM OF DIGESTIVE ORGANS (4) CAD (coronary artery disease) Code(s): I25.10 - ATHSCL HEART DISEASE OF [place] CORONARY ARTERY W/O ANG PCTRS Qualifiers: Coronary Disease-Associated Artery/Lesion type: unspecified vessel or lesion type [place] vs. transplanted heart: unspecified whether [place] or transplanted heart Associated angina: angina presence unspecified Qualified Code(s): I25.10 - Atherosclerotic heart disease of [place] coronary artery without angina pectoris (5) CKD (chronic kidney disease) Code(s): N18.9 - CHRONIC KIDNEY DISEASE, UNSPECIFIED (6) HTN (hypertension) Code(s): I10 - ESSENTIAL (PRIMARY) HYPERTENSION (7) Type 2 diabetes mellitus with diabetic autonomic (poly)neuropathy Code(s): E11.43 - TYPE 2 DIABETES W DIABETIC AUTONOMIC (POLY)NEUROPATHY (8) Ascites Code(s): R18.8 - OTHER ASCITES (9) Chronic diabetic ulcer of right foot determined by examination Code(s): E11.621 - TYPE 2 DIABETES MELLITUS WITH FOOT ULCER; L97.519 - NON-PRS CHRONIC ULCER OTH PRT RIGHT FOOT W UNSP SEVERITY (10) Closed fracture of anatomical neck of humerus Code(s): S42.293A - OTH DISP FX OF UPPER END OF UNSP HUMERUS, INIT FOR CLOS FX (11) Osteomyelitis of ankle or foot Code(s): M86.9 - OSTEOMYELITIS, UNSPECIFIED (12) Type 2 diabetes mellitus with other diabetic neurological complication Code(s): E11.49 - TYPE 2 DIABETES W OTH DIABETIC NEUROLOGICAL COMPLICATION Assessment/Plan Assessment: - I believe that the elevated alkaline phophatase and ascites reflect congestive hepatopathy due to CHF as is supported by her pulmonary hypertension , cor pulmonale and anasarca. I cannot exclude underlying cirrhosis due to GARRETT. I will screen for alternative liver disease etiologies. - Past h/o gastritis, not symptomatic - Fatty liver - GARRETT vs NAFLD - FH esophageal cancer Plan: -- I expect that the alkaline phosphatase will normalize and perhaps the ascites will recede with optimized management of her CHF -- Liver studies ordered -- PPI prophylaxis -- Can refer for Fibroscan after discharge -- Not a candidate for colon cancer screening at this time -- As per her wish Dr. Muñiz will assume her care on Sunday, 01/20 Discussed with Bernadette Maldonado NP
[2019-01-18] MEDS: HYDROCORTISONE 2.5% TOPICAL CREAM 30 GM TUBE TP SCH ×2 (12:00→21:32)
[2019-01-18] MEDS: NYSTATIN POWDER 100,000 UNITS/GM - 15 GM TOPICAL POWDER TP SCH ×2 (12:00→21:33)
--- NOTE | 2019-01-18 12:00 | PN ---
Progress Note, Physician Chief Complaint: CHF Exacerbation Fracture R Humerus Rash History of Present Illness: Previous notes and events reviewed awake and alert NAD denies chest pain or SOB complain erythema R axillary NOTED WITH 24PACK OF DIET SODA IN DRAWER ~NON COMPLIANT WITH DIET RESTRICTIONS - Current Medication List Current Medications: Active Medications Acetaminophen (Tylenol -) 650 mg PO Q6H PRN PRN Reason: PAIN LEVEL 1-5 Last Admin: 01/17/19 00:19 Dose: 650 mg Aspirin (Asa -) 81 mg PO DAILY [facility] Last Admin: 01/18/19 10:09 Dose: 81 mg Escitalopram Oxalate (Lexapro -) 5 mg PO DAILY@0800 [facility] Last Admin: 01/18/19 10:08 Dose: 5 mg Heparin Sodium (Porcine) (Heparin -) 5,000 unit SQ BID [facility] Last Admin: 01/18/19 10:09 Dose: 5,000 unit Hydrocortisone (Anusol 2.5% Hc Cream -) 1 applic TP BID [facility] Last Admin: 01/17/19 21:42 Dose: 1 applic Cefazolin Sodium 1 gm/ (Dextrose) 50 mls @ 100 mls/hr IVPB BID [facility] Last Admin: 01/18/19 10:12 Dose: 100 mls/hr Insulin Aspart (Novolog Vial Sliding Scale -) 1 vial SQ ACHS [facility]; Protocol Last Admin: 01/18/19 06:48 Dose: 3 units Insulin Detemir (Levemir Vial) 25 units SQ AM [facility] Last Admin: 01/18/19 06:37 Dose: 25 units Metolazone (Zaroxolyn -) 2.5 mg PO DAILY [facility] Last Admin: 01/18/19 10:14 Dose: 2.5 mg Nebivolol (Bystolic -) 5 mg PO DAILY [facility] Last Admin: 01/18/19 10:09 Dose: 5 mg Nystatin (Nystop Powder -) 1 applic TP BID [facility] Last Admin: 01/17/19 21:43 Dose: 1 applic Oxycodone HCl (Roxicodone -) 5 mg PO QID PRN PRN Reason: PAIN LEVEL 6-10 Zolpidem Tartrate (Ambien -) 5 mg PO HS PRN PRN Reason: INSOMNIA Last Admin: 01/17/19 21:29 Dose: 5 mg - Objective Vital Signs: Vital Signs Temperature 97.3 F L 01/18/19 06:00 Pulse Rate 86 01/18/19 06:00 Respiratory Rate 20 01/18/19 06:00 Blood Pressure 125/89 01/18/19 06:00 O2 Sat by Pulse Oximetry (%) 99 01/17/19 21:00 Constitutional: Yes: No Distress, Calm, Obese Eyes: Yes: Conjunctiva Clear HENT: Yes: Atraumatic Cardiovascular: Yes: Regular Rate and Rhythm Respiratory: Yes: Regular, Diminished Gastrointestinal: Yes: Normal Bowel Sounds, Soft, Abdomen, Obese Musculoskeletal: Yes: Muscle Weakness Extremities: Yes: WNL Edema: Yes Edema: LLE: 3+, RLE: 3+ Integumentary: Yes: Erythema (R AXILLARY), Rash (generalized) Neurological: Yes: Alert, Oriented Psychiatric: Yes: Alert, Oriented Labs: CBC, BMP 01/18/19 08:25 01/18/19 08:25 INR, PTT INR 1.25 (0.83-1.09) H 01/17/19 07:45 Problem List - Problems (1) CKD (chronic kidney disease) Assessment/Plan: -Renal on board -BUN/Cr 30.5/1.2 -monitor renal function daily -Renal US reviewed shows no hydronephrosis, small right renal exophytic solid lesion, small to moderate amount of LUQ ascites, trace RUQ ascites Code(s): N18.9 - CHRONIC KIDNEY DISEASE, UNSPECIFIED (2) CAD (coronary artery disease) Assessment/Plan: -Aspirin -Cardiology on board -will need cardiac cath when medically cleared Code(s): I25.10 - ATHSCL HEART DISEASE OF [place] CORONARY ARTERY W/O ANG PCTRS Qualifiers: Coronary Disease-Associated Artery/Lesion type: unspecified vessel or lesion type [place] vs. transplanted heart: unspecified whether [place] or transplanted heart Associated angina: angina presence unspecified Qualified Code(s): I25.10 - Atherosclerotic heart disease of [place] coronary artery without angina pectoris (3) CHF (congestive heart failure) Assessment/Plan: -Cardiology on board -Echocardiogram shows EF 20-25%, LA mildly dilated, mild mitral regurg, mod tricuspid regurg, RV systolic pressure elevated, no pericardial effusion -BNP 4700.4 -strict I&Os -fluid restriction -Metozalone -daily weights -low Na diet Code(s): I50.9 - HEART FAILURE, UNSPECIFIED Qualifiers: Heart failure type: unspecified Heart failure chronicity: unspecified Qualified Code(s): I50.9 - Heart failure, unspecified (4) Diabetes Assessment/Plan: -BGM ACHS -ISS Levemir -HgA1c 9.5% -Endocrinology consult -noted with diet soda 24 pack in drawer -dietary consult for noncompliance with medication regimen Code(s): E11.9 - TYPE 2 DIABETES MELLITUS WITHOUT COMPLICATIONS Qualifiers: Diabetes mellitus type: type 2 (5) HTN (hypertension) Assessment/Plan: -Bystolic -low Na diet Code(s): I10 - ESSENTIAL (PRIMARY) HYPERTENSION (6) Cellulitis Assessment/Plan: -ID on board -no leukocytosis -afebrile -Cefazolin -BC pending -Vascular US shows no obvious sonographic evidence of DVT involving either leg Code(s): L03.90 - CELLULITIS, UNSPECIFIED Qualifiers: (7) Closed fracture of anatomical neck of humerus Assessment/Plan: -R shoulder xray -pain control -orthopedic consult Code(s): S42.293A - OTH DISP FX OF UPPER END OF UNSP HUMERUS, INIT FOR CLOS FX (8) Anemia Assessment/Plan: -Hg 12.1 -Iron panel reviewed with low Iron, low Iron Saturation Code(s): D64.9 - ANEMIA, UNSPECIFIED Assessment/Plan see problem list dvt ppx
--- NOTE | 2019-01-18 13:20 | PN ---
Progress Note, Physician Chief Complaint: No sob or chest pain History of Present Illness: 53 year old woman with a pmh HTN, DMII, HLD, CAD s/p PCI [place] and [place] [facility] [place], reported CHF follows with Dr. Weaver in Dr. Underwood's office was seen preop for R arm surgery and NST at [facility] 01/08/19 showed severe global LV systolic dysfunction with LVEF 21% and reported large severe anteroapical and lateral partially reversible defects c/w ischemia. She was then sent for outpatient cardiac cath at [facility] on 01/14/19 however prior to cath she was found to be hypoglycemic and thus the cath was not done. She was advised to be admitted for further treatment of her recurrent hypoglycemia but she signed out AMA. She then went to her PMD's office who referred her for admission at [facility]. [facility] States she has had edema involving her legs all the way up to her abdomen and subq tissue around to her back. She denies any SOB, chest pain, palpitations, pnd, orthopnea or LE edema. She continues to have recurrent hypoglycemic and hyperglycemic episodes. Noted to have SUDEEP, Low albumin level, low iron, Normal cardiac enzymes. - Current Medication List Current Medications: Active Medications Acetaminophen (Tylenol -) 650 mg PO Q6H PRN PRN Reason: PAIN LEVEL 1-5 Last Admin: 01/17/19 00:19 Dose: 650 mg Aspirin (Asa -) 81 mg PO DAILY [facility] Last Admin: 01/18/19 10:09 Dose: 81 mg Escitalopram Oxalate (Lexapro -) 5 mg PO DAILY@0800 [facility] Last Admin: 01/18/19 10:08 Dose: 5 mg Heparin Sodium (Porcine) (Heparin -) 5,000 unit SQ BID [facility] Last Admin: 01/18/19 10:09 Dose: 5,000 unit Hydrocortisone (Anusol 2.5% Hc Cream -) 1 applic TP BID [facility] Last Admin: 01/17/19 21:42 Dose: 1 applic Cefazolin Sodium 1 gm/ (Dextrose) 50 mls @ 100 mls/hr IVPB BID [facility] Last Admin: 01/18/19 10:12 Dose: 100 mls/hr Insulin Aspart (Novolog Vial Sliding Scale -) [address] [facility]; Protocol Last Admin: 01/18/19 12:34 Dose: Not Given Insulin Detemir (Levemir Vial) 25 units SQ AM [facility] Last Admin: 01/18/19 06:37 Dose: 25 units Metolazone (Zaroxolyn -) 2.5 mg PO DAILY [facility] Last Admin: 01/18/19 10:14 Dose: 2.5 mg Nebivolol (Bystolic -) 5 mg PO DAILY [facility] Last Admin: 01/18/19 10:09 Dose: 5 mg Nystatin (Nystop Powder -) 1 applic TP BID [facility] Last Admin: 01/17/19 21:43 Dose: 1 applic Oxycodone HCl (Roxicodone -) 5 mg PO QID PRN PRN Reason: PAIN LEVEL 6-10 Pantoprazole Sodium (Protonix -) 40 mg PO DAILY [facility] Zolpidem Tartrate (Ambien -) 5 mg PO HS PRN PRN Reason: INSOMNIA Last Admin: 01/17/19 21:29 Dose: 5 mg - Objective Vital Signs: Vital Signs Temperature 97.3 F L 01/18/19 06:00 Pulse Rate 86 01/18/19 06:00 Respiratory Rate 20 01/18/19 06:00 Blood Pressure 125/89 01/18/19 06:00 O2 Sat by Pulse Oximetry (%) 99 01/17/19 21:00 Constitutional: Yes: No Distress Neck: Yes: Supple Cardiovascular: Yes: Regular Rate and Rhythm, JVD, S1, S2. No: Rub Respiratory: Yes: CTA Bilaterally, Diminished Gastrointestinal: Yes: Soft Edema: LLE: 3+, RLE: 3+ Labs: CBC, BMP 01/18/19 08:25 01/18/19 08:25 INR, PTT INR 1.25 (0.83-1.09) H 01/17/19 07:45 Problem List - Problems (1) CHF (congestive heart failure) Code(s): I50.9 - HEART FAILURE, UNSPECIFIED Qualifiers: Heart failure type: unspecified Heart failure chronicity: unspecified Qualified Code(s): I50.9 - Heart failure, unspecified Assessment/Plan 53 year old woman with a pmh HTN, DMII, HLD, CAD s/p PCI [place] and diag [facility] 2014, reported CHF follows with Dr. Weaver in Dr. Underwood's office was seen preop for R arm surgery and NST at [facility] 01/08/19 showed severe global LV systolic dysfunction with LVEF 21% and reported large severe anteroapical and lateral partially reversible defects c/w ischemia. She was then sent for outpatient cardiac cath at [facility] on 01/14/19 however prior to cath she was found to be hypoglycemic and thus the cath was not done. She was advised to be admitted for further treatment of her recurrent hypoglycemia but she signed out AMA. She then went to her PMD's office who referred her for admission at [facility]. Pt was seen and examined today in [facility]. States she has had edema involving her legs all the way up to her abdomen and subq tissue around to her back. She denies any SOB, chest pain, palpitations, pnd, orthopnea or LE edema. She continues to have recurrent hypoglycemic and hyperglycemic episodes. Noted to have SUDEEP, Low albumin level, low iron, Normal cardiac enzymes. 1) Acute on chronic systolic CHF -concern for a systemic process with associated Hypoglycemic episodes, low albumin, low iron, abnormal coags -no sob or chest pain -diffuse body swelling -lungs are clear on exam and Cxray -recent NST as above showed severely reduced LVEF of 21% -Echocardiogram LVEF 20-25%, mild MR, mod TR -TFTs wnl -did not tolerate loop diuretics due to possible adverse reaction thus started on metolazone -monitor I/Os, daily weights, bun/creat, electrolytes and replete as needed -Currently on bystolic. Consider changing to Carvedilol. If bp allows consider debra/arb if no contraindication. CAD-h/o PCI [place] and [place] [facility] [place] -recent NST 01/08/19 as above -plan was for cardiac cath at [facility] on 01/14/19 but was postponed due to hypoglycemia, pt then left AMA -defer cath until clinically improves for current condition -cont ASA and bblocker -hold statin if concern for liver disorder
--- NOTE | 2019-01-18 16:14 | PN ---
Progress Note (short form) - Note Progress Note: 1. Fluid overload/lower extremity edema 2. CKD stage 3 3. Hypertension 4. Skin rash/suspected drug rash Active Medications Acetaminophen (Tylenol -) 650 mg PO Q6H PRN PRN Reason: PAIN LEVEL 1-5 Last Admin: 01/17/19 00:19 Dose: 650 mg Aspirin (Asa -) 81 mg PO DAILY [facility] Last Admin: 01/18/19 10:09 Dose: 81 mg Escitalopram Oxalate (Lexapro -) 5 mg PO DAILY@0800 [facility] Last Admin: 01/18/19 10:08 Dose: 5 mg Heparin Sodium (Porcine) (Heparin -) 5,000 unit SQ BID [facility] Last Admin: 01/18/19 10:09 Dose: 5,000 unit Hydrocortisone (Anusol 2.5% Hc Cream -) 1 applic TP BID [facility] Last Admin: 01/18/19 12:00 Dose: 1 applic Cefazolin Sodium 1 gm/ (Dextrose) 50 mls @ 100 mls/hr IVPB BID [facility] Last Admin: 01/18/19 10:12 Dose: 100 mls/hr Insulin Aspart (Novolog Vial Sliding Scale -) 1 vial SQ ACHS [facility]; Protocol Last Admin: 01/18/19 12:34 Dose: Not Given Insulin Detemir (Levemir Vial) 25 units SQ AM [facility] Last Admin: 01/18/19 06:37 Dose: 25 units Metolazone (Zaroxolyn -) 2.5 mg PO DAILY [facility] Last Admin: 01/18/19 10:14 Dose: 2.5 mg Nebivolol (Bystolic -) 5 mg PO DAILY [facility] Last Admin: 01/18/19 10:09 Dose: 5 mg Nystatin (Nystop Powder -) 1 applic TP BID [facility] Last Admin: 01/18/19 12:00 Dose: Not Given Oxycodone HCl (Roxicodone -) 5 mg PO QID PRN PRN Reason: PAIN LEVEL 6-10 Pantoprazole Sodium (Protonix -) 40 mg PO DAILY [facility] Zolpidem Tartrate (Ambien -) 5 mg PO HS PRN PRN Reason: INSOMNIA Last Admin: 01/17/19 21:29 Dose: 5 mg Last Vital Signs Temp Pulse Resp BP Pulse Ox 98.2 F 86 20 122/87 99 01/18/19 16:00 01/18/19 16:00 01/18/19 16:00 01/18/19 16:00 01/17/19 21:00 CBC, BMP 01/18/19 08:25 01/18/19 08:25 IMP- ckd HF LE edema ?loop diuretic allergy monitor on metolazone Suspect that rash be be due to loop diuretics, will discontinue Lasix and start Metolazone 2.5mg Daily with plan to titrate to obtain weight loss Serum Eosinophils are elevated indicative of allergic reaction Dermatology consulted to better evaluate rash Check Urine for proteinura and WBC's Trend renal function daily while on diuretics Trend daily weights 2g Na restriction supplement K if < 3.5
[2019-01-18] MEDS: oxyCODONE HCL 5 MG TABLET PO PRN (17:43)
[2019-01-18 20:43] LABS: EPI CELLS 1.2 /HPF (0-5/HPF); HYALINE CASTS 0 /lpf (0-8); PH,URINE 6.5 (5.0-8.0); URINE APPEARANCE CLEAR; URINE BACTERIA 22.9 /hpf (NEGATIVE); URINE BILIRUBIN NEGATIVE (NEGATIVE); URINE COLOR YELLOW; URINE GLUCOSE (UA) NEGATIVE (NEGATIVE); URINE KETONE NEGATIVE (NEGATIVE); URINE LEUK ESTERASE NEGATIVE (NEGATIVE); URINE NITRITE NEGATIVE (NEGATIVE); URINE PROTEIN 2+ (NEGATIVE); URINE RBC 1 /hpf (0-4); URINE WBC 1 /hpf (0-5)
[2019-01-18 21:09] LABS: YEAST FEW PRESENT (NEGATIVE)
[2019-01-18] MEDS: ZOLPIDEM TARTRATE 5 MG TABLET PO PRN (21:29)
--- NOTE | 2019-01-19 00:28 | PN ---
Progress Note, Physician Chief Complaint: appetite improved bs higher - Current Medication List Current Medications: Active Medications Acetaminophen (Tylenol -) 650 mg PO Q6H PRN PRN Reason: PAIN LEVEL 1-5 Last Admin: 01/17/19 00:19 Dose: 650 mg Aspirin (Asa -) 81 mg PO DAILY [facility] Last Admin: 01/18/19 10:09 Dose: 81 mg Escitalopram Oxalate (Lexapro -) 5 mg PO DAILY@0800 [facility] Last Admin: 01/18/19 10:08 Dose: 5 mg Heparin Sodium (Porcine) (Heparin -) 5,000 unit SQ BID [facility] Last Admin: 01/18/19 21:29 Dose: 5,000 unit Hydrocortisone (Anusol 2.5% Hc Cream -) 1 applic TP BID [facility] Last Admin: 01/18/19 21:32 Dose: 1 applic Cefazolin Sodium 1 gm/ (Dextrose) 50 mls @ 100 mls/hr IVPB BID [facility] Last Admin: 01/18/19 21:29 Dose: 100 mls/hr Insulin Aspart (Novolog Vial Sliding Scale -) 1 vial SQ ACHS [facility]; Protocol Last Admin: 01/18/19 21:29 Dose: 5 units Insulin Detemir (Levemir Vial) 25 units SQ AM [facility] Last Admin: 01/18/19 06:37 Dose: 25 units Metolazone (Zaroxolyn -) 2.5 mg PO DAILY [facility] Last Admin: 01/18/19 10:14 Dose: 2.5 mg Nebivolol (Bystolic -) 5 mg PO DAILY [facility] Last Admin: 01/18/19 10:09 Dose: 5 mg Nystatin (Nystop Powder -) 1 applic TP BID [facility] Last Admin: 01/18/19 21:33 Dose: 1 applic Oxycodone HCl (Roxicodone -) 5 mg PO QID PRN PRN Reason: PAIN LEVEL 6-10 Last Admin: 01/18/19 17:43 Dose: 5 mg Pantoprazole Sodium (Protonix -) 40 mg PO DAILY [facility] Zolpidem Tartrate (Ambien -) 5 mg PO HS PRN PRN Reason: INSOMNIA Last Admin: 01/18/19 21:29 Dose: 5 mg - Objective Vital Signs: Vital Signs Temperature 97.5 F L 01/18/19 22:00 Pulse Rate 87 01/18/19 22:00 Respiratory Rate 20 01/18/19 22:00 Blood Pressure 149/97 01/18/19 22:00 O2 Sat by Pulse Oximetry (%) 96 01/18/19 21:00 Constitutional: Yes: Calm Eyes: Yes: EOM Intact HENT: Yes: Normocephalic Neck: Yes: Trachea Midline Cardiovascular: Yes: Regular Rate and Rhythm Respiratory: Yes: CTA Bilaterally Gastrointestinal: Yes: Normal Bowel Sounds ...Rectal Exam: Yes: Deferred Genitourinary: Yes: WNL Breast(s): Yes: WNL Musculoskeletal: Yes: Muscle Weakness Extremities: Yes: WNL Edema: LLE: 1+, RLE: 1+ Neurological: Yes: Alert, Oriented Labs: CBC, BMP 01/18/19 08:25 01/18/19 08:25 INR, PTT INR 1.25 (0.83-1.09) H 01/17/19 07:45 Problem List - Problems (1) Type 2 diabetes mellitus with diabetic autonomic (poly)neuropathy Problems reviewed: Yes Code(s): E11.43 - TYPE 2 DIABETES W DIABETIC AUTONOMIC (POLY)NEUROPATHY (2) Anemia Problems reviewed: Yes Code(s): D64.9 - ANEMIA, UNSPECIFIED (3) CAD (coronary artery disease) Problems reviewed: Yes Code(s): I25.10 - ATHSCL HEART DISEASE OF [place] CORONARY ARTERY W/O ANG PCTRS Qualifiers: Coronary Disease-Associated Artery/Lesion type: unspecified vessel or lesion type [place] vs. transplanted heart: unspecified whether [place] or transplanted heart Associated angina: angina presence unspecified Qualified Code(s): I25.10 - Atherosclerotic heart disease of [place] coronary artery without angina pectoris (4) CKD (chronic kidney disease) Code(s): N18.9 - CHRONIC KIDNEY DISEASE, UNSPECIFIED (5) HTN (hypertension) Code(s): I10 - ESSENTIAL (PRIMARY) HYPERTENSION (6) Abrasion Code(s): T14.8 - OTHER INJURY OF UNSPECIFIED BODY REGION * DO NOT USE * (7) Abrasion of tongue Code(s): S00.512A - ABRASION OF ORAL CAVITY, INITIAL ENCOUNTER Assessment/Plan Current Active Problems Abnormal liver function tests (Acute) Anemia (Acute) CAD (coronary artery disease) (Acute) CHF (congestive heart failure) (Acute) CKD (chronic kidney disease) (Acute) Family history of esophageal carcinoma (Acute) HTN (hypertension) (Acute) Type 2 diabetes mellitus with diabetic autonomic (poly)neuropathy (Acute) Abnormal Lab Results 01/18/19 01/18/19 01/18/19 08:25 08:25 08:25 RBC 5.22 H MCV 75.0 L MCH 23.2 L MCHC 31.0 L RDW 18.9 H Anion Gap 7 L BUN 30.5 H Random Glucose 132 H Hemoglobin A1c % 9.5 H Total Bilirubin 1.6 H Alkaline Phosphatase 211 H Albumin 2.9 L Urine Protein U Random Total Protein 01/18/19 01/18/19 19:20 19:20 RBC MCV MCH MCHC RDW Anion Gap BUN Random Glucose Hemoglobin A1c % Total Bilirubin Alkaline Phosphatase Albumin Urine Protein 2+ H U Random Total Protein 75.0 H Laboratory Results - last 24 hr 01/18/19 01/18/19 01/18/19 06:31 08:25 08:25 WBC RBC Hgb Hct MCV MCH MCHC RDW Plt Count MPV Sodium 137 Potassium 3.9 Chloride 104 Carbon Dioxide 27 Anion Gap 7 L BUN 30.5 H Creatinine 1.2 Est GFR (CKD-EPI)AfAm 60.17 Est GFR (CKD-EPI)NonAf 51.92 POC Glucometer 169 Random Glucose 132 H Hemoglobin A1c % 9.5 H Calcium 8.5 Phosphorus 2.6 Magnesium 2.2 Total Bilirubin 1.6 H AST 24 ALT 23 Alkaline Phosphatase 211 H Total Protein 6.7 Albumin 2.9 L TSH 2.93 Free T4 Urine Color Urine Appearance Urine pH Ur Specific [place] Urine Protein Urine Glucose (UA) Urine Ketones Urine Blood Urine Nitrite Urine Bilirubin Urine Urobilinogen Ur Leukocyte Esterase Urine WBC (Auto) Urine RBC (Auto) Urine Casts (Auto) U Epithel Cells (Auto) Urine Bacteria (Auto) Urine Yeast (Auto) U Random Total Protein Urine Creatinine Protein/Creatinin Ratio 01/18/19 01/18/19 01/18/19 08:25 08:25 12:32 WBC 5.7 RBC 5.22 H Hgb 12.1 Hct 39.2 MCV 75.0 L MCH 23.2 L MCHC 31.0 L RDW 18.9 H Plt Count 275 MPV 8.1 Sodium Potassium Chloride Carbon Dioxide Anion Gap BUN Creatinine Est GFR (CKD-EPI)AfAm Est GFR (CKD-EPI)NonAf POC Glucometer 127 Random Glucose Hemoglobin A1c % Calcium Phosphorus Magnesium Total Bilirubin AST ALT Alkaline Phosphatase Total Protein Albumin TSH Free T4 1.24 Urine Color Urine Appearance Urine pH Ur Specific [place] Urine Protein Urine Glucose (UA) Urine Ketones Urine Blood Urine Nitrite Urine Bilirubin Urine Urobilinogen Ur Leukocyte Esterase Urine WBC (Auto) Urine RBC (Auto) Urine Casts (Auto) U Epithel Cells (Auto) Urine Bacteria (Auto) Urine Yeast (Auto) U Random Total Protein Urine Creatinine Protein/Creatinin Ratio 01/18/19 01/18/19 01/18/19 17:20 19:20 19:20 WBC RBC Hgb Hct MCV MCH MCHC RDW Plt Count MPV Sodium Potassium Chloride Carbon Dioxide Anion Gap BUN Creatinine Est GFR (CKD-EPI)AfAm Est GFR (CKD-EPI)NonAf POC Glucometer 214 Random Glucose Hemoglobin A1c % Calcium Phosphorus Magnesium Total Bilirubin AST ALT Alkaline Phosphatase Total Protein Albumin TSH Free T4 Urine Color Yellow Urine Appearance Clear Urine pH 6.5 Ur Specific [place] 1.013 Urine Protein 2+ H Urine Glucose (UA) Negative Urine Ketones Negative Urine Blood Negative Urine Nitrite Negative Urine Bilirubin Negative Urine Urobilinogen 1.0 Ur Leukocyte Esterase Negative Urine WBC (Auto) 1 Urine RBC (Auto) 1 Urine Casts (Auto) 0 U Epithel Cells (Auto) 1.2 Urine Bacteria (Auto) 22.9 Urine Yeast (Auto) Few present U Random Total Protein 75.0 H Urine Creatinine 48.0 Protein/Creatinin Ratio 1.6 01/18/19 21:26 WBC RBC Hgb Hct MCV MCH MCHC RDW Plt Count MPV Sodium Potassium Chloride Carbon Dioxide Anion Gap BUN Creatinine Est GFR (CKD-EPI)AfAm Est GFR (CKD-EPI)NonAf POC Glucometer 266 Random Glucose Hemoglobin A1c % Calcium Phosphorus Magnesium Total Bilirubin AST ALT Alkaline Phosphatase Total Protein Albumin TSH Free T4 Urine Color Urine Appearance Urine pH Ur Specific [place] Urine Protein Urine Glucose (UA) Urine Ketones Urine Blood Urine Nitrite Urine Bilirubin Urine Urobilinogen Ur Leukocyte Esterase Urine WBC (Auto) Urine RBC (Auto) Urine Casts (Auto) U Epithel Cells (Auto) Urine Bacteria (Auto) Urine Yeast (Auto) U Random Total Protein Urine Creatinine Protein/Creatinin Ratio plan: levemir 35 units am bgm qid novolog scale achs hba1c
[2019-01-19] MEDS: oxyCODONE HCL 5 MG TABLET PO PRN ×2 (05:11→20:25)
[2019-01-19] MEDS: INSULIN SLIDING SCALE (NOVOLOG) 1 VIAL SQ SCH ×4 (06:56→21:52)
[2019-01-19] MEDS: INSULIN (LEVEMIR) 100 UNITS/ML UNITS SQ SCH (06:57)
[2019-01-19] MEDS ORDERED: INSULIN (NOVOLOG) ASPART 100 UNITS/ML 10ML VIAL ONE (07:19)
[2019-01-19] MEDS ORDERED: ceFAZolin SODIUM 1 GM VIAL ONE ×2 (09:52→20:24)
[2019-01-19] MEDS ORDERED: DEXTROSE 5%-WATER - 50 ML IVPB ONE ×2 (09:53→20:24)
[2019-01-19] MEDS: PANTOPRAZOLE 40 MG TABLET (FP) PO SCH (09:56)
[2019-01-19] MEDS: HEPARIN NA (PORCINE) 5,000 UNITS/ML 1ML VIAL SQ SCH ×2 (09:56→21:50)
[2019-01-19] MEDS: ASPIRIN 81 MG CHEWABLE TABLETS PO SCH (09:56)
[2019-01-19] MEDS: CEFAZOLIN 1 GM in DEXTROSE 5%-WATER - 50 ML IVPB SCH ×2 (09:56→21:50)
[2019-01-19] MEDS: ESCITALOPRAM OXALATE 10 MG TABLET (FP) PO SCH (09:56)
[2019-01-19 10:38] LABS: HEMATOCRIT 38.9 % (32.4-45.2); HEMOGLOBIN 12.1 GM/dL (10.7-15.3); MCH 23.5 pg (25.7-33.7); MCHC 31.2 g/dl (32.0-36.0); MEAN CELL VOLUME 75.3 fl (80-96); MEAN PLT VOLUME 8.3 fl (7.5-11.1); PLATELET COUNT 267 K/MM3 (134-434); RBC 5.17 M/mm3 (3.60-5.2); RDW 19.1 % (11.6-15.6); WHITE BLOOD COUNT 6.5 K/mm3 (4.0-10.0)
--- NOTE | 2019-01-19 10:44 | PN.GI ---
GI Progress Note Subjective: GI NOte ( covering Dr Muñiz): No abdominal pain. Tolerating diet. Repeat LFTs pending. 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 I cannot exclude underlying cirrhosis due to GARRETT. Screen for alternative liver disease etiologies is pending - Past h/o gastritis, not symptomatic - Fatty liver - GARRETT vs NAFLD - FH esophageal cancer Plan: -- I expect that the alkaline phosphatase will normalize and perhaps the ascites will recede with optimized management of her CHF -- Liver studies pending -- PPI prophylaxis -- Can refer for Fibroscan after discharge -- Not a candidate for colon cancer screening at this time -- As per her wish Dr. Muñiz will assume her care on Sunday, 01/20 Problem List - Problems (1) Abnormal liver function tests Code(s): R94.5 - ABNORMAL RESULTS OF LIVER FUNCTION STUDIES (2) CHF (congestive heart failure) Code(s): I50.9 - HEART FAILURE, UNSPECIFIED Qualifiers: Heart failure type: unspecified Heart failure chronicity: unspecified Qualified Code(s): I50.9 - Heart failure, unspecified (3) Family history of esophageal carcinoma Code(s): Z80.0 - FAMILY HISTORY OF MALIGNANT NEOPLASM OF DIGESTIVE ORGANS (4) CAD (coronary artery disease) Code(s): I25.10 - ATHSCL HEART DISEASE OF [place] CORONARY ARTERY W/O ANG PCTRS Qualifiers: Coronary Disease-Associated Artery/Lesion type: unspecified vessel or lesion type [place] vs. 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 (poly)neuropathy Code(s): E11.43 - TYPE 2 DIABETES W DIABETIC AUTONOMIC (POLY)NEUROPATHY (8) Ascites Code(s): R18.8 - OTHER ASCITES (9) Chronic diabetic ulcer of right foot determined by examination Code(s): E11.621 - TYPE 2 DIABETES MELLITUS WITH FOOT ULCER; L97.519 - NON-PRS CHRONIC ULCER OTH PRT RIGHT FOOT W UNSP SEVERITY (10) Closed fracture of anatomical neck of humerus Code(s): S42.293A - OTH DISP FX OF UPPER END OF UNSP HUMERUS, INIT FOR CLOS FX (11) Osteomyelitis of ankle or foot Code(s): M86.9 - OSTEOMYELITIS, UNSPECIFIED (12) Type 2 diabetes mellitus with other diabetic neurological complication Code(s): E11.49 - TYPE 2 DIABETES W OTH DIABETIC NEUROLOGICAL COMPLICATION
--- NOTE | 2019-01-19 11:13 | PN ---
Progress Note, Physician Chief Complaint: CHF Exacerbation Fracture R Humerus Rash History of Present Illness: Previous notes and events reviewed awake and alert NAD denies chest pain or SOB patient refusing R shoulder xray because original MRI done at [facility] educated patient on importance of fluid restriction and daily weights - Current Medication List Current Medications: Active Medications Acetaminophen (Tylenol -) 650 mg PO Q6H PRN PRN Reason: PAIN LEVEL 1-5 Last Admin: 01/17/19 00:19 Dose: 650 mg Aspirin (Asa -) 81 mg PO DAILY [facility] Last Admin: 01/19/19 09:56 Dose: 81 mg Escitalopram Oxalate (Lexapro -) 5 mg PO DAILY@0800 [facility] Last Admin: 01/19/19 09:56 Dose: 5 mg Heparin Sodium (Porcine) (Heparin -) 5,000 unit SQ BID [facility] Last Admin: 01/19/19 09:56 Dose: 5,000 unit Hydrocortisone (Anusol 2.5% Hc Cream -) 1 applic TP BID [facility] Last Admin: 01/18/19 21:32 Dose: 1 applic Cefazolin Sodium 1 gm/ (Dextrose) 50 mls @ 100 mls/hr IVPB BID [facility] Last Admin: 01/19/19 09:56 Dose: 100 mls/hr Insulin Aspart (Novolog Vial Sliding Scale -) 1 vial SQ ACHS [facility]; Protocol Last Admin: 01/19/19 06:56 Dose: 5 units Insulin Detemir (Levemir Vial) 35 units SQ AM [facility] Last Admin: 01/19/19 06:57 Dose: 35 units Metolazone (Zaroxolyn -) 2.5 mg PO DAILY [facility] Last Admin: 01/18/19 10:14 Dose: 2.5 mg Nebivolol (Bystolic -) 5 mg PO DAILY [facility] Last Admin: 01/18/19 10:09 Dose: 5 mg Nystatin (Nystop Powder -) 1 applic TP BID [facility] Last Admin: 01/18/19 21:33 Dose: 1 applic Oxycodone HCl (Roxicodone -) 5 mg PO QID PRN PRN Reason: PAIN LEVEL 6-10 Last Admin: 01/19/19 05:11 Dose: 5 mg Pantoprazole Sodium (Protonix -) 40 mg PO DAILY [facility] Last Admin: 01/19/19 09:56 Dose: 40 mg Zolpidem Tartrate (Ambien -) 5 mg PO HS PRN PRN Reason: INSOMNIA Last Admin: 01/18/19 21:29 Dose: 5 mg - Objective Vital Signs: Vital Signs Temperature 97.3 F L 01/19/19 06:00 Pulse Rate 88 01/19/19 06:00 Respiratory Rate 18 01/19/19 06:00 Blood Pressure 143/79 01/19/19 06:00 O2 Sat by Pulse Oximetry (%) 96 01/18/19 21:00 Constitutional: Yes: No Distress, Calm, Obese, Poor Hygeine Eyes: Yes: Conjunctiva Clear HENT: Yes: Atraumatic Cardiovascular: Yes: Regular Rate and Rhythm Respiratory: Yes: Regular, Diminished Gastrointestinal: Yes: Normal Bowel Sounds, Soft, Abdomen, Obese Musculoskeletal: Yes: WNL Extremities: Yes: WNL, Erythema Edema: Yes Edema: LLE: 2+, RLE: 2+ Integumentary: Yes: Erythema (lower extremities, R axillary), Rash Neurological: Yes: Alert, Oriented Psychiatric: Yes: Alert, Oriented Labs: CBC, BMP 01/19/19 09:20 INR, PTT INR 1.25 (0.83-1.09) H 01/17/19 07:45 Microbiology 01/17/19 20:45 Blood - Peripheral Venous Blood Culture - Preliminary NO GROWTH OBTAINED AFTER 24 HOURS, INCUBATION TO CONTINUE FOR 4 DAYS. 01/17/19 19:50 Blood - Peripheral Venous Blood Culture - Preliminary NO GROWTH OBTAINED AFTER 24 HOURS, INCUBATION TO CONTINUE FOR 4 DAYS. Problem List - Problems (1) CKD (chronic kidney disease) Assessment/Plan: -Renal on board -BUN/Cr 24.6/1.2 -monitor renal function daily -Renal US reviewed shows no hydronephrosis, small right renal exophytic solid lesion, small to moderate amount of LUQ ascites, trace RUQ ascites Code(s): N18.9 - CHRONIC KIDNEY DISEASE, UNSPECIFIED (2) CAD (coronary artery disease) Assessment/Plan: -Aspirin -Cardiology on board -will need cardiac cath when medically cleared Code(s): I25.10 - ATHSCL HEART DISEASE OF [place] CORONARY ARTERY W/O ANG PCTRS Qualifiers: Coronary Disease-Associated Artery/Lesion type: unspecified vessel or lesion type [place] vs. transplanted heart: unspecified whether [place] or transplanted heart Associated angina: angina presence unspecified Qualified Code(s): I25.10 - Atherosclerotic heart disease of [place] coronary artery without angina pectoris (3) CHF (congestive heart failure) Assessment/Plan: -Cardiology on board -Echocardiogram shows EF 20-25%, LA mildly dilated, mild mitral regurg, mod tricuspid regurg, RV systolic pressure elevated, no pericardial effusion -BNP 4700.4 -strict I&Os -fluid restriction -Metozalone -daily weights -low Na diet -dietary consult Code(s): I50.9 - HEART FAILURE, UNSPECIFIED Qualifiers: Heart failure type: unspecified Heart failure chronicity: unspecified Qualified Code(s): I50.9 - Heart failure, unspecified (4) Diabetes Assessment/Plan: -BGM ACHS -ISS -Levemir -HgA1c 9.5% -Endocrinology consult -dietary consult for noncompliance with medication regimen Code(s): E11.9 - TYPE 2 DIABETES MELLITUS WITHOUT COMPLICATIONS Qualifiers: Diabetes mellitus type: type 2 (5) HTN (hypertension) Assessment/Plan: -Bystolic -low Na diet Code(s): I10 - ESSENTIAL (PRIMARY) HYPERTENSION (6) Cellulitis Assessment/Plan: -ID on board -no leukocytosis -afebrile -Cefazolin -BC neg -Vascular US shows no obvious sonographic evidence of DVT involving either leg Code(s): L03.90 - CELLULITIS, UNSPECIFIED Qualifiers: (7) Closed fracture of anatomical neck of humerus Assessment/Plan: -R shoulder xray~refusing -pain control -orthopedic consult Code(s): S42.293A - OTH DISP FX OF UPPER END OF UNSP HUMERUS, INIT FOR CLOS FX (8) Anemia Assessment/Plan: -Hg 12.1 -Iron panel reviewed with low Iron, low Iron Saturation Code(s): D64.9 - ANEMIA, UNSPECIFIED Assessment/Plan see problem list dvt ppx
[2019-01-19 11:16] LABS: ALBUMIN 2.8 g/dl (3.4-5.0); BILIRUBIN,TOTAL 1.6 mg/dL (0.2-1); BLOOD UREA NITROGEN 24.6 mg/dL (7-18); CALCIUM 8.7 mg/dL (8.5-10.1); CREATININE 1.2 mg/dL (0.55-1.3); POTASSIUM 4.4 mmol/L (3.5-5.1); TOT PROT 6.9 g/dl (6.4-8.2)
[2019-01-19] MEDS: NEBIVOLOL 5 MG TABLET (FP) PO SCH (12:06)
[2019-01-19] MEDS: METOLAZONE 2.5 MG TABLET (FP) PO SCH (12:06)
[2019-01-19] MEDS: HYDROCORTISONE 2.5% TOPICAL CREAM 30 GM TUBE TP SCH ×2 (12:07→21:50)
[2019-01-19] MEDS: NYSTATIN POWDER 100,000 UNITS/GM - 15 GM TOPICAL POWDER TP SCH ×2 (12:07→21:50)
[2019-01-19 15:47] VITALS: BMI 39.7
--- NOTE | 2019-01-19 21:29 | PN ---
Progress Note (short form) - Note Progress Note: 1. Fluid overload/lower extremity edema 2. CKD stage 3 3. Hypertension 4. Skin rash/suspected drug rash Current Medications Acetaminophen (Tylenol -) 650 mg PO Q6H PRN PRN Reason: PAIN LEVEL 1-5 Last Admin: 01/17/19 00:19 Dose: 650 mg Aspirin (Asa -) 81 mg PO DAILY [facility] Last Admin: 01/19/19 09:56 Dose: 81 mg Escitalopram Oxalate (Lexapro -) 5 mg PO DAILY@0800 [facility] Last Admin: 01/19/19 09:56 Dose: 5 mg Heparin Sodium (Porcine) (Heparin -) 5,000 unit SQ BID [facility] Last Admin: 01/19/19 09:56 Dose: 5,000 unit Hydrocortisone (Anusol 2.5% Hc Cream -) 1 applic TP BID [facility] Last Admin: 01/19/19 12:07 Dose: 1 applic Cefazolin Sodium 1 gm/ (Dextrose) 50 mls @ 100 mls/hr IVPB BID [facility] Last Admin: 01/19/19 09:56 Dose: 100 mls/hr Insulin Aspart (Novolog Vial Sliding Scale -) 1 vial SQ ACHS [facility]; Protocol Last Admin: 01/19/19 17:31 Dose: Not Given Insulin Detemir (Levemir Vial) 35 units SQ AM [facility] Last Admin: 01/19/19 06:57 Dose: 35 units Metolazone (Zaroxolyn -) 2.5 mg PO DAILY [facility] Last Admin: 01/19/19 12:06 Dose: 2.5 mg Nebivolol (Bystolic -) 5 mg PO DAILY [facility] Last Admin: 01/19/19 12:06 Dose: 5 mg Nystatin (Nystop Powder -) 1 applic TP BID [facility] Last Admin: 01/19/19 12:07 Dose: 1 applic Oxycodone HCl (Roxicodone -) 5 mg PO QID PRN PRN Reason: PAIN LEVEL 6-10 Last Admin: 01/19/19 20:25 Dose: 5 mg Pantoprazole Sodium (Protonix -) 40 mg PO DAILY [facility] Last Admin: 01/19/19 09:56 Dose: 40 mg Zolpidem Tartrate (Ambien -) 5 mg PO HS PRN PRN Reason: INSOMNIA Last Admin: 01/18/19 21:29 Dose: 5 mg Last Vital Signs Temp Pulse Resp BP Pulse Ox 98.5 F 81 20 150/88 96 01/19/19 18:12 01/19/19 18:12 01/19/19 18:12 01/19/19 18:12 01/19/19 09:00 Lungs clear heart reg abd soft nontender ext no edema CBC, BMP 01/19/19 09:20 01/19/19 09:20 CBC, BMP 01/18/19 08:25 01/18/19 08:25 IMP- ckd HF LE edema ?loop diuretic allergy monitor on metolazone Suspect that rash be be due to loop diuretics, will discontinue Lasix and start Metolazone 2.5mg Daily with plan to titrate to obtain weight loss Serum Eosinophils are elevated indicative of allergic reaction Dermatology consulted to better evaluate rash Check Urine for proteinura and WBC's Trend renal function daily while on diuretics Trend daily weights 2g Na restriction supplement K if < 3.5
[2019-01-19] MEDS: ZOLPIDEM TARTRATE 5 MG TABLET PO PRN (22:04)
[2019-01-20] MEDS: INSULIN SLIDING SCALE (NOVOLOG) 1 VIAL SQ SCH ×4 (06:08→23:09)
[2019-01-20] MEDS ORDERED: INSULIN (NOVOLOG) ASPART 100 UNITS/ML 10ML VIAL ONE ×2 (06:54→17:49)
[2019-01-20] MEDS: ESCITALOPRAM OXALATE 10 MG TABLET (FP) PO SCH (08:21)
[2019-01-20 08:35] LABS: HEMOGLOBIN 11.5 GM/dL (10.7-15.3); MCH 23.3 pg (25.7-33.7); MCHC 31.2 g/dl (32.0-36.0); MEAN CELL VOLUME 74.8 fl (80-96); MEAN PLT VOLUME 8.1 fl (7.5-11.1); PLATELET COUNT 252 K/MM3 (134-434); RBC 4.95 M/mm3 (3.60-5.2); RDW 19.1 % (11.6-15.6); WHITE BLOOD COUNT 4.9 K/mm3 (4.0-10.0)
[2019-01-20 09:12] LABS: ALBUMIN 2.6 g/dl (3.4-5.0); BILIRUBIN,TOTAL 1.4 mg/dL (0.2-1); CALCIUM 8.3 mg/dL (8.5-10.1); CREATININE 1.2 mg/dL (0.55-1.3); TOT PROT 6.3 g/dl (6.4-8.2)
--- NOTE | 2019-01-20 09:22 | CON.ORTH ---
Consult Reason for Consultation:: right proximal humerus fx - Past Medical History Cardio/Vascular: Yes: CAD (PCI of proximal LAD & balloon angioplasty of D1 2014), CHF (EF 220-25%), HTN, Mitral Insufficiency, Pulmonary Hypertension Pulmonary: Yes: COPD Gastrointestinal: Yes: Gastritis Hepatobiliary: Yes: Other (fatty liver) ...LMP: 11/20/15 Musculoskeletal: Yes: Other (Right Charcot foot with osteomyelitis) Endocrine: Yes: Diabetes Mellitus Additional Medical History: Hyperlipidemia, Gastritis, Fatty liver - Past Surgical History Past Surgical History: Yes: Upper Endoscopy Additional Surgical History: left oophorectomy. 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 History of Recent Travel: No Home Medications - Allergies Allergies/Adverse Reactions: Allergies Allergy/AdvReac Type Severity Reaction Status Date / Time No Known Allergies Allergy Verified 01/16/19 14:26 - Home Medications Home Medications: Ambulatory Orders Nebivolol [Bystolic -] 5 mg PO DAILY 06/19/14 Aspirin [ASA -] 81 mg PO DAILY 10/26/14 Insulin Degludec [Tresiba Flextouch U-100] 50 unit SQ HS #0 04/21/16 Escitalopram Oxalate [Lexapro -] 10 mg PO DAILY #30 tablet 05/31/16 Furosemide [Lasix -] 60 mg PO DAILY 01/16/19 Oxycodone HCl 5 mg PO QID PRN 01/16/19 Physical Exam for Ortho Vital Signs: Vital Signs Temperature 97.8 F 01/20/19 06:51 Pulse Rate 80 01/20/19 06:51 Respiratory Rate 20 01/20/19 06:51 Blood Pressure 128/73 01/20/19 06:51 O2 Sat by Pulse Oximetry (%) 96 01/19/19 09:00 Labs: CBC, BMP 01/20/19 08:10 01/20/19 08:10 INR, PTT INR 1.25 (0.83-1.09) H 01/17/19 07:45 - Upper Extremity Shoulder: Yes: Right, Limited ROM, Pain, Tenderness, Other (nvi) Imaging - Results X-ray: Image Reviewed Assessment/Plan 53 year old female with a history of HTN, HLD, CAD, CHF who presents for evaluation of lower extremity swelling. The patient reports a several week history of worsening lower extremity edema and associated pain. She reports that she was supposed to have a cardiac cath at [facility] 1 day ago, however was found to be hypoglycemic to 21 with SOB and severe lower extremity edema and her cath was cancelled. The patient's primary care provider referred her to the ED for admission and for further evaluation. She otherwise denies fevers , chills, current SOB, chest pain, abdominal pain, nausea, vomiting, or changes with urination or bowel movements. She is 2 months s/p right proximal humerus fx. She is f/u with ortho Dr. Riggs who is recommending surgery. a/p- right proximal humerus fx- 2 months out NTD f/u with Dr. Riggs upon d/c for orthopedic care re-consult prn d/w Dr. Bernal
[2019-01-20] MEDS: INSULIN (LEVEMIR) 100 UNITS/ML UNITS SQ SCH (10:00)
--- NOTE | 2019-01-20 10:22 | PN.GI ---
GI Progress Note Subjective: Pt seen/examined at bedside, feeling slightly better, denies chest pain or sob. Denies abdominal pain. Tolerating diet. - Objective Vital Signs: Vital Signs Temperature 97.8 F 01/20/19 06:51 Pulse Rate 80 01/20/19 06:51 Respiratory Rate 20 01/20/19 06:51 Blood Pressure 128/73 01/20/19 06:51 O2 Sat by Pulse Oximetry (%) 96 01/19/19 09:00 Constitutional: Well Nourished, No Distress, Calm Cardiovascular: Yes: WNL, Regular Rate and Rhythm Respiratory: Yes: WNL, Regular, CTA Bilaterally ...Palpate: Yes: Other (Abd softly distended, nontender, no rebound, guarding or rigidity) Labs: CBC, BMP 01/20/19 08:10 01/20/19 08:10 INR, PTT INR 1.25 (0.83-1.09) H 01/17/19 07:45 Problem List - Problems (1) Abnormal liver function tests Assessment/Plan: 53yo female h/o CAD, CHF, pulmonary HTN, poorly controlled DM presenting with lower extremity swelling with elevated LFTs. Mildly improving LFTs, mostly likely secondary to underlying cardiac dysfunction/congestive hepatopathy, however cannot exclude underlying NAFLD/GARRETT. -Continue to closely monitor LFT trend -Continue optimization from cardiac standpoint -Await hepatitis serologies -Repeat RUQ US to further evaluate liver and reassess for ascites. May need diagnostic paracentesis to further elucidate etiologies. -Avoid nonessential hepatotoxic medications Code(s): R94.5 - ABNORMAL RESULTS OF LIVER FUNCTION STUDIES (2) Anemia Assessment/Plan: With evidence of iron deficiency. No overt bleeding. Prior EGD noted in 2012. No prior colonoscopy. -Pt would require colonoscopy once further optimized from a cardiac standpoint/ medically cleared -Timing to be determined pending course -Pt states she would like to continue to follow with Dr. Muñiz Code(s): D64.9 - ANEMIA, UNSPECIFIED
[2019-01-20] MEDS ORDERED: DEXTROSE 5%-WATER - 50 ML IVPB ONE (10:54)
[2019-01-20] MEDS ORDERED: ceFAZolin SODIUM 1 GM VIAL ONE (10:54)
[2019-01-20] MEDS ORDERED: PT OWN MED DRAWER 7, Y5N ONE ×2 (10:54→13:46)
[2019-01-20] MEDS: CEFAZOLIN 1 GM in DEXTROSE 5%-WATER - 50 ML IVPB SCH (10:59)
[2019-01-20] MEDS: NEBIVOLOL 5 MG TABLET (FP) PO SCH (11:00)
[2019-01-20] MEDS: HEPARIN NA (PORCINE) 5,000 UNITS/ML 1ML VIAL SQ SCH ×2 (11:00→23:00)
[2019-01-20] MEDS: ASPIRIN 81 MG CHEWABLE TABLETS PO SCH (11:00)
[2019-01-20] MEDS: PANTOPRAZOLE 40 MG TABLET (FP) PO SCH (11:00)
[2019-01-20] MEDS: METOLAZONE 2.5 MG TABLET (FP) PO SCH (11:00)
[2019-01-20] MEDS ORDERED: INSULIN SLIDING SCALE (NOVOLOG) 1 VIAL SQ SCH (11:49)
--- NOTE | 2019-01-20 11:58 | PN ---
Progress Note, Physician Chief Complaint: patient seen and examined in bed says feeling little better - Current Medication List Current Medications: Active Medications Acetaminophen (Tylenol -) 650 mg PO Q6H PRN PRN Reason: PAIN LEVEL 1-5 Last Admin: 01/17/19 00:19 Dose: 650 mg Aspirin (Asa -) 81 mg PO DAILY [facility] Last Admin: 01/20/19 11:00 Dose: 81 mg Escitalopram Oxalate (Lexapro -) 5 mg PO DAILY@0800 [facility] Last Admin: 01/20/19 08:21 Dose: 5 mg Heparin Sodium (Porcine) (Heparin -) 5,000 unit SQ BID [facility] Last Admin: 01/20/19 11:00 Dose: 5,000 unit Hydrocortisone (Anusol 2.5% Hc Cream -) 1 applic TP BID [facility] Last Admin: 01/19/19 21:50 Dose: 1 applic Cefazolin Sodium 1 gm/ (Dextrose) 50 mls @ 100 mls/hr IVPB BID [facility] Last Admin: 01/20/19 10:59 Dose: 100 mls/hr Insulin Aspart (Novolog Vial Sliding Scale -) 1 vial SQ ACHS [facility]; Protocol Metolazone (Zaroxolyn -) 2.5 mg PO DAILY [facility] Last Admin: 01/20/19 11:00 Dose: 2.5 mg Nebivolol (Bystolic -) 5 mg PO DAILY [facility] Last Admin: 01/20/19 11:00 Dose: 5 mg Nystatin (Nystop Powder -) 1 applic TP BID [facility] Last Admin: 01/19/19 21:50 Dose: 1 applic Oxycodone HCl (Roxicodone -) 5 mg PO QID PRN PRN Reason: PAIN LEVEL 6-10 Last Admin: 01/19/19 20:25 Dose: 5 mg Pantoprazole Sodium (Protonix -) 40 mg PO DAILY [facility] Last Admin: 01/20/19 11:00 Dose: 40 mg Sodium Chloride ([place] Nasal [place] -) 2 spray NS TID [facility] - Objective Vital Signs: Vital Signs Temperature 97.8 F 01/20/19 06:51 Pulse Rate 82 01/20/19 10:55 Respiratory Rate 20 01/20/19 10:55 Blood Pressure 125/72 01/20/19 10:55 O2 Sat by Pulse Oximetry (%) 96 01/19/19 09:00 Constitutional: Yes: Calm Cardiovascular: Yes: Regular Rate and Rhythm, S1, S2 Respiratory: Yes: Diminished Gastrointestinal: Yes: Soft, Ascites Extremities: Yes: Erythema Edema: Yes Neurological: Yes: Alert, Oriented Labs: CBC, BMP 01/20/19 08:10 01/20/19 08:10 INR, PTT INR 1.25 (0.83-1.09) H 01/17/19 07:45 Problem List - Problems (1) CAD (coronary artery disease) Assessment/Plan: aspirin bystolic Code(s): I25.10 - ATHSCL HEART DISEASE OF [place] CORONARY ARTERY W/O ANG PCTRS Qualifiers: Coronary Disease-Associated Artery/Lesion type: unspecified vessel or lesion type [place] vs. transplanted heart: unspecified whether [place] or transplanted heart Associated angina: angina presence unspecified Qualified Code(s): I25.10 - Atherosclerotic heart disease of [place] coronary artery without angina pectoris (2) CHF (congestive heart failure) Assessment/Plan: iv lasxi stopped posible rash on zaroxlyn echo severe global hypokinesis ejection fraction 25% daily weights low salt diet Code(s): I50.9 - HEART FAILURE, UNSPECIFIED Qualifiers: Heart failure type: unspecified Heart failure chronicity: unspecified Qualified Code(s): I50.9 - Heart failure, unspecified (3) Diabetes Assessment/Plan: bgm on low end hgbaic noted sliding scale insulin levemir cancelled Code(s): E11.9 - TYPE 2 DIABETES MELLITUS WITHOUT COMPLICATIONS Qualifiers: Diabetes mellitus type: type 2 (4) Renal insufficiency Assessment/Plan: creatinine improved form 1.6 to 1.2 Code(s): N28.9 - DISORDER OF KIDNEY AND URETER, UNSPECIFIED (5) Cellulitis Assessment/Plan: iv antibiotics Code(s): L03.90 - CELLULITIS, UNSPECIFIED Qualifiers: Site of cellulitis of extremity: lower extremity
--- NOTE | 2019-01-20 12:49 | PN ---
Progress Note (short form) - Note Progress Note: Renal follow up for CKD Seen and examined at the bedside awake and alert reports itching has significantly improved making urine no sob leg swelling is unchanged Vital Signs Temperature 97.8 F 01/20/19 06:51 Pulse Rate 82 01/20/19 10:55 Respiratory Rate 20 01/20/19 10:55 Blood Pressure 125/72 01/20/19 10:55 O2 Sat by Pulse Oximetry (%) 96 01/19/19 09:00 Intake & Output 01/17/19 01/18/19 01/19/19 01/20/19 23:59 23:59 23:59 23:59 Intake Total 1640 760 600 770 Output Total 300 Balance 1640 460 600 770 Weight 122.016 kg 121.88 kg NAD awake and alert neck supple RRR CTA soft NT/ND + edema in LE CBC, BMP 01/20/19 08:10 01/20/19 08:10 Current Medications Acetaminophen (Tylenol -) 650 mg PO Q6H PRN PRN Reason: PAIN LEVEL 1-5 Last Admin: 01/17/19 00:19 Dose: 650 mg Aspirin (Asa -) 81 mg PO DAILY [facility] Last Admin: 01/20/19 11:00 Dose: 81 mg Escitalopram Oxalate (Lexapro -) 5 mg PO DAILY@0800 [facility] Last Admin: 01/20/19 08:21 Dose: 5 mg Heparin Sodium (Porcine) (Heparin -) 5,000 unit SQ BID [facility] Last Admin: 01/20/19 11:00 Dose: 5,000 unit Hydrocortisone (Anusol 2.5% Hc Cream -) 1 applic TP BID [facility] Last Admin: 01/19/19 21:50 Dose: 1 applic Cefazolin Sodium 1 gm/ (Dextrose) 50 mls @ 100 mls/hr IVPB BID [facility] Last Admin: 01/20/19 10:59 Dose: 100 mls/hr Insulin Aspart (Novolog Vial Sliding Scale -) 1 vial SQ ACHS [facility]; Protocol Metolazone (Zaroxolyn -) 2.5 mg PO ONCE ONE Stop: 01/20/19 12:47 Metolazone (Zaroxolyn -) 5 mg PO DAILY [facility] Nebivolol (Bystolic -) 5 mg PO DAILY [facility] Last Admin: 01/20/19 11:00 Dose: 5 mg Nystatin (Nystop Powder -) 1 applic TP BID [facility] Last Admin: 01/19/19 21:50 Dose: 1 applic Oxycodone HCl (Roxicodone -) 5 mg PO QID PRN PRN Reason: PAIN LEVEL 6-10 Last Admin: 01/19/19 20:25 Dose: 5 mg Pantoprazole Sodium (Protonix -) 40 mg PO DAILY [facility] Last Admin: 01/20/19 11:00 Dose: 40 mg Sodium Chloride ([place] -) 2 spray NS TID [facility] 53 year old woman with CKD, hypertension, hyperlipidemia, CAD who presented from home with progressive lower extremity swelling and pruritus. Pt was seen me as an outpatient about 2 months ago for CKD, Cr was 1.5 at that time. 1. Fluid overload/lower extremity edema 2. CKD stage 3 3. Hypertension 4. Skin rash/suspected drug rash Renal function is improved Will increase metolazone to 5mg daily for management of edema skin rash improved trend renal function and electrolytes daily Ervin Baig DO
--- NOTE | 2019-01-20 13:19 | PN ---
Progress Note, Physician Chief Complaint: The patient appears weak at the time of exam. She reports no chest pain, shortness of breath, palpitation or dizziness. History of Present Illness: 53 year old woman with a PMHx of HTN, DM-II, HLD, CAD s/p PCI [place] and diag at [facility] 07/2014, reported CHF follows with Dr. Weaver in Dr. Underwood's office was seen preop for right arm surgery and NST at [facility] 01/08/19 showed severe global LV systolic dysfunction with LVEF 21% and reported large severe anteroapical and lateral partially reversible defects c/w ischemia. She was then sent for outpatient cardiac cath at [facility] on 01/14/19 however prior to cath she was found to be hypoglycemic and thus the cath was not done. She was advised to be admitted for further treatment of her recurrent hypoglycemia but she signed out AMA. She then went to her PMD's office who referred her for admission at [facility]. Noted to have KASIA, Low albumin level, low iron, Normal cardiac enzymes. - Current Medication List Current Medications: Active Medications Acetaminophen (Tylenol -) 650 mg PO Q6H PRN PRN Reason: PAIN LEVEL 1-5 Last Admin: 01/17/19 00:19 Dose: 650 mg Aspirin (Asa -) 81 mg PO DAILY [facility] Last Admin: 01/20/19 11:00 Dose: 81 mg Escitalopram Oxalate (Lexapro -) 5 mg PO DAILY@0800 [facility] Last Admin: 01/20/19 08:21 Dose: 5 mg Heparin Sodium (Porcine) (Heparin -) 5,000 unit SQ BID [facility] Last Admin: 01/20/19 11:00 Dose: 5,000 unit Hydrocortisone (Anusol 2.5% Hc Cream -) 1 applic TP BID [facility] Last Admin: 01/19/19 21:50 Dose: 1 applic Cefazolin Sodium 1 gm/ (Dextrose) 50 mls @ 100 mls/hr IVPB BID [facility] Last Admin: 01/20/19 10:59 Dose: 100 mls/hr Insulin Aspart (Novolog Vial Sliding Scale -) 1 vial SQ ACHS [facility]; Protocol Metolazone (Zaroxolyn -) 2.5 mg PO ONCE ONE Stop: 01/20/19 12:47 Metolazone (Zaroxolyn -) 5 mg PO DAILY [facility] Nebivolol (Bystolic -) 5 mg PO DAILY [facility] Last Admin: 01/20/19 11:00 Dose: 5 mg Nystatin (Nystop Powder -) 1 applic TP BID [facility] Last Admin: 01/19/19 21:50 Dose: 1 applic Oxycodone HCl (Roxicodone -) 5 mg PO QID PRN PRN Reason: PAIN LEVEL 6-10 Last Admin: 01/19/19 20:25 Dose: 5 mg Pantoprazole Sodium (Protonix -) 40 mg PO DAILY [facility] Last Admin: 01/20/19 11:00 Dose: 40 mg Sodium Chloride ([place] Nasal [place] -) 2 spray NS TID [facility] - Objective Vital Signs: Vital Signs Temperature 97.8 F 01/20/19 06:51 Pulse Rate 82 01/20/19 10:55 Respiratory Rate 20 01/20/19 10:55 Blood Pressure 125/72 01/20/19 10:55 O2 Sat by Pulse Oximetry (%) 96 01/19/19 09:00 General: Well developed. Obese and chronic ill. No acute distress. Head: Normocephalic. Atraumatic, Eyes: PERRLA, EOMI. Sclerae anicteric. Conjunctivae clear. Neck: Supple. No JVD. No bruits. Heart: Normal S1, S2: Regular rhythm and rate. No murmur. No gallop or rub. Lungs: Symmetrical air entry. Clear to auscultation. No crackles. No wheezing or rhonchi. Abdomen: Soft. Bowel sound positive. Non tender. No masses. Extremities: No edema. No clubbing or cyanosis. PD 2+, equal bilaterally. Neuro: Intact, no focal findings. AAO X3. Labs: CBC, BMP 01/20/19 08:10 01/20/19 08:10 INR, PTT INR 1.25 (0.83-1.09) H 01/17/19 07:45 Assessment/Plan 53 year old woman with a PMHx of HTN, DM-II, HLD, CAD s/p PCI [place] and diag at [facility] 07/2014, reported CHF follows with Dr. Weaver in Dr. Underwood's office was seen preop for right arm surgery and NST at [facility] 01/08/19 showed severe global LV systolic dysfunction with LVEF 21% and reported large severe anteroapical and lateral partially reversible defects c/w ischemia. She was then sent for outpatient cardiac cath at [facility] on 01/14/19 however prior to cath she was found to be hypoglycemic and thus the cath was not done. She was advised to be admitted for further treatment of her recurrent hypoglycemia but she signed out AMA. She then went to her PMD's office who referred her for admission at [facility]. Noted to have KASIA, Low albumin level, low iron, Normal cardiac enzymes. 1) Acute on chronic systolic CHF -concern for a systemic process with associated Hypoglycemic episodes, low albumin, low iron, abnormal coags -no sob or chest pain -lungs are clear on exam and Cxray -recent NST as above showed severely reduced LVEF of 21% -Echocardiogram LVEF 20-25%, mild MR, mod TR -TFTs wnl -did not tolerate loop diuretics due to possible adverse reaction thus started on metolazone -monitor I/Os, daily weights, bun/creat, electrolytes and replete as needed -Currently on bystolic. Consider changing to Carvedilol. -Add Valsartan 40 mg daily. CAD-h/o PCI [place] and diag [facility] 07/2014 -recent NST 01/08/19 as above -plan was for cardiac cath at [facility] on 01/14/19 but was postponed due to hypoglycemia, pt then left AMA -defer cath until clinically improves for current condition -cont ASA and bblocker -hold statin if concern for liver disorder -The patient does not want to have cardiac cath before Thanksgiving. -Outpatient cardiac follow up for timing of repeat cardiac cath. Please do not hesitate to call us for reconsult at any time if any further questions or additional issue arises regarding this patient.
[2019-01-20] MEDS ORDERED: METOLAZONE 2.5 MG TABLET (FP) PO ONE (14:00)
[2019-01-20] MEDS: SODIUM CHLORIDE NASAL SPRAY 44 ML BOTTLE NS SCH ×2 (14:38→23:09)
[2019-01-20] MEDS: HYDROCORTISONE 2.5% TOPICAL CREAM 30 GM TUBE TP SCH ×2 (14:40→23:07)
[2019-01-20] MEDS: NYSTATIN POWDER 100,000 UNITS/GM - 15 GM TOPICAL POWDER TP SCH ×2 (14:40→23:08)
[2019-01-20] MEDS: oxyCODONE HCL 5 MG TABLET PO PRN ×2 (14:59→23:00)
[2019-01-20 15:07] LABS: TRANSGLUTAMINASE IGA < 2 U/mL (0-3); TRANSGLUTAMINASE IGG < 2 U/mL (0-5)
[2019-01-20 21:07] LABS: HEP B CORE AB, TOT Negative (Negative)
[2019-01-21] MEDS ORDERED: ZOLPIDEM TARTRATE 5 MG TABLET PO ONE (00:02)
[2019-01-21] MEDS ORDERED: ceFAZolin SODIUM 1 GM VIAL ONE ×3 (00:27→23:09)
[2019-01-21] MEDS ORDERED: DEXTROSE 5%-WATER - 50 ML IVPB ONE ×3 (00:27→23:09)
[2019-01-21] MEDS: CEFAZOLIN 1 GM in DEXTROSE 5%-WATER - 50 ML IVPB SCH ×3 (00:40→23:36)
[2019-01-21] MEDS: INSULIN SLIDING SCALE (NOVOLOG) 1 VIAL SQ SCH ×3 (06:45→18:08)
[2019-01-21] MEDS: SODIUM CHLORIDE NASAL SPRAY 44 ML BOTTLE NS SCH ×3 (06:47→23:37)
[2019-01-21 08:41] LABS: BASO % 1.1 % (0-2.0); EOS % 7.4 % (0-4.5); HEMATOCRIT 37.2 % (32.4-45.2); HEMOGLOBIN 11.7 GM/dL (10.7-15.3); LYMPH % 16.9 % (8-40); MCH 23.5 pg (25.7-33.7); MCHC 31.4 g/dl (32.0-36.0); MEAN PLT VOLUME 8.4 fl (7.5-11.1); MONO % 13.2 % (3.8-10.2); NEUT % 61.4 % (42.8-82.8); PLATELET COUNT 237 K/MM3 (134-434); RBC 4.97 M/mm3 (3.60-5.2); RDW 19.4 % (11.6-15.6); WHITE BLOOD COUNT 5.4 K/mm3 (4.0-10.0)
[2019-01-21] MEDS: ESCITALOPRAM OXALATE 10 MG TABLET (FP) PO SCH (08:55)
[2019-01-21 09:01] LABS: BLOOD UREA NITROGEN 30.7 mg/dL (7-18); CALCIUM 8.2 mg/dL (8.5-10.1); CREATININE 1.3 mg/dL (0.55-1.3); MAGNESIUM 2.1 mg/dL (1.8-2.4); POTASSIUM 4.2 mmol/L (3.5-5.1)
[2019-01-21] MEDS ORDERED: PT OWN MED DRAWER 7, Y5N ONE (10:36)
[2019-01-21] MEDS: METOLAZONE 2.5 MG TABLET (FP) PO SCH (10:47)
[2019-01-21] MEDS: NEBIVOLOL 5 MG TABLET (FP) PO SCH (10:47)
[2019-01-21] MEDS: PANTOPRAZOLE 40 MG TABLET (FP) PO SCH (10:47)
[2019-01-21] MEDS: ASPIRIN 81 MG CHEWABLE TABLETS PO SCH (10:47)
[2019-01-21] MEDS: HEPARIN NA (PORCINE) 5,000 UNITS/ML 1ML VIAL SQ SCH ×2 (10:48→23:38)
--- NOTE | 2019-01-21 11:23 | PN ---
Progress Note, Physician Chief Complaint: CHF Diabetes mellitus Abnormal LFT's History of Present Illness: NAD in bed Generalized edema at bedside Came in for hypoglycemia, took insulin the night before cardiac cath, did not eat in AM, wasn't told to hold insulin the night before. - Current Medication List Current Medications: Active Medications Acetaminophen (Tylenol -) 650 mg PO Q6H PRN PRN Reason: PAIN LEVEL 1-5 Last Admin: 01/17/19 00:19 Dose: 650 mg Aspirin (Asa -) 81 mg PO DAILY [facility] Last Admin: 01/21/19 10:47 Dose: 81 mg Escitalopram Oxalate (Lexapro -) 5 mg PO DAILY@0800 [facility] Last Admin: 01/21/19 08:55 Dose: 5 mg Heparin Sodium (Porcine) (Heparin -) 5,000 unit SQ BID [facility] Last Admin: 01/21/19 10:48 Dose: 5,000 unit Hydrocortisone (Anusol 2.5% Hc Cream -) 1 applic TP BID [facility] Last Admin: 01/20/19 23:07 Dose: 1 applic Cefazolin Sodium 1 gm/ (Dextrose) 50 mls @ 100 mls/hr IVPB BID [facility] Last Admin: 01/21/19 10:47 Dose: 100 mls/hr Insulin Aspart (Novolog Vial Sliding Scale -) 1 vial SQ ACHS [facility]; Protocol Last Admin: 01/21/19 06:45 Dose: 2 units Metolazone (Zaroxolyn -) 5 mg PO DAILY [facility] Last Admin: 01/21/19 10:47 Dose: 5 mg Nebivolol (Bystolic -) 5 mg PO DAILY [facility] Last Admin: 01/21/19 10:47 Dose: 5 mg Nystatin (Nystop Powder -) 1 applic TP BID [facility] Last Admin: 01/20/19 23:08 Dose: 1 applic Oxycodone HCl (Roxicodone -) 5 mg PO QID PRN PRN Reason: PAIN LEVEL 6-10 Last Admin: 01/20/19 23:00 Dose: 5 mg Pantoprazole Sodium (Protonix -) 40 mg PO DAILY [facility] Last Admin: 01/21/19 10:47 Dose: 40 mg Sodium Chloride ([place] Nasal [place] -) 2 spray NS TID [facility] Last Admin: 01/21/19 06:47 Dose: 2 sprays - Objective Vital Signs: Vital Signs Temperature 97.5 F L 01/21/19 10:41 Pulse Rate 85 01/21/19 10:41 Respiratory Rate 20 01/21/19 10:41 Blood Pressure 116/85 01/21/19 10:41 O2 Sat by Pulse Oximetry (%) 97 01/20/19 21:00 Constitutional: Yes: Well Nourished, No Distress, Calm Cardiovascular: Yes: Regular Rate and Rhythm, Murmur Respiratory: Yes: Regular Gastrointestinal: Yes: Normal Bowel Sounds, Soft, Abdomen, Obese, Ascites Musculoskeletal: Yes: Muscle Weakness Edema: Yes Edema: LLE: 1+, RLE: 1+ Peripheral Pulses WNL: Yes Neurological: Yes: Alert, Oriented Psychiatric: Yes: Alert, Oriented Labs: CBC, BMP 01/21/19 06:55 01/21/19 06:55 INR, PTT INR 1.25 (0.83-1.09) H 01/17/19 07:45 Problem List - Problems (1) Abnormal liver function tests Assessment/Plan: -Monitor trend -hepatitis serologies negative -Repeat RUQ US to further evaluate liver and reassess for ascites. May need diagnostic paracentesis to further elucidate etiologies. -Avoid nonessential hepatotoxic medications Problems reviewed: Yes Code(s): R94.5 - ABNORMAL RESULTS OF LIVER FUNCTION STUDIES (2) Anemia Assessment/Plan: -Previously Iron deficient -Pt would require colonoscopy once further optimized from a cardiac standpoint/ medically cleared -Pt states she would like to continue to follow with Dr. Muñiz Code(s): D64.9 - ANEMIA, UNSPECIFIED (3) CAD (coronary artery disease) Assessment/Plan: -h/o PCI [place] and diag [facility] 07/2014 -recent NST 01/08/19 as above -plan was for cardiac cath at [facility] on 01/14/19 but was postponed due to hypoglycemia, pt then left AMA -defer cath until clinically improves for current condition -cont ASA and jerson -hold statin if concern for liver disorder -The patient does not want to have cardiac cath before Thanksgiving. -Outpatient cardiac follow up for timing of repeat cardiac cath. Problems reviewed: Yes Code(s): I25.10 - ATHSCL HEART DISEASE OF [place] CORONARY ARTERY W/O ANG PCTRS Qualifiers: Coronary Disease-Associated Artery/Lesion type: unspecified vessel or lesion type [place] vs. transplanted heart: unspecified whether [place] or transplanted heart Associated angina: angina presence unspecified Qualified Code(s): I25.10 - Atherosclerotic heart disease of [place] coronary artery without angina pectoris (4) CHF (congestive heart failure) Assessment/Plan: -no sob or chest pain -lungs are clear on exam and Cxray -recent NST as above showed severely reduced LVEF of 21% -Echocardiogram LVEF 20-25%, mild MR, mod TR -did not tolerate loop diuretics due to possible adverse reaction thus started on metolazone -monitor I/Os, daily weights, bun/creat, electrolytes and replete as needed -Currently on bystolic change to Carvedilol. -Add Valsartan 40 mg daily Problems reviewed: Yes Code(s): I50.9 - HEART FAILURE, UNSPECIFIED Qualifiers: Heart failure type: unspecified Heart failure chronicity: unspecified Qualified Code(s): I50.9 - Heart failure, unspecified (5) Diabetes Assessment/Plan: -A1c at 9.5 -Needs more education on diabetes management -Diabetic low sodium diet -Endocrine consult -[facility] Problems reviewed: Yes Code(s): E11.9 - TYPE 2 DIABETES MELLITUS WITHOUT COMPLICATIONS Qualifiers: Diabetes mellitus type: type 2 Assessment/Plan see problem list
[2019-01-21] MEDS: HYDROCORTISONE 2.5% TOPICAL CREAM 30 GM TUBE TP SCH ×2 (14:31→23:44)
[2019-01-21] MEDS: NYSTATIN POWDER 100,000 UNITS/GM - 15 GM TOPICAL POWDER TP SCH ×2 (14:31→23:44)
--- NOTE | 2019-01-21 15:41 | PN ---
Progress Note (short form) - Note Progress Note: Renal follow up for CKD Seen and examined at the bedside awake and alert no complaints making urine weights improving slowly Vital Signs Temperature 97.5 F L 01/21/19 10:41 Pulse Rate 85 01/21/19 10:41 Respiratory Rate 20 01/21/19 10:41 Blood Pressure 116/85 01/21/19 10:41 O2 Sat by Pulse Oximetry (%) 97 01/20/19 21:00 Intake & Output 01/18/19 01/19/19 01/20/19 01/21/19 23:59 23:59 23:59 23:59 Intake Total 173 463 3593 350 Output Total 300 Balance 662 568 4422 350 Weight 122.016 kg 121.88 kg 122.215 kg NAD awake and alert neck supple RRR CTA soft NT/ND + edema in LE CBC, BMP 01/21/19 06:55 01/21/19 06:55 Current Medications Acetaminophen (Tylenol -) 650 mg PO Q6H PRN PRN Reason: PAIN LEVEL 1-5 Last Admin: 01/17/19 00:19 Dose: 650 mg Aspirin (Asa -) 81 mg PO DAILY [facility] Last Admin: 01/21/19 10:47 Dose: 81 mg Carvedilol (Coreg -) 3.125 mg PO BID [facility] Escitalopram Oxalate (Lexapro -) 5 mg PO DAILY@0800 [facility] Last Admin: 01/21/19 08:55 Dose: 5 mg Heparin Sodium (Porcine) (Heparin -) 5,000 unit SQ BID [facility] Last Admin: 01/21/19 10:48 Dose: 5,000 unit Hydrocortisone (Anusol 2.5% Hc Cream -) 1 applic TP BID [facility] Last Admin: 01/21/19 14:31 Dose: 1 applic Cefazolin Sodium 1 gm/ (Dextrose) 50 mls @ 100 mls/hr IVPB BID [facility] Last Admin: 01/21/19 10:47 Dose: 100 mls/hr Insulin Aspart (Novolog Vial Sliding Scale -) 1 vial SQ ACHS [facility]; Protocol Last Admin: 01/21/19 12:26 Dose: 2 units Metolazone (Zaroxolyn -) 5 mg PO DAILY [facility] Last Admin: 01/21/19 10:47 Dose: 5 mg Nystatin (Nystop Powder -) 1 applic TP BID [facility] Last Admin: 01/21/19 14:31 Dose: 1 applic Oxycodone HCl (Roxicodone -) 5 mg PO QID PRN PRN Reason: PAIN LEVEL 6-10 Last Admin: 01/20/19 23:00 Dose: 5 mg Pantoprazole Sodium (Protonix -) 40 mg PO DAILY [facility] Last Admin: 01/21/19 10:47 Dose: 40 mg Sodium Chloride ([place] Nasal [place] -) 2 spray NS TID [facility] Last Admin: 01/21/19 14:30 Dose: 2 sprays Valsartan (Diovan -) 40 mg PO DAILY [facility] 53 year old woman with CKD, hypertension, hyperlipidemia, CAD who presented from home with progressive lower extremity swelling and pruritus. Pt was seen me as an outpatient about 2 months ago for CKD, Cr was 1.5 at that time. 1. Fluid overload/lower extremity edema 2. CKD stage 3 3. Hypertension 4. Skin rash/suspected drug rash Renal function stable Will continue metolazone to 5mg daily for management of edema skin rash improved trend renal function and electrolytes daily Ervin Baig DO
[2019-01-21] MEDS: oxyCODONE HCL 5 MG TABLET PO PRN (17:20)
--- NOTE | 2019-01-21 18:19 | PN.GI ---
GI Progress Note Subjective: No acute events Sitting up eating - Objective Vital Signs: Vital Signs Temperature 97.9 F 01/21/19 14:00 Pulse Rate 88 01/21/19 14:00 Respiratory Rate 20 01/21/19 14:00 Blood Pressure 141/88 01/21/19 14:00 O2 Sat by Pulse Oximetry (%) 97 01/20/19 21:00 Constitutional: Calm Eyes: No: Sclera Icterus Cardiovascular: Yes: Regular Rate and Rhythm Respiratory: Yes: CTA Bilaterally Gastrointestinal Inspection: Yes: Other (Large pannus). No: Distention ...Auscultate: Yes: Normoactive Bowel Sounds ...Palpate: Yes: Soft, Other (abdominal wall anasarca). No: Hepatomegaly, Splenomegaly, Tenderness ...Percussion: No: Tympanitic Edema: Yes Edema: LUE: 1+, RUE: 1+, LLE: 2+, RLE: 2+ Neurological: Yes: Alert Labs: CBC, BMP 01/21/19 06:55 01/21/19 06:55 INR, PTT INR 1.25 (0.83-1.09) H 01/17/19 07:45 Laboratory Tests 01/19/19 09:20 Hep A IgM Ab Confirm Negative Hepatitis A Ab Total Negative Hep Bs Antigen Negative Hep Bs Antibody Non reactive Hep B Core Total Ab Negative Hep B Core IgM Ab Negative Hepatitis Be Antibody Negative Hepatitis Be Antigen Negative Hep C Ab Diagnostic <0.1 Problem List - Problems (1) Abnormal liver function tests Assessment/Plan: Suspect multifactorial: passive congestion secondary to cardiac dysfunction / NAFLD Diagnostic paracentesis with fluid sent for cell count w/ diff, total protein, albumin, cytology AM labs ordered Will need hepatitis B vaccination. Labs not reflective of immunity Work-up of solid renal mass per primary team / renal Await doppler study read Code(s): R94.5 - ABNORMAL RESULTS OF LIVER FUNCTION STUDIES
[2019-01-21] MEDS ORDERED: HEPATITIS B VIRUS VACCINE-PF 20 MCG/1ML PRE-FILLED SYRINGE IM ONE (18:47)
--- NOTE | 2019-01-21 23:33 | PN ---
Progress Note, Physician Chief Complaint: sp fasting hypoglycemia - Current Medication List Current Medications: Active Medications Acetaminophen (Tylenol -) 650 mg PO Q6H PRN PRN Reason: PAIN LEVEL 1-5 Last Admin: 01/17/19 00:19 Dose: 650 mg Aspirin (Asa -) 81 mg PO DAILY [facility] Last Admin: 01/21/19 10:47 Dose: 81 mg Carvedilol (Coreg -) 3.125 mg PO BID [facility] Escitalopram Oxalate (Lexapro -) 5 mg PO DAILY@0800 [facility] Last Admin: 01/21/19 08:55 Dose: 5 mg Heparin Sodium (Porcine) (Heparin -) 5,000 unit SQ BID [facility] Last Admin: 01/21/19 10:48 Dose: 5,000 unit Hydrocortisone (Anusol 2.5% Hc Cream -) 1 applic TP BID [facility] Last Admin: 01/21/19 14:31 Dose: 1 applic Cefazolin Sodium 1 gm/ (Dextrose) 50 mls @ 100 mls/hr IVPB BID [facility] Last Admin: 01/21/19 10:47 Dose: 100 mls/hr Insulin Aspart (Novolog Vial Sliding Scale -) 1 vial SQ ACHS [facility]; Protocol Insulin Detemir (Levemir Vial) 20 units SQ AM [facility] Metolazone (Zaroxolyn -) 5 mg PO DAILY [facility] Last Admin: 01/21/19 10:47 Dose: 5 mg Nystatin (Nystop Powder -) 1 applic TP BID [facility] Last Admin: 01/21/19 14:31 Dose: 1 applic Oxycodone HCl (Roxicodone -) 5 mg PO QID PRN PRN Reason: PAIN LEVEL 6-10 Last Admin: 01/21/19 17:20 Dose: 5 mg Pantoprazole Sodium (Protonix -) 40 mg PO DAILY [facility] Last Admin: 01/21/19 10:47 Dose: 40 mg Sodium Chloride ([place] Nasal [place] -) 2 spray NS TID [facility] Last Admin: 01/21/19 14:30 Dose: 2 sprays Valsartan (Diovan -) 40 mg PO DAILY [facility] - Objective Vital Signs: Vital Signs Temperature 97.5 F L 01/21/19 18:00 Pulse Rate 86 01/21/19 18:00 Respiratory Rate 20 01/21/19 18:00 Blood Pressure 132/89 01/21/19 18:00 O2 Sat by Pulse Oximetry (%) 97 01/21/19 10:45 Constitutional: Yes: Calm Eyes: Yes: EOM Intact HENT: Yes: Normocephalic Neck: Yes: Trachea Midline Cardiovascular: Yes: Regular Rate and Rhythm Respiratory: Yes: CTA Bilaterally Gastrointestinal: Yes: Normal Bowel Sounds ...Rectal Exam: Yes: Deferred Musculoskeletal: Yes: WNL, Joint Swelling, Muscle Weakness Extremities: Yes: Delayed Capillary Refill, Pallor Edema: LLE: 2+, RLE: 2+ Neurological: Yes: Alert, Oriented Labs: CBC, BMP 01/21/19 06:55 01/21/19 06:55 INR, PTT INR 1.25 (0.83-1.09) H 01/17/19 07:45 Problem List - Problems (1) 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 transplanted heart: unspecified whether [place] or transplanted heart Associated angina: angina presence unspecified Qualified Code(s): I25.10 - Atherosclerotic heart disease of [place] coronary artery without angina pectoris (4) CKD (chronic kidney disease) Code(s): N18.9 - CHRONIC KIDNEY DISEASE, UNSPECIFIED (5) HTN (hypertension) Code(s): I10 - ESSENTIAL (PRIMARY) HYPERTENSION (6) Abrasion Code(s): T14.8 - OTHER INJURY OF UNSPECIFIED BODY REGION * DO NOT USE * (7) Abrasion of tongue Code(s): S00.512A - ABRASION OF ORAL CAVITY, INITIAL ENCOUNTER Assessment/Plan Current Active Problems Abnormal liver function tests (Acute) Anasarca (Acute) Anemia (Acute) CAD (coronary artery disease) (Acute) CHF (congestive heart failure) (Acute) CKD (chronic kidney disease) (Acute) Family history of esophageal carcinoma (Acute) HTN (hypertension) (Acute) Rash (Acute) Type 2 diabetes mellitus with diabetic autonomic (poly)neuropathy (Acute) Abnormal Lab Results 01/21/19 01/21/19 06:55 06:55 MCV 75.0 L MCH 23.5 L MCHC 31.4 L RDW 19.4 H Monocytes % 13.2 H Eosinophils % 7.4 H Anion Gap 4 L BUN 30.7 H Random Glucose 200 H Calcium 8.2 L Laboratory Tests 01/20/19 01/20/19 01/20/19 05:39 11:44 17:24 POC Glucometer 62 165 213 01/20/19 01/21/19 23:03 06:43 POC Glucometer 229 215 plan; no hs levemir am levemir 20units will need outpatient cgms insulin pump delivery system ]continue bgm achs novolog scale
[2019-01-21] MEDS: CARVEDILOL 3.125 MG TABLET (FP) PO SCH (23:37)
[2019-01-22] MEDS ORDERED: INSULIN (NOVOLOG) ASPART 100 UNITS/ML 10ML VIAL SQ ONE (00:12)
[2019-01-22] MEDS ORDERED: ZOLPIDEM TARTRATE 5 MG TABLET PO PRN (00:13)
[2019-01-22] MEDS: INSULIN SLIDING SCALE (NOVOLOG) 1 VIAL SQ SCH ×3 (03:45→12:14)
[2019-01-22] MEDS ORDERED: INSULIN (LEVEMIR) 100 UNITS/ML UNITS SQ SCH (07:00)
[2019-01-22 07:11] VITALS: TEMP 97.3
[2019-01-22] MEDS ORDERED: INSULIN (NOVOLOG) ASPART 100 UNITS/ML 10ML VIAL ONE (07:18)
[2019-01-22] MEDS: SODIUM CHLORIDE NASAL SPRAY 44 ML BOTTLE NS SCH ×2 (07:25→13:56)
[2019-01-22 08:21] LABS: BASO % 1.3 % (0-2.0); EOS % 9.5 % (0-4.5); HEMATOCRIT 38.6 % (32.4-45.2); LYMPH % 15.2 % (8-40); MCH 23.6 pg (25.7-33.7); MEAN PLT VOLUME 8.5 fl (7.5-11.1); MONO % 12.6 % (3.8-10.2); NEUT % 61.4 % (42.8-82.8); PLATELET COUNT 236 K/MM3 (134-434); RBC 5.08 M/mm3 (3.60-5.2); RDW 19.5 % (11.6-15.6); WHITE BLOOD COUNT 5.6 K/mm3 (4.0-10.0)
[2019-01-22] MEDS: ESCITALOPRAM OXALATE 10 MG TABLET (FP) PO SCH (08:45)
[2019-01-22 08:46] LABS: BLOOD UREA NITROGEN 27.6 mg/dL (7-18); CREATININE 1.3 mg/dL (0.55-1.3); PHOSPHOROUS 3.1 mg/dL (2.5-4.9)
[2019-01-22 08:52] LABS: ALBUMIN 2.5 g/dl (3.4-5.0); BILIRUBIN,TOTAL 1.4 mg/dL (0.2-1); BLOOD UREA NITROGEN 27.4 mg/dL (7-18); CALCIUM 8.3 mg/dL (8.5-10.1); CREATININE 1.3 mg/dL (0.55-1.3); POTASSIUM 4.1 mmol/L (3.5-5.1); TOT PROT 6.4 g/dl (6.4-8.2)
[2019-01-22] MEDS ORDERED: ceFAZolin SODIUM 1 GM VIAL ONE (08:59)
[2019-01-22] MEDS ORDERED: DEXTROSE 5%-WATER - 50 ML IVPB ONE (08:59)
[2019-01-22] MEDS: HEPARIN NA (PORCINE) 5,000 UNITS/ML 1ML VIAL SQ SCH (09:05)
[2019-01-22] MEDS: PANTOPRAZOLE 40 MG TABLET (FP) PO SCH (09:05)
[2019-01-22] MEDS: ASPIRIN 81 MG CHEWABLE TABLETS PO SCH (09:06)
[2019-01-22] MEDS: CARVEDILOL 3.125 MG TABLET (FP) PO SCH (09:06)
[2019-01-22] MEDS: CEFAZOLIN 1 GM in DEXTROSE 5%-WATER - 50 ML IVPB SCH (09:07)
[2019-01-22] MEDS: HYDROCORTISONE 2.5% TOPICAL CREAM 30 GM TUBE TP SCH (09:09)
[2019-01-22] MEDS: NYSTATIN POWDER 100,000 UNITS/GM - 15 GM TOPICAL POWDER TP SCH (09:09)
[2019-01-22] MEDS ORDERED: PT OWN MED DRAWER 7, Y5N ONE (09:11)
[2019-01-22] MEDS: METOLAZONE 2.5 MG TABLET (FP) PO SCH (09:12)
[2019-01-22] MEDS ORDERED: VALSARTAN 40 MG TABLET (FP) PO SCH (10:00)
--- NOTE | 2019-01-22 10:13 | PN.GI ---
GI Progress Note Subjective: Pt seen/examined at bedside, feeling better, denies abdominal pain, n/v. Feels bloated/distended though improved per pt, tolerating diet well. No new complaints. - Objective Vital Signs: Vital Signs Temperature 97.3 F L 01/22/19 06:00 Pulse Rate 87 01/21/19 21:00 Respiratory Rate 20 01/22/19 06:00 Blood Pressure 136/90 01/22/19 06:00 O2 Sat by Pulse Oximetry (%) 97 01/22/19 02:00 Constitutional: Well Nourished, No Distress, Calm Cardiovascular: Yes: WNL, Regular Rate and Rhythm ...Palpate: Yes: Other (Abd softly distended, nontender, no rebound, guarding or rigidity) Labs: CBC, BMP 01/22/19 07:55 01/22/19 07:55 INR, PTT INR 1.25 (0.83-1.09) H 01/17/19 07:45 Problem List - Problems (1) Abnormal liver function tests Assessment/Plan: 53yo female h/o CAD, CHF, pulmonary HTN, poorly controlled DM presenting with lower extremity swelling with elevated LFTs. Mild bili and alk phos elevation, likely multifactorial as previously noted possibly secondary to underlying cardiac dysfunction/congestive hepatopathy vs component of NAFLD. -Await US results -If ascites/amenable to tap, recommend paracentesis (fluid studies as ordered) -HBV vaccination -Continue to monitor LFT trend -2gNA diet -Continue optimization from cardiac standpoint Code(s): R94.5 - ABNORMAL RESULTS OF LIVER FUNCTION STUDIES (2) Anemia Assessment/Plan: Microcytosis noted with evidence of iron deficiency. No overt bleeding. Prior EGD noted in 2012. No prior colonoscopy. -Pt would require colonoscopy +/- EGD once further optimized from a cardiac standpoint/medically cleared -Timing to be determined pending course, possibly can be pursued as outpt pending cardiac evaluation Code(s): D64.9 - ANEMIA, UNSPECIFIED
--- NOTE | 2019-01-22 11:16 | PN ---
Progress Note, Physician Chief Complaint: CHF Diabetes mellitus Abnormal LFT's History of Present Illness: NAD in bed Generalized edema at bedside Came in for hypoglycemia, took insulin the night before cardiac cath, did not eat in AM, wasn't told to hold insulin the night before. Pt refuses Hep B vaccine - Current Medication List Current Medications: Active Medications Acetaminophen (Tylenol -) 650 mg PO Q6H PRN PRN Reason: PAIN LEVEL 1-5 Last Admin: 01/17/19 00:19 Dose: 650 mg Aspirin (Asa -) 81 mg PO DAILY [facility] Last Admin: 01/22/19 09:06 Dose: 81 mg Carvedilol (Coreg -) 3.125 mg PO BID [facility] Last Admin: 01/22/19 09:06 Dose: 3.125 mg Escitalopram Oxalate (Lexapro -) 5 mg PO DAILY@0800 [facility] Last Admin: 01/22/19 08:45 Dose: 5 mg Heparin Sodium (Porcine) (Heparin -) 5,000 unit SQ BID [facility] Last Admin: 01/22/19 09:05 Dose: 5,000 unit Hydrocortisone (Anusol 2.5% Hc Cream -) 1 applic TP BID [facility] Last Admin: 01/22/19 09:09 Dose: 1 applic Cefazolin Sodium 1 gm/ (Dextrose) 50 mls @ 100 mls/hr IVPB BID [facility] Last Admin: 01/22/19 09:07 Dose: 100 mls/hr Insulin Aspart (Novolog Vial Sliding Scale -) 1 vial SQ ACHS [facility]; Protocol Last Admin: 01/22/19 07:25 Dose: Not Given Insulin Detemir (Levemir Vial) 20 units SQ AM [facility] Last Admin: 01/22/19 07:24 Dose: 20 units Metolazone (Zaroxolyn -) 5 mg PO DAILY [facility] Last Admin: 01/22/19 09:12 Dose: 5 mg Nystatin (Nystop Powder -) 1 applic TP BID [facility] Last Admin: 01/22/19 09:09 Dose: 1 applic Oxycodone HCl (Roxicodone -) 5 mg PO QID PRN PRN Reason: PAIN LEVEL 6-10 Last Admin: 01/21/19 17:20 Dose: 5 mg Pantoprazole Sodium (Protonix -) 40 mg PO DAILY [facility] Last Admin: 01/22/19 09:05 Dose: 40 mg Sodium Chloride ([place] Nasal [place] -) 2 spray NS TID [facility] Last Admin: 01/22/19 07:25 Dose: 2 sprays Valsartan (Diovan -) 40 mg PO DAILY [facility] Last Admin: 01/22/19 09:05 Dose: 40 mg Zolpidem Tartrate (Ambien -) 5 mg PO HS PRN PRN Reason: INSOMNIA Last Admin: 01/22/19 01:39 Dose: 5 mg - Objective Vital Signs: Vital Signs Temperature 97.3 F L 01/22/19 06:00 Pulse Rate 87 01/21/19 21:00 Respiratory Rate 20 01/22/19 06:00 Blood Pressure 136/90 01/22/19 06:00 O2 Sat by Pulse Oximetry (%) 97 01/22/19 02:00 Constitutional: Yes: Well Nourished, No Distress, Calm Cardiovascular: Yes: Regular Rate and Rhythm Respiratory: Yes: Regular Gastrointestinal: Yes: Normal Bowel Sounds, Abdomen, Obese, Ascites Genitourinary: Yes: WNL Musculoskeletal: Yes: Other (Right arm pain 2/2 to fracture+ sling) Extremities: Yes: WNL Edema: No Peripheral Pulses WNL: Yes Integumentary: Yes: Rash (generalized with pruritic leasions) Neurological: Yes: Alert, Oriented Psychiatric: Yes: Alert, Oriented Labs: CBC, BMP 01/22/19 07:55 01/22/19 07:55 INR, PTT INR 1.25 (0.83-1.09) H 01/17/19 07:45 Problem List - Problems (1) Abnormal liver function tests Assessment/Plan: -Monitor trend -hepatitis serologies negative -Repeat RUQ US to further evaluate liver and reassess for ascites. May need diagnostic paracentesis to further elucidate etiologies. -Avoid nonessential hepatotoxic medications Problems reviewed: Yes Code(s): R94.5 - ABNORMAL RESULTS OF LIVER FUNCTION STUDIES (2) Anemia Assessment/Plan: -Previously Iron deficient -Pt would require colonoscopy once further optimized from a cardiac standpoint/ medically cleared -Pt states she would like to continue to follow with Dr. Muñiz Problems reviewed: Yes Code(s): D64.9 - ANEMIA, UNSPECIFIED (3) CAD (coronary artery disease) Assessment/Plan: -h/o PCI [place] and diag [facility] [place] 07/2014 -recent NST 01/08/19 as above -plan was for cardiac cath at [facility] on 01/14/19 but was postponed due to hypoglycemia, pt then left AMA -defer cath until clinically improves for current condition -cont ASA and jerson -hold statin if concern for liver disorder -The patient does not want to have cardiac cath before Thanksgiving. -Outpatient cardiac follow up for timing of repeat cardiac cath. Problems reviewed: Yes Code(s): I25.10 - ATHSCL HEART DISEASE OF [place] CORONARY ARTERY W/O ANG PCTRS Qualifiers: Coronary Disease-Associated Artery/Lesion type: unspecified vessel or lesion type [place] vs. transplanted heart: unspecified whether [place] or transplanted heart Associated angina: angina presence unspecified Qualified Code(s): I25.10 - Atherosclerotic heart disease of [place] coronary artery without angina pectoris (4) CHF (congestive heart failure) Assessment/Plan: -no sob or chest pain -lungs are clear on exam and Cxray -recent NST as above showed severely reduced LVEF of 21% -Echocardiogram LVEF 20-25%, mild MR, mod TR -did not tolerate loop diuretics due to possible adverse reaction thus started on metolazone -monitor I/Os, daily weights, bun/creat, electrolytes and replete as needed -Currently on bystolic change to Carvedilol. -Add Valsartan 40 mg daily Problems reviewed: Yes Code(s): I50.9 - HEART FAILURE, UNSPECIFIED Qualifiers: Heart failure type: unspecified Heart failure chronicity: unspecified Qualified Code(s): I50.9 - Heart failure, unspecified (5) Diabetes Assessment/Plan: -A1c at 9.5 -Needs more education on diabetes management -Diabetic low sodium diet -Endocrine consult -BGM AC HS -ISS Problems reviewed: Yes Code(s): E11.9 - TYPE 2 DIABETES MELLITUS WITHOUT COMPLICATIONS Qualifiers: Diabetes mellitus type: type 2 Assessment/Plan see problem list
[2019-01-22] MEDS ORDERED: HEPATITIS B VIRUS VACCINE-PF 20 MCG/1ML PRE-FILLED SYRINGE IM ONE (11:52)
[2019-01-22] MEDS: oxyCODONE HCL 5 MG TABLET PO PRN (12:12)
[2019-01-22 13:14] VITALS: BP 142/76; PULSE 84
--- NOTE | 2019-01-22 13:41 | PN ---
Progress Note (short form) - Note Progress Note: Renal follow up for CKD Seen and examined at the bedside awake and alert offers no acute complaints making urine no sob, cp, abd pain, fever or chills Vital Signs Temperature 97.3 F L 01/22/19 06:00 Pulse Rate 84 01/22/19 10:00 Respiratory Rate 18 01/22/19 10:00 Blood Pressure 142/76 01/22/19 10:00 O2 Sat by Pulse Oximetry (%) 99 01/22/19 09:00 Intake & Output 01/19/19 01/20/19 01/21/19 01/22/19 23:59 23:59 23:59 23:59 Intake Total 600 1975 700 Output Total 300 Balance 600 1975 400 Weight 122.016 kg 121.88 kg 122.215 kg 121.818 kg NAD awake and alert neck supple RRR CTA soft NT/ND + edema in LE CBC, BMP 01/22/19 07:55 01/22/19 07:55 Current Medications Acetaminophen (Tylenol -) 650 mg PO Q6H PRN PRN Reason: PAIN LEVEL 1-5 Last Admin: 01/17/19 00:19 Dose: 650 mg Aspirin (Asa -) 81 mg PO DAILY [facility] Last Admin: 01/22/19 09:06 Dose: 81 mg Carvedilol (Coreg -) 3.125 mg PO BID [facility] Last Admin: 01/22/19 09:06 Dose: 3.125 mg Escitalopram Oxalate (Lexapro -) 5 mg PO DAILY@0800 [facility] Last Admin: 01/22/19 08:45 Dose: 5 mg Heparin Sodium (Porcine) (Heparin -) 5,000 unit SQ BID [facility] Last Admin: 01/22/19 09:05 Dose: 5,000 unit Hydrocortisone (Anusol 2.5% Hc Cream -) 1 applic TP BID [facility] Last Admin: 01/22/19 09:09 Dose: 1 applic Cefazolin Sodium 1 gm/ (Dextrose) 50 mls @ 100 mls/hr IVPB BID [facility] Last Admin: 01/22/19 09:07 Dose: 100 mls/hr Insulin Aspart (Novolog Vial Sliding Scale -) 1 vial SQ ACHS [facility]; Protocol Last Admin: 01/22/19 12:14 Dose: Not Given Insulin Detemir (Levemir Vial) 20 units SQ AM [facility] Last Admin: 01/22/19 07:24 Dose: 20 units Metolazone (Zaroxolyn -) 5 mg PO DAILY [facility] Last Admin: 01/22/19 09:12 Dose: 5 mg Nystatin (Nystop Powder -) 1 applic TP BID [facility] Last Admin: 01/22/19 09:09 Dose: 1 applic Oxycodone HCl (Roxicodone -) 5 mg PO QID PRN PRN Reason: PAIN LEVEL 6-10 Last Admin: 01/22/19 12:12 Dose: 5 mg Pantoprazole Sodium (Protonix -) 40 mg PO DAILY [facility] Last Admin: 01/22/19 09:05 Dose: 40 mg Sodium Chloride ([place] Nasal [place] -) 2 spray NS TID [facility] Last Admin: 01/22/19 07:25 Dose: 2 sprays Valsartan (Diovan -) 40 mg PO DAILY [facility] Last Admin: 01/22/19 09:05 Dose: 40 mg Zolpidem Tartrate (Ambien -) 5 mg PO HS PRN PRN Reason: INSOMNIA Last Admin: 01/22/19 01:39 Dose: 5 mg 53 year old woman with CKD, hypertension, hyperlipidemia, CAD who presented from home with progressive lower extremity swelling and pruritus. Pt was seen me as an outpatient about 2 months ago for CKD, Cr was 1.5 at that time. 1. Fluid overload/lower extremity edema 2. CKD stage 3 3. Hypertension 4. Skin rash/suspected drug rash Renal function stable/improved volume status slowly improving, continue metolazone 5mg Daily skin rash resolved follow up in our office within 2 weeks check BMP in 1 week advised to maintain a low salt diet at home and to drink as per thirst Ervin Baig DO
== END 2019-01-22 15:33 | disposition home or self-care (01) | DRG 291 ==
LOC: JER 14:13 → JERBED 16:11 → J5S 22:16
PROVIDERS: ADMIT Family Medicine; ATTEND Family Medicine
DX: I13.0 Hypertensive heart and chronic kidney disease with heart failure and stage 1 through stage 4 chronic kidney disease, or unspecified chronic kidney disease (principal); I50.23 Acute on chronic systolic (congestive) heart failure; I25.10 Atherosclerotic heart disease of native coronary artery without angina pectoris; Z98.61 Coronary angioplasty status; E11.9 Type 2 diabetes mellitus without complications; E87.70 Fluid overload, unspecified; N18.3 Chronic kidney disease, stage 3 (moderate); R21 Rash and other nonspecific skin eruption; R94.5 Abnormal results of liver function studies; K76.0 Fatty (change of) liver, not elsewhere classified; E66.9 Obesity, unspecified; Z68.39 Body mass index [BMI] 39.0-39.9, adult; E11.43 Type 2 diabetes mellitus with diabetic autonomic (poly)neuropathy; E78.5 Hyperlipidemia, unspecified; I42.9 Cardiomyopathy, unspecified
CPT/HCPCS: 36415; 71046-TC-FY; 76700-TC; 76775-TC; 80048; 80053; 80076; 81003; 82105; 82550; 82570; 82728; 82962; 82977; 83036; 83516; 83540; 83550; 83735; 83880; 84100; 84156; 84439; 84443; 84484; 85025; 85027; 85610; 85730; 86038; 86704; 86706; 86707; 86708; 86709; 86803; 87040; 87340; 93005; 93010; 93306-TC; 93970-TC; 97116-GP; 97161-GP; 99283-25; J1644; J1756